=== PATIENT | female | born 1970 | race Caucasian/White ===

== ENCOUNTER → 2018-11-20 16:13 | Outpatient (CLI) | payer MEDICARE, SELFPAY | PROVIDERS: Visit Provider Obstetrics & Gynecology | DX: R00.2 Palpitations (principal) | CPT/HCPCS: 93005 ==

== ENCOUNTER → 2023-09-07 07:54 | Outpatient (CLI) | payer MEDICARE, SELFPAY ==
--- NOTE | 2023-09-07 08:01 | NM_ITS ---
APPROVED REPORT Exam: Nuclear Stress Test Indication: chest pain..soa..fatigue..high bp..high cholesterol..family hx Patient Location: Outpatient Stress Tech: Radha Leyva [place] Tech:Alvina Huertas, ARRT RT(R)(N) Ht: 5 ft 4 in Wt: 170 lbs Bra Size: 44dd HR: 74 bpm BP: 135/87 mmHg BSA: 1.83 m2 Rhythm: NSR TID: 1.27 BMI: 29.1 History: chest pain..soa..fatigue..high bp..high cholesterol..family hx Procedure: Patient exercised on Amarjit protocol 6 minutes and sec, resting heart rate 74 bpm, resting blood pressure 135/87 mmHg, with exercise maximum heart rate achived was 146 bpm which is 88 % of the maximum predicted heart rate and blood pressure was 185/99 mmHg. Test was stopped due to fatigue..soa. Patient denied any complaint of chest pain. Patient has Average exercise capacity, achieved 7 METs of workload on treadmill, the blood pressure response to exercise was Normal. Cardiac Stress and Resting SPECT Images: Cardiac Stress and Resting SPECT images were obtained using technetium 99m Myoview 32.3 mCi stress and 10.33 mCi at rest. Resting and stress imaging in supine and prone positions demonstrate no evidence of fixed or reversible perfusion defects. There is increased transient ischemic dilatation ratio (TID 1.27), suggestive of possible multivessel disease or balanced ischemia. Gated imaging demonstrates normal global and regional LV systolic function. LVEF is calculated at 70%. Conclusion: No evidence of fixed or reversible perfusion defects. There is increased transient ischemic dilatation ratio (TID 1.27), suggestive of possible multivessel disease or balanced ischemia. Gated imaging demonstrates normal global and regional LV systolic function. LVEF is calculated at 70%. Electronically signed by : Danielle Burger MD 09/14/2023 10:17:32
--- NOTE | 2023-09-07 08:30 | CA_ITS ---
APPROVED REPORT EXAM: Comprehensive 2D, Doppler, and color-flow Echocardiogram Insurance Salesman: Nani Nicholson RVT Ht: 5 ft 5 in Wt: 189lbs BSA: 1.93 BP: 132/84 mmHg Indications: ANGINA,HTN,FATIGUE,EDEMA,HLD 2D Dimensions LVOT 1.76 cm (M/F) 1.5-2.5 LA Volume 51.10 mL LA Volume Index 26.48 mL/m2 (M/F) 16-34 M-Mode Dimensions RVDd 2.29 cm (0.9-2.6) LA Diam 3.50 cm (1.9-4.0) LVDd 3.26 cm (3.5-5.7) Ao Diam 3.21 cm (2.0-3.7) LVDs 1.89 cm (3.5-5.7) IVSd 0.60 cm (0.6-1.1) PWd 0.60 cm (0.6-1.1) EF (Teich) 74.30% FS 42.00% EDV (Teich) 42.80 mL TAPSE 2.22 (<1.7) ESV (Teich) 11.00 mL LV Diastology E Decel Time 150.00 (160-240 msec) E/A Ratio 0.9 MED E' 11.00 (< 7 cm/sec) E'/MED E' Ratio 7.14 (>14) LAT E' 8.60 (<10 cm/sec) E/LAT E' Ratio 9.13 (>14) Aortic Valve LVOT Max 97.00 (70-110 cm/s) LVOT VTI 23.63 cm AoV Peak Jad. 98.00 (50-130 cm/s) AO Peak GR. 3.80 mmHg AO Mean GR. 1.90 (<5 mmHg) AO VTI 23.75 (18-25 cm) SADIQ (VTI) 2.42 (2.5-4.5 cm2) Mitral Valve MV E Max Jad. 79.00 (40-130 cm/s) MV A Velocity 90.00 (40-130 cm/s) E/A Ratio 0.87 MV Decel. Time 150.00 (160-240 ms) MV PHT 44.00 ms Pulmonary Valve PV Peak Velocity 69.00 (50-150 cm/s) Tricuspid Valve TR P. Velocity 253.00 cm/s RAP Estimate 10.00 mmHg RVSP 35.50 mmHg Left Ventricle The left ventricle is normal size. The left ventricular systolic function is normal. The left ventricular ejection fraction is within the normal range. There is proximal septal thickness noted. There is normal LV segmental wall motion. The left ventricular diastolic function is normal. LVEF is 60%. Right Ventricle The right ventricle is mildly dilated. The right ventricular systolic function is normal. Atria The left atrium size is normal. The right atrium size is normal. There is no Doppler evidence of interatrial shunt. Aortic Valve The aortic valve opens well. There is no aortic valvular stenosis. Trace aortic regurgitation. Mitral Valve The mitral valve is normal in structure. No evidence of mitral valve stenosis. Mild mitral regurgitation. Tricuspid Valve Tricuspid valve leaflets are thin and pliable. Trace tricuspid regurgitation. RVSP is 25-30 mmHg. Pulmonic Valve The pulmonary valve is normal in structure. Trace pulmonic regurgitation. Great Vessels The aortic root is normal in size. The ascending aorta is normal in size. IVC is normal in size and collapses >50% with inspiration. Pericardium There is no pericardial effusion. Other Information Study Quality: Fair Conclusion Normal left ventricular systolic function. Proximal septal thickness is noted, but without LVOT obstruction. Mild RV dilation. Mild MR. Electronically signed by : Danielle Burger MD 09/14/2023 10:14:23
--- NOTE | 2023-09-07 09:50 | CA_ITS ---
APPROVED REPORT Exam: Exercise Treadmill Technologist: Radha Smith, Ht: 5 ft 5 in Wt: 189 lbs BSA: 1.93 m2 HR: 67 bpm BP: 115/74 mmHg Rhythm: NSR Medical History Medications: Lisinopril,,,,, Levothyroxine,,,,, SpirOLACTONE,,,,, OxYCODONE,,,,, Tizanidine,,,,, TrULicity,,,,, Acarbose,,,,, Stress Test Details Test: Amarjit HR Resting HR: 74 bpm Max Heart Rate (APMHR): 165 bpm Max HR Achieved: 146 bpm Target HR (85% APMHR): 140 bpm % of APMHR: 88 Recovery HR: 72 bpm BP Resting BP: 135.0/87.0 mmHg Max BP: 185.0/99.0 mmHg Recovery BP: 139.0/87.0 mmHg BP response to stress: Normal blood pressure response to stress. ECG Resting ECG: NSR, cannot R/O old anterior [place] Stress ECG: < 0.[address] depression Arrhythmia: None Recovery ECG: Return to baseline within 3 minutes of recovery Recovery Arrhythmia: None Clinical Exercise duration: 06:00 min Highest Stage Achieved: II Exercise capacity: 7.0 METs Overall Exercise Capacity for Age: Average Stress ECG Conclusion The patient was able to exercise for total of 6 minutes, 0 seconds. She achieved a total of 7.0 METS. She has average exercise capacity compared to age and sex matched peers. She has normal HR and BP response to exercise. Max HR: 146 % of PM: 88% Max BP: 185/99 METs: 7.0 Test stopped due to: SOA Symptoms: No CP. Arrhythmias/Ectopy: None ST-T Changes: < 0.[address] depression Conclusion: Average exercise capacity. Normal GXT response to exercise. Myoview images reported separately. Test Summary REST . . . . . . . Sitting REST . . . . . . . Standing REST 03:28 0.0 0.0 74 . 135/ 87 . . Stage 1 01:00 10.0 1.7 94 . . . . Stage 1 02:00 10.0 1.7 110 . . . . Stage 1 03:00 10.0 1.7 116 . 164/ 88 . . Stage 2 01:00 12.0 2.5 129 . . . . Stage 2 . . . . . . . Myoview Injected Stage 2 02:00 12.0 2.5 138 . . . . Stage 2 03:00 12.0 2.5 146 . . . Stop exercise at 06:00 RECOVERY 01:00 0.0 0.0 111 . . . . RECOVERY 02:00 0.0 0.0 83 . 185/ 99 . . RECOVERY 03:00 0.0 0.0 73 . 185/ 99 . . RECOVERY 04:00 0.0 0.0 72 . 159/ 88 . . RECOVERY 05:00 0.0 0.0 75 . 139/ 87 . . RECOVERY 05:26 0.0 0.0 74 . 139/ 87 . . Electronically signed by : Danielle Burger MD 09/14/2023 10:16:15
== END ==
LOC: RAD 07:56
PROVIDERS: PCP Emergency Medicine; Visit Provider Nurse Practitioner Family
DX: E78.5 Hyperlipidemia, unspecified (principal); I10 Essential (primary) hypertension; I20.89 Other forms of angina pectoris; R06.00 Dyspnea, unspecified; R40.0 Somnolence
CPT/HCPCS: 78452; 93017; 93018; 93306; A9502

== ENCOUNTER 2023-10-19 07:34 | Day surgery (SDC) | payer MEDICARE, SELFPAY ==
[2023-10-19] VITALS (12 sets, daily range): BP systolic 87–143; BP diastolic 55–100; PULSE 63–88; RESP 16–20; O2SAT 94–98; BMI 32.1
--- NOTE | 2023-10-19 | IR_ITS ---
APPROVED REPORT Patient Location: Outpatient Disaster Director: SEAN Baez RT (R) PROCEDURES Left heart catheterization Left ventriculogram Selective coronary angiogram INDICATION High risk abnormal Myoview, Angina pectoris, Risk factors for coronary disease Informed consent was obtained prior to the procedure. COMPLICATIONS None Estimated Blood Loss: Less than 10 mls TECHNIQUE One percent lidocaine used to anesthetize the right anterior aspect of the wrist. The right radial artery was accessed via the Seldinger technique. A 6 Persian sheath was placed in the right radial artery. 2.5 mg of Verapamil, 800 mcg of nitroglycerin, 1mg Lidocaine and 5000 U Heparin were given through the arterial sheath. The papa catheter was also used to perform left heart catheterization, left ventriculogram and selective coronary angiogram. At the end of the procedure the sheath was removed good hemostasis was achieved using Traclet band, patient was transferred to the postop holding area in stable condition. ANGIOGRAPHIC RESULTS The left main artery Normal The left anterior descending artery Has proximal and mid vessel 10 to 20% stenoses The circumflex artery Dominant mild 10% luminal irregularities The right coronary artery Nondominant with mid vessel and distal 10 to 20% luminal irregularities The SANCHEZ ventriculogram reveals Hyperdynamic at 80% The left ventricular end-diastolic pressure Elevated at 20 mmHg IMPRESSION Mild diffuse nonflow limiting coronary artery disease as described above Hyperdynamic ventricle with elevated LVEDP PLAN 1. Rest of risk factor modification 2. Aggressive medical management Electronically signed by : Omari Miller MD 10/19/2023 10:22:20
[2023-10-19 08:38] LABS: Basophils # 0.1 K/mm3 (0-0.2); Basophils % 1.3 % (0.1-2.0); Eosinophils # 0.6 K/mm3 (0.0-0.4); Hematocrit 43.1 % (37.0-47.0); Hemoglobin 15.2 g/dL (12.2-16.2); Lymphocytes # 4.1 K/mm3 (0.7-4.5); Lymphocytes % 43.5 % (10-50); Mean Corpuscular HGB Conc 35.3 g/dL (31.8-35.4); Mean Corpuscular Hemoglobin 30.6 pg (27.0-31.2); Mean Corpuscular Volume 86.6 fl (81-99); Monocytes # 0.8 K/mm3 (0.1-1.0); Monocytes % 8.9 % (1.7-9.3); Neutrophils # 3.8 K/mm3 (1.8-7.8); Neutrophils % 40.3 % (37.0-80.0); Platelet Count 222 K/mm3 (142-424); Red Blood Count 4.97 M/mm3 (4.20-5.40); White Blood Count 9.3 K/mm3 (4.8-10.8)
[2023-10-19 09:02] LABS: Anion Gap 9.5 mEq/L (5-15); Blood Urea Nitrogen 13 mg/dl (7-17); Calcium 8.6 mg/dl (8.4-10.2); Carbon Dioxide 27 mmol/L (22.0-30.0); Chloride 102 mmol/L (98-107); Creatinine Clearance Estimated 125 mL/min (50-200); Estimated Glomerular Filt Rate 87 ml/min (>60); GFR (African American) 105 ML/MIN (>60); Glucose 189 mg/dl (74-100); Potassium 3.5 mmoL/L (3.5-5.1); Sodium 135 mmol/L (136-145)
[2023-10-19 09:23] LABS: HCG Qualitative, Serum Negative (Negative)
[2023-10-19] MEDS: diphenhydrAMINE 50MG/ML VIAL 50 MG IV (10:04)
[2023-10-19] MEDS: NITROGLYCERIN 800MCG/8ML SYR (CATH LAB) 800 MCG IA (10:04)
[2023-10-19] MEDS: HEPARIN 1,000 UNITS/500ML NS (CATH LAB) 3000 UNIT IV (10:05)
[2023-10-19] MEDS: LIDOCAINE 1% 10ML MDV 20 ML IJ (10:05)
[2023-10-19] MEDS: HEPARIN 1,000 UNITS/ML 10ML VIAL (CATH LAB) 10000 UNIT IV (10:05)
[2023-10-19] MEDS: 0.9 % SODIUM CHLORIDE 500 ML 25 ML IV (10:06)
[2023-10-19] MEDS: FENTANYL 100MCG/2ML VIAL 50 MCG IV (10:19)
[2023-10-19] MEDS: MIDAZOLAM HCL 1MG/1ML 5ML VIAL 1 MG IV (10:20)
[2023-10-19] MEDS: VERAPAMIL 2.5MG/ML 2ML VIAL 2.5 MG IV (10:46)
[2023-10-19] MEDS: IOPAMIDOL-370 (76%);100ML BOTTLE 50 ML IV (10:49)
== END 2023-10-19 13:20 | disposition home or self-care (01) ==
PROVIDERS: PCP Nurse Practitioner Family; Visit Provider Internal Medicine
DX: I25.118 Atherosclerotic heart disease of native coronary artery with other forms of angina pectoris (principal); R94.39 Abnormal result of other cardiovascular function study; Z79.899 Other long term (current) drug therapy; E11.9 Type 2 diabetes mellitus without complications; E78.5 Hyperlipidemia, unspecified; I10 Essential (primary) hypertension; R06.09 Other forms of dyspnea
CPT/HCPCS: 80048; 84703; 85025; 93458; 99152; C1725; C1769; J1644; Q9967

== ENCOUNTER 2023-11-07 18:21 | Outpatient (CLI) | payer MEDICARE, SELFPAY ==
[2023-11-07 19:29] LABS: Phencyclidine Screen,Urine Negative ng/ml (<25)
[2023-11-07 19:44] LABS: Barbiturates Screen,Urine Negative ng/ml (<200)
[2023-11-07 19:45] LABS: Benzodiazepines Screen,Urine Negative ng/ml (<200)
[2023-11-07 19:46] LABS: Cocaine Screen,Urine Negative ng/ml (<300)
[2023-11-07 19:47] LABS: Methadone Screen,Urine Negative ng/ml (<300)
[2023-11-07 19:51] LABS: Amphetamine/Metha Screen,Urine Negative ng/ml (<1000)
[2023-11-07 19:52] LABS: Cannabinoid Screen,Urine Negative ng/ml (<50)
[2023-11-07 19:56] LABS: Opiate Screen,Urine Negative ng/ml (<300)
== END 2023-11-07 23:59 ==
LOC: LAB.DROPOF 18:21
PROVIDERS: Visit Provider Family Medicine
DX: Z79.899 Other long term (current) drug therapy (principal)
CPT/HCPCS: 80307; 80365

== ENCOUNTER 2023-11-15 20:19 | Outpatient (CLI) | payer MEDICARE, SELFPAY ==
[2023-11-15 21:07] LABS: Amphetamine/Metha Screen,Urine Negative ng/ml (<1000); Benzodiazepines Screen,Urine Negative ng/ml (<200)
[2023-11-15 21:08] LABS: Barbiturates Screen,Urine Negative ng/ml (<200)
[2023-11-15 21:09] LABS: Cannabinoid Screen,Urine Negative ng/ml (<50); Cocaine Screen,Urine Negative ng/ml (<300)
[2023-11-15 21:10] LABS: Methadone Screen,Urine Negative ng/ml (<300); Opiate Screen,Urine Negative ng/ml (<300)
[2023-11-15 21:11] LABS: Phencyclidine Screen,Urine Negative ng/ml (<25)
[2023-11-20 10:32] LABS: Opiates Negative (Cutoff=100); Oxycodone (GC/MS) 896 ng/mL (Cutoff=100); Oxymorphone (GC/MS) 911 ng/mL (Cutoff=100)
== END 2023-11-15 23:59 ==
LOC: LAB.DROPOF 20:20
PROVIDERS: Visit Provider Family Medicine
DX: Z79.899 Other long term (current) drug therapy (principal)
CPT/HCPCS: 80307; 80361; 80365; G0480

== ENCOUNTER 2023-11-17 19:28 | Outpatient (CLI) | payer MEDICARE, SELFPAY | END 2023-11-17 23:59 | LOC: LAB.DROPOF 19:31 | PROVIDERS: PCP Nurse Practitioner; Visit Provider Nurse Practitioner | DX: B35.1 Tinea unguium (principal); M79.674 Pain in right toe(s) | CPT/HCPCS: 87102; 87206; 87220 ==

== ENCOUNTER 2023-11-22 13:15 | Outpatient (CLI) | payer MEDICARE, SELFPAY ==
--- NOTE | 2023-11-22 13:23 | XR_ITS ---
FINAL REPORT CLINICAL HISTORY: right shoulder pain/swelling. Hx of arthritis and rotator cuff tear. COMPARISON: None FINDINGS: RIGHT SHOULDER: Three views show no evidence of an acute, displaced fracture or dislocation of the visualized bony architecture. Mild degenerative joint disease is present in the glenohumeral and acromioclavicular joints. IMPRESSION: Degenerative changes. No acute bony abnormality. Reviewed, Interpreted and Dictated by Lisa Gann MD Transcribed by Eun Cabrales Authenticated and [facility]
== END 2023-11-22 23:59 ==
LOC: RAD 13:16
PROVIDERS: PCP Family Medicine; Visit Provider Orthopaedic Surgery
DX: M25.511 Pain in right shoulder (principal)
CPT/HCPCS: 73030

== ENCOUNTER 2024-01-11 18:22 | Outpatient (CLI) | payer MEDICARE, SELFPAY ==
[2024-01-11 19:04] LABS: Chloride 104 mmol/L (98-107); Potassium 4.1 mmoL/L (3.5-5.1); Sodium 137 mmol/L (136-145)
[2024-01-11 19:06] LABS: Blood Urea Nitrogen 12 mg/dl (7-17); Estimated Glomerular Filt Rate 104 ml/min (>60); GFR (African American) 126 ML/MIN (>60)
[2024-01-11 19:07] LABS: Alanine Aminotransferase 22 U/L (12-78); Albumin Level 3.9 g/dl (3.5-5.0); Albumin/Globulin Ratio 1.5 (1.1-1.8); Alkaline Phosphatase 83 U/L (38-126); Anion Gap 9.1 mEq/L (5-15); Aspartate Amino Transferase 26 U/L (14-36); Bilirubin,Direct 0.2 mg/dl (0.0-0.4); Bilirubin,Indirect 0.5 mg/dL (0.0-0.9); Bilirubin,Total 0.7 mg/dl (0.2-1.3); Bilirubin,Unconjugated 0.6 mg/dL (0.0-1.1); Calcium 8.9 mg/dl (8.4-10.2); Carbon Dioxide 28 mmol/L (22.0-30.0); Cholesterol 199 mg/dl (140-200); Globulin 2.6 g/dL (1.3-3.2); Glucose 124 mg/dl (74-100); HDL Cholesterol 31 mg/dl (40-60); Total Protein,Serum 6.5 g/dl (6.3-8.2); Triglycerides 283 mg/dl (30-150); VLDL Cholesterol 57 mg/dL (0-40)
[2024-01-11 19:11] LABS: Chol/HDL Ratio 6.4 (1-3.5)
[2024-01-11 19:31] LABS: Direct LDL Cholesterol 99.17 mg/dL (100-129)
[2024-01-11 19:38] LABS: Thyroid Stimulating Hormone < 0.02 uIU/mL (0.465-4.68)
[2024-01-11 20:08] LABS: Hemoglobin A1C 6.2 % (4.0-6.0)
== END 2024-01-11 23:59 ==
LOC: LAB.DROPOF 18:22
PROVIDERS: PCP Family Medicine; Visit Provider Family Medicine
DX: E78.5 Hyperlipidemia, unspecified (principal); E11.9 Type 2 diabetes mellitus without complications; E78.2 Mixed hyperlipidemia; C73 Malignant neoplasm of thyroid gland; Z79.899 Other long term (current) drug therapy
CPT/HCPCS: 80053; 80061; 80076; 83036; 84443

== ENCOUNTER 2024-03-26 10:48 | Outpatient (CLI) | payer MEDICARE, SELFPAY ==
[2024-04-02 16:12] LABS: Atopobium vaginae Low - 0 Score (.); BVAB2 Low - 0 Score (.); Candida albicans NAA Negative (Negative); Candida glabrata Negative (Negative); Chlamydia Trachomatis NAA Negative (Negative); HSV 1 NAA Negative (Negative); HSV 2 NAA Negative (Negative); Megasphaera 1 Low - 0 Score (.); Neisseria gonorrhoeae NAA Negative (Negative); Trich vag NAA Negative (Negative)
== END 2024-03-26 23:59 | disposition home or self-care (01) ==
LOC: LAB.DROPOF 03-27 10:48
PROVIDERS: PCP Urology; Visit Provider Urology
DX: N39.0 Urinary tract infection, site not specified; N39.46 Mixed incontinence; N89.8 Other specified noninflammatory disorders of vagina
CPT/HCPCS: 87491; 87529; 87563; 87591; 87661; 87798; 87801

== ENCOUNTER 2024-04-04 11:04 | Outpatient (CLI) | payer MEDICARE, SELFPAY ==
[2024-04-04 20:28] LABS: Thyroid Stimulating Hormone < 0.02 uIU/mL (0.465-4.68)
[2024-04-05 10:33] LABS: Triiodothryronine (T3) Uptake 37 % (23.5-40.5)
[2024-04-05 10:34] LABS: Free Thyroxine Index 4.9 ug/dL (5.93-13.13); T4 (Thyroxine) 13.2 ug/dl (5.53-11.0)
[2024-04-05 10:48] LABS: Thyroid Stimulating Hormone < 0.02 uIU/mL (0.465-4.68)
== END 2024-04-04 23:59 | disposition home or self-care (01) ==
LOC: LAB.DROPOF 04-05 11:05
PROVIDERS: Visit Provider Family Medicine
DX: E03.9 Hypothyroidism, unspecified (principal); R79.89 Other specified abnormal findings of blood chemistry
CPT/HCPCS: 84436; 84443; 84479

== ENCOUNTER 2024-04-10 07:49 | Outpatient (CLI) | payer MEDICARE, SELFPAY ==
--- NOTE | 2024-04-10 07:49 | CT_ITS ---
FINAL REPORT TECHNIQUE: Axial CT of the abdomen and pelvis, without and with IV contrast. Coronal and sagittal reconstructions were obtained and reviewed. This study was performed with techniques to keep radiation doses as low as reasonably achievable, (ALARA). Individualized dose reduction techniques using automated exposure control or adjustment of mA and/or kV according to the patient's size were employed. CLINICAL HISTORY: Abdominal pain COMPARISON: None FINDINGS: Abdomen: Liver has an unremarkable CT appearance. Status post cholecystectomy. The spleen, pancreas and adrenal glands are unremarkable. Precontrast imaging shows no renal stone disease. Postcontrast imaging of the kidneys shows minimal right renal scarring. There is a small right renal cyst. No bowel obstruction or fluid collection is seen. Pelvis: The appendix is normal. Pelvic bowel loops are unremarkable. Status post hysterectomy. No pelvic mass or free fluid identified. IMPRESSION: Unremarkable exam Reviewed, Interpreted and Dictated by Lisa Gann MD Transcribed by Aria Fernando Authenticated and [facility]
--- NOTE | 2024-04-10 08:12 | CT_ITS ---
FINAL REPORT TECHNIQUE: Axial images were obtained from the lung apex to the mid abdomen by computed tomography. Coronal reformatted images were obtained. This study was performed with techniques to keep radiation doses as low as reasonably achievable, (ALARA). Individualized dose reduction techniques using automated exposure control or adjustment of mA and/or kV according to the patient''s size were employed. CLINICAL HISTORY: Nodules/Chest pain COMPARISON: None FINDINGS: There is mild precarinal adenopathy measuring 18 x 13 mm. Heart size is normal. The ascending aorta is borderline enlarged with the aortic sinus measuring 40 mm and the mid ascending aorta measuring 36 mm. There is no pericardial or pleural effusion. There is a thin-walled cyst in the medial right lung apex measuring 16 mm. Mild scarring is noted at the lateral right lower lobe. The left lung is clear. There is a mass in the upper right breast measuring 31 x 21 mm with smoothly marginated calcified rim suggesting benign etiology. IMPRESSION: No suspicious pulmonary nodule. Nonspecific mild mediastinal adenopathy. Right breast mass. Correlate with prior breast imaging. Reviewed, Interpreted and Dictated by Lisa Gann MD Transcribed by Aria Fernando Authenticated and [facility]
--- NOTE | 2024-04-10 08:12 | XR_ITS ---
FINAL REPORT CLINICAL HISTORY: Abdominal pain COMPARISON: None FINDINGS: The visualized intestinal gas pattern appears unremarkable without evidence to suggest obstruction. No abnormal radiopacities are seen in the abdomen. Surgical change from prior cholecystectomy. IMPRESSION: No acute findings. Reviewed, Interpreted and Dictated by Lisa Gann MD Transcribed by Aria Fernando Authenticated and [facility]
[2024-04-10 08:53] LABS: Blood Urea Nitrogen 16 mg/dl (7-17); Estimated Glomerular Filt Rate 74 ml/min (>60); GFR (African American) 90 ML/MIN (>60)
== END 2024-04-10 23:59 | disposition home or self-care (01) ==
PROVIDERS: PCP Family Medicine; Visit Provider Urology
DX: N20.0 Calculus of kidney (principal); R91.8 Other nonspecific abnormal finding of lung field; N39.41 Urge incontinence
CPT/HCPCS: 36415; 71250; 74018; 74178; 82565; 84520; Q9967

== ENCOUNTER 2024-04-13 09:57 | Day surgery (SDC) | payer MEDICARE, SELFPAY ==
[2024-04-13 11:07] VITALS: BP 123/89; PULSE 83; RESP 18; TEMP 36.5; O2SAT 98; BMI 27.4
[2024-04-13 11:12] LABS: POC Glucose,Bedside 171 (70-110)
[2024-04-13] MEDS: LACTATED RINGERS 1000ML 1,000 ML 50 ML IV (13:41)
[2024-04-13] MEDS: LIDOCAINE 2% UROJET 10ML 10 ML (13:41)
--- NOTE | 2024-04-13 13:42 | P.PCN_ITS ---
[facility] Procedure Note Date: 04/13/24 Time: 13:42 Procedure Note:: Preop diagnosis: Bladder cancer history Postop diagnosis: No bladder cancer today Operative note: Patient was brought to the cystoscopy treatment room. She was prepped and draped in the standard fashion. She underwent catheterization for urine culture and sensitivity. Her postvoid residual is 1 ounce. Patient underwent flexible cystoscopy. Her urethra is normal. The ureteral orifices are normal bilaterally with clear reflux of urine. She has some pseudomembranous trigonitis. The patient's bladder is otherwise free of stone tumor hemorrhage or infection. She tolerated the procedure well.
[2024-04-13 13:45] VITALS: BP 129/79; PULSE 83; RESP 18; TEMP 36.7; O2SAT 98
[2024-04-13 14:05] VITALS: BP 129/79; PULSE 83; RESP 18; O2SAT 98
[2024-04-13 15:22] LABS: Microscopic,Cath URINE MICROSCOPIC (MICROSCOPIC)
[2024-04-13 15:32] LABS: Appearance,Urine/Cath CLEAR (Clear); Bilirubin,Cath Negative (Negative); Blood, Urine/Cath TRACE-I (Negative); Color,Urine/Cath YELLOW (Yellow); Glucose,Urine/Cath (UA) Negative (Negative); Ketones,Urine/Cath Negative (Negative); Leukocyte Esterase,Cath Negative (Negative); Nitrate,Cath Negative (Negative); PH,Urine/Cath 5.5 (5.0-8.5); Protein,Urine/Cath Negative (Negative); Specific Gravity, Urine/Cath >= 1.030 (1.005-1.030); Urobilinogen,Cath 0.2 EU/dl (0.2)
== END 2024-04-13 14:05 | disposition home or self-care (01) ==
PROVIDERS: PCP Family Medicine; Visit Provider Urology
PROC: 0TJB8ZZ Inspection of Bladder, Via Natural or Artificial Opening Endoscopic (ICD-10-PCS; CPT 52000; principal; 2024-04-13 12:15)
DX: N30.30 Trigonitis without hematuria (principal); Z85.51 Personal history of malignant neoplasm of bladder; E11.9 Type 2 diabetes mellitus without complications
CPT/HCPCS: 52000; 81001; 82962; J7120

== ENCOUNTER 2024-06-07 16:15 | Outpatient (CLI) | payer MEDICARE, SELFPAY ==
[2024-06-07 16:49] LABS: Basophils # 0.1 K/mm3 (0-0.2); Basophils % 1.2 % (0.1-2.0); Eosinophils # 0.7 K/mm3 (0.0-0.4); Eosinophils % 6.6 % (0.1-12.0); Hematocrit 44.7 % (37.0-47.0); Hemoglobin 14.7 g/dL (12.2-16.2); Lymphocytes # 3.2 K/mm3 (0.7-4.5); Lymphocytes % 32.1 % (10-50); Mean Corpuscular HGB Conc 32.9 g/dL (31.8-35.4); Mean Corpuscular Hemoglobin 30.7 pg (27.0-31.2); Mean Corpuscular Volume 93.4 fl (81-99); Mean Platelet Volume 7.8 fl (7.4-10.4); Monocytes # 0.7 K/mm3 (0.1-1.0); Monocytes % 7.3 % (1.7-9.3); Neutrophils # 5.2 K/mm3 (1.8-7.8); Neutrophils % 52.8 % (37.0-80.0); Platelet Count 292 K/mm3 (142-424); Red Blood Count 4.79 M/mm3 (4.20-5.40); White Blood Count 9.9 K/mm3 (4.8-10.8)
[2024-06-07 17:01] LABS: D-Dimer 0.31 ug/mL (0.0-0.5)
[2024-06-07 18:07] LABS: Alanine Aminotransferase 21 U/L (12-78); Albumin/Globulin Ratio 1.4 (1.1-1.8); Alkaline Phosphatase 84 U/L (38-126); Anion Gap 8.9 mEq/L (5-15); Aspartate Amino Transferase 24 U/L (14-36); Blood Urea Nitrogen 15 mg/dl (7-17); Calcium 9.4 mg/dl (8.4-10.2); Carbon Dioxide 29 mmol/L (22.0-30.0); Chloride 104 mmol/L (98-107); Estimated Glomerular Filt Rate 87 ml/min (>60); GFR (African American) 105 ML/MIN (>60); Globulin 2.9 g/dL (1.3-3.2); Glucose 103 mg/dl (74-100); Potassium 4.9 mmoL/L (3.5-5.1); Sodium 137 mmol/L (136-145); Total Protein,Serum 6.9 g/dl (6.3-8.2)
[2024-06-07 19:17] LABS: Amphetamine/Metha Screen,Urine Negative ng/ml (<1000); Barbiturates Screen,Urine Negative ng/ml (<200); Benzodiazepines Screen,Urine Negative ng/ml (<200); Cannabinoid Screen,Urine Negative ng/ml (<50); Cocaine Screen,Urine Negative ng/ml (<300); Methadone Screen,Urine Negative ng/ml (<300); Opiate Screen,Urine Negative ng/ml (<300); Phencyclidine Screen,Urine Negative ng/ml (<25)
[2024-06-12 16:14] LABS: Oxycodone Positive (.); Oxycodone Confirm 179 ng/mL (Cutoff=100); Oxymorphone Positive (.); Oxymorphone Confirm 897 ng/mL (Cutoff=100)
== END 2024-06-07 23:59 | disposition home or self-care (01) ==
LOC: LAB 16:16
PROVIDERS: PCP Family Medicine; Visit Provider Family Medicine
DX: M79.669 Pain in unspecified lower leg (principal); R53.83 Other fatigue; Z00.00 Encounter for general adult medical examination without abnormal findings; G89.29 Other chronic pain; M79.2 Neuralgia and neuritis, unspecified
CPT/HCPCS: 80053; 80307; 80365; 85025; 85378; G0480

== ENCOUNTER 2024-06-21 07:56 | Day surgery (SDC) | payer MEDICARE, SELFPAY ==
[2024-06-18 17:15] VITALS: BMI 32.4
[2024-06-21 08:22] VITALS: BP 126/77; PULSE 74; RESP 18; TEMP 36.4; O2SAT 97
[2024-06-21] MEDS: LACTATED RINGERS 1000ML 1,000 ML 25 ML IV (08:31)
[2024-06-21 08:37] LABS: POC Glucose,Bedside 133 (70-110)
--- NOTE | 2024-06-21 08:38 | EXP.ANES.CKL ---
[facility] Disclaimer: The information contained in this section may have been updated after the patient was seen, as this information can be updated by other users. Medical History Nasal vestibulitis Hyperthyroidism Internal nasal lesion Abnormal cardiovascular stress test Angina pectoris Diabetes mellitus HLD (hyperlipidemia) HTN (hypertension) Daytime somnolence Atypical angina Dyspnea Thyroid cancer Torn rotator cuff Cervical cancer Basal cell carcinoma Surgical History History of partial hysterectomy History of cholecystectomy History of thyroidectomy H/O: hysterectomy Family History Other Thyroid cancer Thyroid disorder Social History Smoking Status: Never smoker alcohol intake: current alcohol intake frequency: other substance use type: denies use current occupational status: unemployed and disabled Travel in the last 8 weeks: None [facility] Anesthesia Checklist Patient Identification Patient Identification: Arm Band, Family and Verbal (Name & ) Structural Data Admitted From: Home Planned Operative Procedure/s: EGD/Colonoscopy Consent for Planned Operative Procedure(s) Verified: Yes Verified Documents: Surgical Consent and History and Physical NPO Status Verified Time NPO: 20:00 Chart Verification Results Verified: CBC, BMP, ECG and Chest Xray Additional verifications Fingerstick Blood Glucose: 133 Patient : No Anesthesia Reactions: No Previous Colonoscopy: Yes Cardiovascular Assessment Heart Sounds: S1 & S2 Pulse Rhythm: Irregular Peripheral Edema: No Airway Assessment Mallampati Score:: Class II C-Spine Mobility Assessed: Yes (FROM demonstrated) TMJ Mobility Assessed: Yes Dentition: Good Dentition Neurological Assessment Level of Consciousness: Awake, Alert, Appropriate and Follows Commands Hx Seizures: No Numbness or tingling in extremities: No Anesthesia Plan Anesthesia Risk discussed: Yes Anesthesia Plan: Verified ASA Class: III Anesthesia Type: MAC
[2024-06-21 09:25] VITALS: O2SAT 96
--- NOTE | 2024-06-21 09:52 | HMH.SCOPE ---
Procedure: Date: 06/21/24 Patient Date of :: 1970 Procedure Performed:: EGD Indications:: Hx of Barretts Performing Provider:: Sophia Medrano MD Referring Provider:: Kimmie Medrano APRN Sedation:: Propofol Procedure:: The gastroscope was gently passed through the incisoral orifice into the oral cavity and under direct visualization the esophagus was intubated. The endoscope was passed down the esophagus, through the stomach, and into the duodenum. Color, texture, mucosa, and anatomy of the esophagus, stomach, and duodenum were carefully examined with the scope. Findings:: Oropharynx: normal Esophagus: normal, No evidence of barretts EG Junction: intact at 40 cm Cardia: normal Fundus: normal Body: normal Antrum: normal Duodenal bulb: normal Duodenum (second and third portion): normal Impression: Normal EGD, no evidence of barretts Recommendations:: F/U PRN Complications:: None Estimated blood obtained (mL): 0 Colonoscopy Component Colonoscopy Component Was a colonoscopy performed during today's procedure?: No
--- NOTE | 2024-06-21 09:54 | HMH.SCOPE ---
Procedure: Date: 06/21/24 Patient Date of :: 1970 Procedure Performed:: Colonoscopy & polypectomy Indications:: Personal history of polyps Performing Provider:: Sophia Medrano MD Referring Provider:: Kimmie Medrano APRN Sedation:: Propofol Procedure:: After placing the patient in the left lateral decubitus position, the colonoscopy was gently inserted into the rectum and under direct visualization advanced to the cecum which was identified by transillumination in the right lower quadrant, identification of the ileocecal valve, appendiceal orifice, and cecal strap. Color, texture, mucosa, and anatomy of the colon were carefully examined with the scope. Findings:: Anal canal: normal Rectum: normal Sigmoid colon: normal without polyps or inflammatory changes Descending colon: normal without polyps or inflammatory changes Splenic flexure: normal Transverse colon: normal, 0.5 cm polyp identified in proximal region, snared and removed. Hepatic flexure: normal Ascending colon: normal without polyps or inflammatory changes, moderate amount of retained stools Cecum: normal, visualiztion impaired due to retained stools Terminal ileum: not visualized Impression: Polyp of transverse colon-snared and removed Fair colon prep with moderate amount of residual stool seen, especially in right colon Specimens:: Polyp Recommendations:: Follow up examination in about THREE-FIVE years or so, sooner if clinically indicated in view of findings of polyps and fair prep. Complications:: None Estimated blood obtained (mL): 0 Colonoscopy Component Colonoscopy Component Was a colonoscopy performed during today's procedure?: Yes Recommended follow up colonoscopy of at least 10 years?: No If no, follow up colonoscopy recommended in ___ years?: 3-5 years Reason for not recommending >/= 10 yr follow-up interval?: Polyp and fair prep with residual stools
[2024-06-21 09:55] VITALS: BP 93/59; PULSE 88; RESP 16; TEMP 36.6; O2SAT 94
[2024-06-21 10:05] VITALS: BP 106/73; PULSE 81; RESP 16; O2SAT 97
[2024-06-21 10:15] VITALS: BP 122/76; PULSE 86; RESP 18; O2SAT 97
[2024-06-21 10:25] VITALS: BP 116/80; PULSE 80; RESP 16; O2SAT 97
== END 2024-06-21 10:39 | disposition home or self-care (01) ==
PROVIDERS: PCP Family Medicine; Visit Provider Internal Medicine Gastroenterology
PROC: 0DJ08ZZ Inspection of Upper Intestinal Tract, Via Natural or Artificial Opening Endoscopic (ICD-10-PCS; CPT 43235; principal; 2024-06-21 09:30)
DX: Z86.010 Personal history of colon polyps (principal); K21.9 Gastro-esophageal reflux disease without esophagitis; Z12.11 Encounter for screening for malignant neoplasm of colon; E11.9 Type 2 diabetes mellitus without complications; Z79.85 Long-term (current) use of injectable non-insulin antidiabetic drugs
CPT/HCPCS: 45385; 82962; 88305; J2704; J7120

== ENCOUNTER 2024-06-26 12:41 | Outpatient (CLI) | payer MEDICARE, SELFPAY ==
--- NOTE | 2024-06-26 12:50 | MR_ITS ---
FINAL REPORT CLINICAL HISTORY: loss of control of bladder, worsening pain in lower back FINDINGS: Multiplanar MR imaging of the lumbar spine was performed without and with contrast. On the sagittal T2-weighted images, disc degeneration is seen at multiple levels. The vertebral alignment is normal. There is no evidence of fracture. The conus is seen at approximately the L1 level and has an unremarkable appearance. L1-2: An annular bulge is present. Facet arthropathy and osteophytes are present. There is mild right neural foraminal narrowing. L2-3: An annular bulge and facet arthropathy are present. There is no significant canal stenosis or neural foraminal narrowing. L3-4: An annular bulge is present. Facet arthropathy and osteophytes are present. There is mild bilateral neural foraminal narrowing. L4-5: An annular disc bulge is present with mild bilateral neural foraminal narrowing. L5-S1: An annular bulge and facet arthropathy are present. There is a small right paracentral disc protrusion with mild bilateral neural foraminal narrowing. No abnormal contrast enhancement is identified. IMPRESSION: Multilevel mild degenerative disc disease and spondylosis with areas of neural foraminal narrowing as described. Small right paracentral disc protrusion at L5-S1. Reviewed, Interpreted and Dictated by Emile Ribera III, MD Transcribed by Anette Bernstein Authenticated and [facility]
[2024-06-26] MEDS: GADOTERIDOL INJ 10ML SYRINGE 16 ML IV (13:55)
[2024-06-26] MEDS: SODIUM CHLORIDE 0.9% 10ML SYR (RAD ONLY) 10 ML IV (13:55)
== END 2024-06-26 23:59 | disposition home or self-care (01) ==
LOC: RAD 12:42
PROVIDERS: PCP Family Medicine; Visit Provider Family Medicine
DX: R32 Unspecified urinary incontinence (principal)
CPT/HCPCS: 72158; A9576

== ENCOUNTER 2024-07-18 14:53 | Outpatient (CLI) | payer MEDICARE, SELFPAY ==
--- NOTE | 2024-07-18 14:53 | MR_ITS ---
FINAL REPORT CLINICAL HISTORY: unable to control urine stream, worsening pain FINDINGS: Multi planar MR imaging of the pelvis was obtained with and without contrast.. Marrow signal is normal. There is no adenopathy or soft tissue mass. Presacral region is unremarkable. The patient is status post hysterectomy. There is no evidence of abnormal contrast enhancement on the postcontrast images. IMPRESSION: No abnormality to account for patient's symptoms. Reviewed, Interpreted and Dictated by Lisa Gann MD Transcribed by Anette Bernstein Authenticated and [facility]
[2024-07-18 15:18] LABS: Blood Urea Nitrogen 13 mg/dl (7-17); Estimated Glomerular Filt Rate 87 ml/min (>60); GFR (African American) 105 ML/MIN (>60)
[2024-07-18] MEDS: SODIUM CHLORIDE 0.9% 10ML SYR (RAD ONLY) 10 ML IV (16:08)
[2024-07-18] MEDS: GADOTERIDOL INJ 20ML SYRINGE 16 ML IV (16:09)
== END 2024-07-18 23:59 | disposition home or self-care (01) ==
LOC: RAD 14:53
PROVIDERS: PCP Family Medicine; Visit Provider Family Medicine
DX: R32 Unspecified urinary incontinence (principal)
CPT/HCPCS: 36415; 72197; 82565; 84520; A9576

== ENCOUNTER 2024-09-21 08:54 | Outpatient (CLI) | payer MEDICARE, SELFPAY ==
--- NOTE | 2024-09-21 09:52 | ECG_ITS ---
APPROVED REPORT Exam: Resting ECG HR:76 bpm ECG Measurements Heart Rate 76 AXES WV 168 P 6 QRSd 75 QRS 70 QT 383 T 33 QTc 414 Conclusion SINUS RHYTHM LOW QRS VOLTAGE IN PRECORDIAL LEADS [QRS DEFLECTION < 1.0 mV IN CHEST LEADS] BORDERLINE ECG UNCONFIRMED REPORT Electronically signed by : Omkar Meadows MD 09/23/2024 11:18:53
[2024-09-21 09:57] VITALS: BMI 29.2
[2024-09-21 10:09] LABS: Chloride 108 mmol/L (98-107); Sodium 138 mmol/L (136-145)
[2024-09-21 10:11] LABS: Basophils # 0.1 K/mm3 (0-0.2); Basophils % 1.3 % (0.1-2.0); Eosinophils # 0.6 K/mm3 (0.0-0.4); Eosinophils % 6.5 % (0.1-12.0); Hematocrit 41.5 % (37.0-47.0); Hemoglobin 14.9 g/dL (12.2-16.2); Lymphocytes # 3.4 K/mm3 (0.7-4.5); Lymphocytes % 39.3 % (10-50); Mean Corpuscular HGB Conc 35.8 g/dL (31.8-35.4); Mean Corpuscular Hemoglobin 30.2 pg (27.0-31.2); Mean Corpuscular Volume 84.3 fl (81-99); Mean Platelet Volume 7.5 fl (7.4-10.4); Monocytes # 0.7 K/mm3 (0.1-1.0); Neutrophils # 3.9 K/mm3 (1.8-7.8); Platelet Count 239 K/mm3 (142-424); Red Blood Count 4.92 M/mm3 (4.20-5.40); Red Cell Distribution Width 13.3 % (11.5-17.5); White Blood Count 8.7 K/mm3 (4.8-10.8)
[2024-09-21 10:12] LABS: Blood Urea Nitrogen 13 mg/dl (7-17); Calcium 8.8 mg/dl (8.4-10.2); Carbon Dioxide 22 mmol/L (22.0-30.0); Creatinine Clearance Estimated 127 mL/min (50-200); Estimated Glomerular Filt Rate 103 ml/min (>60); GFR (African American) 125 ML/MIN (>60); Glucose 158 mg/dl (74-100)
== END 2024-09-21 23:59 | disposition home or self-care (01) ==
LOC: PREOP 08:55
PROVIDERS: Nurse Anesthetist, Certified Registered; PCP Family Medicine; Visit Provider Orthopaedic Surgery
DX: Z01.810 Encounter for preprocedural cardiovascular examination (principal); I10 Essential (primary) hypertension; R94.31 Abnormal electrocardiogram [ECG] [EKG]
CPT/HCPCS: 80048; 85025; 93005

== ENCOUNTER 2024-10-02 13:34 | Emergency (ER) | payer MEDICARE, SELFPAY ==
--- NOTE | 2024-10-02 13:45 | XR_ITS ---
FINAL REPORT CLINICAL HISTORY: Shortness of air, cough congestion FINDINGS: A single portable view of the chest was obtained. The heart size and pulmonary vascularity are within normal limits. The mediastinum is within normal limits. There are left lung opacities worrisome for pneumonia. The bony thorax is intact. IMPRESSION: Left lung opacities are worrisome for pneumonia. Reviewed, Interpreted and Dictated by Emile Ribera III, MD Transcribed by Liliane Samuels Authenticated and [facility]
--- NOTE | 2024-10-02 13:52 | ED_ITS ---
<Statement entered by Alisha Diaz DO - 10/02/24 15:30> I was consulted by the FARIBA, and we discussed the complexity of the problems being addressed. I approved the treatment and management plan for this patient's care in the emergency department, thus performing a substantive portion of the medical decision making. Alisha Diaz DO Discharge Plan Disposition Patient Disposition: Home, Self-Care Condition: Good Prescriptions Prescriptions: New amoxicillin-pot clavulanate 875-125 mg tablet 1 tab PO BID 5 Days Qty: 10 0RF azithromycin [Zithromax Z-Gavin] 250 mg tablet See Rx Instructions .ROUTE .COMPLEX Qty: 6 0RF Rx Instructions: For 500 mg dose pack: 500 mg day 1, take 250 mg once daily for 4 days No Action atorvastatin [Lipitor] 20 mg tablet 20 mg PO DAILY Qty: 90 1RF budesonide-formoterol [Symbicort] 160-4.5 mcg/actuation HFA aerosol inhaler 1 puff inhalation QID PRN (Reason: shortness of breath or wheezing) 90 Days Qty: 10.2 3RF Trulicity 3 mg/0.5 mL pen injector 3 mg SQ WEEKLY Qty: 2 2RF duloxetine [Cymbalta] 60 mg capsule,delayed release(DR/EC) 60 mg PO DAILY Qty: 90 0RF levothyroxine [Synthroid] 137 mcg tablet 137 mcg PO DAILY Qty: 90 1RF lisinopril 10 mg tablet 10 mg PO DAILY Qty: 90 1RF omeprazole 20 mg capsule,delayed release(DR/EC) 20 mg PO DAILY Qty: 90 1RF spironolactone 25 mg tablet 25 mg PO DAILY Qty: 90 1RF oxycodone-acetaminophen 10-325 mg tablet 1 tab PO TID Qty: 90 0RF fluticasone propionate [Flonase Allergy Relief] 50 mcg/actuation spray,suspension 2 spray intranasal DAILY 90 Days Qty: 16 2RF Rx Instructions: administer into each nostril tizanidine 4 mg tablet 4 mg PO HS Qty: 90 0RF aspirin 81 mg tablet,delayed release (DR/EC) See Rx Instructions .ROUTE .COMPLEX Qty: 90 1RF Dose Instruction: TAKE 1 TABLET BY MOUTH ONCE DAILY Rx Instructions: TAKE 1 TABLET BY MOUTH ONCE DAILY acarbose 100 mg Tablet 100 mg PO DAILY Referrals Follow up/Referrals: Gm,Janna, [facility] [Primary Care Provider] - See instructions Activity Restrictions/Add. Instructions Additional Instructions/Restrictions: Please return to the emergency department for any worsening signs or symptoms, please take antibiotics as prescribed, and [id number] cold and flu medication for symptomatic relief. Contact orthopedic surgeon regarding surgery tomorrow. Follow-up primary care provider. Clinical Impressions Clinical Impression: Pneumonia Instructions Patient Instructions: Pneumonia--Adult Print Language Print Language: Ivorian Discharge ED Provider: Alisha Diaz General Adult HPI <VINCENZO Vegas - Last Filed: 10/02/24 15:51> General Chief complaint: Upper Respiratory Infection Stated complaint: dry congestion body aches Time Seen by Provider: 10/02/24 13:47 Mode of Arrival: Ambulatory Source of Information: Patient Limitations: No Limitations History of Present Illness HPI narrative: 54-year-old female presents the emergency department with a 4-day history of subjective fever chills , dry cough congestion myalgias as well as generalized malaise. Patient has recent sick contact being exposed to COVID-19 by family member, states I would like to be tested for COVID , she denies any real chest pain or shortness of breath, only when she has coughing fits , she denies any real abdominal pain admits to nausea no vomiting no constipation, no urinary type symptomatology, admits to some diarrhea for the last week. 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 She is a non-smoker denies alcohol or drug use, initial triage vitals are notable for tachycardia otherwise unremarkable. Onset (ago): day(s) Related Data Home Medications ?Medication ?Instructions ?Recorded ?Confirmed acarbose 100 mg tablet 100 mg PO DAILY Diabetes 09/21/24 09/21/24 Previous Rx's ?Medication ?Instructions ?Recorded fluticasone propionate 50 2 spray intranasal DAILY 90 days 11/30/23 mcg/actuation nasal #16 grams spray,suspension (Flonase Allergy Relief) tizanidine 4 mg tablet 4 mg PO HS #90 tabs 01/11/24 aspirin 81 mg tablet,delayed See Rx Instructions .Route 05/11/24 release .COMPLEX #90 tabs atorvastatin 20 mg tablet (Lipitor) 20 mg PO DAILY #90 tabs 06/07/24 budesonide-formoterol HFA 160 1 puff inhalation QID PRN 06/07/24 mcg-4.5 mcg/actuation aerosol shortness of breath or wheezing 90 inhaler (Symbicort) days #10.2 grams dulaglutide 3 mg/0.5 mL 3 mg (0.5 mL) SQ WEEKLY #2 mL 06/07/24 subcutaneous pen injector (Trulicity) duloxetine 60 mg capsule,delayed 60 mg PO DAILY #90 caps 06/07/24 release (Cymbalta) levothyroxine 137 mcg tablet 137 mcg PO DAILY #90 tabs 06/07/24 (Synthroid) lisinopril 10 mg tablet 10 mg PO DAILY #90 tabs 06/07/24 omeprazole 20 mg capsule,delayed 20 mg PO DAILY #90 caps 06/07/24 release spironolactone 25 mg tablet 25 mg PO DAILY #90 tabs 06/07/24 oxycodone-acetaminophen 10 mg-325 1 tab PO TID #90 tabs 09/03/24 mg tablet amoxicillin 875 mg-potassium 1 tab PO BID 5 days #10 tabs 10/02/24 clavulanate 125 mg tablet azithromycin 250 mg tablet See Rx Instructions PO .COMPLEX #6 10/02/24 (Zithromax Z-Gavin) tabs Allergies Allergy/AdvReac Type Severity Reaction Status Date / Time terbutaline (From Brethine) Allergy Severe Anaphylaxis Verified 10/02/24 14:22 [facility] <VINCENZO Vegas - Last Filed: 10/02/24 15:51> [facility] Disclaimer: The information contained in this section may have been updated after the patient was seen, as this information can be updated by other users. Medical History (Updated 10/02/24 @ 15:48 by VINCENZO Vegas) History of histoplasmosis History of Mohs micrographic surgery for skin cancer Nasal vestibulitis Hyperthyroidism Internal nasal lesion Abnormal cardiovascular stress test Angina pectoris Diabetes mellitus HLD (hyperlipidemia) HTN (hypertension) Daytime somnolence Atypical angina Dyspnea Thyroid cancer Torn rotator cuff Cervical cancer Basal cell carcinoma Surgical History History of partial hysterectomy History of cholecystectomy History of thyroidectomy H/O: hysterectomy Family History Other Thyroid cancer Thyroid disorder Social History (Updated 09/21/24 @ 09:36 by Matt Luong, WILDER) Smoking Status: Never smoker alcohol intake: never substance use type: denies use current occupational status: retired and disabled Travel in the last 8 weeks: None Other Medical History Have you received the Pneumonia Vaccine: No <VINCENZO Vegas - Last Filed: 10/02/24 15:51> ROS Obtained: Yes All systems reviewed & no additional complaints except as documented Physical Exam <VINCENZO Vegas - Last Filed: 10/02/24 15:51> General General appearance: alert and in no apparent distress Head Head exam: atraumatic and normocephalic Eye Eye exam: Present PERRL and EOMI ENT ENT exam: Present mucous membranes moist Neck Neck exam: Present normal inspection Chest Chest inspection: Present normal inspection and symmetric chest wall rise Respiratory Respiratory exam: Present normal lung sounds bilaterally; Absent respiratory distress Cardiovascular Cardiovascular exam: Present regular rate and tachycardia Abdominal Exam Abdominal exam: Present soft; Absent tenderness, guarding, rebound or rigidity Extremities Exam Extremities exam: Present normal inspection Neurological Exam Neurological exam: Present alert and oriented X3 Psychiatric Psychiatric exam: Present normal affect Skin Skin exam: Present warm and dry Medical Decision Making <VINCENZO Vegas - Last Filed: 10/02/24 15:51> Medical Records Medical records reviewed: Yes I reviewed the patient's medical records. Screening: Per USPSTF and CDC recommendations, given the prevalence of disease in our region, it is our hospital?s policy to screen for HIV and viral Hepatitis for all patients aged 18 and over and those with ongoing risk factors. Jose F Inquiry Pt receiving controlled substance: No Jose F was queried for this patient: No Vital Signs: 10/02/24 14:10 Temperature 99.1 F Temperature Source Oral Pulse Rate [Left] 114 H Respiratory Rate 16 Blood Pressure [Right Arm] 138/93 H Blood Pressure Mean [Right Arm] 108 Blood Pressure Source [Right Arm] Automatic Cuff Blood Pressure Position [Right Arm] Sitting 02 Sat by Pulse Oximetry 98 Oxygen Delivery Method Room Air Lab Data Lab results reviewed: Yes I reviewed the patient's lab results. Lab Results 10/02/24 13:52: WBC 11.3 H, RBC 4.84, Hgb 14.5, Hct 41.0, MCV 84.9, MCH 30.0, MCHC 35.4, RDW 13.1, Plt Count 258, MPV 7.4, Neut % (Auto) 71.9, Lymph % (Auto) 18.3, [place] % (Auto) 8.1, Eos % (Auto) 0.8, Baso % (Auto) 0.9, Neut # (Auto) 8.1 H, Lymph # (Auto) 2.1, [place] # (Auto) 0.9, Eos # (Auto) 0.1, Baso # (Auto) 0.1, S odium 134 L, Potassium 4.1, Chloride 104, Carbon Dioxide 24, Anion Gap 10.1, BUN 7, Creatinine 0.70, Estimated GFR 87, Est GFR ( Amer) 105, Glucose 161 H, Calcium 9.0, Total Bilirubin 1.3, AST 29, ALT 23, Alkaline Phosphatase 97, Troponin I 0.01, NT-Pro-B Natriuret Pep 85.1, Total Protein 6.9, Albumin 4.1, Globulin 2.8, Albumin/Globulin Ratio 1.5, Lipase 107 10/02/24 14:14: SARS-CoV-2 (PCR) Not detected, Influenza A Untype (PCR) Not detected, Influenza Type B (PCR) Not detected 10/02/24 13:52 10/02/24 13:52 Orders (Tests/Meds): ORDERS Category Date Time Status XR chest portable Stat Exams 10/02/24 13:45 Taken Complete Blood Count Auto Diff Stat Lab 10/02/24 13:52 Completed Comprehensive Metabolic Panel Stat Lab 10/02/24 13:52 Completed HIV (1&2) Antibody Rapid Stat Lab 10/02/24 13:52 Received Hep C Ab with Reflex to RNA Stat Lab 10/02/24 13:52 Received Lipase Stat Lab 10/02/24 13:52 Completed NT Pro Brain Natriuretic Pep. Stat Lab 10/02/24 13:52 Completed Rapid PCR Covid and Flu A/B Stat Lab 10/02/24 14:14 Completed Troponin I Q3H Lab 10/02/24 17:00 Ordered Troponin I Q3H Lab 10/02/24 20:00 Ordered Troponin I Stat Lab 10/02/24 13:52 Completed Urinalysis and Microscopic Stat Lab 10/02/24 13:46 Ordered Medical Decision Narrative: D4-year-old female presents to the emergency department with cough congestion, general myalgias/malaise, for several days, differential diagnose include but not limited to, bronchitis, viral URI, COVID-19, pneumonia, cardiac arrhythmia, electrolyte disturbance, COPD exacerbation. I discussed patient case with attending physician Dr. Diaz Will obtain basic laboratory studies include troponin and proBNP, EKG chest x- ray and urine. CBC is notable for leukocytosis 11.3 I along with the attending physician reviewed the patient's EKG is noted for sinus tachycardia at 107 bpm ND interval within normal limits, QT interval within normal limits there is no STEMI. CMP unremarkable. Lipase and troponin within normal limits, proBNP within normal limits. COVID 19, influenza AMB are not detected I reviewed the patient's chest x-ray along with the attending physician, preliminary report shows left lobe opacities concerning for pneumonia/infection. Will prophylactically treat for this. I discussed the results with the patient at the bedside patient is ready be discharged home to self-care, she complains of a headache, will give 650 mg p.o. Tylenol for pain, patient would like to defer urinalysis at this time, she is not having urinary symptoms I think this is appropriate. Will prescribe Augmentin 875 mg p.o, azithromycin for double culture atypical pneumonia. Will follow with PCP as directed, patient tells me that she is slated to have orthopedic surgery tomorrow with Dr. Riley, she will contact the office to reschedule surgery due to ongoing pneumonia/illness. Patient voiced understand agreement current treatment plan/discharge plan strict ED return precaution given. <Alisha Diaz, DO - Last Filed: 10/02/24 14:16> Vital Signs: 10/02/24 14:10 Temperature 99.1 F Temperature Source Oral Pulse Rate [Left] 114 H Respiratory Rate 16 Blood Pressure [Right Arm] 138/93 H Blood Pressure Mean [Right Arm] 108 Blood Pressure Source [Right Arm] Automatic Cuff Blood Pressure Position [Right Arm] Sitting 02 Sat by Pulse Oximetry 98 Oxygen Delivery Method Room Air Lab Data Lab Results 10/02/24 13:52: WBC 11.3 H, RBC 4.84, Hgb 14.5, Hct 41.0, MCV 84.9, MCH 30.0, MCHC 35.4, RDW 13.1, Plt Count 258, MPV 7.4, Neut % (Auto) 71.9, Lymph % (Auto) 18.3, [place] % (Auto) 8.1, Eos % (Auto) 0.8, Baso % (Auto) 0.9, Neut # (Auto) 8.1 H, Lymph # (Auto) 2.1, [place] # (Auto) 0.9, Eos # (Auto) 0.1, Baso # (Auto) 0.1, S odium 134 L, Potassium 4.1, Chloride 104, Carbon Dioxide 24, Anion Gap 10.1, BUN 7, Creatinine 0.70, Estimated GFR 87, Est GFR ( Amer) 105, Glucose 161 H, Calcium 9.0, Total Bilirubin 1.3, AST 29, ALT 23, Alkaline Phosphatase 97, Troponin I 0.01, NT-Pro-B Natriuret Pep 85.1, Total Protein 6.9, Albumin 4.1, Globulin 2.8, Albumin/Globulin Ratio 1.5, Lipase 107 10/02/24 14:14: SARS-CoV-2 (PCR) Not detected, Influenza A Untype (PCR) Not detected, Influenza Type B (PCR) Not detected Orders (Tests/Meds): ORDERS Category Date Time Status XR chest portable Stat Exams 10/02/24 13:45 Taken Complete Blood Count Auto Diff Stat Lab 10/02/24 13:52 Completed Comprehensive Metabolic Panel Stat Lab 10/02/24 13:52 Completed HIV (1&2) Antibody Rapid Stat Lab 10/02/24 13:52 Received Hep C Ab with Reflex to RNA Stat Lab 10/02/24 13:52 Received Lipase Stat Lab 10/02/24 13:52 Completed NT Pro Brain Natriuretic Pep. Stat Lab 10/02/24 13:52 Completed Rapid PCR Covid and Flu A/B Stat Lab 10/02/24 14:14 Completed Troponin I Q3H Lab 10/02/24 17:00 Ordered Troponin I Q3H Lab 10/02/24 20:00 Ordered Troponin I Stat Lab 10/02/24 13:52 Completed Urinalysis and Microscopic Stat Lab 10/02/24 13:46 Ordered ECG Data Tracing #1: I reviewed this ECG and interpreted as documented below: Sinus tachycardia with a ventricular of [address] changes concerning for STEMI. Normal axis and intervals. ECG initial impression date: 10/02/24 ECG initial impression time: 13:56 Critical Care <VINCENZO Vegas - Last Filed: 10/02/24 15:51> Critical Care Time Critical Care Time: No
--- NOTE | 2024-10-02 13:54 | ECG_ITS ---
APPROVED REPORT Exam: Resting ECG HR:107 bpm ECG Measurements Heart Rate 107 AXES DC 144 P 5 QRSd 84 QRS 69 QT 334 T 27 QTc 396 Conclusion SINUS TACHYCARDIA LOW QRS VOLTAGE IN PRECORDIAL LEADS [QRS DEFLECTION < 1.0 mV IN CHEST LEADS] ABNORMAL RHYTHM ECG Electronically signed by : MARILEE KEMP, 10/02/2024 16:10:05
[2024-10-02 14:02] LABS: Basophils # 0.1 K/mm3 (0-0.2); Basophils % 0.9 % (0.1-2.0); Eosinophils # 0.1 K/mm3 (0.0-0.4); Eosinophils % 0.8 % (0.1-12.0); Hemoglobin 14.5 g/dL (12.2-16.2); Lymphocytes # 2.1 K/mm3 (0.7-4.5); Lymphocytes % 18.3 % (10-50); Mean Corpuscular HGB Conc 35.4 g/dL (31.8-35.4); Mean Corpuscular Volume 84.9 fl (81-99); Mean Platelet Volume 7.4 fl (7.4-10.4); Monocytes # 0.9 K/mm3 (0.1-1.0); Monocytes % 8.1 % (1.7-9.3); Neutrophils # 8.1 K/mm3 (1.8-7.8); Neutrophils % 71.9 % (37.0-80.0); Platelet Count 258 K/mm3 (142-424); Red Blood Count 4.84 M/mm3 (4.20-5.40); Red Cell Distribution Width 13.1 % (11.5-17.5); White Blood Count 11.3 K/mm3 (4.8-10.8)
[2024-10-02 14:10] VITALS: BP 138/93; PULSE 114; RESP 16; TEMP 37.3; O2SAT 98; BMI 29.2
[2024-10-02 14:15] LABS: Albumin Level 4.1 g/dl (3.5-5.0); Chloride 104 mmol/L (98-107); Sodium 134 mmol/L (136-145)
[2024-10-02 14:16] LABS: Potassium 4.1 mmoL/L (3.5-5.1)
[2024-10-02 14:18] LABS: Alanine Aminotransferase 23 U/L (12-78); Albumin/Globulin Ratio 1.5 (1.1-1.8); Alkaline Phosphatase 97 U/L (38-126); Anion Gap 10.1 mEq/L (5-15); Aspartate Amino Transferase 29 U/L (14-36); Bilirubin,Total 1.3 mg/dl (0.2-1.3); Blood Urea Nitrogen 7 mg/dl (7-17); Carbon Dioxide 24 mmol/L (22.0-30.0); Estimated Glomerular Filt Rate 87 ml/min (>60); GFR (African American) 105 ML/MIN (>60); Globulin 2.8 g/dL (1.3-3.2); Lipase 107 U/L (23-300); Total Protein,Serum 6.9 g/dl (6.3-8.2)
[2024-10-02 14:19] LABS: Glucose 161 mg/dl (74-100)
[2024-10-02 14:20] LABS: Coronavirus 19, PCR Not Detected (NotDetected); Influenza A, PCR Not Detected (NotDetected); Influenza B, PCR Not Detected (NotDetected)
[2024-10-02 14:29] LABS: NT Pro Brain Natriuretic Pep. 85.1 pg/mL (0-125)
[2024-10-02 14:31] LABS: Troponin I 0.01 ng/ml (0.00-0.034)
[2024-10-02] MEDS: ACETAMINOPHEN 325MG TAB 650 MG PO (15:46)
[2024-10-02 15:54] VITALS: BP 127/84; PULSE 89; RESP 16; TEMP 37.2; O2SAT 99
[2024-10-02 18:24] LABS: HIV (1&2) Antibody Rapid NONREACTIVE (NONREACTIVE)
[2024-10-03 11:14] LABS: HCV Ab Non Reactive (Non Reactive)
== END 2024-10-02 15:55 | disposition home or self-care (01) ==
PROVIDERS: Physician Assistant; Emergency Provider Emergency Medicine; PCP Family Medicine
DX: J18.9 Pneumonia, unspecified organism (principal); R50.9 Fever, unspecified; R05.8 Other specified cough; R09.81 Nasal congestion; M79.10 Myalgia, unspecified site; R53.81 Other malaise
CPT/HCPCS: 71045; 80053; 83690; 83880; 84484; 85025; 86803; 87389; 87636; 93005; 99284

== ENCOUNTER 2024-11-20 11:56 | Outpatient (CLI) | payer MEDICARE, SELFPAY ==
--- NOTE | 2024-11-20 12:01 | XR_ITS ---
FINAL REPORT TECHNIQUE: Chest PA & Lateral CLINICAL HISTORY: SOB COMPARISON: 10/02/2024 FINDINGS: 2 views of the chest were performed. The heart size is normal. The mediastinum is within normal limits. There is no acute cardiopulmonary process. There are no pleural effusions. There is no pneumothorax. The bony thorax appears intact. IMPRESSION: No acute cardiopulmonary process. Reviewed, Interpreted and Dictated by Adolfo Hill MD Transcribed by Aria Fernando Authenticated and [facility]
[2024-11-20 12:32] LABS: Basophils # 0.1 K/mm3 (0-0.2); Basophils % 1.5 % (0.1-2.0); Eosinophils # 0.6 K/mm3 (0.0-0.4); Eosinophils % 9.1 % (0.1-12.0); Hematocrit 41.4 % (37.0-47.0); Hemoglobin 14.4 g/dL (12.2-16.2); Lymphocytes # 2.5 K/mm3 (0.7-4.5); Lymphocytes % 36.8 % (10-50); Mean Corpuscular HGB Conc 34.8 g/dL (31.8-35.4); Mean Corpuscular Hemoglobin 29.6 pg (27.0-31.2); Mean Corpuscular Volume 85.2 fl (81-99); Mean Platelet Volume 9.3 fl (7.4-10.4); Monocytes # 0.9 K/mm3 (0.1-1.0); Monocytes % 12.8 % (1.7-9.3); Neutrophils # 2.7 K/mm3 (1.8-7.8); Neutrophils % 39.7 % (37.0-80.0); Platelet Count 262 K/mm3 (142-424); Red Blood Count 4.86 M/mm3 (4.20-5.40); White Blood Count 6.7 K/mm3 (4.8-10.8)
[2024-11-23 05:08] LABS: D001-IgE D pteronyssinus <0.10 kU/L (Class 0); D002-IgE D farinae <0.10 kU/L (Class 0); E001-IgE Cat Dander <0.10 kU/L (Class 0); E005-IgE Dog Dander <0.10 kU/L (Class 0); E072-IgE Mouse Urine <0.10 kU/L (Class 0); G002-IgE Bermuda Grass <0.10 kU/L (Class 0); G006-IgE Timothy Grass <0.10 kU/L (Class 0); I006-IgE Cockroach, German <0.10 kU/L (Class 0); Immunoglobulin E, Total 21 IU/mL (6-495); M001-IgE Penicillium chrysogen <0.10 kU/L (Class 0); M002-IgE Cladosporium herbarum <0.10 kU/L (Class 0); M003-IgE Aspergillus fumigatus <0.10 kU/L (Class 0); M006-IgE Alternaria alternata <0.10 kU/L (Class 0); T001-IgE Maple/Box Elder <0.10 kU/L (Class 0); T003-IgE Common Silver Birch <0.10 kU/L (Class 0); T006-IgE Cedar, Mountain <0.10 kU/L (Class 0); T007-IgE Oak, White <0.10 kU/L (Class 0); T008-IgE Elm, American <0.10 kU/L (Class 0); T010-IgE Walnut <0.10 kU/L (Class 0); T011-IgE Maple Leaf Sycamore <0.10 kU/L (Class 0); T014-IgE Cottonwood <0.10 kU/L (Class 0); T015-IgE Ash, White <0.10 kU/L (Class 0); T022-IgE Pecan, Hickory <0.10 kU/L (Class 0); T070-IgE White Mulberry <0.10 kU/L (Class 0); W001-IgE Ragweed, Short <0.10 kU/L (Class 0); W011-IgE Thistle, Russian <0.10 kU/L (Class 0); W014-IgE Pigweed, Common <0.10 kU/L (Class 0); W018-IgE Sheep Sorrel <0.10 kU/L (Class 0)
== END 2024-11-20 23:59 | disposition home or self-care (01) ==
LOC: LAB 11:58
PROVIDERS: PCP Family Medicine; Visit Provider Internal Medicine Pulmonary Disease
DX: R06.02 Shortness of breath (principal); J45.909 Unspecified asthma, uncomplicated
CPT/HCPCS: 36415; 71046; 82785; 85025; 86003

== ENCOUNTER 2024-12-05 15:16 | Outpatient (CLI) | payer MEDICARE, SELFPAY ==
[2024-12-05 19:32] LABS: Microalbumin/Creatinine Ratio 7.6
[2024-12-05 19:33] LABS: Creatinine,Urine Random 93 mg/dL (Not Estab.)
[2024-12-05 19:42] LABS: Hemoglobin A1C 5.9 % (4.0-6.0)
[2024-12-05 20:03] LABS: Alanine Aminotransferase 22 U/L (12-78); Albumin Level 4.1 g/dl (3.5-5.0); Albumin/Globulin Ratio 1.9 (1.1-1.8); Alkaline Phosphatase 80 U/L (38-126); Anion Gap 16.2 mEq/L (5-15); Aspartate Amino Transferase 24 U/L (14-36); Bilirubin,Total 0.9 mg/dl (0.2-1.3); Blood Urea Nitrogen 14 mg/dl (7-17); Carbon Dioxide 25 mmol/L (22.0-30.0); Chloride 101 mmol/L (98-107); Estimated Glomerular Filt Rate 87 ml/min (>60); GFR (African American) 105 ML/MIN (>60); Globulin 2.2 g/dL (1.3-3.2); Glucose 103 mg/dl (74-100); Potassium 4.2 mmoL/L (3.5-5.1); Sodium 138 mmol/L (136-145); Total Protein,Serum 6.3 g/dl (6.3-8.2)
[2024-12-05 20:10] LABS: Triiodothryronine (T3) Uptake 36 % (23.5-40.5)
[2024-12-05 20:15] LABS: Free Thyroxine Index 4.5 ug/dL (5.93-13.13); T4 (Thyroxine) 12.4 ug/dl (5.53-11.0)
[2024-12-05 20:29] LABS: Thyroid Stimulating Hormone < 0.02 uIU/mL (0.465-4.68)
[2024-12-07 09:09] LABS: Thyroid Peroxidase Antibodies 10 IU/mL (0-34)
== END 2024-12-05 23:59 | disposition home or self-care (01) ==
LOC: LAB.DROPOF 12-06 12:24
PROVIDERS: PCP Family Medicine; Visit Provider Family Medicine
DX: E07.9 Disorder of thyroid, unspecified (principal); E11.9 Type 2 diabetes mellitus without complications; Z79.84 Long term (current) use of oral hypoglycemic drugs
CPT/HCPCS: 80053; 82043; 82570; 83036; 84436; 84443; 84479; 86376

== ENCOUNTER 2025-01-06 22:16 | Emergency (ER) | payer MEDICARE, SELFPAY ==
[2025-01-06 22:21] VITALS: BP 150/103; PULSE 91; RESP 18; TEMP 37; O2SAT 98
--- NOTE | 2025-01-06 23:08 | ED_ITS ---
Discharge Plan Disposition Patient Disposition: Home, Self-Care Prescriptions Prescriptions: New sulfamethoxazole-trimethoprim 800-160 mg tablet 1 tab PO BID 3 Days Qty: 6 0RF methocarbamol 500 mg tablet 1,000 mg PO Q6H PRN (Reason: pain) Qty: 30 0RF lidocaine 5 % adhesive patch,medicated 1 patch topical DAILY PRN (Reason: pain) Qty: 30 0RF Rx Instructions: leave on most painful area for up to 12 hrs No Action atorvastatin [Lipitor] 20 mg tablet 20 mg PO DAILY Qty: 90 1RF levothyroxine [Synthroid] 137 mcg tablet 137 mcg PO DAILY Qty: 90 1RF spironolactone 25 mg tablet 25 mg PO DAILY Qty: 90 1RF oxycodone-acetaminophen 10-325 mg tablet 1 tab PO TID Qty: 90 0RF acarbose 100 mg tablet 100 mg PO DAILY Qty: 90 1RF clobetasol 0.05 % cream topical budesonide-formoterol [Symbicort] 160-4.5 mcg/actuation HFA aerosol inhaler 1 puff inhalation QID PRN (Reason: shortness of breath or wheezing) 90 Days Qty: 10.2 3RF fluticasone propionate [Flonase Allergy Relief] 50 mcg/actuation spray,suspension 2 spray intranasal DAILY 90 Days Qty: 16 2RF Rx Instructions: administer into each nostril albuterol sulfate 90 mcg/actuation HFA aerosol inhaler 2 inh inhalation Q6H PRN (Reason: shortness of breath or wheezing) 90 Days Qty: 8.5 2RF tizanidine 4 mg tablet 4 mg PO HS Qty: 90 0RF duloxetine 60 mg capsule,delayed release(DR/EC) See Rx Instructions .ROUTE .COMPLEX Qty: 90 1RF Dose Instruction: TAKE 1 CAPSULE BY MOUTH ONCE DAILY Rx Instructions: TAKE 1 CAPSULE BY MOUTH ONCE DAILY lisinopril 10 mg tablet See Rx Instructions .ROUTE .COMPLEX Qty: 90 0RF Dose Instruction: TAKE 1 TABLET BY MOUTH ONCE DAILY Rx Instructions: TAKE 1 TABLET BY MOUTH ONCE DAILY Trulicity 3 mg/0.5 mL pen injector See Rx Instructions .ROUTE .COMPLEX Qty: 2 2RF Dose Instruction: INJECT THE CONTENTS OF 1 PEN (3 MG / 0.5 ML) SUBCUTANEOUSLY ONCE A WEEK Rx Instructions: INJECT THE CONTENTS OF 1 PEN (3 MG / 0.5 ML) SUBCUTANEOUSLY ONCE A WEEK Referrals Follow up/Referrals: Janna Worrell APRN [Primary Care Provider] - See instructions Activity Restrictions/Add. Instructions Additional Instructions/Restrictions: Please continue taking Bactrim, I sent a prescription to your pharmacy. I also sent Robaxin and lidocaine patches. Please use that in conjunction with Tylenol and ibuprofen. Please follow with your PCP for further assessment. Clinical Impressions Clinical Impression: Acute flank pain, UTI (urinary tract infection) Instructions Patient Instructions: DI for Acute Abdominal Pain Print Language Print Language: Scottish Discharge ED Provider: Awais Redding General Adult HPI General Chief complaint: Abdominal Pain Stated complaint: Right Flank Pain,feels tired Time Seen by Provider: 01/06/25 23:00 Mode of Arrival: Ambulatory Source of Information: Patient Description of Symptoms (Recalled from ER Triage Doc. by RN): Pt presents for evaluation right flank/RUQ abd pain x 1week. Pt states pain comes and goes. Pt states she does have nausea. Pt states she has been feeling intermittently confused the last 2 days. Pt states she accidently put her glasses in the microwave earlier. Pt states she had left over bactrim and started taking it incase she had an infection. Pt states she took a Percocet 10mg at 6pm. History of Present Illness HPI narrative: 54-year-old female with history of thyroid cancer, skin cancer, woman cancer presents for right flank pain. Is been going on for a week, comes and goes, worse with movement. Associated with nausea. Denies any urinary symptoms. Denies any fever chills. Pain is worse with deep inspiration. She has been taking her home Percocet without significant improvement in pain. Related Data Home Medications ?Medication ?Instructions ?Recorded ?Confirmed clobetasol 0.05 % topical cream topical 11/20/24 12/05/24 Previous Rx's ?Medication ?Instructions ?Recorded tizanidine 4 mg tablet 4 mg PO HS #90 tabs 01/11/24 atorvastatin 20 mg tablet (Lipitor) 20 mg PO DAILY #90 tabs 06/07/24 levothyroxine 137 mcg tablet 137 mcg PO DAILY #90 tabs 06/07/24 (Synthroid) spironolactone 25 mg tablet 25 mg PO DAILY #90 tabs 06/07/24 duloxetine 60 mg capsule,delayed See Rx Instructions .Route 10/08/24 release .COMPLEX #90 caps albuterol sulfate 90 mcg/actuation 2 inh inhalation Q6H PRN shortness 11/20/24 aerosol inhaler of breath or wheezing 90 days #8.5 grams budesonide-formoterol HFA 160 1 puff inhalation QID PRN 11/20/24 mcg-4.5 mcg/actuation aerosol shortness of breath or wheezing 90 inhaler (Symbicort) days #10.2 grams fluticasone propionate 50 2 spray intranasal DAILY 90 days 11/20/24 mcg/actuation nasal #16 grams spray,suspension (Flonase Allergy Relief) acarbose 100 mg tablet 100 mg PO DAILY Diabetes #90 tabs 12/05/24 oxycodone-acetaminophen 10 mg-325 1 tab PO TID #90 tabs 12/05/24 mg tablet lisinopril 10 mg tablet See Rx Instructions .Route 12/26/24 .COMPLEX #90 tabs dulaglutide 3 mg/0.5 mL See Rx Instructions .Route 01/03/25 subcutaneous pen injector .COMPLEX #2 mL (Trulicity) lidocaine 5 % topical patch 1 patch topical DAILY PRN pain #30 01/07/25 ea methocarbamol 500 mg tablet 1,000 mg (2 x 500 mg) PO Q6H PRN 01/07/25 pain #30 tabs sulfamethoxazole 800 1 tab PO BID 3 days #6 tabs 01/07/25 mg-trimethoprim 160 mg tablet Allergies Allergy/AdvReac Type Severity Reaction Status Date / Time terbutaline (From [place]) Allergy Severe Anaphylaxis Verified 12/05/24 14:49 [facility] Disclaimer: The information contained in this section may have been updated after the patient was seen, as this information can be updated by other users. Medical History (Updated 01/07/25 @ 01:09 by Awais Redding MD) Recurrent UTI Pinworms Contact dermatitis Poison tamara dermatitis History of histoplasmosis History of Mohs micrographic surgery for skin cancer Nasal vestibulitis Hyperthyroidism Internal nasal lesion Abnormal cardiovascular stress test Angina pectoris Diabetes mellitus HLD (hyperlipidemia) HTN (hypertension) Daytime somnolence Atypical angina Dyspnea Thyroid cancer Torn rotator cuff Cervical cancer Basal cell carcinoma Surgical History History of partial hysterectomy History of cholecystectomy History of thyroidectomy H/O: hysterectomy Family History Other Thyroid cancer Thyroid disorder Social History Smoking Status: Unknown if ever smoked alcohol intake: never substance use type: denies use current occupational status: retired and disabled Travel in the last 8 weeks: None Other Medical History Have you received the Pneumonia Vaccine: No ROS Obtained: Yes All systems reviewed & no additional complaints except as documented Physical Exam General General appearance: alert and in no apparent distress Head Head exam: atraumatic and normocephalic Eye Eye exam: Present normal appearance, PERRL and EOMI ENT ENT exam: Present normal oropharynx and normal external ear exam Neck Neck exam: Present normal inspection and full ROM Chest Chest inspection: Present normal inspection and symmetric chest wall rise; Absent tenderness Respiratory Respiratory exam: Present normal lung sounds bilaterally; Absent respiratory distress Cardiovascular Cardiovascular exam: Present regular rate and normal rhythm Abdominal Exam Abdominal exam: Present soft; Absent distention, tenderness or guarding Extremities Exam Extremities exam: Present normal inspection; Absent edema or joint swelling Back Exam Back exam: Present normal inspection, tenderness and CVA tenderness (R) (Significant tenderness palpation of the right flank) Neurological Exam Neurological exam: Present alert and oriented X3; Absent motor sensory deficit Psychiatric Psychiatric exam: Present normal affect and normal mood Skin Skin exam: Present warm, dry and normal color Lymphatic Lymphatic Findings: no adenopathy Medical Decision Making Medical Records Medical records reviewed: Yes I reviewed the patient's medical records. Screening: Per USPSTF and CDC recommendations, given the prevalence of disease in our region, it is our hospital?s policy to screen for HIV and viral Hepatitis for all patients aged 18 and over and those with ongoing risk factors. Jose F Inquiry Pt receiving controlled substance: No Jose F was queried for this patient: No Vital Signs: 01/06/25 22:21 01/07/25 01:17 Temperature 98.6 F 98.0 F Temperature Source Temporal Artery Scan Oral Pulse Rate 68 Pulse Rate [Right] 91 H Respiratory Rate 18 16 Blood Pressure 136/70 Blood Pressure [Right Arm] 150/103 H Blood Pressure Mean [Right Arm] 118 Blood Pressure Source Automatic Cuff Blood Pressure Source [Right Arm] Automatic Cuff Blood Pressure Position Sitting Blood Pressure Position [Right Arm] Sitting 02 Sat by Pulse Oximetry 98 Oxygen Delivery Method Room Air Room Air Lab Data Lab results reviewed: Yes I reviewed the patient's lab results. Lab Results 01/06/25 22:58: WBC 10.3, RBC 5.07, Hgb 15.0, Hct 42.6, MCV 84.0, MCH 29.6, MCHC 35.2, RDW 12.0, Plt Count 281, MPV 9.7, Neut % (Auto) 42.5, Lymph % (Auto) 39.0, [place] % (Auto) 10.7 H, Eos % (Auto) 6.1, Baso % (Auto) 1.3, Neut # (Auto) 4.4, Lymph # (Auto) 4.0, [place] # (Auto) 1.1 H, Eos # (Auto) 0.6 H, Baso # (Auto) 0.1, PT 10.9, INR 0.97, Sodium 137, Potassium 4.0, Chloride 103, Carbon Dioxide 28, Anion Gap 10.0, BUN 14, Creatinine 0.70, Estimated Creat Clear 112, Estimated GFR 87, Est GFR ( Amer) 105, Glucose 128 H, Calcium 9.3, Total Bilirubin 0.8, AST 30, ALT 22, Alkaline Phosphatase 91, Total Protein 7.7, Albumin 4.9, Globulin 2.8, Albumin/Globulin Ratio 1.8, Urine Color Yellow, Urine Appearance Clear, Urine pH 5.5, Ur Specific [place] 1.020, Urine Protein Negative, Urine Glucose (UA) Negative, Urine Ketones Negative, Urine Blood Negative, Urine Nitrate Negative, Urine Bilirubin Negative, Urine Urobilinogen 0.2, Ur Leukocyte Esterase 3+ A, Urine RBC None, Urine WBC 5-10, Ur Squamous Epith Cells 3-5, Urine Bacteria 1+ 01/06/25 22:58 01/06/25 22:58 Orders (Tests/Meds): ED MEDICATIONS Discontinued Medications Generic Name Dose Route Start Last Admin Trade Name Christopherq PRN Reason Stop Dose Admin Acetaminophen 1,000 mg 01/06/25 23:20 01/06/25 23:34 Acetaminophen 500mg Tab PO 01/06/25 23:21 1,000 mg ONCE ONE Administration Iopamidol 75 ml 01/07/25 00:04 01/07/25 00:07 Iopamidol-370 (76%);100ml Bottle IV 01/07/25 00:05 75 ml ONCE ONE Administration Ketorolac Tromethamine 30 mg 01/06/25 23:20 01/06/25 23:34 Ketorolac 30mg/Ml Vial IV 01/06/25 23:21 30 mg ONCE ONE Administration Morphine Sulfate 4 mg 01/06/25 23:20 01/06/25 23:35 Morphine 4mg/Ml Syringe IV 01/06/25 23:21 4 mg ONCE ONE Administration Ondansetron HCl 4 mg 01/06/25 23:20 01/06/25 23:34 Ondansetron 4mg/2ml Vial IV 01/06/25 23:21 4 mg ONCE ONE Administration Sodium Chloride 50 ml 01/07/25 00:04 01/07/25 00:07 0.9 % Sodium Chloride 50 Ml Vial IV 01/07/25 00:05 50 ml ONCE ONE Administration Sodium Chloride 10 ml 01/07/25 00:04 01/07/25 00:07 Sodium Chloride 0.9% 10ml Syr (Rad Only) IV 01/07/25 00:05 10 ml ONCE ONE Administration ORDERS Category Date Time Status CT abdomen pelvis w con Stat Cat Scan 01/06/25 23:[address] angio chest PE protocol Stat Cat Scan 01/06/25 23:21 Completed CBC w/Auto Diff [Complete Blood Count Auto Diff] Stat Lab 01/06/25 22:58 Completed CMP [Comprehensive Metabolic Panel] Stat Lab 01/06/25 22:58 Completed INR [Prothrombin Time INR] Stat Lab 01/06/25 22:58 Completed UA [Urinalysis and Microscopic] Stat Lab 01/06/25 22:58 Completed Urine Culture Stat Micro 01/06/25 22:58 Received Medical Decision Narrative: 54-year-old female with extensive past medical history including hypertension hyperlipidemia diabetes multiple types of cancer presents for right flank pain on and off for the last week, significantly worse today, worse with movement and breathing. History was obtained via interactive discussion with patient. On arrival, patient is [afebrile, hemodynamically stable, satting appropriately, alert, oriented x4, GCS 15], moving all extremities spontaneously. Full physical exam performed and significant for right flank tenderness Differential includes but is not limited to kidney stone, PE pyelonephritis, musculoskeletal pain, Patient was given Zofran morphine Toradol Tylenol for symptomatic management and correction of underlying abnormalities. Workup initiated including CBC CMP INR UA CT abdomen and pelvis with IV contrast CT angio PE. On re-evaluation, patient reports some symptomatic improvement Laboratory workup independently interpreted by me and significant for no significant leukocytosis, urine with 5-10 WBCs and 1+ bacteria which could represent UTI. No significant electrolyte derangement or renal dysfunction. Imaging independently interpreted by me and significant for no evidence of acute PE, does show scarring consistent with previous CT. CT abdomen pelvis shows no evidence of kidney stone or other pathology in the area of the patient's pain.. See radiology read for full review of final results. The underlying etiology of patient's pain remains unclear. Her pain is not characteristic with pyelo-, nor is her urinalysis or CT. On further discussion, she reports it is somewhat spasmy, sharp, shooting. Could be related to disc herniation/musculoskeletal pain. She was discharged with lidocaine patch and muscle relaxers as well as Bactrim for coverage of UTI. Procedures Risk/Benefits of Procedure(s) Were Explained: Yes Critical Care Critical Care Time Critical Care Time: No
--- NOTE | 2025-01-06 23:15 | CT_ITS ---
PROCEDURE INFORMATION: Exam: CT Abdomen And Pelvis With Contrast Exam date and time: 01/07/2025 12:02 AM Age: 54 years old Clinical indication: Abdominal pain; Flank; Right; Additional info: Right flank pain TECHNIQUE: Imaging protocol: Computed tomography of the abdomen and pelvis with contrast. 3D rendering (Not supervised by radiologist): MIP and/or 3D reconstructed images were created by the technologist. Radiation optimization: All CT scans at this facility use at least one of these dose optimization techniques: automated exposure control; mA and/or kV adjustment per patient size (includes targeted exams where dose is matched to clinical indication); or iterative reconstruction. Contrast material: ISOVUE; Contrast volume: 75 ml; Contrast route: IV; COMPARISON: CT ABDOMEN PELVIS WO/W CON 04/10/2024 9:04 AM FINDINGS: Liver: Mild fatty liver infiltration. No mass. Gallbladder and biliary ducts: Surgically gallbladder. Pancreas: Normal. No ductal dilation. Spleen: Normal. No splenomegaly. Adrenal glands: Normal. No mass. Kidneys and ureters: No nephroureterolithiasis or ureter identified. Stomach and bowel: Unremarkable. No obstruction. No mucosal thickening. Appendix: No evidence of appendicitis. Intraperitoneal space: Unremarkable. No free air. No significant fluid collection. Vasculature: Unremarkable. No abdominal aortic aneurysm. Lymph nodes: Unremarkable. No enlarged lymph nodes. Urinary bladder: Unremarkable as visualized. Reproductive: Unremarkable as visualized. Bones/joints: Unremarkable. No acute fracture. Soft tissues: Unremarkable. IMPRESSION: 1. No acute findings identified. 2. Mild fatty liver infiltration
--- NOTE | 2025-01-06 23:21 | CT_ITS ---
PROCEDURE INFORMATION: Exam: CTA Chest With Contrast Exam date and time: 01/07/2025 12:02 AM Age: 54 years old Clinical indication: Chest wall pain; Additional info: Right flank/chest pain TECHNIQUE: Imaging protocol: Computed tomographic angiography of the chest with contrast. Exam focused on the arteries. 3D rendering (Not supervised by radiologist): MIP and/or 3D reconstructed images were created by the technologist. Radiation optimization: All CT scans at this facility use at least one of these dose optimization techniques: automated exposure control; mA and/or kV adjustment per patient size (includes targeted exams where dose is matched to clinical indication); or iterative reconstruction. Contrast material: ISOVUE; Contrast volume: 75 ml; Contrast route: INTRAVENOUS (IV); COMPARISON: CT CHEST WO CON 04/10/2024 9:02 AM FINDINGS: Pulmonary arteries: Normal. No pulmonary emboli. Aorta: Unremarkable. No aortic aneurysm. No aortic dissection. Lungs: Unremarkable. No consolidation. No masses. Pleural spaces: Unremarkable. No pneumothorax. No pleural effusion. Heart: Unremarkable. No cardiomegaly. No pericardial effusion. Lymph nodes: Unremarkable. No enlarged lymph nodes. Bones/joints: Unremarkable. No acute fracture. Soft tissues: Incidental chronic, partially calcified rounded focus right breast. IMPRESSION: No central or segmental pulmonary arterial aneurysm identified.
[2025-01-06 23:26] LABS: Microscopic, Urine URINE MICROSCOPIC (MICROSCOPIC)
[2025-01-06 23:27] LABS: Basophils # 0.1 K/mm3 (0-0.2); Basophils % 1.3 % (0.1-2.0); Eosinophils # 0.6 K/mm3 (0.0-0.4); Eosinophils % 6.1 % (0.1-12.0); Hematocrit 42.6 % (37.0-47.0); Mean Corpuscular HGB Conc 35.2 g/dL (31.8-35.4); Mean Corpuscular Hemoglobin 29.6 pg (27.0-31.2); Mean Platelet Volume 9.7 fl (7.4-10.4); Monocytes # 1.1 K/mm3 (0.1-1.0); Monocytes % 10.7 % (1.7-9.3); Neutrophils # 4.4 K/mm3 (1.8-7.8); Neutrophils % 42.5 % (37.0-80.0); Platelet Count 281 K/mm3 (142-424); Red Blood Count 5.07 M/mm3 (4.20-5.40); White Blood Count 10.3 K/mm3 (4.8-10.8)
[2025-01-06 23:30] LABS: Appearance,Urine Clear (Clear); Bilirubin,Urine Negative (Negative); Blood, Urine Negative (Negative); Color,Urine Yellow (Yellow); Glucose,Urine (UA) Negative (Negative); Ketones,Urine Negative (Negative); Leukocyte Esterase,Urine 3+ (Negative); Nitrate,Urine Negative (Negative); PH,Urine 5.5 (5.0-8.5); Protein,Urine Negative (Negative); Urobilinogen,Urine 0.2 EU/dl (0.2)
[2025-01-06 23:32] LABS: Bacteria,Urine 1+ /lpf
[2025-01-06 23:34] LABS: INR 0.97 (0.9-1.1); Prothrombin Time 10.9 seconds (10.1-12.5)
[2025-01-06] MEDS: ONDANSETRON 4MG/2ML VIAL 4 MG IV (23:34)
[2025-01-06] MEDS: KETOROLAC 30MG/ML VIAL 30 MG IV (23:34)
[2025-01-06] MEDS: ACETAMINOPHEN 500MG TAB 1000 MG PO (23:34)
[2025-01-06] MEDS: MORPHINE 4MG/ML SYRINGE 4 MG IV (23:35)
[2025-01-06 23:36] LABS: Chloride 103 mmol/L (98-107)
[2025-01-06 23:37] LABS: Albumin Level 4.9 g/dl (3.5-5.0); Sodium 137 mmol/L (136-145)
[2025-01-06 23:39] LABS: Blood Urea Nitrogen 14 mg/dl (7-17); Creatinine Clearance Estimated 112 mL/min (50-200); Estimated Glomerular Filt Rate 87 ml/min (>60); GFR (African American) 105 ML/MIN (>60)
[2025-01-06 23:40] LABS: Alanine Aminotransferase 22 U/L (12-78); Albumin/Globulin Ratio 1.8 (1.1-1.8); Alkaline Phosphatase 91 U/L (38-126); Aspartate Amino Transferase 30 U/L (14-36); Bilirubin,Total 0.8 mg/dl (0.2-1.3); Calcium 9.3 mg/dl (8.4-10.2); Carbon Dioxide 28 mmol/L (22.0-30.0); Globulin 2.8 g/dL (1.3-3.2); Glucose 128 mg/dl (74-100); Total Protein,Serum 7.7 g/dl (6.3-8.2)
[2025-01-07] MEDS: IOPAMIDOL-370 (76%);100ML BOTTLE 75 ML IV (00:07)
[2025-01-07] MEDS: SODIUM CHLORIDE 0.9% 10ML SYR (RAD ONLY) 10 ML IV (00:07)
[2025-01-07] MEDS: 0.9 % SODIUM CHLORIDE 50 ML VIAL IV (00:07)
[2025-01-07 01:17] VITALS: BP 136/70; PULSE 68; RESP 16; TEMP 36.7; O2SAT 99
== END 2025-01-07 01:21 | disposition home or self-care (01) ==
PROVIDERS: Emergency Provider Emergency Medicine; PCP Family Medicine
DX: R10.9 Unspecified abdominal pain (principal); N39.0 Urinary tract infection, site not specified
CPT/HCPCS: 71275; 74177; 80053; 81001; 85025; 85610; 87086; 96374; 96375; 99285; J1885; J2270; J2405; Q9967

== ENCOUNTER 2025-01-23 12:57 | Outpatient (CLI) | payer MEDICARE, SELFPAY ==
--- NOTE | 2025-01-23 13:22 | ECG_ITS ---
APPROVED REPORT Exam: Resting ECG HR:88 bpm ECG Measurements Heart Rate 88 AXES TX 161 P 8 QRSd 74 QRS 46 QT 368 T 53 QTc 413 Conclusion SINUS RHYTHM LOW QRS VOLTAGE IN PRECORDIAL LEADS Old anterior changes BORDERLINE ECG UNCONFIRMED REPORT Electronically signed by : Omkar Meadows MD 01/24/2025 09:09:20
== END 2025-01-23 23:59 | disposition home or self-care (01) ==
LOC: PREOP 12:58
PROVIDERS: PCP Family Medicine; Visit Provider Orthopaedic Surgery
DX: Z01.810 Encounter for preprocedural cardiovascular examination (principal); R94.31 Abnormal electrocardiogram [ECG] [EKG]
CPT/HCPCS: 93005

== ENCOUNTER 2025-02-04 06:05 | Day surgery (SDC) | payer MEDICARE, SELFPAY ==
--- NOTE | 2025-01-24 11:37 | PC.NURSE ---
Reviewed case w/ R. BE Maya. Determined cardiac clearance necessary. Appointment scheduled for 01/31 @2:45. Patient notified and verbalized understanding. Office notified of POC.
[2025-02-04] VITALS (11 sets, daily range): BP systolic 130–147; BP diastolic 76–93; PULSE 75–87; RESP 16–18; TEMP 36.2–43; O2SAT 90–98
[2025-02-04] MEDS: LACTATED RINGERS 1000ML 1,000 ML 100 ML IV (06:39)
[2025-02-04 06:47] LABS: POC Glucose,Bedside 145 (70-110)
--- NOTE | 2025-02-04 07:07 | EXP.ANES.CKL ---
[facility] Disclaimer: The information contained in this section may have been updated after the patient was seen, as this information can be updated by other users. Medical History CAD in [place] artery Mitral regurgitation Pre-op exam Right ventricular dilation History of Garcia's esophagus Recurrent UTI Pinworms Contact dermatitis Poison tamara dermatitis History of histoplasmosis History of Mohs micrographic surgery for skin cancer Nasal vestibulitis Hyperthyroidism Internal nasal lesion Abnormal cardiovascular stress test Angina pectoris Diabetes mellitus HLD (hyperlipidemia) HTN (hypertension) Daytime somnolence Atypical angina Dyspnea Thyroid cancer Torn rotator cuff Cervical cancer Basal cell carcinoma Surgical History History of tonsillectomy Hx of pneumonectomy partial r side History of partial hysterectomy History of cholecystectomy History of thyroidectomy H/O: hysterectomy Family History Other Family history of COPD (chronic obstructive pulmonary disease) Family history of disease Family history of heart disease Thyroid cancer Thyroid disorder Social History (Updated 02/04/25 @ 06:27 by Darya Peterson RN) Smoking Status: Never smoker alcohol intake: never substance use type: denies use current occupational status: retired Travel in the last 8 weeks: Inside the [place] Have you lived/traveled outside [place] in past 30 days?: No Contact w/someone who lives/traveled outside US past 30 days?: No Exposure to someone with infectious disease in past 14 days?: No Do you have a fever (greater than 100.4 F or 38 C)?: No Have you tested positive for COVID-19: No Exposed to someone with COVID-19 in past 14 days?: No Do you have a sore throat?: No Do you have a cough?: No Do you have any weakness?: No Are you experiencing any nausea/vomitting?: No Do you have any diarrhea?: No Are you experiencing any unusual bleeding?: No Do you have any muscle aches/pain?: No Do you have any abdominal pain?: No Are you experiencing loss of taste or smell?: No [facility] Anesthesia Checklist Patient Identification Patient Identification: Arm Band and Family Structural Data Admitted From: Home Planned Operative Procedure/s: Left supalavicular lipoma Consent for Planned Operative Procedure(s) Verified: Yes Verified Documents: Surgical Consent and History and Physical NPO Status Verified Time NPO: 00:00 Additional verifications Patient : No Anesthesia Reactions: No Hx Blood Transfusions: No Blood Transfusion Reaction: No Cephalosporin Allergy: No Previous Colonoscopy: No Airway Assessment Mallampati Score:: Class III C-Spine Mobility Assessed: Yes TMJ Mobility Assessed: Yes Neurological Assessment Level of Consciousness: Awake, Alert, Appropriate and Follows Commands Hx Seizures: No Numbness or tingling in extremities: No Anesthesia Plan Anesthesia Risk discussed: Yes ASA Class: III Anesthesia Type: MAC (SP Thyroidectomy. NIDDM. Hx Cancer. )
[2025-02-04] MEDS: CEFAZOLIN SODIUM 2 GM in 0.9 % SODIUM CHLORIDE 100 ML IV (07:50)
[2025-02-04] MEDS: EPINEPHrine 1MG/ML 30ML VIAL 30 MG (08:15)
[2025-02-04] MEDS: RINGERS SOLUTION,LACTATED 6,000 ML 200 ML IR (08:20)
[2025-02-04] MEDS: RINGERS SOLUTION,LACTATED 3,000 ML 200 ML IR (08:45)
--- NOTE | 2025-02-04 09:05 | P.OP_ITS ---
Date of procedure: 02/04/25 Pre-op Diagnosis:: Right shoulder SLAP tear Post-op Diagnosis:: Same Procedure performed:: Right shoulder arthroscopy with superior labrum anterior to posterior repair Surgeon:: Parish Riley DO Service Porter(s):: Ji DEY PROGRAMMING COORDINATOR:: Alejo Maya Anesthesia: GETA and regional Estimated blood loss (mL): 0 Operative findings:: See dictation Operative note:: Patient identified preoperatively. Right shoulder marked with the SMI initials. Underwent a block with anesthesia and taken the operating room placed upon operating bed. General anesthesia administered and airway secured. Patient placed in the lateral position with the bony prominences well-padded beanbag and axillary roll. Right upper extremity and shoulder were then prepped and draped normal sterile fashion. Once prepped and draped final operative timeout performed to identify the proper patient procedure and extremity. Everyone involved in the case agreed. There is no counter indication beginning. Did receive preoperative antibiotics. Marking pen was used to chucho the bony landmarks of the shoulder and standard portal sites. Skin knife was used to incise posterior viewing portal bluntly trocar was placed into the glenohumeral joint and exchanged with a camera. I swept directly anteriorly above the subscapularis tendon where the anterior working portal was made and switched with a purple cannula. Attention was then brought to the intra-articular aspect of the shoulder. There is tearing of the superior labrum at the attachment of the biceps anchor. There is fraying of the anterior labral tissue. The direct anterior labrum was intact. Superior anterior had some fraying tissue which was debrided with a sucker shaver. Probe was then placed into the shoulder and the biceps anchor was unstable from the glenoid rim. Attention was then brought to repair of the SLAP lesion. Lasso suture passer was then placed through the labral tissue and push lock anch or placed anterior to the biceps tendon. Attention was then brought posteriorly this procedure was repeated with the lasso and push lock anchor to secure the biceps anchor both anterior and posterior. The intra-articular aspect of the biceps tendon was intact. Subscapularis intact. Thickened inferior glenohumeral ligament. Intra-articular aspect of the rotator cuff intact. Humeral cartilage intact. No evidence of Bankart lesion. No Hill-Sachs lesion. Camera is removed the joint was drained skin closed with nylon stitch sterile dressing placed patient placed in a sling and pillow and taken recovery in stable condition Condition: stable Disposition: PACU Complications:: None apparent
--- NOTE | 2025-02-04 09:08 | P.PNANES_ITS ---
[facility] Anesthesia Record Part I Anesthesia Record I Intake, IV Amount: 700 Hydration: Adequate Estimated blood loss (mL): 5 Urine output (mL): 0 Blood Products used (#): none Blood Pressure: 147/88 SaO2: 90 Pulse Rate: 79 Airway Patency: Patent Respiratory Rate: 16 Temperature: 98.2 F Patient is:: Drowsy and Stable Stable to PACU at:: 09:00
[2025-02-04] MEDS: SODIUM CHLORIDE 0.9% 25ML BAG 25 ML IV ×2 (09:15→09:30)
[2025-02-04] MEDS: PROMETHAZINE HCL 25MG/ML 1ML VIAL 6.25 MG IV ×2 (09:25→09:33)
--- NOTE | 2025-02-04 14:42 | P.PNANES_ITS ---
[facility] Anesthesia Record Part II Anesthesia Record Part II Discharge Time: 09:30 Destination: Surgical Day Care (OP Surgery) PACU nurse assessment reviewed?: Yes Patient Condition:: Good Anesthesia Complications:: None Swallowing reflex intact?: Yes Airway Patency: Patent Cyanosis?: No Blood Pressure: 131/80 SaO2: 95 Respiratory Rate: 16 Pulse Rate: 75 Temperature: 98.2 F Mental Status: Alert & Oriented Pain level:: 0 Nausea and/or vomitting:: Nauseated Intake, IV Amount: 0 Hydration: Adequate
== END 2025-02-04 10:29 | disposition home or self-care (01) ==
PROVIDERS: PCP Family Medicine; Visit Provider Orthopaedic Surgery
PROC: (CPT 29805; principal; 2025-02-04 07:30)
DX: S43.431A Superior glenoid labrum lesion of right shoulder, initial encounter (principal); M25.511 Pain in right shoulder; E11.9 Type 2 diabetes mellitus without complications
CPT/HCPCS: 29807; 82962; 96374; C1713; J0171; J0666; J0690; J1100; J2250; J2405; J2550; J3010; J7120

== ENCOUNTER 2025-03-13 09:47 | Outpatient (CLI) | payer MEDICARE, SELFPAY ==
--- NOTE | 2025-03-13 09:49 | CA_ITS ---
APPROVED REPORT EXAM: Comprehensive 2D, Doppler, and color-flow Echocardiogram Customer Field Representative: Magdalene Perez CRT Ht: 5 ft 4 in Wt: 189lbs BSA: 1.91 BP: 128/88 mmHg Indications: Shortness of Breath, Diabetes, CAD, Hyperlipidemia, Hypertension/HDD ROTATOR CUFF SURGERY 02/04/25 2D Dimensions LA Volume 35.40 mL LA Volume Index 18.53 mL/m2 (M/F) 16-34 M-Mode Dimensions RVDd 2.94 cm (0.9-2.6) LA Diam 3.61 cm (1.9-4.0) LVDd 3.47 cm (3.5-5.7) LVDs 1.83 cm (3.5-5.7) IVSd 1.90 cm (0.6-1.1) PWd 1.00 cm (0.6-1.1) EF (Teich) 79.70% FS 47.30% EDV (Teich) 49.80 mL TAPSE 1.49 (<1.7) ESV (Teich) 10.10 mL LV Diastology E Decel Time 157 (160-240 msec) E/A Ratio 0.8 MED A' 10.50 cm/s LAT A' 13.70 cm/s Aortic Valve AI PHT 482.00 ms AO Peak GR. 6.60 mmHg Mitral Valve MV E Max Jad. 66.0 (40-130 cm/s) MV A Velocity 86.0 (40-130 cm/s) E/A Ratio 0.76 MV PHT 46.0 ms Pulmonary Valve PV Peak Velocity 124.0 (50-150 cm/s) Tricuspid Valve TR P. Velocity 151.00 cm/s RAP Estimate 10.00 mmHg RVSP 19.20 mmHg Left Ventricle The left ventricle is normal size. The left ventricular systolic function is normal. The left ventricular ejection fraction is within the normal range. Proximal septal thickening is present. There is normal LV segmental wall motion. Transmitral Doppler flow pattern suggests impaired LV relaxation. LVEF is 55%. Right Ventricle The right ventricle is normal size. The right ventricular systolic function is normal. Atria The left atrium size is normal. The right atrium size is normal. There is no Doppler evidence of interatrial shunt. Aortic Valve The aortic valve opens well. Mild aortic regurgitation. There is no aortic valvular stenosis. Mitral Valve The mitral valve is normal in structure. No evidence of mitral valve stenosis. Mild mitral regurgitation. Tricuspid Valve Tricuspid valve is grossly normal in structure and function. Trace tricuspid regurgitation. There is insufficient TR jet to estimate RVSP. Pulmonic Valve The pulmonary valve is normal in structure. Trace pulmonic regurgitation. Great Vessels The aortic root is normal in size. IVC is normal in size and collapses >50% with inspiration. Pericardium There is no pericardial effusion. Other Information Study Quality: Fair Conclusion Normal biventricular systolic function. Mild AI, mild MR. Electronically signed by : Danielle Burger MD 03/21/2025 00:23:07
== END 2025-03-13 23:59 | disposition home or self-care (01) ==
LOC: RT 09:47
PROVIDERS: PCP Family Medicine; Visit Provider Nurse Practitioner Family
DX: I08.0 Rheumatic disorders of both mitral and aortic valves (principal); I25.10 Atherosclerotic heart disease of native coronary artery without angina pectoris; E11.9 Type 2 diabetes mellitus without complications; E78.5 Hyperlipidemia, unspecified; I11.9 Hypertensive heart disease without heart failure
CPT/HCPCS: 93306

== ENCOUNTER 2025-03-22 14:00 | Outpatient (RCR) | payer MEDICARE, SELFPAY ==
--- NOTE | 2025-03-04 14:56 | HMH.OTOPEV ---
OT Inpatient Evaluation Rehab OT Outpatient Eval Start: 03/04/25 11:37 Freq: Status: Active Protocol: Document 03/04/25 13:47 [facility] (Rec: 03/04/25 14:52 RMARSHALL [id number]) E-signed By Veronica Koo, OT Outpatient Therapy Subjective History Subjective History Pt is a 54 year old female who reports to therapy for initial evaluation to right shoulder. Pt is s/p SLAP repair on 02/04/25. Pt demonstrates with significant decrease in AROM and strength at right shoulder. Pt is right hand dominant. Pt does verbalize she has not been wearing her sling. Therapist re-educated patient on the importance of wearing her sling until her surgeon releases her from it due to precautions and healing. Pt verbalized understanding and reports she will begin wearing it again. Pt has a follow up with surgeon at the end of this month. Pt will continue to be seen twice a week in order to address all right shoulder deficits. Short term goals: 1. Pt will increase R shoulder flexion to 120 degrees in order to complete daily overhead tasks independently ~50% of the time . 2. Pt will increase R shoulder abduction to 120 degrees to complete upper body dressing independently ~50% of the time. 3. Pt will increase R shoulder ER/IR to 50 degrees ( ER) and 45 degrees (IR) in order to complete lower body dressing (putting on and taking off belt) independently ~50% of the time. 4. Pt will increase strength to 3+/5 throughout R shoulder in order to complete heavier household tasks (laundry, mopping, vacuuming) independently ~50% of the time . 5. Pt will verbalize decreased pain levels at worst in R shoulder to a 5/10 in order to complete daily ADLs independently ~50% of the time . 6. Pt will demonstrate improved endurance by completing R shoulder exercises for ~20 minutes prior to rest break in order to increase his tolerance for daily work activities. 7. Pt will demonstrate independence with HEP of AAROM exercises to increase overall functional use of R shoulder in daily activities ~75% of the time. long-term goals: 1. Pt will increase R shoulder flexion to 135 degrees in order to complete daily overhead tasks independently ~75% of the time . 2. Pt will increase R shoulder abduction to 130 degrees to complete upper body dressing independently ~75% of the time. 3. Pt will increase R shoulder ER/IR to 60 degrees ( ER) and 60 degrees (IR)in order to complete lower body dressing (putting on and taking off belt) independently ~75% of the time. 4. Pt will increase strength to 4-/5 throughout R shoulder in order to complete heavier household tasks (laundry, mopping, vacuuming) independently ~75% of the time . 5. Pt will verbalize decreased pain levels at worst in R shoulder to a 3/10 in order to complete daily ADLs independently ~75% of the time . 6. Pt will demonstrate improved endurance by completing R shoulder exercises for ~30 minutes prior to rest break in order to increase his tolerance for daily work activities. 7. Pt will demonstrate independence with HEP of Rotator cuff strengthening exercises to increase overall functional use of R shoulder for daily activities ~90% of the time. New diagnosis of cancer in past 12 No months? Chief Complaint Pain,Stiff,Weakness Symptom Type Ache,Throb,Sharp,Dull Symptoms Relieved By Rest/Positioning,Prescription Meds Symptoms Aggravated By Physical Activity,Lifting Prior Functional Limitations None Current Functional Limitations Reaching,Lifting,Housework, Dressing,Driving,Sleeping, Recreation Activity Symptom Description Constant but Variable Level of pain today (0-10) 2 Pain scale - at its best (0-10) 2 Pain scale - at its worst (0-10) 8 Shoulder/Elbow Eval Shoulder Objective Measurements Shoulder ROM Right Shoulder Abduction Active Range of 110 Motion (degrees) Shoulder Flexion Active Range of Motion 104 (degrees) Query Text: Shoulder External Rotation Active Range 30 of Motion (degrees) Shoulder Internal Rotation Active Range 20 of Motion (degrees) Shoulder MMT Shoulder Abduction Strength Grade 3 Fair Shoulder Flexion Strength Grade 3 Fair Shoulder External Rotation Strength 3 Fair Grade Shoulder Internal Rotation Strength 3 Fair Grade Shoulder Strength Patient Testing Sitting Position Elbow Objective Measurements QuickDASH Activities Please rate your ability to do the following activities in the last week by selecting the number below the appropriate response. 1. Open a tight or new jar. Unable 2. Do heavy nursing executive (e.g., wash Unable carmona, floors). 3. Carry a shopping bag or briefcase. Moderate difficulty 4. Wash your back. Severe difficulty 5. Use a knife to cut food. Mild difficulty 6. Recreational activities in which you Unable take some force or impact through your arm, shoulder, or hand (e.g., golf, hammering, tennis, etc.). 7. During the past week, to what extent Quite a bit has your arm, shoulder or hand problem interfered with your normal social activities with family, friends, neighbors or groups? 8. During the past week, were you Moderately limited limited in your work or other regular daily activites as a result of your arm, shoulder or hand problem? 9. Arm, shoulder or hand pain. Moderate 10. Tingling (pins and needles) in your Moderate arm, shoulder or hand. 11. During the past week, how much Severe difficulty difficulty have you had sleeping because of the pain in your arm, shoulder or hand? Quick DASH 41 OT Outpatient Assessment Impairments Problems/Impairments Palpation Tenderness,Impaired Range of Motion,Impaired Strength,Impaired Endurance, Impaired Lifting,Impaired Household Care,Impaired Recreational Activities, Impaired Work Activities, Subjective C/O Pain Prognosis Rehab Potential Good Clinical Impression Consistent with Diagnosis Yes Outpatient Therapy Plan of Care Treatment Plan May Include Therapeutic Exercise Including Home Yes Exercise Program Manual Therapy Techniques Yes Neuromuscular Re-education Yes Therapeutic Activities to Return to Yes Previous Functional/Work Level ADL/Self Care Education Yes Thermal Modalities Yes Electrical Stimulation Yes Ultrasound/Phonophoresis Yes Iontophoresis Yes Parrafin Yes Orthotics/Bracing/Splinting Yes Massage Yes Eval/Re-Eval Yes Frequency Times per week 2 Duration Number of Weeks 6 Addendums This patient is a candidate for social No or vocational rehab? Patient/Guardian verbally acknowledges Yes understanding of treatment program and consents to further treatment? Patient/Guardian verbally acknowledges Yes understanding of diagnosis, prognosis and goals for treatment? Eval Complexity OT Charge 38398 - Moderate Complexity PHYSICIAN CERTIFICATION: I certify the specified therapy services for Mireya Bosch are required, authorized, and reviewed every 30 days.
== END 2025-03-22 23:59 | disposition home or self-care (01) ==
LOC: OT 14:00
PROVIDERS: PCP Family Medicine; Visit Provider Orthopaedic Surgery
DX: S43.431D Superior glenoid labrum lesion of right shoulder, subsequent encounter (principal)
CPT/HCPCS: 97014; 97110; 97140; 97166; G0283

== ENCOUNTER 2025-04-18 14:00 | Outpatient (RCR) | payer MEDICARE, SELFPAY | END 2025-04-18 23:59 | disposition home or self-care (01) | LOC: OT 14:00 | PROVIDERS: Visit Provider Orthopaedic Surgery | DX: S43.431A Superior glenoid labrum lesion of right shoulder, initial encounter (principal) | CPT/HCPCS: 97014; 97110; 97140; G0283 ==

== ENCOUNTER 2025-04-30 14:00 | Outpatient (CLI) | payer MEDICARE, SELFPAY ==
--- OUTSIDE RECORDS SUMMARY | 2025-04-30 14:04 | XMS_ITS | Encounter Summary ---
Author Organization Healthcare Address [address] [place] [address] Care Team Providers Care Laundry Tech Name Role Phone Buster Falcon MD Primary Care Provider + [phone] Encounter Details Date Type Department Care Team ([facility] st Contact Info) Description 04/19/2023 Orders Only External Location [address] [place] [address] Provider, External Social History Tobacco Use Types Packs/Day Years Used Date Smoking Tobacco: Never Assessed Comments Unknown Sex and Gender Information Value Date Recorded Sex Assigned at Not on file Legal Sex Female 7:36 PM EDT Gender Identity Not on file Sexual Orientation Not on file documented as of this encounter Plan of Treatment Not on file documented as of this encounter Procedures Procedure Name Priority Date/Time Associated Diagnosis Comments MR THORACIC OUTSIDE IMAGES 04/19/2023 4:19 PM EDT documented in this encounter Results * MR THORACIC OUTSIDE IMAGES (04/19/2023 4:19 PM EDT) Anatomical Region Laterality Modality Magnetic Resonan ce 04/19/2023 4:19 PM EDT us External Provider IMG MRI PROCEDURES Final Resul t documented in this encounter Visit Diagnoses Not on filedocumented in this encounter Care Teams Laundry Tech Relationship Specialty Start Date End Date Buster Falcon MD [address] [place] [address] PCP - General 08/22/23 documented as of this encounter
--- OUTSIDE RECORDS SUMMARY | 2025-04-30 14:04 | XMS_ITS | Encounter Summary ---
Author Organization Healthcare Address [address] [place] [address] Care Team Providers Care Mix Maker Name Role Phone Buster Falcon MD Primary Care Provider + [phone] Encounter Details Date Type Department Care Team ([facility] st Contact Info) Description 06/08/2021 Orders Only External Location [address] [place] [address] Provider, External Social History Tobacco Use Types [...] Name Priority Date/Time Associated Diagnosis Comments MR OUTSIDE IMAGES 06/08/2021 12:09 PM EDT documented in this encounter Results * MR transfer of outside films (06/08/2021 12:09 PM EDT) Anatomical Region Laterality Modality Magnetic Resonan ce 06/08/2021 12:0 9 PM EDT us External Provider IMG MRI PROCEDURES Final Resul t documented in this encounter Visit Diagnoses Not on filedocumented in this encounter Care Teams Mix Maker Relationship Specialty Start Date End Date Buster Falcon MD [address] [place] [address] PCP - General 08/22/23 documented as of this encounter
--- OUTSIDE RECORDS SUMMARY | 2025-04-30 14:04 | XMS_ITS | Encounter Summary ---
Author Organization Healthcare Address [address] [place] [address] Care Team Providers Care Narcotics And Vice Detective Name Role Phone Buster Falcon MD Primary Care Provider + [phone] Encounter Details Date Type Department Care Team ([facility] Contact Info) Description 05/15/2021 Orders Only External Location [address] [place] [address] Provider, External Social History Tobacco Use Types [...] Procedure Name Priority Date/Time Associated Diagnosis Comments FL OUTSIDE IMAGES 05/15/2021 9:46 AM EDT documented in this encounter Results * FL OUTSIDE IMAGES (05/15/2021 9:46 AM EDT) Anatomical Region Laterality Modality Radiographic Hannah ging 05/15/2021 9:46 AM EDT us External Provider IMG FLUOROSCOPY PROCEDURES Fin al Result documented in this encounter Visit Diagnoses Not on filedocumented in this encounter Care Teams Narcotics And Vice Detective Relationship Specialty Start Date End Date Buster Falcon MD [address] [place] [address] PCP - General 08/22/23 documented as of this encounter
--- OUTSIDE RECORDS SUMMARY | 2025-04-30 14:04 | XMS_ITS | Encounter Summary ---
Author Organization Healthcare Address [address] [place] [address] Care Team Providers Care Manager Mall Name Role Phone Buster Falcon MD Primary Care Provider [phone] Encounter Details Date Type Department Care Team ([facility] st Contact Info) Description 02/02/2016 Orders Only External Location [address] [place] [address] Provider, External Social History Tobacco Use Types [...] Name Priority Date/Time Associated Diagnosis Comments MR MSK OUTSIDE IMAGES 02/02/2016 5:09 PM EDT documented in this encounter Results * MR MSK OUTSIDE IMAGES (02/02/2016 5:09 PM EDT) Anatomical Region Laterality Modality Magnetic Resonan ce 02/02/2016 5:09 PM EDT us External Provider IMG MRI PROCEDURES Final Resul t documented in this encounter Visit Diagnoses Not on filedocumented in this encounter Care Teams Manager Mall Relationship Specialty Start Date End Date Buster Falcon MD [address] [place] [address] PCP - General 08/22/23 documented as of this encounter
--- OUTSIDE RECORDS SUMMARY | 2025-04-30 14:04 | XMS_ITS | Encounter Summary ---
Author Organization [facility] Address [address] [place] [address] Care Team Providers Care Lens Matcher Name Role Phone Pcp, No Primary Care Provider [phone] System, Provider Not In Primary Care Provider Un available Pcp, No Primary Care Provider [phone] Matt Glover MD Unavailable Source Comments This information has been disclosed to you from confidential records protectfrom disclosure by state law. You shall make no further disclosure of thisinformation without the specific, written, and informed release of theindividual to whom it pertains, or as otherwise permitted by law. A generalauthorization for the release of medical or other information is not sufficientfor the purposes of the release of HIV test results or diagnoses. [id number] Encounter Details Date Type Department Care Team (Late st Contact Info) Description 10/27/2016 Chart Note [facility] HEALTH INFORMATION MANAGEMENT [address] [place] [address] Margarita Huntley MD Social History Tobacco Use Types Packs/Day Years Used Date Smoking Tobacco: Never Smokeless Tobacco: Never Alcohol Use Standard Drinks/Week Comments Yes 0 (1 standard drink = 0.6 oz pur e alcohol) Rarely Comments Unknown Sex and Gender Information Value Date Recorded Sex Assigned at Not on file Legal Sex Female 4:34 PM EDT Gender Identity Not on file Sexual Orientation Not on file documented as of this encounter Plan of Treatment Not on file documented as of this encounter Procedures Procedure Name Priority Date/Time Associated Diagnosis Comments COLONOSCOPY REPORT - SCAN Routine 10/04/2016 11:15 AM EST documented in this encounter Results * Colonoscopy Report - scan (10/04/2016 11:15 AM EST) us Margarita Huntley MD SCAN DOCS - NO RESULTS Final Result documented in this encounter Visit Diagnoses Not on filedocumented in this encounter Care Teams Lens Matcher Relationship Specialty Start Date End Date Pcp, No No Address PCP - General Pediatrics 08/17/16 04/23/21 System, Provider Not In PCP - General 04/24/21 05/18/21 Pcp, No No Address PCP - General 05/19/21 Matt Glover MD [address] [place] [address] 08/17/16 documented as of this encounter
--- OUTSIDE RECORDS SUMMARY | 2025-04-30 14:04 | XMS_ITS | Encounter Summary ---
Author Organization Healthcare Address [address] [place] [address] Care Team Providers Care Logistics Lead Name Role Phone Buster Falcon MD Primary Care Provider + [phone] Encounter Details Date Type Department Care Team ([facility] st Contact Info) Description 05/15/2021 Orders Only External Location [address] [place] [address] Provider, External Social History Tobacco Use Types [...] Date/Time Associated Diagnosis Comments MR OUTSIDE IMAGES 05/15/2021 11:12 AM EDT documented in this encounter Results * MR transfer of outside films (05/15/2021 11:12 AM EDT) Anatomical Region Laterality Modality Magnetic Resonan ce 05/15/2021 11:1 2 AM EDT us External Provider IMG MRI PROCEDURES Final Resul t documented in this encounter Visit Diagnoses Not on filedocumented in this encounter Care Teams Logistics Lead Relationship Specialty Start Date End Date Buster Falcon MD [address] [place] [address] PCP - General 08/22/23 documented as of this encounter
--- OUTSIDE RECORDS SUMMARY | 2025-04-30 14:04 | XMS_ITS | Encounter Summary ---
Author Organization Healthcare Address [address] [place] [address] Care Team Providers Care Crib Tender Name Role Phone Buster Falcon MD Primary Care Provider [phone] Encounter Details Date Type Department Care Team ([facility] st Contact Info) Description 08/05/2016 Orders Only External Location [address] [place] [address] Provider, External Social History Tobacco Use Types [...] Name Priority Date/Time Associated Diagnosis Comments MR NEURO OUTSIDE IMAGES 08/05/2016 1:59 PM EDT documented in this encounter Results * MR NEURO OUTSIDE IMAGES (08/05/2016 1:59 PM EDT) Anatomical Region Laterality Modality Magnetic Resonan ce 08/05/2016 1:59 PM EDT us External Provider IMG MRI PROCEDURES Final Resul t documented in this encounter Visit Diagnoses Not on filedocumented in this encounter Care Teams Crib Tender Relationship Specialty Start Date End Date Buster Falcon MD [address] [place] [address] PCP - General 08/22/23 documented as of this encounter
--- OUTSIDE RECORDS SUMMARY | 2025-04-30 14:04 | XMS_ITS | Encounter Summary ---
Author Organization [facility] Address [address] [place] [address] Care Team Providers Care Home Demonstrator Name Role Phone Pcp, No Primary Care [...] release of HIV test results or diagnoses. [id number] Health Encounter Details Date Type Department Care Team (Late st Contact Info) Description 07/18/2018 Orders Only [facility] Dermatology at [address] [place] [address] Mary Arellano CNP Social History Tobacco Use Types Packs/Day Years [...] on file documented as of this encounter Progress Notes * Mary Arellano CNP - 07/18/2018 11:59 PM EDT Reviewed results of recent biopsy located on the R chest with patient over the phone Final pathology result: Accession Number: [id number] Biopsy Site: Rt chest Biopsy Date: 07/18/2018 Impression: R/O ISK vs pigmented BCC Gross Description: A specimen of skin was received measurinx3x0.5mm; 8x8x0.5mm MICRO EXAM: There is hyperkeratosis, acanthosis, dyskeratotic cells, basal vacuolization, cytoid bodies and a dense lymphocytic infiltrate in the papillary dermis. DIAGNOSIS: Lichenoid keratosis, and adjacent solar lentigo. Plan: Due to the benign nature of the lesion, no further treatment is necessary. Patient educated and reassured. All questions answered and patient verbalized understanding of plan of care documented in this encounter Plan of Treatment Not on file documented as of this encounter Procedures Procedure Name Priority Date/Time Associated Diagnosis Comments SKIN / NAIL BIOPSY 07/18/2018 12 :15 PM EDT documented in this encounter Results * Skin / nail biopsy (07/18/2018 12:15 PM EDT) 07/18/2018 12:1 5 PM EDT 07/18/2018 12:15 PM EDT Narrative [facility] - 07/20/2018 12:52 PM EDT Accession Number: [id number] Biopsy Site: Rt chest Biopsy Date: 07/18/2018 Impression: R/O ISK vs pigmented BCC Gross Description: A specimen of skin was received measurinx3x0.5mm; 8x8x0.5mm MICRO EXAM: There is hyperkeratosis, acanthosis, dyskeratotic cells, basal vacuolization, cytoid bodies and a dense lymphocytic infiltrate in the papillary dermis. DIAGNOSIS: Lichenoid keratosis, and adjacent solar lentigo. ICD-10: L57.0 PATHOLOGIST: Electronically signed by: Zully Kothari MD Procedure Note Unknown, Attending Provider - 07/20/2018 Accession Number: [id number] Biopsy Site: Rt chest Biopsy Date: 07/18/2018 Impression: R/O ISK vs pigmented BCC Gross Description: A specimen of skin was received measurinx3x0.5mm; 8x8x0.5mm MICRO EXAM: There is hyperkeratosis, acanthosis, dyskeratotic cells, basalvacuolization, cytoid bodies and a dense lymphocytic infiltrate in the papillarydermis. DIAGNOSIS: Lichenoid keratosis, and adjacent solar lentigo. ICD-10: L57.0 PATHOLOGIST: Electronically signed by: Zully Kothari MD Mary Arellano CONTRACT ADMIN DERM PROCEDURE ORDERABLES F inal Result [facility] PATH [facility] documented in this encounter Visit Diagnoses Not on filedocumented in this encounter Care Teams Home Demonstrator Relationship Specialty Start Date End Date Pcp, No No Address PCP - General Pediatrics 08/17/16 04/23/21 System, Provider Not In PCP - General 04/24/21 05/18/21 Pcp, No No Address PCP - General 05/19/21 Matt Glover MD [address] [place] [address] 08/17/16 documented as of this encounter
--- OUTSIDE RECORDS SUMMARY | 2025-04-30 14:04 | XMS_ITS | Encounter Summary ---
Author Organization [facility] Address [address] [place] [address] Care Team Providers Care Director Business Development Name Role Phone Pcp, No Primary Care [...] release of HIV test results or diagnoses. [id number] Encounter Details Date Type Department Care Team (Late st Contact Info) Description 12/05/2016 Chart Note [facility] HEALTH INFORMATION MANAGEMENT [address] [place] [address] Margarita Huntley MD Social History Tobacco Use [...] Comments COLONOSCOPY REPORT - SCAN Routine 10/04/2016 3:40 PM EST documented in this encounter Results * Colonoscopy Report - scan (10/04/2016 3:40 PM EST) us Margarita Huntley MD SCAN DOCS - NO RESULTS Final Result documented in this encounter Visit Diagnoses Not on filedocumented in this encounter Care Teams Director Business Development Relationship Specialty Start Date End Date Pcp, No No Address PCP - General Pediatrics 08/17/16 04/23/21 System, Provider Not In PCP - General 04/24/21 05/18/21 Pcp, No No Address PCP - General 05/19/21 Matt Glover MD [address] [place] [address] 08/17/16 documented as of this encounter
--- OUTSIDE RECORDS SUMMARY | 2025-04-30 14:04 | XMS_ITS | Clinical Summary ---
Author Organization [facility] Address [address] [place] [id number] Care Team Providers Care Brilliandeer Looper Name Role Phone Pcp, No Primary Care Provider [phone] Matt Glover MD Unavailable Source Comments This information has been disclosed to you from confidential records protectedfrom disclosure by state law. You shall make no further disclosure of thisinformation without the specific, written, and informed release of theindividual to whom it pertains, or as otherwise permitted by law. A generalauthorization for the release of medical or other information is not sufficientfor the purposes of therelease of HIV test results or diagnoses. [id number] Allergies Active Allergy Reactions Criticality Noted Date Comments Iodine Rash High 01/27/2018 Rash with IV DYE. Rash with IV DYE. Soap Rash Low 05/30/2017 Jergens, Tide Detergent. Jergen's Terbutaline Shortness Of Breath,Swelling High 05/30/2017 In legs Terbutaline Sulfate Other (See Comments),Rash,Shortne ss Of Breath,Swelling High 05/07/2012 Medications fluticasone (FLONASE) 50 mcg/actuation nasal spray Use into each nostril. Active oxyCODONE-aceta minophen (PERCOCET) 10-325 mg per tablet TAKE 1 TABLET BY MOUTH 4 TIMES A DAY 0 6 Active spironolactone (ALDACTONE) 25 MG tablet TAKE 1 TABLET EVERY DAY 3 6 Active loratadine (CLARITIN) 10 mg tablet Take by mouth. Activ e dapagliflozin 5 mg Tab Take 1 tablet (5 mg total) by mouth daily. Active fluocinonide (LIDEX) 0.05 % creamIndication s:Chronic dermatitis of feet Apply topically to affected areas on feet twice a day for no longer than two weeks at a time. 30 g 3 9 Active acarbose (PRECOSE) 50 MG tablet Take 1 tablet (50 mg total) by mouth daily. Active albuterol (ACCUNEB) 1.25 mg/3 mL nebulizer solution Inhale 3 mLs (1.25 mg total) by nebulization every 6 hours as needed for Wheezing. Active diclofenac (VOLTAREN) 75 MG EC tablet Take 1 tablet (75 mg total) by mouth 2 times a day. 60 tablet 1 1 Active ketoconazole (NIZORAL) 2 % shampooIndicati ons:Seborrheic dermatitis Wash hair with shampoo three times a week for 1 month then once a week thereafter. Lather and leave on for 5-10 minutes before rinsing. 120 mL 5 2 Active clobetasoL (TEMOVATE) 0.05 % cream Apply once daily to affected area for up to a month at a time 45 g 3 4 Active Active Problems No known active problems Family History Medical History Relation Comments Stomach Cancer Mother Melanoma Other 1 Melanoma Other 2 Relation Status Comments Mother Other 1 Alive Other 2 Alive Social History Tobacco Use Types Packs/Day Years Used Date Smoking Tobacco: Never Smokeless Tobacco: Never Tobacco Cessation:Counseling Given: Not Answered Alcohol Use Standard Drinks/Week Comments Yes 1 (1 standard drink = 0.6 oz pur e alcohol) Rarely PHQ-2 Answer Date Recorded PHQ-2 Total Score 0 10/22/2022 Yearly Questionnaire Answer Date Record ed Do you need any assistance w ith obtaining housing, meals, medication, transportation or medical equipment? No 10/22 Assistance needed for: Not on file 2 Yearly Questionnaire Answer Date Record ed Do you need any assistance w ith obtaining housing, meals, medication, transportation or medical equipment? No 10/22 Assistance needed for: Not on file 2 Yearly Questionnaire Answer Date Record ed Do you need any assistance w ith obtaining housing, meals, medication, transportation or medical equipment? No 10/22 Assistance needed for: Not on file 2 Comments No Sex and Gender Information Value Date Recorded Sex Assigned at Not on file Legal Sex Female 4:34 PM EDT Gender Identity Not on file Sexual Orientation Not on file Last Filed Vital Signs Vital Sign Reading Time Taken Comments Blood Pressure 150/95 12/14/2022 4:47 PM EST Pulse 71 12/14/2022 4:47 PM EST Temperature - - Respiratory Rate 15 03/13/2021 2:40 PM EDT Oxygen Saturation 96% 10/22/2022 1:43 PM EST Inhaled Oxygen Concentration 96% 10/22/2022 1 :43 PM EST Weight 72.6 kg (160 lb) 07/08/2021 2:59 PM EDT Height 162.6 cm (5' 4 ) 12/14/2022 4:47 PM EST Body Mass Index 27.46 07/08/2021 2:59 PM EDT Plan of Treatment Health Maintenance Due Date Last Done Comments Hepatitis C Screening (MyChart) 1968 Alcohol Misuse Screening 1986 HIV Screening 1986 Immunization: DTaP/Tdap/Td (1 - Tdap) 1987 Immunization: Hepatitis B (1 of 3 - 19+ 3-dose series) 1987 Mammogram (MyChart) 2008 Cologuard (FIT-DNA) 2013 Stool Testing (gFOBT) 2013 Immunization: Pneumococcal ( 2 of 2 - PCV) 2018 03/20/2014 Immunization: Zoster (1 of 2) 2018 EGD/Upper Endoscopy (MyChart) 10/04/2019 10/04/2016, 10/04/2016 Abnormal Colonoscopy Follow Up 10/04/2021 1 12/05/2015, 10/04/2016, 10/04/2016 Colorectal Cancer Screening (MyChart) 10/04/2021 Depression Screening 10/22/2023 10/22/2022, 07/08/2021, 07/30/2019 Immunization: COVID-19 ( season) 2024 04/07/2021, 03/17/2021 Immunization: Influenza (MyC peraza) (#1) 2025 07/31/2010 Colonoscopy 10/04/2026 10/04/2016, 09/23, 10/04/2016 Procedures Procedure Name Priority Date/Time Associated Diagnosis Comments EGD REPORT - SCAN Routine 10/04/2016 4:2 5 PM EST HM COLONOSCOPY Routine 10/04/2016 from Last 3 Months or Most Recently Relevant to Health Maintenance Results * EGD Report - scan (10/04/2016 4:25 PM EST) Margarita Huntley MD SCAN DOCS - NO RESULTS Final Result * HM COLONOSCOPY (10/04/2016) HM Colonoscopy Colonoscopy follow-up in 5 years; 2020 Historical Provider HEALTH MAINTENANCE Final Result from Last 3 Months or Most Recently Relevant to Health Maintenance Insurance [employer] Care Teams Brilliandeer Looper Relationship Specialty Start Date End Date Pcp, No No Address PCP - General 05/19/21 Matt Glover MD [address] [place] [address] 08/17/16
--- OUTSIDE RECORDS SUMMARY | 2025-04-30 14:04 | XMS_ITS | Encounter Summary ---
Author Organization [facility] Address [address] [place] [address] Care Team Providers Care Welcome Hostess Name Role Phone Buster Falcon MD Primary Care Provider + [phone] Encounter Details Date Type Department Care Team ([facility] st Contact Info) Description 03/10/2023 Orders Only External Location [address] [place] [address] Provider, External Social History Tobacco Use Types [...] Date/Time Associated Diagnosis Comments MR OUTSIDE IMAGES 03/10/2023 5:57 PM EDT documented in this encounter Results * MR transfer of outside films (03/10/2023 5:57 PM EDT) Anatomical Region Laterality Modality Magnetic Resonan ce 03/10/2023 5:57 PM EDT us External Provider IMG MRI PROCEDURES Final Resul t documented in this encounter Visit Diagnoses Not on filedocumented in this encounter Care Teams Welcome Hostess Relationship Specialty Start Date End Date Buster Falcon MD [address] [place] [address] PCP - General 08/22/23 documented as of this encounter
--- OUTSIDE RECORDS SUMMARY | 2025-04-30 14:04 | XMS_ITS | Clinical Summary ---
Author Organization [facility] Address [address] [place] [address] Care Team Providers Care Independent Insurance Adjuster Name Role Phone Buster Falcon MD Primary Care Provider + [phone] Allergies Active Allergy Reactions Criticality Noted Date Comments Brompheniramine Dizziness,Headache,R unny nose,Wheezing High 06/19/2024 Iodine Rash High 01/27/2018 Rash with IV DYE. Rash with IV DYE. Rash with IV DYE. Soap Itching,Rash,Swelling High 03/14/2014 Jergens, Tide Detergent. Jergen's Jergens Jergen's Terbutaline Anaphylaxis,Rash,Shonda rtne ss of breath,Swelling High 03/12/2010 In legs Medications acarbose (Precose) 100 MG tablet 1 tablet (100 mg). 3 Active albuterol 108 (90 Base) MCG/ACT inhaler Inhale 2 puffs. Acti ve Trulicity 3 MG/0.5ML inj. pen inject 1 pen subcutaneously ONCE WEEKLY 4 Active atorvastatin (Lipitor) 20 MG tablet 4 Active budesonide-for moterol (Symbicort) 160-4.5 MCG/ACT inhaler 4 Active carvedilol (Coreg) 6.25 MG tablet Take 1 tablet (6.25 mg) by mouth. Active cetirizine (ZyrTEC) 10 MG tablet Take 1 tablet (10 mg) by mouth Daily. Active DULoxetine (Cymbalta) [address] capsule 4 Active levothyroxine (Synthroid, Levoxyl) 137 MCG tablet 1 (one) time each day. 3 Active lisinopril 10 MG tablet 1 tablet (10 mg). 3 Active mupirocin (Bactroban) 2 % ointment 4 Active oxybutynin XL (Ditropan-XL) 10 MG 24 hr tablet 4 Active oxyCODONE-acet aminophen (Percocet) 10-325 MG tablet 1 tablet. 3 Active spironolactone (Aldactone) 25 MG tablet Take 1 tablet (25 mg) by mouth twice a day. 3 Active tiZANidine (Zanaflex) 4 MG tablet 1 tablet (4 mg). 3 Active Social History Tobacco Use Types Packs/Day Years Used Date Smoking Tobacco: Never Smokeless Tobacco: Never Tobacco Cessation:Counseling Given: Not Answered Alcohol Use Standard Drinks/Week Comments Yes 0 (1 standard drink = 0.6 oz pur e alcohol) Comments Unknown Sex and Gender Information Value Date Recorded Sex Assigned at Not on file Legal Sex Female 7:36 PM EDT Gender Identity Not on file Sexual Orientation Not on file Last Filed Vital Signs Vital Sign Reading Time Taken Comments Blood Pressure 122/83 08/08/2024 1:11 PM EDT Pulse 79 08/08/2024 1:11 PM EDT Temperature 36.4 C (97.5 F) 06/19/2024 11:36 AM EDT Respiratory Rate 18 06/19/2024 11:36 AM EDT Oxygen Saturation 97% 08/08/2024 1:11 PM EDT Inhaled Oxygen Concentration - - Weight 84 kg (185 lb 3 oz) 08/08/2024 1:11 PM ED T Height 162.6 cm (5' 4 ) 08/08/2024 1:11 PM EDT Body Mass Index 31.79 08/08/2024 1:11 PM EDT Plan of Treatment Health Maintenance Due Date Last Done Comments [facility]-Depression Screening 1968 [facility]-HIV Screening 1968 [facility]-Hepatitis C Screening 1968 [facility]-Medicare Annual Wellness (AWV) 1968 [facility]-/Child/Adol SDOH Screenings 1968 [facility]- SDOH Screenings 1986 [facility]-Adult SDOH Screenings 1986 [facility]-DTaP,Tdap,and Td Vaccines (1 - Tdap) 1987 [facility]-Hepatitis B Vaccines (1 of 3 - 19+ 3-dose series) 1987 [facility]-Pap Smear 1989 [facility]-Cervical Cancer Screening 1998 [facility]-HPV/Cotest 1998 CT Colonography 2013 Colonoscopy 2013 FIT-DNA 2013 FIT 2013 FOBT 2013 Sigmoidoscopy 2013 [facility]-Colorectal Cancer Screening 2013 [facility]-Pneumococcal Vaccine: 50+ Years (2 of 2 - PCV) 2018 03/20/2014 [facility]-Zoster Vaccines (1 of 2) 2018 [facility]-[id number] Vaccine (3 - Pfizer risk series) 05/05/2021 04/07/2021, 03/17/2021 [facility]-Breast Cancer Screening 01/17/202512/23, 01/17/2023, 04/06/2021, Additional history exists [facility]-Influenza Vaccine (#1) 2025 07/31/2010 [facility]-Obesity Intervention Completed 08/08/2024, 05/25 HPV Vaccines Aged Out No longer eligi ble based on patient's age to complete this topic [facility]-HIB Vaccines Aged Out No longer e ligible based on patient's age to complete this topic [facility]-Hepatitis A Vaccines Aged Out No longer eligible based on patient's age to complete this topic [facility]-IPV Vaccines Aged Out No longer e ligible based on patient's age to complete this topic [facility]-Rotavirus Vaccines Aged Out No lo nger eligible based on patient's age to complete this topic Insurance [employer] Care Teams Independent Insurance Adjuster Relationship Specialty Start Date End Date Buster Falcon MD [address] [place], [place] [id number] PCP - General 08/22/23
--- OUTSIDE RECORDS SUMMARY | 2025-04-30 14:04 | XMS_ITS | Encounter Summary ---
Author Organization [facility] Address [address] [place] [address] Care Team Providers Care Humanities Professor Name Role Phone Pcp, No Primary Care [...] release of HIV test results or diagnoses. [id number] Encounter Details Date Type Department Care Team (Late st Contact Info) Description 10/31/2016 Chart Note [facility] HE[facility] INFORMATION MANAGEMENT [address] [place] [address] Margarita Huntley MD Social History Tobacco Use [...] Comments EGD REPORT - SCAN Routine 10/04/2016 4:25 PM EST documented in this encounter Results * EGD Report - scan (10/04/2016 4:25 PM EST) us Margarita Huntley MD SCAN DOCS - NO RESULTS Final Result documented in this encounter Visit Diagnoses Not on filedocumented in this encounter Care Teams Humanities Professor Relationship Specialty Start Date End Date Pcp, No No Address PCP - General Pediatrics 08/17/16 04/23/21 System, Provider Not In PCP - General 04/24/21 05/18/21 Pcp, No No Address PCP - General 05/19/21 Matt Glover MD [address] [place] [address] 08/17/16 documented as of this encounter
--- OUTSIDE RECORDS SUMMARY | 2025-04-30 14:04 | XMS_ITS | Continuity of Care Document ---
Author Organization [facility] Address [address] [place] [address] Phone Care Team Providers Care Carry Out Clerk And Shelf Stocker Name Role Phone Unavailable Primary Care Provider Unavailabl e Encounters Date Type Department Care Team Description 4 Telephone [place] [phone] Darya Tate DO Other [address] [phone] Madhu Wilkinson MD 4 4:25 PM EDT - 4 11:59 PM EDT Hospital Encounter [facility] [address] [place] [address] Jillian Lock PA-C Cervical radiculopathy Discharge Disposition: Home or Self Care 4 Refill [facility] [address] [place] [address] Madhu Wilkinson MD Medication Refill [address] [phone] Madhu Wilkinson MD Other 4 Telephone [facility] Mauricio [address] [place] [address] Abimbola Gonzalez MD Paperwork/forms 3 Refill [facility] [address] [address] Madhu Wilkinson MD Medication Refill 3 Refill [facility] [address] [address] Madhu Wilkinson MD Medication Refill 3 Refill [facility] [address] [address] Madhu Wilkinson MD Medication Refill 3 Refill [facility] [address] [place], [place] [address]HE[address] [address] [address] Madhu Wilkinson MD Medication Refill 3 Travel 3 3:53 PM EDT - 3 11:59 PM EDT Hospital Encounter [facility] [address] [place] [address] Julio César Erazo MD Mid back pain Discharge Disposition: Home or Self Care 3 Refill [facility] [address] [address] Madhu Wilkinson MD Medication Refill 3 2:00 PM EDT [facility] 262Grey GORDON [address] [address] Madhu Wilkinson MD Low back pain, unspecified back pain laterality, unspecified chronicity, unspecified whether sciatica present (Primary Dx); Protrusion of cervical intervertebral disc 3 6:00 PM EDT [facility] [address] [place] [address] Madhu Wilkinson MD Thoracic spine pain; Sprain of ligaments of cervical spine, initial encounter; DDD (degenerative disc disease), cervical 3 2:20 PM EDT Ancillary Procedure [facility] [address] [address] Madhu Wilkinson MD Thoracic spine pain 3 2:45 PM EDT Office Visit [facility] [address] [place] [address] Madhu Wilkinson MD Thoracic spine pain (Primary Dx); Sprain of ligaments of cervical spine, initial encounter; DDD (degenerative disc disease), cervical 3 Travel 3 9:57 AM EDT - 3 11:59 PM EDT Hospital Encounter [facility] [address] Julio César Erazo MD Mastodynia Discharge Disposition: Home or Self Care 3 9:19 AM EDT - 3 9:56 AM EDT Hospital Encounter [facility] [address] Julio César Erazo MD Mastodynia Discharge Disposition: Home or Self Care 2 9:00 AM EDT Office Visit [facility] [address] [place] [address] Jadiel Amaya, CELESTE Neoplasm of uncertain behavior of skin of foot (Primary Dx); Onychomycosis; Onychodystrophy; Toe pain, right; History of basal cell carcinoma 2 Travel 2 12:00 PM EDT - 2 11:59 [place] [address] Julio César Erzao MD Persistent nodularity of breast; Breast pain Discharge Disposition: Home or Self Care 2 Travel 2 7:23 PM EDT - 2 7:48 PM EDT Emergency [facility] [address] [place] [address] Buster Maciel MD Contact dermatitis due to plant (Primary Dx) Discharge Disposition: Home or Self Care 2 2:15 PM EDT Office Visit [facility] [address] [place] [phone] Abimbola Gonzalez MD Mediastinal adenopathy (Primary Dx); Histoplasmosis; Lung nodule 2 Travel 2 6:15 PM EST - 2 9:40 PM EST Emergency [facility] [address] [facility] [address] Stephanie Schultz MD Near syncope (Primary Dx) Discharge Disposition: Home or Self Care 2 Travel 2 10:40 AM EST [facility] [address] [place] [address] Angelica Palacios MD Vulval lesion (Primary Dx); Hx of cervical cancer; Sebaceous cyst of labia 1 12:00 PM EDT [facility] [address] [place] [address] Cervical pain 1 3:00 PM EDT Ancillary Procedure [facility]U [address] [place] [address] Madhu Wilkinson MD Cervical pain 1 2:45 PM EDT Office Visit [facility]U [address] [place] [address] Madhu Wilkinson MD Cervical pain (Primary Dx) 1 2:45 PM EDT Office Visit [address] [address] Castro Olmos DO Superior glenoid labrum lesion of right shoulder, subsequent encounter (Primary Dx); Arthritis of right acromioclavicular joint 1 11:00 AM EDT Ancillary Procedure [facility] MRI [address] [place] [address] 1 10:30 AM EDT Office Visit [address] [address] Omari Kent MD Acute pain of right shoulder (Primary Dx) 1 11:00 AM EDT Office Visit [facility] [address] [place] [address] Darya Tate DO Nontraumatic incomplete tear of right rotator cuff (Primary Dx); Glenoid labrum tear, right, subsequent encounter; Shoulder weakness 1 1:58 PM EDT - 1 11:59 PM EDT Hospital Encounter [facility] Mammography [address] [place] [id number] Julio César Erazo MD Encounter for screening mammogram for malignant neoplasm of breast Discharge Disposition: Home or Self Care 1 Travel 1 Travel 1 3:54 PM EDT - 1 6:27 PM EDT Emergency [facility] [address] [place] [address] Jorge Rose MD Atypical chest pain (Primary Dx) Discharge Disposition: Home or Self Care 1 Travel 1 2:15 PM EST Office Visit [facility] [address] [address] Abimbola Gonzalez MD Mediastinal adenopathy (Primary Dx); Histoplasmosis; Lung nodule 1 Travel 0 3:20 PM EST Ancillary Procedure [facility] [address] [address] Maxine Sequeira MD Cough Discharge Disposition: Home or Self Care 0 2:45 PM EST Office Visit [facility] [address] [address] Maxine Sequeira MD Cough (Primary Dx); Viral upper respiratory tract infection 0 Travel 0 Travel 0 Travel 0 Travel 0 2:00 PM EDT - 0 11:59 PM EDT Hospital Encounter [facility] [address] [place] [address] Discharge Disposition: Home or Self Care 0 Travel 0 Travel 0 2:49 PM EDT - 0 11:59 PM EDT Hospital Encounter [facility] [address] [place] [address] Abimbola Gonzalez MD Mediastinal adenopathy; Histoplasmosis; Lung nodule Discharge Disposition: Home or Self Care 0 Travel 0 12:30 PM EDT Office Visit [facility] [address] [address] Abimbola Gonzalez MD Mediastinal adenopathy (Primary Dx); Histoplasmosis; Lung nodule 0 Telephone [facility] [address] [address] Abimbola Gonzalez MD Other 0 Travel 0 3:30 PM EST - 0 11:59 PM EST Hospital Encounter [facility] [facility] [address] [place] [address] Julio César Erazo MD Osteoporosis, unspecified osteoporosis type, unspecified pathological fracture presence Discharge Disposition: Home or Self Care 0 4:00 PM EST - 0 11:59 PM EST Hospital Encounter [facility] [place] [address] [place] [address] Julio César Erazo MD Myalgia; Stress fracture of left tibia, sequela Discharge Disposition: Home or Self Care 0 Travel 9 3:57 PM EDT - 9 11:59 PM EDT Hospital Encounter [facility] [address] [place] [address] Knee pain, unspecified chronicity, unspecified laterality Discharge Disposition: Home or Self Care 9 Telephone [facility] 651 [facility] [address] [place] [phone] Abimbola Gonzalez MD Other 8 2:35 PM EDT - 8 11:59 PM EDT Hospital Encounter [facility] [address] [place] [phone] Mediastinal adenopathy; Histoplasmosis; Lung nodule Discharge Disposition: Home or Self Care 8 1:30 PM EDT Office Visit [facility] [address] [place] [address] Abimbola Gonzalez MD Mediastinal adenopathy (Primary Dx); Histoplasmosis; Lung nodule 8 2:56 PM EDT - 8 11:59 PM EDT Hospital Encounter [facility] [address] [place] [address] Julio César Erazo MD Pretibial myxedema (Primary Dx); Essential hypertension, malignant; Chronic lymphocytic thyroiditis; Lipoatrophic diabetes (HCC) Discharge Disposition: Home or Self Care 8 2:54 PM EDT - 8 2:55 PM EDT Hospital Encounter [facility] [address] [place] [address] Julio César Erazo MD Localized enlarged lymph nodes; Histoplasmosis Discharge Disposition: Home or Self Care 8 Telephone [facility] [address] [place] [address] Abimbola Gonzalez MD Other 8 Telephone [facility] [place] [address] Jennifer Emmanuel RN Other 8 Telephone [facility] [address] [place] [phone] Katja Georges MA Other 8 Telephone [facility] [place] [address] Salma Hsu REGIS Other 8 1:30 PM EST - 8 11:59 PM EST Hospital Encounter [facility] [place] [address] Julio César Erazo MD Breast lump; Breast pain; History of cancer Discharge Disposition: Home or Self Care 8 1:00 PM EST - 8 1:29 PM EST Hospital Encounter [facility] [place] [address] Julio César Erazo MD Breast lump; Breast pain; History of cancer Discharge Disposition: Home or Self Care 7 9:50 AM EDT - 7 11:59 PM EDT Hospital Encounter [facility] [address] [place] [address] Overactive thyroid gland (Primary Dx); Macrocytic anemia; Anemia, Hays's; Overproduction of ACTH; Essential hypertension, benign; Disease of pancreas; Familial lipodystrophic diabetes (HCC) Discharge Disposition: Home or Self Care 7 9:15 AM EDT Office Visit [facility] [address] [place] [address] Abimbola Gonzalez MD Hoarseness (Primary Dx); Mediastinal adenopathy; Lung nodule 7 Telephone [facility] Mauricio [address] [place] [address] Abimbola Gonzalez MD Other 7 2:00 PM EDT - 7 11:59 PM EDT Hospital En[facility] [address] [place] [address] Abimbola Gonzalez MD Mediastinal adenopathy; Histoplasmosis Discharge Disposition: Home or Self Care 7 Telephone [facility] [address] [place] [phone] Abimbola Gonzalez MD No Show ( ct chest on 02/16) 6 10:42 AM EST - 6 11:59 PM EST Hospital Encounter [facility] [address] [place] [address] Margarita Huntley MD Abdominal pain, unspecified location Discharge Disposition: Home or Self Care 6 4:55 PM EDT - 6 11:59 PM EDT Hospital Encounter [facility] [address] [place] [address] Stomach ache (Primary Dx); Pretibial myxedema; Malignant neoplasm of thyroid gland (HCC); Vitamin D deficiency Discharge Disposition: Home or Self Care 6 1:43 PM EDT - 6 11:59 PM EDT Hospital Encounter [facility] MRI [address] [place] [address] Rod Stahl Jr., MD Cervical radiculopathy Discharge Disposition: Home or Self Care 6 2:00 PM EDT Office Visit [facility] Mauricio [address] [place] [phone] Abimbola Gonzalez MD Mediastinal adenopathy (Primary Dx); Histoplasmosis 6 6:00 PM EDT - 6 11:59 PM EDT Hospital En[facility] [address] [place] [address] Abimbola Gonzalez MD Hoarseness; Mediastinal adenopathy; Histoplasmosis; Lung nodule Discharge Disposition: Home or Self Care 6 4:51 PM EDT - 6 11:59 PM EDT Hospital Encounter [facility] [address] [place], [place] [address] Julio César Erazo MD Subacromial bursitis, right Discharge Disposition: Home or Self Care 6 Telephone [facility] [address] [address] Abimbola Gonzalez MD Other 6 Telephone [facility] [address] [place] [address] Abimbola Gonzalez MD Other (schedule january) 5 4:21 PM EST - 5 11:59 PM EST Hospital Encounter [facility] [place] [facility] [address] [place] [address] Julio César Erazo MD Encounter for screening mammogram for malignant neoplasm of breast Discharge Disposition: Home or Self Care 5 2:30 PM EDT Office Visit [facility] [address] [address] Abimbola Gonzalez MD Mediastinal adenopathy (Primary Dx); Hoarseness; Histoplasmosis; Lung nodule 5 Telephone [facility] [address] [place] [address] Abimbola Gonzalez MD Other 5 12:00 PM EDT - 5 11:59 PM EDT Hospital En[facility] [address] [place] [address] Abimbola Gonzalez MD Hoarseness; Mediastinal adenopathy; Histoplasmosis Discharge Disposition: Home or Self Care 5 Telephone [facility] [address] [place] [address] Abimbola Gonzalez MD Other (schedule april) 5 Refill [facility] [address] [place] [phone] Darya Conner MD Medication Refill 5 Telephone [facility] [address] [place] [address] Alisha Waggoner Naresh, RMA Other 5 7:18 PM EST - 5 9:08 PM EST Emergency [facility] [address] [place] [address] Esteban Sanchez MD Spasm eyelid (Primary Dx); Muscle spasm; Elevated blood pressure Discharge Disposition: Home or Self Care 5 Telephone [facility] Mauricio [address] [place] [address] Abimbola Gonzalez MD Visit Follow Up 5 10:30 AM EST Office Visit [facility] [address] [place] [address] Abimbola Gonzalez MD Hoarseness (Primary Dx); Mediastinal adenopathy; Histoplasmosis 4 1:40 PM EST - 4 11:59 PM EST Hospital Encounter [facility] [address] [place], [place] [id number] Abimbola Gonzalez MD Mediastinal adenopathy; Lung nodule; Histoplasmosis Discharge Disposition: Home or Self Care 4 1:30 PM EST - 4 1:45 PM EST Surgery [facility]COPY [address] [place] [address] Germain Santa MD ESOPHAGOGASTRODUODENOSCOPY 4 11:58 AM EST - 4 4:30 PM EST Hospital Encounter [facility] [address] [place] [address] Lena Fish MD RUQ pain (Primary Dx); Chronic diarrhea; Breast nodule; DM (diabetes mellitus) (HCC); Histoplasmosis; Hypothyroid; Barretts esophagus Discharge Disposition: Left Against Medical Advice 4 Patient Outreach [facility] [address] [place] [address] Nani Sims, gravel inspector 4 12:15 PM EDT Office Visit [facility] [address] [place] [address] Abimbola Gonzalez MD Mediastinal adenopathy (Primary Dx); Lung nodule; Histoplasmosis 4 Telephone [facility] [place] [facility] [address] [place] [phone] Buster Talbot MD Results 4 9:11 AM EDT - 4 11:59 PM EDT Hospital Encounter [facility] XRAY [address] [place] [address] Darya Conner MD Abdominal pain Discharge Disposition: Home or Self Care 4 9:03 AM EDT - 4 9:10 AM EDT Hospital Encounter [facility] [place] [facility] [address] [place] [address] Darya Conner MD Abdominal pain Discharge Disposition: Home or Self Care 4 4:07 PM EDT - 4 11:59 PM EDT Hospital Encounter [facility] LAB ZARI PROCESSING [facility] [place] [address] Abdominal pain Discharge Disposition: Home or Self Care 4 10:15 AM EDT Office Visit [facility] [address] [place] [phone] Darya Conner MD Abdominal pain (Primary Dx); Histoplasmosis; Garcia's esophagus; Vertebral artery disease; DM (diabetes mellitus) (HCC) 4 Patient Outreach [facility] [address] [place] [address] Nani Sims, gravel inspector 4 11:30 AM EDT Office Visit [facility] Cardiac Surgeons [address] [place] [address] Cory Moran MD Lung nodule, solitary (Primary Dx); Mediastinal adenopathy 4 Telephone [facility] [address] [place] [address] Nani Sims RN Care Transition 4 Telephone [facility] [address] [place] [address] Nani Sims RN Care Transition 4 3:03 PM EDT - 4 4:15 PM EDT Emergency [place] [address] [place] [place] [address] Ernesto Davis MD History of chest tube placement (Primary Dx) Discharge Disposition: Home or Self Care 4 Telephone [facility] [address] [place] [address] Nani Sims RN Care Transition 4 5:56 AM EDT - 4 1:49 PM EDT Hospital Encounter [facility] PACU OVERNIGHT [facility] [place] [address] Cory Moran MD Discharge Disposition: Home or Self Care 4 8:00 AM EDT - 4 11:45 AM EDT Surgery [facility] PERIOP [facility] [place] [address] Cory Moran MD THORACOSCOPY POSSIBLE THORACOTOMY (VATS- VIDEO-ASSISTED THORACOSCOPIC SURGERY) (INCLUDES FLEXIBLE BRONCHOSCOPY) (REGULAR OR ROOM) 4 2:59 PM EDT - 4 11:59 PM EDT Hospital Encounter ED[facility] D-WING XRAY [facility] [place] [address] Shantal Ames APRN Discharge Disposition: Home or Self Care 4 1:30 PM EDT - 4 2:58 PM EDT Hospital Encounter [facility] PRE-ADMIT TESTING [facility] [place] [address] Preop examination (Primary Dx); Hoarseness; Mediastinal adenopathy; Lung nodule Discharge Disposition: Home or Self Care 4 2:30 PM EDT Office Visit [facility] Cardiac Surgeons [address] [place] [phone] Cory Moran MD Mediastinal adenopathy (Primary Dx); Lung nodule 4 Telephone [facility] [address] [place] [address] Abimbola Gonzalez MD Visit Follow Up 4 11:15 AM EDT Office Visit [facility] [address] [place] [address] Abimbola Gonzalez MD Mediastinal adenopathy (Primary Dx); Lung nodule 4 Orders Only [facility] [place] [address] [address] [place] [phone] Buster Talbot MD Hyperlipidemia (Primary Dx) 4 6:35 PM EDT - 4 11:59 PM EDT Hospital Encounter [facility] LAB ZARI PROCESSING [facility] [place] [address] DM (diabetes mellitus) (HCC) Discharge Disposition: Home or Self Care 4 1:40 PM EDT Clinical Support [facility] [address] [place] [phone] Mireya George Type II or unspecified type diabetes mellitus without mention of complication, not stated as uncontrolled (HCC) (Primary Dx) 4 4:30 PM EDT - 4 11:59 PM EDT Hospital Encounter EDG D-WING XRAY [facility] [place] [address] Chest pain; Cough Discharge Disposition: Home or Self Care 4 Orders Only [facility] [place] [address] [place] [address] Abimbola Gonzalez MD Chest pain (Primary Dx); Cough 4 7:14 PM EDT - 4 11:59 PM EDT Hospital Encounter [facility] LAB ZARI PROCESSING [facility] [place] [address] DM (diabetes mellitus) (HCC) Discharge Disposition: Home or Self Care 4 1:00 PM EDT Office Visit [facility] [place] [address] [place] [phone] Buster Talbot MD Well adult exam (Primary Dx); Lung nodule; Mediastinal adenopathy; Pneumothorax; Garcia esophagus; Osteoarthritis; DM (diabetes mellitus) (HCC) 4 9:00 AM EDT - 4 11:00 AM EDT Surgery EDG ENDOSCOPY [facility] [place] [address] Abimbola Gonzalez MD ENDOSCOPIC BRONCHIAL ULTRASOUND-EBUS (ANESTHESIA) 4 7:04 AM EDT - 4 4:27 PM EDT Hospital Encounter EDG ENDOSCOPY [facility] [place] [address] Abimbola Gonzalez MD Lung nodule (Primary Dx); Mediastinal adenopathy Discharge Disposition: Home or Self Care 4 2:20 PM EDT - 4 11:59 PM EDT Hospital Encounter Srinivas EKG [facility] [place] [address] Abimbola Gonzalez MD Pre-op testing Discharge Disposition: Home or Self Care 4 12:45 PM EDT - 4 11:59 PM EDT Hospital Encounter EDG PRE-ADMIT TESTING [facility] [place] [address] Discharge Disposition: Home or Self Care 4 Telephone [facility] Pul[facility] [address] [place] [address] Abimbola Gonzalez MD Visit Follow Up 4 1:26 PM EDT - 4 11:59 PM EDT Hospital Encounter EDG PET CT [facility] [place] [address] Abimbola Gonzalez MD Mediastinal adenopathy; Lung nodule; Cough Discharge Disposition: Home or Self Care 4 2:15 PM EDT - 4 11:59 PM EDT Hospital Encounter [facility] [address] [place] [phone] Mediastinal adenopathy (Primary Dx); Lung nodule; Cough Discharge Disposition: Home or Self Care 4 12:45 PM EDT Office Visit [facility] [address] [place] [address] Abimbola Gonzalez MD Mediastinal adenopathy (Primary Dx); Lung nodule; Cough 4 8:00 PM EDT - 4 11:59 PM EDT Hospital [place] [address] [place] [address] Abimbola Gonzalez MD Hoarseness; Mediastinal adenopathy; Lung nodule Discharge Disposition: Home or Self Care 4 5:40 PM EDT Office Visit [facility] [address] [place] [phone] Alvina Lopes APRN Acute sinusitis (Primary Dx) 3 6:06 PM EST - 3 8:21 PM EST Emergency [facility] [address] [place] [address] Andrea Rcihards MD Contusion of right wrist (Primary Dx); Contusion of right forearm Discharge Disposition: Home or Self Care 3 Telephone [facility] Maur[address] [place] [phone] Abimbola Gonzalez MD Visit Follow Up 3 3:45 PM EST Office Visit [facility] Maur[address] [place] [address] Abimbola Gonzalez MD Hoarseness (Primary Dx); Mediastinal adenopathy; Lung nodule 3 8:00 PM EDT - 3 11:59 PM EDT Hospital [place] [address] [place] [address] Abimbola Gonzalez MD Hoarseness; Chest pain; Mediastinal adenopathy Discharge Disposition: Home or Self Care 3 Telephone [facility] [address] [place] [address] Abimbola Gonzalez MD Other (schedule may) 3 9:46 PM EDT - 3 7:05 PM EDT Hospital Encounter [facility] [address] [address] [place] [address] Ernesto Davis MD Wong, Chris, MD Chest pain (Primary Dx); Peripheral edema; EKG abnormalities; Lethargy; Environmental allergies; Hypothyroid Discharge Disposition: Home or Self Care 3 Telephone [facility] [address] [address] Abimbola Gonzalez MD Visit Follow Up 3 9:45 AM EDT Office Visit [facility] [address] [place] [address] Abimbola Gonzalez MD Hoarseness (Primary Dx); Chest pain; Mediastinal adenopathy 3 2:23 PM EDT - 3 11:59 PM EDT Hospital Encounter [facility] [address] [facility] [place] [address] Abimbola Gonzalez MD Pleuritic chest pain (Primary Dx) Discharge Disposition: Home or Self Care 3 2:00 PM EDT Office Visit [facility] [address] [address] Abimbola Gonzalez MD Pleuritic chest pain (Primary Dx); Hoarseness; Mold exposure 3 11:00 AM EDT - 3 11:59 PM EDT Hospital Encounter [facility] [address] [place] [address] SOB (shortness of breath) Discharge Disposition: Home or Self Care 3 Orders Only [facility] [address] [address] Abimbola Gonzalez MD SOB (shortness of breath) (Primary Dx) 2 12:41 PM EST - 2 11:59 PM EST Hospital Encounter [facility] [address] [place] [address] Other screening mammogram Discharge Disposition: Home or Self Care 2 7:25 PM EDT - 2 11:59 PM EDT Hospital Encounter [facility] [address] [place] [phone] Unspecified hypothyroidism; Unspecified deficiency anemia; Unspecified essential hypertension; Laboratory examination, unspecified Discharge Disposition: Home or Self Care 2 4:18 AM EDT - 2 11:59 PM EDT Hospital Encounter [facility] LAB [place]AR[place] [facility] [address] Screening for malignant neoplasm of the cervix Discharge Disposition: Home or Self Care 2 3:00 PM EDT Office Visit [facility] [address] [place] [phone] Jadiel Abernathy MD History of cervical cancer; Urinary incontinence 2 2:24 PM EDT - 2 11:59 PM EDT Hospital Encounter [facility] [address] [facility] [place] [address] Julio César Erazo MD Breast cyst Discharge Disposition: Home or Self Care 1 10:28 AM EDT - 1 11:59 PM EDT Hospital Encounter [facility] [address] [address] Kam Escalera MD Breast pain Discharge Disposition: Home or Self Care 1 2:47 PM EST - 1 3:36 PM EST Emergency [facility] [place] [address] Felipe Larsen MD Cough; Chest wall pain Discharge Disposition: Home or Self Care 0 9:42 AM EDT - 0 11:59 PM EDT Hospital Encounter [facility] NUC MED [address] [place] [address] Rafiq White F Discharge Disposition: Home or Self Care 0 9:30 AM EDT - 0 9:41 AM EDT Hospital Encounter [facility] [address] [place] [address] Rafiq White F Back pain; Rib pain Discharge Disposition: Home or Self Care 0 3:45 PM EDT - 0 11:59 PM EDT Hospital Encounter [facility] XRAY [address] [place] [address] Chest pain Discharge Disposition: Home or Self Care 0 3:24 PM EDT - 0 11:59 PM EDT Hospital Encounter [facility] SLED EDG Dee Glover MD 0 Hospital Encounter [facility] MEDICINE [facility]TT 0 12:01 AM EST - 0 11:59 PM EST Hospital Encounter [facility] EPIC CON UNK EDG Kam Escalera MD 9 2:27 PM EDT - 9 11:59 PM EDT Hospital Encounter H[facility] LAB EDG NildajosyjamesJosh 9 Hospital Encounter [facility] MEDICINE FTT Generic, Historical Provider 9 Hospital Encounter [facility] GYNECOLOGY FTT Generic, Historical Provider 9 9:25 PM EDT - 9 11:59 PM EDT Hospital Encounter [facility] LAB EDG JeannetteJosh 8 6:30 AM EDT - 8 8:54 AM EDT Emergency [facility] EMERGENCY FTT Generic, Historical Provider 8 7:31 PM EDT - 8 11:16 PM EDT Emergency [facility] EMERGENCY FTT Generic, Historical Provider 8 4:48 PM EDT - 8 7:14 PM EDT Emergency [facility] EMERGENCY FTT Generic, Historical Provider 8 5:37 PM EST - 8 7:55 PM EST Emergency [facility] EMERGENCY [facility]TT Generic, Historical Provider 7 Hospital Encounter [facility] UROLOGY [facility]TT Generic, Historical Provider 7 Hospital Encounter [facility] MEDICINE FTT Generic, Historical Provider 7 5:02 PM EDT - 7 9:16 PM EDT Emergency [facility] EMERGENCY FTT Generic, Historical Provider 7 6:06 PM EDT - 7 7:51 PM EDT Emergency [facility] EPIC CON UNK Jairo Urrutia MD 7 9:03 PM EDT - 7 11:14 PM EDT Emergency [facility] EMERGENCY FTT Generic, Historical Provider 7 5:09 PM EST - 7 7:32 PM EST Emergency [facility] EMERGENCY [facility]TT Generic, Historical Provider 7 9:22 AM EST - 7 11:26 AM EST Emergency [facility] EMERGENCY FTT Generic, Historical Provider 6 3:02 PM EST - 6 11:59 PM EST Hospital Encounter [facility] LAB EDG Saul Pastor MD 6 3:38 AM EST - 6 5:45 AM EST Emergency [facility] EMERGENCY FTT Generic, Historical Provider 6 5:40 PM EDT - 6 7:33 PM EDT Emergency HST ER MAURICIO Generic, Historical Provider 4 7:10 PM EST - 4 9:36 PM EST Emergency [facility] EMERGENCY FTT Generic, Historical Provider 3 Hospital Encounter [facility] MEDICINE FTT Generic, Historical Provider 3 4:15 PM EST - 3 8:40 PM EST Emergency [facility] EMERGENCY FTT Generic, Historical Provider 2 Hospital Encounter HST UNKNFTT Generic, Historical Provider 2 2:21 PM EDT - 2 3:30 PM EDT Emergency [facility] EPIC CON UNK COV Norman Floyd DO 2 6:50 PM EDT - 08/30/200 2 9:06 PM EDT Emergency [facility] UNKNFTT Generic, Historical Provider 2 Hospital Encounter [facility]ST UNKNFTT Generic, Historical Provider 2 2:44 PM EST - 2 4:15 PM EST Emergency [facility]ST UNKNFTT Generic, Historical Provider 1 2:20 AM EDT - 1 3:40 AM EDT Emergency [facility] UNKNFTT Generic,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 comparison: Compared with 04/06/21, 12/30/17 and dating backto October 19, 2012. No significant interval change in either breast. The BB marking the patient's palpable area of concern in the 11:00 to 12:00 right breast corresponds to the stable large 3.4 cm calcified oil cyst. ~ IMPRESSION: Incomplete-need additional imaging evaluation (KPF-Rbtlkzma-0) ~ RECOMMENDATION: Ultrasound of both breasts. Bilateral ultrasound was performed following the diagnostic mammogramand will be reported separately. . ~ DISCLAIMER * Any patient with a palpable abnormality, unexplained by breast imaging, should be managed on clinical basis by the attending physician. * Breast imaging has a false negative rate of 15%. * The patient was notified by mail of the results of this examination. *The patient's information was entered into a reminder system with atarget due date for the next mammogram, in accordance with the [employer] and the Society of Breast Imaging recommendations. us Julio César Erazo MD IMG MAMMOGRAPHY ORDERABLES Final Result * SCANNED LABS (08/04/2022 2:40 AM EDT) Only the most recent of6 resultswithin the time period is included. 08/04/2022 2:40 AM EDT us Unknown Provider HEMATOLOGY ORDERABLES Final Res ult * MRI BREAST BILATERAL W WO CONTRAST W CAD (07/16/2022 1:08 PM EDT) Anatomical Region Laterality Modality Breast Bilateral Magnetic Resonan ce 07/16/2022 4:15 PM EDT Impressions 07/16/2022 4:15 PM EDT Negative (XZA-Knrhkgxz-4) There is no MRI evidence of malignancy in either breast. ~ RECOMMENDATION: Routine screening mammogram of both breasts in 3 months. The patient is due now for annual screening mammography. Breast MRI does not replace mammography as a screening tool in the detection of breast cancer. If the patient has a new or enlarging palpable lump in either breast, a diagnostic mammogram and ultrasound are recommended. Narrative 07/16/2022 4:15 PM EDT Procedure:MRI BREAST BILATERAL W WO CONTRAST W CAD ~ The patient is a 51-year-old female with nodular breast disease and breast pain. ~ MRI BREAST BILATERAL W WO CONTRAST W CAD Technologist: RT Josep ~ Prior study comparison: Compared with prior studies the most recent being screening mammogram dated 04/06/2021 and 12/30/2017. ~ TECHNICAL FACTORS: Routine imaging was done with a dedicated breast coil and a 1.5T magnet system. Imaging was done prior to and following 17 mL of Dotarem IV. A CAD work station was also used to aid in interpretation. There is no suspicious lymphadenopathy in either axilla or within the internal mammary chains. There is a known benign rim-calcified oil cyst in the right breast at 12:00. There are minimal scattered foci of parenchymal background enhancement in both breasts. ~ Right Breast: ~ There are no suspicious enhancing masses or areas of nonmass enhancement in the right breast. ~ Left Breast: ~ There are no suspicious enhancing masses or areas of nonmass enhancement in the left breast. ~ Procedure Note Dahiana Flores MD - 07/16/2022 Procedure:MRI BREAST BILATERAL W WO CONTRAST W CAD ~ The patient is a 51-year-old female with nodular breast disease andbreast pain. ~ MRI BREAST BILATERAL W WO CONTRAST W CAD Technologist: RT Josep ~ Prior study comparison: Compared with prior studies the most recentbeing screening mammogram dated 04/06/2021 and 12/30/2017. ~ TECHNICAL FACTORS: Routine imaging was done with a dedicated breast coil and a 1.5T magnet system. Imaging was done prior to and following 17mL of Dotarem IV. A CAD work station was also used to aid ininterpretation. There is no suspicious lymphadenopathy in either axilla or within the internal mammary chains. There is a known benign rim-calcified oil cystin the right breast at 12:00. There are minimal scattered foci ofparenchymal background enhancement in both breasts. ~ Right Breast: ~ There are no suspicious enhancing masses or areas of nonmass enhancementin the right breast. ~ Left Breast: ~ There are no suspicious enhancing masses or areas of nonmass enhancementin the left breast. ~ IMPRESSION: Negative (TUO-Pawxxucm-7) There is no MRI evidence of malignancy in either breast. ~ RECOMMENDATION: Routine screening mammogram of both breasts in 3 months. The patient is due now for annual screening mammography. Breast MRI does not replace mammography as a screening tool in the detection of breast cancer. If the patient has a new or enlarging palpable lump in either breast, a diagnostic mammogram and ultrasound are recommended. us Julio César Erazo MD IMG MRI BREAST ORDERABLES Final Result * SCANNED EKG (11/30/2021 11:17 AM EST) Only the most recent of2 resultswithin the time period is included. Anatomical Region Laterality Modality Other 11/30/2021 11:1 7 AM EST us Unknown Provider IMG ECG ORDERABLES Final Result * TROPONIN-T HIGH SENSITIVITY 2HR (11/29/2021 8:19 PM EST) Only the most recent of2 resultswithin the time period is included. dx-aCykzuuwg-K 2HR <6 <14 ng/L 11/29/2021 8:41 PM EST [facility] Comment:See the website stephan Snoox for rule out [place] care pathway, conditions other than AMI that can cause elevated hs cTnT, and comparison of values from the 4th and 5th generation Refug[employer] tests. https://[email or web address].org/topic/clinical-answers/gnt-34742234/cpm-203 75252 hs-cTnT 2Hr Delta from Baseline 11/29/2021 8:41 PM EST [facility] Comment:Unable to calculate, result is outside instrument's measuring range. Blood VENOUS BLOOD / Unknown Venipuncture / Unknown 11/29/2021 8:19 PM EST 11/29/2021 8:22 PM EST Narrative [facility] - 11/29/2021 8:41 PM EST Ingestion of shane doses of biotin (>5 mg/day) taken within 8 hours of drawing blood sample can interfere with this immunoassay test. us Stephanie Schultz MD CHEMISTRY ORDERABLES Final Result [facility] [address] [facility] [place] [address] * CT ANGIOGRAM PULMONARY W CONTRAST (11/29/2021 7:36 PM EST) Anatomical Region Laterality Modality Chest Computed Tomogra phy 11/29/2021 7:36 PM EST Impressions 11/29/2021 7:50 PM EST No pulmonary embolus or other definite acute finding. - Note: Radiology results need to be interpreted within a comprehensive clinical context. If you have questions about the radiology report, please contact the office of the ordering clinician. Narrative 11/29/2021 7:[address] PULMONARY ANGIOGRAM, 11/29/2021 7:36 PM CLINICAL HISTORY: -pos ddimer. COMPARISON: 2019 TECHNIQUE: PE protocol CT angiogram of the chest using Isovue 370 IV contrast as recorded in EPIC. 2-D multiplanar reconstructions and 3-D MIP reconstructions reviewed. Dose 1 : CT DLP Total : 708.49 mGycm DLP Spiral Max : 700.28 mGycm Maximum CTDI Vol : 22.05 mGy SSDE : 15.876 mGy SSDE Diameter : 44.5 cm SSDE Source : Lat FINDINGS: Mildly limited by motion and imaging during expiration. Central airways are patent. Patchy irregular groundglass with mosaic pattern most suggestive of atelectasis/air trapping. No definite acute airspace disease or effusion. No definite pulmonary embolus. No suspicious mediastinal or hilar lymphadenopathy. No acute findings in limited imaging of the upper abdomen. No suspicious osseous lesion. Procedure Note Edu Tobar MD - 11/29/2021 CT PULMONARY ANGIOGRAM, 11/29/2021 7:36 PM CLINICAL HISTORY: -pos ddimer. COMPARISON: 2019 TECHNIQUE: PE protocol CT angiogram of the chest using Isovue 370 IVcontrast as recorded in EPIC. 2-D multiplanar reconstructions and 3-D MIP reconstructions reviewed. Dose 1 : CT DLP Total : 708.49 mGycm DLP Spiral Max : 700.28 mGycm Maximum CTDI Vol : 22.05 mGy SSDE : 15.876 mGy SSDE Diameter : 44.5 cm SSDE Source : Lat FINDINGS: Mildly limited by motion and imaging during expiration. Central airwaysare patent. Patchy irregular groundglass with mosaic pattern most suggestive of atelectasis/air trapping. No definite acute airspace disease oreffusion. No definite pulmonary embolus. No suspicious mediastinal or hilar lymphadenopathy. No acute findings in limited imaging of the upper abdomen. No suspicious osseous lesion. IMPRESSION: No pulmonary embolus or other definite acute finding. - Note: Radiology results need to be interpreted within a comprehensiveclinical context. If you have questions about the radiology report, please contactthe office of the ordering clinician. Stephanie Schultz MD IM CT ORDERABLES Final Res ult * CORONAVIRUS 2019 POCT (11/29/2021 6:28 PM EST) [facility] Signature COV19 RNA POCT Negative Negative 11/29/2021 6:52 PM EST [facility] Swab NASAL / Unknown 11/29/2021 6 :28 PM EST 11/29/2021 6:34 PM EST Narrative [facility] - 11/29/2021 6:52 PM EST The ID NOW is an isothermal nucleic acid amplification assay used to detect nucleic acid from SARS-CoV-2 viral RNA and is intended for use under FDA Emergency Use Authorization only. Negative results do not preclude SARS-CoV-2 infection and should not be used as the sole basis for patient management decisions. Negative results must be combined with clinical observations, patient history, and epidemiological information. Recommend confirmation using alternate method if a negative result is inconsistent with clinical signs and symptoms or if necessary for patient management. Prakash ID NOW Provider Fact Sheet: https://www.fda.gov/media/589811/download Prakash ID NOW Patient Fact Sheet: https://www.fda.gov/media/566180/download us Stephanie Schultz MD MICROBIOLOGY - [facility] Final Result Performing Organization Address [facility]/ZIP Co de Phone Number [facility] [address] [place] [address] * TROPONIN-T HIGH SENSITIVITY BASELINE W/ REFLEX (11/29/2021 6:25 PM EST) Only the most recent of2 resultswithin the time period is included. ri-iOtizrzof-K <6 <14 ng/L 11/29/2021 6:48 PM EST [facility] Comment:See the website [facility] for rule out [place] care pathway, conditions other than AMI that can cause elevated hs cTnT, and comparison of values from the 4th and 5th generation [employer]ugio tests. https://[email or web address].org/topic/clinical-answers/gnt-95144824/cpm-203 60868 Blood VENOUS BLOOD / Unknown Venipuncture / Unknown 11/29/2021 6:25 PM EST 11/29/2021 6:27 PM EST Narrative [facility] - 11/29/2021 6:48 PM EST Ingestion of shane doses of biotin (>5 mg/day) taken within 8 hours of drawing blood sample can interfere with this immunoassay test. Stephanie Schultz MD CHEMISTRY ORDERABLES Final Result Performing Organization Address [facility]/ZIP Co de Phone Number [facility] [address] [place] [address] * (ABNORMAL) CBC (11/29/2021 6:25 PM EST) Only the most recent of4 resultswithin the time period is included. WBC 8.5 3.7 - 10.3 x10(3)/mcL 11/29/2021 6:30 PM EST [facility] RBC 5.02 3.90 - 5.20 x10(6)/mcL 11/29/2021 6:30 PM EST [facility] Hgb 15.3 11.2 - 15.7 g/dL 11/29/2021 6:30 PM EST [facility] Hct 42.7 34.0 - 45.0 % 11/29/2021 6:30 PM EST [facility] MCV 85.1 80.0 - 100.0 fL 11/29/2021 6:30 PM EST [facility] MCH 30.5 26.0 - 34.0 pg 11/29/2021 6:30 PM EST [facility] MCHC 35.8(H) 30.7 - 35.5 g/dL 11/29/2021 6:30 PM EST [facility] RDW 12.0 <=14.9 % 11/29/2021 6:30 PM EST [facility] Platelet 223 155 - 369 x10(3)/mcL 11/29/2021 6:30 PM EST [facility] MPV 9.4 8.8 - 12.5 fL 11/29/2021 6:30 PM EST [facility] Blood VENOUS BLOOD / Unknown Venipuncture / Unknown 11/29/2021 6:25 PM EST 11/29/2021 6:27 PM EST us Stephanie Schultz MD HEMATOLOGY ORDERABLES Final Result [facility] [address] [place] [address] * (ABNORMAL) D-DIMER (11/29/2021 6:25 PM EST) Only the most recent of3 resultswithin the time period is included. D-Dimer 502(H) <=500 ng/mL FEU 11/29/2021 6:49 PM EST [facility] Comment:This is an automated latex enhanced immunoassay for the quantitative determination of D-Dimer that may be used, in conjunction with a clinical pretest probability assessment, to exclude venous thromboembolism in patients suspected of deep venous thrombosis (DVT) and pulmonary embolism (PE). The cutoff for exclusion of DVT and PE is 500 ng/mL Fibrinogen Equivalent Units (FEU). Elevated D-Dimer levels may be associated with PE, DVT, disseminated intravascular coagulation, recent surgery, recent bleeding, , malignancy, and inflammation. Blood VENOUS BLOOD / Unknown Venipuncture / Unknown 11/29/2021 6:25 PM EST 11/29/2021 6:27 PM EST Narrative [facility] - 11/29/2021 6:49 PM EST For patients between the ages of 50 - 75, an age-adjusted D-Dimer cut-off in combination with non-high clinical probability may be considered for the exclusion of venous thromboembolism (calculation = age x 10). SHANNEN Hayes, et al. [employer] Docket Clerk Med. 2017;166(5):361-363 KHUSHI Chacon, et al. [employer] Docket Clerk Med. 2015;(163):701-711. Feroz Gupta, et al. [place]. 2014;(11):7433-2635. us Stephanie Schultz MD HEMATOLOGY ORDERABLES Final Result [facility] [address] [place] [address] * (ABNORMAL) COMPREHENSIVE METABOLIC PANEL (11/29/2021 6:25 PM EST) Only the most recent of3 resultswithin the time period is included. Sodium 142 136 - 145 mmol/L 11/29/2021 6:48 PM EST [facility] Potassium 3.8 3.5 - 5.0 mmol/L 11/29/2021 6:48 PM [facility] Chloride 103 98 - 107 mmol/L 11/29/2021 6:48 PM [facility] Total CO2 27 22 - 29 mmol/L 11/29/2021 6:48 PM [facility] Anion Gap 12 7 - 16 mmol/L 11/29/2021 6:48 PM [facility] Calcium 9.4 8.6 - 10.4 mg/dL 11/29/2021 6:48 PM [facility] Glucose Lvl 155(H) 74 - 100 mg/dL 11/29/2021 6:48 PM EST [facility] BUN 12 6 - 20 mg/dL 11/29/2021 6:48 PM EST [facility] Creatinine 0.79 0.51 - 1.30 mg/dL 11/29/2021 6:48 PM EST [facility] Albumin 4.2 3.5 - 5.2 gm/dL 11/29/2021 6:48 PM EST [facility] Total Protein 7.2 6.4 - 8.3 gm/dL 11/29/2021 6:48 PM [facility] Bili Total 0.4 0.1 - 1.3 mg/dL 11/29/2021 6:48 PM EST [facility] ALT 17 <=41 U/L 11/29/2021 6:48 PM EST [facility] AST 18 <=40 U/L 11/29/2021 6:48 PM [facility] Alk Phos 73 36 - 123 U/L 11/29/2021 6:48 PM [facility] eGFR (CKD-EPIcr 2020) 89 >=60 mL/min/1.7 3 m2 11/29/2021 6:48 PM EST [facility] Comment:Estimated GFR was ca lculated using the CKD-EPIcr (2020) equation refit without race. The equation is recommended by the [employer] - [place] [employer] Task Force. Blood VENOUS BLOOD / Unknown Venipuncture / Unknown 11/29/2021 6:25 PM EST 11/29/2021 6:27 PM EST Stephanie Schultz MD CHEMISTRY ORDERABLES Final Result [facility] [address] [place] [address] * EK EKG 12 LEAD (11/29/2021 6:19 PM EST) Only the most recent of6 resultswithin the time period is included. Anatomical Region Laterality Modality Electrocardiogra phy 11/29/2021 6:20 PM EST Impressions 11/30/2021 8:04 AM EST [place] [facility] Test Date: 2021-11-29 Pat Name: MIREYA OVALLES Department: DEPID Room: OTFPOOL Gender: Female Program Clinician: [facility] : 1970 Requested By: STEPHANIE Sethi Order Number: [id number] Reading MD: Josse Maurice MD Measurements Intervals [place] Rate: 99 P: 46 NE: 160 QRS: 52 QRSD: 94 T: 26 QT: 354 QTc: 455 Interpretive Statements SINUS RHYTHM Electronically Signed On 11-30-2021 8:04:55 EST by Josse Maurice MD Narrative Procedure Note Josse Maurice MD - 11/30/2021 IMPRESSION [place] [facility] Test Date: 2021-11-29 Pat Name: MIREYA DAVIDSONY Department: DEPID [facility]: [facility] Gender: Female Program Clinician: [facility] : 1970 Requested By: STEPHANIE Sethi Order Number: [id number] Reading MD: Josse Maurice MD Measurements Intervals [place] Rate: 99 P: 46 NE: 160 QRS: 52 QRSD: 94 T: 26 QT: 354 QTc: 455 Interpretive Statements SINUS RHYTHM Electronically Signed On 11-30-2021 8:04:55 EST by Josse Maurice MD us Stephanie Schultz MD IMG ECG ORDERABLES Final Re sult * XR CERVICAL SPINE AP AND LATERAL (06/02/2021 2:54 PM EDT) Narrative Amy Mckinney - 06/02/2021 2:54 PM EDT Please see physician's note from office encounter for x-ray imaging result us Madhu Wilkinson MD IMG DIAGNOSTIC IMAGING OR DERABLES Final Result * MRI SHOULDER RIGHT ARTHROGRAM W CONTRAST (05/15/2021 11:59 AM EDT) Narrative [facility] - 05/15/2021 11:59 AM EDT Please see the scanned MRI report associated with this order on the Imaging tab of the patient's chart. Procedure Note Nuha Waters, Clerical Staff - 05/15/2021 Please see the scanned MRI report associated with this order on theImaging tab of the patient's chart. us Darya Tate DO IMG MRI ORDERABLES Final Resul t [facility] * MM MAMMO DIGITAL LEXII SCREEN BILAT (04/06/2021 2:33 PM EDT) Anatomical Region Laterality Modality Breast Bilateral Mammography 04/06/2021 4:10 PM EDT Impressions 04/06/2021 4:10 PM EDT Benign finding (OVS-Rzyidzwq-4) ~ RECOMMENDATION: Routine screening mammogram in 1 year. ~ DISCLAIMER * Any patient with a palpable abnormality, unexplained by breast imaging, should be managed on clinical basis by the attending physician. * Breast imaging has a false negative rate of 15%. * The patient was notified by mail of the results of this examination. *The patient's information was entered into a reminder system with a target due date for the next mammogram, in accordance with the [employer] and the Society of Breast Imaging recommendations. Narrative 04/06/2021 4:10 PM EDT Procedure:MM MAMMO DIGITAL LEXII SCREEN BILAT ~ Reason for exam: screening, asymptomatic. Z12.31-Encounter for screening mammogram for malignant neoplasm of owwrlu-XLL-04-CM ~ MM MAMMO DIGITAL LEXII SCREEN BILAT Bilateral CC and MLO view(s) were taken. Technologist: Maria Guadalupe Stafford RT There are scattered fibroglandular densities. Prior study comparison: Compared with prior studies the most recent being 12/30/17, 10/22/15 No mammographic evidence of malignancy. Large benign calcification again noted in the right breast. ~ Procedure Note Maricruz Natarajan MD - 04/06/2021 Procedure:MM MAMMO DIGITAL LEXII SCREEN BILAT ~ Reason for exam: screening, asymptomatic. Z12.31-Encounter for screening mammogram for malignant neoplasm of uhsxes-MBB-47-CM ~ MM MAMMO DIGITAL LEXII SCREEN BILAT Bilateral CC and MLO view(s) were taken. Technologist: Maria Guadalupe Stafford RT There are scattered fibroglandular densities. Prior study comparison: Compared with prior studies the most recentbeing 12/30/17, 10/22/15 No mammographic evidence of malignancy. Large benign calcification again noted in the right breast. ~ IMPRESSION: Benign finding (DKY-Hcsyeeny-5) ~ RECOMMENDATION: Routine screening mammogram in 1 year. ~ DISCLAIMER * Any patient with a palpable abnormality, unexplained by breast imaging, should be managed on clinical basis by the attending physician. * Breast imaging has a false negative rate of 15%. * The patient was notified by mail of the results of this examination. *The patient's information was entered into a reminder system with atarget due date for the next mammogram, in accordance with the [employer] and the Society of Breast Imaging recommendations. Julio César Erazo MD IMG MAMMOGRAPHY ORDERABLES Final Result * EXTRA CORNEJO URINE CX (01/26/2021 5:48 PM EDT) Urine URINE SPECIMEN COLLECTION, CLEAN CATCH / Unknown 01/26/2021 5:48 PM EDT 01/26/2021 5:52 PM EDT Jorge Rose MD MICROBIOLOGY - GENERAL ORDERAB LES Final Result Performing Organization Address City/State/[facility] Co de Phone Number [address] [address] * (ABNORMAL) URINALYSIS (01/26/2021 5:48 PM EDT) Only the most recent of3 resultswithin the time period is included. UA Color Yellow 01/26/2021 6:08 PM EDT [facility] UA Appear Slightly Hazy(A) Clear 01/26/2021 6:[address] [facility] UA Glucose Negative Negative mg/dL 01/26/2021 6:08 PM EDT [facility] UA Ketones Negative Negative mg/dL 01/26/2021 6:[address] [facility] UA Blood Negative Negative 01/26/2021 6:[address] [facility] UA pH 6.0 5.0 - 8.0 pH 01/26/2021 6:[address] [facility] UA Protein Negative Negative mg/dL 01/26/2021 6:[address] [facility] UA Urobilinogen 0.2 <=1 mg/dL 6:[address] [facility] UA Bili Negative Negative 01/26/2021 6:[address] [facility] UA Nitrite Negative Negative 01/26/2021 6:[address] [facility] UA Leuk Est Trace(A) Negative 01/26/2021 6:[address] [facility] UA Spec Grav 1.010 1.001 - 1.035 no units 01/26/2021 6:[address] [facility] Comment:Reference range laverne d for random specimens only. UA WBC 3 0 - 4 /HPF 01/26/2021 6:[address] [facility] UA Squam Epi 3+ /LPF 01/26/2021 6:[address] [facility] UA Mucus 1+ /LPF 01/26/2021 6:[address] [facility] UA Amorph Trace /LPF 01/26/2021 6:[address] [facility] UA Trans Epi 2(H) <=0 /HPF 01/26/2021 6:[address] [facility] UA Renal Epi 2(H) 0 - 1 /HPF 01/26/2021 6:[address] [facility] Urine URINE SPECIMEN COLLECTION, CLEAN CATCH / Unknown 01/26/2021 5:48 PM EDT 01/26/2021 5:52 PM EDT Jorge Rose MD URINE ORDERABLES Final Result [address] [address] * XR CHEST AP PORTABLE (01/26/2021 4:19 PM EDT) Only the most recent of6 resultswithin the time period is included. Anatomical Region Laterality Modality Chest Radiographic Hannah ging 01/26/2021 4:19 PM EDT Impressions 01/26/2021 4:22 PM EDT No acute finding. - Narrative 01/26/2021 4:22 PM EDT XR CHEST AP PORTABLE, 01/26/2021 4:19 PM CLINICAL HISTORY: -Chest Pain COMPARISON: 09/17/2020 PROCEDURE COMMENTS: AP portable technique. FINDINGS: Cardiovascular structures within normal limits. No pneumonia or effusion. No pneumothorax. Procedure Note Jameel Hilton MD - 01/26/2021 XR CHEST AP PORTABLE, 01/26/2021 4:19 PM CLINICAL HISTORY: -Chest Pain COMPARISON: 09/17/2020 PROCEDURE COMMENTS: AP portable technique. FINDINGS: Cardiovascular structures within normal limits. No pneumoniaor effusion. No pneumothorax. IMPRESSION: No acute finding. - Jorge Rose MD [facility] DIAGNOSTIC IMAGING ORDERAB LES Final Result * (ABNORMAL) BASIC METABOLIC PANEL (01/26/2021 3:59 PM EDT) Only the most recent of7 resultswithin the time period is included. Sodium 138 136 - 145 mmol/L 01/26/2021 4:21 PM EDT [facility] Potassium 4.1 3.5 - 5.0 mmol/L 01/26/2021 4:21 PM EDT [facility] Chloride 103 98 - 107 mmol/L 01/26/2021 4:21 PM EDT [facility] Total CO2 25 22 - 29 mmol/L 01/26/2021 4:21 PM EDT [facility] Anion Gap 10 7 - 16 mmol/L 01/26/2021 4:21 PM EDT [facility] Calcium 8.8 8.6 - 10.4 mg/dL 01/26/2021 4:21 PM EDT [facility] Glucose Lvl 217(H) 74 - 100 mg/dL 01/26/2021 4:21 PM EDT [facility] BUN 11 6 - 20 mg/dL 01/26/2021 4:21 PM EDT [facility] Creatinine 0.61 0.51 - 1.30 mg/dL 01/26/2021 4:21 PM EDT [facility] GFR Afr Am 121 >=60 mL/min/1.7 3 m2 01/26/2021 4:21 PM EDT [facility] GFR Non Afr Am 105 >=60 mL/min/1.7 3 m2 01/26/2021 4:21 PM EDT [facility] Comment: This estimated GFR was calculated using CKD-EPI equation which is modified based on ethnicity for Non Americans and Americans. Both results are reported since it is not always possible to determine the patient's ethnicity. This equation should only be used for individuals 18 and older. It has not been validated for use with the elderly (>70 years), women, or in some racial or ethnic subgroups, such as Hispanics. The equation will be less accurate in people with differences in nutritional status or muscle mass. Blood VENOUS BLOOD / Unknown Venipuncture / Unknown 01/26/2021 3:59 PM EDT 01/26/2021 4:02 PM EDT us Jorge Rose MD CHEMISTRY ORDERABLES Final Res ult [facility] [address] [place] [address] * XR CHEST PA AND LATERAL (09/17/2020 3:28 PM EST) Only the most recent of6 resultswithin the time period is included. Anatomical Region Laterality Modality Chest Computed Radiogr aphy 09/17/2020 3:28 PM EST Impressions 09/17/2020 3:33 PM EST No acute finding. - Narrative 09/17/2020 3:33 PM EST PA AND LATERAL CHEST X-RAY, 09/17/2020 3:28 PM CLINICAL HISTORY: [id number] COMPARISON: None. PROCEDURE COMMENTS: Frontal and lateral views of the chest. FINDINGS: Cardiovascular structures within normal limits. No pneumonia or effusion. No pneumothorax. Procedure Note Dhaval Tobar MD - 09/17/2020 PA AND LATERAL CHEST X-RAY, 09/17/2020 3:28 PM CLINICAL HISTORY: [id number] COMPARISON: None. PROCEDURE COMMENTS: Frontal and lateral views of the chest. FINDINGS: Cardiovascular structures within normal limits. No pneumoniaor effusion. No pneumothorax. IMPRESSION: No acute finding. - Maxine Sequeira MD IMG DIAGNOSTIC IMAGIN G ORDERABLES Final Result * PULMONARY FUNCTION TEST (04/15/2020 1:42 AM EDT) 04/15/2020 1:42 AM EDT Impressions [facility] - 04/15/2020 1:42 AM EDT Good patient effort and understanding. Acceptable results and reproducibility. SpHb=15.4 g/dL. NORMAL SPIROMETRY. DIFFUSING CAPACITY IS NORMAL, corrected for hemoglobin. Clinical Correlation is Required. This data was interpreted based upon the 2005 ATS/ERS Task Force Position Statement: Interpretative Strategies for Lung Function Tests. Faisal Post MD [facility] This section is an excerpt of the full report. Abimbola Gonzalez MD PFT ORDERABLES Final Result [facility] [address] [id number] * CT CHEST WO CONTRAST (03/31/2020 3:15 PM EDT) Only the most recent of6 resultswithin the time period is included. Anatomical Region Laterality Modality Chest Computed Tomogra phy 03/31/2020 3:15 PM EDT Impressions 03/31/2020 4:05 PM EDT No acute finding in the chest. 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 No contrast given. Automated exposure control for dose reduction was used. CTDIvol: 9.1 mGy. DLP: 311 mGy-cm. FINDINGS: Unchanged precarinal adenopathy 13 x 18 mm. This is been stable since multiple prior exams. Mild pericardial thickening unchanged. Tracheobronchial tree is patent. Some minimal right paramediastinal linear scarring from prior surgery. Some reticular linear scarring in the right lower lobe just above the diaphragm unchanged. 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 No contrast given. Automated exposurecontrol for dose reduction was used. CTDIvol: 9.1 mGy. DLP: 311 mGy-cm. FINDINGS: Unchanged precarinal adenopathy 13 x 18 mm. This is been stablesince multiple prior exams. Mild pericardial thickening unchanged. Tracheobronchial tree is patent. Some minimal right paramediastinallinear scarring from prior surgery. Some reticular linear scarring in the rightlower lobe just above the diaphragm unchanged. - IMPRESSION: No acute finding in the chest. - Abimbola Gonzalez MD [facility] CT ORDERABLES Final Result * DX BONE DENSITY AXIAL SKELETON (12/18/2019 4:00 PM EST) Anatomical Region Laterality Modality Dexa Scan 12/18/2019 Narrative 12/19/2019 10:20 AM EST Indication: The patient is a post-menopausal female under age 65 with clinical risk factors for an osteoporotic fracture that requires a bone density assessment. Study was performed on [place] 5. Bone Density: Region BMD T-score Z-score AP Spine (L1-L4) 1.136 0.8 1.6 Femoral Neck (Left) 0.881 0.3 1.1 Total Hip (Left) 1.113 1.4 1.9 Femoral Neck (Right) 0.951 0.9 1.7 Total Hip (Right) 1.113 1.4 1.9 1/3 Radius (Left) 0.724 0.5 1.3 World Health Organization criteria for BMD interpretation classify patients as: Normal (T-score at or above -1.0), Low Bone Density (T-score between -1.0 and -2.5), or Osteoporotic (T-score at or below -2.5). T Scores are reported in Postmenopausal women and in men age 50 and older. Z-scores are reported in females prior to menopause and in males younger than age 50. 10-year Fracture Risk: FRAX not reported because: All T-scores for Spine Total, Hip Total, Femoral Neck at or above -1.0 Clinical Information Provided by Patient: Has had a low trauma fracture. Has used or is currently using the following medications: Calcium, Vitamin D, Diuretic, Depo-medrixyprogesterone, Thyroid medication, Mcmillin Has had or currently has the following medical conditions: Anorexia or Bulimia, Diabetes Mellitus, Back pain, Hip pain, Depression Patient maximum height was 64 Menopause Age: 36 Patient is postmenopausal Interpretation: Bone mineral density is in the normal range. A minimum of two years may be required between bone density studies due to inherent testing precision limitations. Intervals between BMD testing should be determined according to each patient's clinical status. Reported by: Aminta Flaherty PA-C, CCD on 12/19/2019 10:01:00 AM. us Julio César Eraoz MD IMG DEXA ORDERABLES Final Result * MRI TIBIA FIBULA LEFT W WO CONTRAST (12/11/2019 5:20 PM EST) Anatomical Region Laterality Modality Knee, Leg, Ankle, Ankle Joint Ma gnetic Resonance 12/11/2019 5:20 PM EST Impressions 12/11/2019 6:10 PM EST 1. Stress reaction versus small longitudinal stress fracture of the anterior cortex of the left tibia, with epicenter 10 cm above the tibial plafond, associated with subcutaneous edema of the pretibial soft tissues and mild postcontrast enhancement in this area. - . Narrative 12/11/2019 6:10 PM EST MRI TIBIA FIBULA LEFT W WO CONTRAST, 12/11/2019 5:20 PM CLINICAL HISTORY: M79.10-Myalgia, unspecified xlpy-OVM-66-CM M84.362S-Stress fracture, left tibia, htupufa-ODN-51-CM COMPARISON: None. PROCEDURE COMMENTS: Multiplanar multiecho MR imaging of the region of interest. Images were obtained before and after 14 cc MultiHance contrast material. FINDINGS: There is edema of the pretibial soft tissues in the distal third of the tibial shaft. Soft tissues enhance on postcontrast imaging. There is endosteal edema 10 cm above the tibial plafond consistent with stress reaction or early stress fracture. A visible cortical interruption of the anterior cortex is not identified, but subtle longitudinal stress fractures tend to have this appearance. There is enhancement of the endosteum on postcontrast imaging, also consistent with stress reaction versus small longitudinal stress fracture. The right tibia and fibula are included on the larger bvzua-gd-rdol images and are unremarkable. The left muscular compartments are intact. The left fibula is intact. Procedure Note Stephanie Cavanaugh MD - 12/11/2019 MRI TIBIA FIBULA LEFT W WO CONTRAST, 12/11/2019 5:20 PM CLINICAL HISTORY: M79.10-Myalgia, unspecified mzrc-GXB-42-CM M84.362S-Stress fracture, left tibia, rvlnaih-QTX-84-CM COMPARISON: None. PROCEDURE COMMENTS: Multiplanar multiecho MR imaging of the region ofinterest. Images were obtained before and after 14 cc MultiHance contrastmaterial. FINDINGS: There is edema of the pretibial soft tissues in the distal third of thetibial shaft. Soft tissues enhance on postcontrast imaging. There is endosteal edema 10 cm above the tibial plafond consistent withstress reaction or early stress fracture. A visible cortical interruption ofthe anterior cortex is not identified, but subtle longitudinal stressfractures tend to have this appearance. There is enhancement of the endosteum on postcontrast imaging, alsoconsistent with stress reaction versus small longitudinal stress fracture. The right tibia and fibula are included on the larger ycklt-gg-acsw imagesand are unremarkable. The left muscular compartments are intact. The left fibula is intact. IMPRESSION: 1. Stress reaction versus small longitudinal stress fracture of theanterior cortex of the left tibia, with epicenter 10 cm above the tibial plafond, associated with subcutaneous edema of the pretibial soft tissues andmild postcontrast enhancement in this area. - . Julio César Erazo MD [facility] MRI ORDERABLES Final R esult * XR KNEE LEFT AP LATERAL AND SUNRISE STANDING (04/05/2019 4:13 PM EDT) Anatomical Region Laterality Modality Knee Radiographic Hannah ging 04/05/2019 4:13 PM EDT Impressions 04/05/2019 4:19 PM EDT No significant osseous or joint space abnormality. - - Narrative 04/05/2019 4:19 PM EDT XR KNEE LEFT AP LATERAL AND SUNRISE STANDING, 04/05/2019 4:13 PM CLINICAL HISTORY: M25.569-Pain in unspecified dbuq-CLO-46-CM COMPARISON: None. PROCEDURE COMMENTS: Routine views. FINDINGS: No fracture or traumatic malalignment. No effusion. Joint spaces are maintained. Procedure Note Jose J Griffin MD - 04/05/2019 XR KNEE LEFT AP LATERAL AND SUNRISE STANDING, 04/05/2019 4:13 PM CLINICAL HISTORY: M25.569-Pain in unspecified kusj-VNB-90-CM COMPARISON: None. PROCEDURE COMMENTS: Routine views. FINDINGS: No fracture or traumatic malalignment. No effusion. Joint spaces are maintained. IMPRESSION: No significant osseous or joint space abnormality. - - Result [facility] Julio César Erazo MD [facility] DIAGNOSTIC IMAGING ORD ERABLES Final Result * FUNGAL ANTIBODIES BY ID - REF LAB (07/12/2018 2:59 PM EDT) Histop Ab by ID None Detected None Detected 07/17/2018 1:58 AM EDT [facility] Comment: INTERPRETIVE INFORMATION: Histoplasma spp. Antibodies by Immunodiffusion The immunodiffusion test can detect precipitins to specific Histoplasma protein antigens (M and H). The M band often appears first and may occur without the H band. M precipitin is found in about 70 percent of both acute and chronic histoplasmosis cases. Both M and H occur together in only about 10 percent of patients. Blastomyces Antibodies by ID None Detected None Detected 07/17/2018 1:58 AM EDT [facility] Comment: INTERPRETIVE INFORMATION: Blastomyces dermatitidis Antibodies by Immunodiffusion A positive result may suggest active or recent infection. The test is positive in about 80 percent of cases. Cross reactions occur, especially with histoplasmosis. A negative test (none detected) does not exclude blastomycosis. Aspergillus Antibodies by ID None Detected None Detected 07/17/2018 1:58 AM EDT [facility] Comment: INTERPRETIVE INFORMATION: Aspergillus spp. Antibodies by Immunodiffusion In general, immunodiffusion measures IgG and a positive result may suggest past infection. The test is positive in about 90 percent of sera from patients with aspergilloma and 50-70 percent of patients with allergic bronchopulmonary aspergillosis. A negative test (none detected) does not exclude aspergillosis. Coccidioides Abs, ID None Detected None Detected 07/17/2018 1:58 AM EDT [facility] Comment: INTERPRETIVE INFORMATION: Coccidioides immitis Antibodies by Immunodiffusion Coccidioides infection is demonstrated by the detection of IgM antibody to the Immunodiffusion Tube Precipitin (IDTP) antigen. IgM antibody may be detected 1 to 3 weeks after the onset of primary infection and may suggest active or recent infection. IgM antibody is rarely detected 6 months after infection but may reappear with relapse and may persist in disseminated cases. IgG antibody may also be demonstrated in response to the Immunodiffusion Complement Fixation (IDCF) antigen and may represent active or past infection. Negative fungal serology does not rule out current infection. Performed by [facility], [address] [place], [place] [id number] [email or web address], Augie Rebollar MD, Lab. Director Blood Venipuncture / Unknown 07/12/2018 2:59 PM EDT 07/12/2018 3:10 PM EDT us Abimbola Gonzalez MD IMMUNOLOGY ORDERABLES Final Res ult [facility] [address] [place] [address] * HISTOPLASMA GALACT AG, URINE - REF LAB (07/12/2018 2:47 PM EDT) U Histoplasma Ag EIA Not Detected ng/mL 07/15/2018 1:54 PM EDT [facility] U Histoplasma Antigen Detectio Not Detected Not Detected 07/15/2018 1:54 PM EDT [facility] Comment: INTERPRETIVE DATA: Histoplasma Galactomannan Antigen Quantitative by EIA, Urine Less than 0.4 ng/ml = Not Detected 0.4-3.1 ng/mL = Detected (below the limit of quantification) 3.2-20.0 ng/mL = Detected Greater than 20.0 ng/mL = Detected (above the limit of quantification) The quantitative range of this assay is 3.2-20.0 ng/mL. Antigen concentrations between 0.4-3.1 or >20.0 ng/mL fall outside the linear range of the assay and cannot be accurately quantified. This EIA test should be used in conjunction with other diagnostic procedures, including microbiological culture, histological examination of biopsy samples, and/or radiographic evidence, to aid in the diagnosis of histoplasmosis. Test developed and characteristics determined by [facility]. See Compliance Statement B: [employer] Performed by [facility], [address] [place] [address] [email or web address], Augie Rebollar MD, Lab. Director Urine 07/12/2018 2:47 PM EDT 07/12/2018 3:01 PM EDT Abimbola Gonzalez MD URINE ORDERABLES Final Result [facility] [address] [place] [address] * CT CHEST W CONTRAST (05/18/2018 3:28 PM EDT) Only the most recent of3 resultswithin the time period is included. Anatomical Region Laterality Modality Chest Computed Tomogra phy 05/18/2018 3:28 PM EDT Impressions 05/19/2018 7:[address] chest. Enlarged node unchanged from February 2014 and benign. Evidence of prior surgery. Narrative 05/19/2018 7:[address] CHEST WITH CONTRAST, 05/18/2018 3:28 PM CLINICAL HISTORY: R59.0-Localized enlarged lymph wwwvd-GRI-62-CM B39.9-Histoplasmosis, xwnivwvqlct-YPC-20-CM PROCEDURE COMMENTS: Multi detector volumetric CT scanning of the chest. Multiplanar reconstructions per protocol. 75 mL Isovue 370 given. Automated exposure control for dose reduction was used. CTDIvol: 14.5 mGy. DLP: 534 mGy-cm. COMPARISON: 03/10/2017, 03/05/2014. There are postsurgical changes in the medial aspect of the right upper lobe unchanged. Additional focal scar is seen in the anterior lateral aspect of the right lower lobe abutting the pleural surface. The lungs are otherwise clear. No evidence of an endobronchial lesion. Enlarged pretracheal retrocaval node at the level the rudy 20 x 14 mm. At Oil cyst right breast, unchanged. Heart size is normal No pericardial or pleural fluid. Procedure Note Lena Young MD - 05/19/2018 CT CHEST WITH CONTRAST, 05/18/2018 3:28 PM CLINICAL HISTORY: R59.0-Localized enlarged lymph conqh-RNA-30-CM B39.9-Histoplasmosis, bwkehrllykw-DMB-63-CM PROCEDURE COMMENTS: Multi detector volumetric CT scanning of the chest. Multiplanar reconstructions per protocol. 75 mL Isovue 370 given.Automated exposure control for dose reduction was used. CTDIvol: 14.5 mGy. DLP:534 mGy-cm. COMPARISON: 03/10/2017, 03/05/2014. There are postsurgical changes in the medial aspect of the right upperlobe unchanged. Additional focal scar is seen in the anterior lateral aspect ofthe right lower lobe abutting the pleural surface. The lungs are otherwiseclear. No evidence of an endobronchial lesion. Enlarged pretracheal retrocaval node at the level the rudy 20 x 14 mm.At Oil cyst right breast, unchanged. Heart size is normal No pericardial or pleural fluid. IMPRESSION: Stable CT chest. Enlarged node unchanged from February 2014 and benign. Evidence of prior surgery. us Julio César Erazo MD IMG CT ORDERABLES Final Re sult * CREATININE ISTAT (05/18/2018 3:21 PM EDT) Only the most recent of2 resultswithin the time period is included. Pathologist [facility] Creatinine-iST AT 0.7 0.6 - 1.3 mg/dL 05/18/2018 3:24 PM EDT [facility] Blood BLOOD SPECIMEN / Unknown 05/18/2018 3:21 PM EDT 05/18/2018 3:24 PM EDT us Julio César Erazo MD POINT OF CARE TEST ORDERAB LES Final Result Performing Organization Address [facility] [place] [address] * SEDIMENTATION RATE AUTOMATED (05/18/2018 2:58 PM EDT) Only the most recent of2 resultswithin the time period is included. [facility] Sed Rate 3 0 - 20 mm/hr 05/18/2018 9:22 PM EDT [facility] Blood VENOUS BLOOD / Unknown Venipuncture / Unknown 05/18/2018 2:58 PM EDT 05/18/2018 2:58 PM EDT us Julio César Erazo MD HEMATOLOGY ORDERABLES Tiffany l Result Performing Organization Address [facility] [place] [address] * THYROID STIMULATING HORMONE (05/18/2018 2:58 PM EDT) Only the most recent of4 resultswithin the time period is included. Pathologist [facility] TSH 0.278 0.270 - 4.200 mcIU/mL 05/18/2018 8:45 PM EDT [email or web address] [employer] Blood VENOUS BLOOD / Unknown Venipuncture / Unknown 05/18/2018 2:58 PM EDT 05/18/2018 2:58 PM EDT Narrative [facility] - 05/18/2018 8:45 PM EDT Please fax results to [phone] Please fax results to [phone] Please fax results to [phone] Ingestion of shane doses of biotin (>5 mg/day) taken within 8 hours of drawing blood sample can interfere with this immunoassay test. Julio César Erazo MD CHEMISTRY ORDERABLES Final Result Performing Organization Address [facility] Co de Phone Number [facility] [address] [facility] , [place] [address] * T4, FREE (THYROXINE) (05/18/2018 2:58 PM EDT) Only the most recent of4 resultswithin the time period is included. Free T4 1.58 0.80 - 2.00 ng/dL 05/18/2018 8:45 PM EDT [facility] Blood VENOUS BLOOD / Unknown Venipuncture / Unknown 05/18/2018 2:58 PM EDT 05/18/2018 2:58 PM EDT Narrative [facility] - 05/18/2018 8:45 PM EDT Please fax results to [phone] Please fax results to [phone] Please fax results to [phone] Ingestion of shane doses of biotin (>5 mg/day) taken within 8 hours of drawing blood sample can interfere with this immunoassay test. Julio César Erazo MD CHEMISTRY ORDERABLES Final Result Performing Organization Address [facility] Co de Phone Number [facility] [address] [facility] , [place] [address] * (ABNORMAL) HEMOGLOBIN A1C (05/18/2018 2:58 PM EDT) Only the most recent of3 resultswithin the time period is included. Hgb A1C 6.2(H) 4.2 - 5.6 % 05/18/2018 10:19 PM EDT [facility] Est. Avg Glucose 131 mg/dL 05/18/2018 10:19 PM EDT [facility] Blood VENOUS BLOOD / Unknown Venipuncture / Unknown 05/18/2018 2:58 PM EDT 05/18/2018 2:58 PM EDT Narrative [facility] - 05/18/2018 10:19 PM EDT REFERENCE RANGE: Normal: 4.0-5.6% Pre-diabetes: 5.7-6.4% Provisional diagnosis of diabetes: >6.4% Hgb F>10% and anything which shortens red cell survival, such as hemolytic anemia, or unstable hemoglobin variants such as HbSS, HbSC, or HbCC, will lower the HbA1c value associated with a given level of glycemic control. Please fax results to [phone] us Julio César Erazo MD CHEMISTRY ORDERABLES Final Result [facility] [address] [facility] , [address] [place] [id number] * (ABNORMAL) RENAL FUNCTION PANEL (05/18/2018 2:58 PM EDT) Only the most recent of4 resultswithin the time period is included. Sodium 142 136 - 145 mmol/L 05/18/2018 8:45 PM EDT [facility] Potassium 4.1 3.5 - 5.0 mmol/L 05/18/2018 8:45 PM EDT [facility] Chloride 102 98 - 107 mmol/L 05/18/2018 8:45 PM EDT [facility] Total CO2 25 22 - 29 mmol/L 05/18/2018 8:45 PM EDT [facility] Anion Gap 15 7 - 16 mmol/L 05/18/2018 8:45 PM EDT [facility] Calcium 9.2 8.6 - 10.2 mg/dL 05/18/2018 8:45 PM EDT [facility] [facility] Glucose Lvl 127(H) 74 - 100 mg/dL 05/18/2018 8:45 PM EDT [facility] BUN 15 6 - 20 mg/dL 05/18/2018 8:45 PM EDT [facility] Creatinine 0.76 0.51 - 1.30 mg/dL 05/18/2018 8:45 PM EDT [facility] Albumin 4.2 3.5 - 5.2 gm/dL 05/18/2018 8:45 PM EDT [facility] Phosphorus 3.7 2.5 - 4.5 mg/dL 05/18/2018 8:45 PM EDT [facility] GFR Afr Am 107 mL/min/1.7 3 m2 05/18/2018 8:45 PM EDT [facility] GFR Non Afr Am 92 mL/min/1.7 3 m2 05/18/2018 8:45 PM EDT [facility] Comment: GFR Afr Am and GFR Non Afr Am calculated using CKD-EPI equation. GFR Category GFR(mL/min/1.73 m ) Kidney Function G1 >=90 Normal or high G2 60-89 Mildly decreased G3a 45-59 Mildly to moderately decreased G3b 30-44 Moderately to severely decreased G4 15-29 Severely decreased G5 <15 Kidney Failure Blood VENOUS BLOOD / Unknown Venipuncture / Unknown 05/18/2018 2:58 PM EDT 05/18/2018 2:58 PM EDT Narrative [facility] - 05/18/2018 8:45 PM EDT Please fax results to [phone] Please fax results to [phone] Please fax results to [phone] Julio César Erazo MD CHEMISTRY ORDERABLES Final Result [facility] [address] [facility] [address] [place] [id number] [facility] [address] [place] [id number] * MM MAMMO DIGITAL DIAGNOSTIC W CAD BILAT (12/30/2017 1:53 PM EST) Only the most recent of2 resultswithin the time period is included. Anatomical Region Laterality Modality Breast Bilateral Mammography 01/02/2018 7:01 AM EDT Impressions 01/03/2018 9:50 AM EDT : Incomplete-need additional imaging evaluation ([id number]) No mammographic evidence of malignancy. ~ The sites of patient-reported swelling and pain in the axillae bilaterally, greater on the left and extending into the left axillary tail, will be further evaluated with ultrasound. ~ RECOMMENDATION: Ultrasound of both breasts. This ultrasound examination was performed on 12-30-17 and reported separately. ~ DISCLAIMER * Any patient with a palpable abnormality, unexplained by breast imaging, should be managed on clinical basis by the attending physician. * Breast imaging has a false negative rate of 15%. * The patient was notified by mail of the results of this examination. *The patient's information was entered into a reminder system with a target due date for the next mammogram. The mammogram was reviewed by a Radiologist and CAD. Narrative 01/03/2018 9:50 AM EDT Procedure:MM MAMMO DIGITAL DIAGNOSTIC W CAD BILAT ~ Reason for exam: clinical finding. Indicated problem(s): bilateral lump or thickening Bilateral pain (local). Bilateral axillary swelling/pain past few weeks. Hx of Thyroid CA, Cervical CA, Basal cell ~ MM MAMMO DIGITAL DIAG CAD BILAT Bilateral CC and MLO view(s) were taken. Prior study comparison: October 22, 2015, bilateral MM MAMMO DIG SCREEN CAD BILAT, performed at [facility]. DIAGNOSTIC BILATERAL MAMMOGRAPHY WITH CAD ANALYSIS 12-30-17: ~ COMPARISON: Multiple prior mammograms, most recent of which is from 10-22-15. ~ HISTORY: A 47-year-old female who presents with history of swelling, pain, warmth, and itchiness in the axilla bilaterally, left greater than right. She reports that swelling and pain extend into the region of the left axillary tail. ~ FINDINGS: There are scattered fibroglandular densities. At the 11 o'clock position of the right breast, there is an oval 3.2 x 2.4 cm benign-appearing mass which contains coarse and rim calcifications. This is compatible with an oil cyst. It is not significantly changed in size compared to 2015, although the benign calcifications associated with it are increased. No new dominant mass, architectural distortion, or suspicious microcalcifications identified in the breasts bilaterally. ~ us Julio César Erazo MD IMG MAMMOGRAPHY ORDERABLES Final Result * TRIIODOTHYRONINE, REVERSE BY TMS-REF LAB (04/11/2017 10:06 AM EDT) Only the most recent of2 resultswithin the time period is included. [facility] Triiodothyronine, Reverse - LC-MS/MS 23.6 9.0 - 27.0 ng/dL [employer] Comment: INTERPRETIVE INFORMATION: Triiodothyronine, Reverse - LC-MS/MS Test developed and characteristics determined by [facility]. See Compliance Statement B: [employer] Performed by [facility], [address] [place] [address] www.[email or web address], Augie Rebollar MD - Lab. Director Blood specimen (specimen) 04/11/2017 10:06 AM EDT 04/11/2017 2:08 PM EDT Narrative [employer] - 04/13/2017 7:23 AM EDT Fax results to [phone] Julio César Erazo MD CHEMISTRY ORDERABLES Final Result [facility] [address] [place], [place] [id number] * DIFFERENTIAL (04/11/2017 10:06 AM EDT) Only the most recent of8 resultswithin the time period is included. [facility] Neut Percent 53.1 % [facility] Lymph Percent 32.4 % [facility] [place] Percent 11.3 % [facility] Eos Percent 2.4 % [facility] Baso Percent 0.8 % [facility] Neut# 4.2 1.8 - 7.7 x10(3)/mcL [facility] Lymph# 2.6 0.6 - 4.8 x10(3)/mcL [facility] [place]# 0.9 0.0 - 1.3 x10(3)/mcL [facility] Eos# 0.2 0.0 - 0.5 x10(3)/mcL [facility] Baso# 0.1 0.0 - 0.2 x10(3)/mcL [facility] Blood specimen (specimen) 04/11/2017 10:06 AM EDT 04/11/2017 10:19 AM EDT Julio César Erazo MD HEMATOLOGY ORDERABLES Tiffany l Result Performing Organization Address [facility]/ZIP Co de Phone Number [facility] [address] [facility] [place] [address] * (ABNORMAL) CBC WITH AUTO DIFF (04/11/2017 10:06 AM EDT) Only the most recent of8 resultswithin the time period is included. WBC 7.9 4.0 - 11.0 x10(3)/mcL [facility] RBC 5.26(H) 3.80 - 5.10 x10(6)/mcL [facility] Hgb 15.7(H) 12.0 - 15.6 gm/dL [facility] Hct 45.2 35.7 - 45.9 % [facility] MCV 85.9 82.5 - 99.[address] [facility] MCH 29.8 27.0 - 34.[address] [facility] MCHC 34.7 32.1 - 35.3 gm/dL [facility] RDW 13.5 11.5 - 15.0 % [facility] Platelet 207 144 - 423 x10(3)/mcL [facility] MPV 8.8 6.8 - 10.[address] [facility] Blood specimen (specimen) UPPER LIMB STRUCTURE / Unknown 04/11/2017 10:06 AM EDT 04/11/2017 10:[address] [facility] - 04/11/2017 10:26 AM EDT Fax results to [phone] Julio César Erazo MD HEMATOLOGY ORDERABLES Tiffany l Result Performing Organization Address [facility]/ZIP Co de Phone Number [facility] [place] [id number] * TRIIODOTHYRONINE (04/11/2017 10:06 AM EDT) Only the most recent of3 resultswithin the time period is included. Total T3 0.98 0.80 - 2.00 ng/mL [facility] Blood specimen (specimen) UPPER LIMB STRUCTURE / Unknown 04/11/2017 10:06 AM EDT 04/11/2017 2:36 PM EDT Narrative [facility] - 04/11/2017 3:54 PM EDT Fax results to [phone] Julio César Erazo MD CHEMISTRY ORDERABLES Final Result Performing Organization Address City/[facility] [place] [address] * LIPASE LEVEL (04/11/2017 10:06 AM EDT) Only the most recent of2 resultswithin the time period is included. Pathologist [facility] Lipase Lvl 54 13 - 60 IU/L [facility] Blood specimen (specimen) UPPER LIMB STRUCTURE / Unknown 04/11/2017 10:06 AM EDT 04/11/2017 2:36 PM EDT Narrative [facility] - 04/11/2017 3:54 PM EDT Fax results to [phone] Julio César Erazo MD CHEMISTRY ORDERABLES Final Result Performing Organization Address City/[facility]/ZIP Co de Phone Number [facility] [address] [place] [address] * VITAMIN B12 LEVEL (04/11/2017 10:06 AM EDT) Vitamin B12 337 211 - 946 pg/mL [facility] Blood specimen (specimen) UPPER LIMB STRUCTURE / Unknown 04/11/2017 10:06 AM EDT 04/11/2017 2:40 PM EDT Narrative [facility] - 04/11/2017 3:52 PM EDT Fax results to [phone] Julio César Erazo MD CHEMISTRY ORDERABLES Final Result Performing Organization Address [facility] [place] [address] * CORTISOL (04/11/2017 10:06 AM EDT) Cortisol 14.55 mcg/dL [facility] Comment: Normals: Mornin.2 - 19.4 mcg/dL Evenin.3 - 11.9 mcg/dL Blood specimen (specimen) UPPER LIMB STRUCTURE / Unknown 04/11/2017 10:06 AM EDT 04/11/2017 2:40 PM EDT Narrative [facility] - 04/11/2017 3:42 PM EDT Fax results to [phone] us Julio César Erazo MD CHEMISTRY ORDERABLES Final Result Performing Organization Address [facility] [place] [address] * AMYLASE LEVEL (04/11/2017 10:06 AM EDT) Amylase Lvl 41 28 - 100 IU/L [facility] Blood specimen (specimen) UPPER LIMB STRUCTURE / Unknown 04/11/2017 10:06 AM EDT 04/11/2017 2:36 PM EDT Narrative [facility] - 04/11/2017 3:54 PM EDT Fax results to [phone] us Julio César Erazo MD CHEMISTRY ORDERABLES Final Result Performing Organization Address [facility] de Phone Number [facility] [address] [place] [address] * CT ABDOMEN PELVIS WO CONTRAST (09/02/2016 11:40 AM EST) Anatomical Region Laterality Modality Abdomen, Chest, Pelvis, Hip Comp uted Tomography 09/02/2016 11:4 0 AM EST Impressions 09/02/2016 12:55 PM EST No acute findings on this noncontrast CT abdomen and pelvis including reformats. Narrative 09/02/2016 12:55 PM EST Procedure: CT abdomen and pelvis without contrast including reformats, 09/02/2016. INDICATION: Abdominal pain. Possible mass mid abdomen. FINDINGS: CT abdomen and pelvis is performed without intravenous contrast per physician's orders. Oral contrast was administered. 2-D sagittal and coronal reformats are obtained and reviewed. Comparison 08/29/2014. ABDOMEN: There is some scarring in the visualized lung bases. Within the limitations of noncontrast study, the liver, spleen, pancreas, kidneys, adrenals, bowel and skeleton are negative for acute findings. Prior cholecystectomy. No lymphadenopathy. No focal masses or fluid collections. Pelvis: Normal appendix. There are no distal ureteral stones or obstruction. No evidence of diverticulitis or other acute inflammatory process. Pelvic phleboliths. Prior hysterectomy. Procedure Note Ishmael Glaser MD - 09/02/2016 Procedure: CT abdomen and pelvis without contrast including reformats, 09/02/2016. INDICATION: Abdominal pain. Possible mass mid abdomen. FINDINGS: CT abdomen and pelvis is performed without intravenous contrastper physician's orders. Oral contrast was administered. 2-D sagittal andcoronal reformats are obtained and reviewed. Comparison 08/29/2014. ABDOMEN: There is some scarring in the visualized lung bases. Within the limitations of noncontrast study, the liver, spleen, pancreas, kidneys, adrenals, bowel and skeleton are negative for acute findings. Prior cholecystectomy. No lymphadenopathy. No focal masses or fluidcollections. Pelvis: Normal appendix. There are no distal ureteral stones orobstruction. No evidence of diverticulitis or other acute inflammatory process. Pelvic phleboliths. Prior hysterectomy. IMPRESSION: No acute findings on this noncontrast CT abdomen and pelvis including reformats. us Margarita Huntley MD IMG CT ORDERABLES Final Resu lt * (ABNORMAL) VITAMIN D 25 HYDROXY (08/27/2016 5:19 PM EDT) VIT D 25 OH 14.4(L) 30.0 - 120.0 ng/mL [facility] Comment: INTERPRETIVE INFORMATION: Vitamin D, 25-Hydroxy <20 ng/mL Deficiency 20 - 29 ng/mL Insufficiency 30 - 80 ng/mL Optimum Level >120 ng/mL Possible Toxicity NOTE: For infants and children up to 17 years of age, the optimum level is >=20 ng/mL. This assay accurately quantifies the sum of vitamin D3, 25-Hydroxy and vitamin D2, 25-Hydroxy. Blood specimen (specimen) 08/27/2016 5:19 PM EDT 08/27/2016 7:29 PM EDT Narrative [facility] - 08/27/2016 9:52 PM EDT Fax results to [phone] us Julio César Erazo MD CHEMISTRY ORDERABLES Final Result Performing Organization Address [facility] [place] [address] * THYROGLOBULIN ANTIBODY -REF LAB (08/27/2016 5:19 PM EDT) Pathologist [facility] Thyroglob Ab <0.9 0.0 - 4.0 IU/mL [facility] Comment: INTERPRETIVE INFORMATION: Thyroglobulin Antibody A value of 4.0 IU/mL or less indicates a negative result for thyroglobulin antibodies. The Thyroglobulin Antibody assay is being performed using the [employer] method. Performed by [facility], [address] [place] [id number] [email or web address], Kade Quintanilla MD - Lab. Director Blood specimen (specimen) UPPER LIMB STRUCTURE / Unknown 08/27/2016 5:19 PM EDT 08/28/2016 1:03 PM EDT Narrative [employer] - 08/29/2016 12:08 PM EST Fax results to [phone] us Julio César Erazo MD IMMUNOLOGY ORDERABLES Tiffany l Result Performing Organization Address [facility]/ZIP Co de Phone Number [facility] [address] [place] [address] * HEPATIC FUNCTION PANEL (08/27/2016 5:19 PM EDT) Only the most recent of2 resultswithin the time period is included. Pathologist [facility] Total Protein 7.1 6.4 - 8.3 gm/dL [facility] Albumin 4.0 3.5 - 5.2 gm/dL [facility] Bili Direct <0.2 0.0 - 0.3 mg/dL [facility] Bili Total 0.6 0.1 - 1.3 mg/dL [facility] AST 14 <=40 IU/L [facility] ALT 12 <=41 IU/L [facility] Alk Phos 81 35 - 104 IU/L [facility] Blood specimen (specimen) UPPER LIMB STRUCTURE / Unknown 08/27/2016 5:19 PM EDT 08/27/2016 7:29 PM EDT Narrative [facility] - 08/27/2016 7:57 PM EDT Fax results to [phone] us Margarita uHntley MD CHEMISTRY [place]AB[place] [address] * MRI SHOULDER RIGHT WO CONTRAST (02/02/2016 5:30 PM EDT) Anatomical Region Laterality Modality Shoulder Magnetic Resonan ce 02/02/2016 5:30 PM EDT Impressions 02/03/2016 5:05 AM EDT IMPRESSION: 1. High-grade partial-thickness articular surface tear of the subscapularis tendon with associated medial subluxation of the proximal extra articular long head biceps tendon. 2. SLAP tear superior glenoid labrum with extension of tear into the long head biceps tendon. Superimposed extra-articular biceps tenosynovitis. 3. Minor partial thickness bursal surface tearing/fraying of the supraspinatus tendon without full-thickness or high-grade component. Superimposed supraspinatus tendinosis. 4. Mild acromioclavicular osteoarthritis. Narrative 02/03/2016 5:05 AM EDT MRI SHOULDER RIGHT WO CONTRAST 02/02/2016 5:30 PM HISTORY: Pain M75.51-Bursitis of right [id number] TECHNIQUE: Routine MRI right shoulder without contrast. COMPARISON: Radiographs June 26, 2007 FINDINGS: There is mild bursal surface tearing involving the far ventral supraspinatous tendon measuring less than 25% tendon thickness. There is superimposed moderate supraspinous tendinosis. The teres minor and infraspinatus are intact. There is subscapularis tendinosis with partial-thickness articular surface tearing, high-grade measuring at least 75% tendon thickness. There is tearing of the superior glenoid labrum from the 10:00 to 2:00 positions. There is superimposed tearing of the intra-articular long head biceps tendon. Extra-articular course is mildly subluxed medially due to the adjacent subscapularis tear. There is associated biceps tenosynovitis. No glenohumeral joint effusion. No discrete chondral loss. Subacromial subdeltoid bursa is normal. There is mild acromioclavicular osteoarthritis. There is no fracture. There is no marrow replacing process. Procedure Note Jose J Griffin MD - 02/03/2016 MRI SHOULDER RIGHT WO CONTRAST 02/02/2016 5:30 PM HISTORY: Pain M75.51-Bursitis of right [id number] TECHNIQUE: Routine MRI right shoulder without contrast. COMPARISON: Radiographs June 26, 2007 FINDINGS: There is mild bursal surface tearing involving the far ventralsupraspinatous tendon measuring less than 25% tendon thickness. There is superimposedmoderate supraspinous tendinosis. The teres minor and infraspinatus are intact.There is subscapularis tendinosis with partial-thickness articular surfacetearing, high-grade measuring at least 75% tendon thickness. There is tearing of the superior glenoid labrum from the 10:00 to 2:00 positions. There is superimposed tearing of the intra-articular long headbiceps tendon. Extra-articular course is mildly subluxed medially due to theadjacent subscapularis tear. There is associated biceps tenosynovitis. No glenohumeral joint effusion. No discrete chondral loss. Subacromial subdeltoid bursa is normal. There is mild acromioclavicular osteoarthritis. There is no fracture. There is no marrow replacingprocess. IMPRESSION: 1. High-grade partial-thickness articular surface tear of thesubscapularis tendon with associated medial subluxation of the proximal extra articularlong head biceps tendon. 2. SLAP tear superior glenoid labrum with extension of tear into the longhead biceps tendon. Superimposed extra-articular biceps tenosynovitis. 3. Minor partial thickness bursal surface tearing/fraying of thesupraspinatus tendon without full-thickness or high-grade component. Superimposed supraspinatus tendinosis. 4. Mild acromioclavicular osteoarthritis. Julio César Erazo MD [facility] MRI ORDERABLES Final R esult * MM MAMMO DIGITAL SCREENING W CAD BILAT (10/22/2015 4:53 PM EST) Only the most recent of2 resultswithin the time period is included. Anatomical Region Laterality Modality Breast Bilateral Mammography 10/23/2015 10:4 3 AM EST Impressions 10/23/2015 3:22 PM EST : Benign finding ([id number]) ~ RECOMMENDATION: Routine screening mammogram in 1 year. ~ * The patient with a palpable abnormality, unexplained by breast imaging, should be managed on clinical basis by the attending physician. * Breast imaging has a false negative rate of 15%. * The patient was notified by mail of the results of this examination. *The patient's information was entered into a reminder system with a target due date for the next mammogram. The mammogram was reviewed by a Radiologist and CAD. Narrative 10/23/2015 3:22 PM EST Procedure:MM MAMMO DIGITAL SCREENING W CAD BILAT ~ Reason for exam: screening (asymptomatic). ~ MM MAMMO DIG SCREEN CAD BILAT Bilateral CC and MLO view(s) were taken. There are scattered fibroglandular densities. Stable post traumatic changes right breast with oil cyst 11 o'clock. Mammogram of the contralateral breast reveals no evidence of malignancy. No suspicious calcifications. Compared to prior studies the most recent being 10-19-12. ~ Julio César Erazo MD [facility] MAMMOGRAPHY ORDERABLES Final Result * CT HEAD WO CONTRAST (11/22/2014 8:25 PM EST) Anatomical Region Laterality Modality Head Computed Tomogra phy 11/22/2014 7:44 PM EST Impressions 11/22/2014 8:27 PM EST IMPRESSION: Normal exam of the brain. Partial opacification right mastoid air cells. Narrative 11/22/2014 8:[address] HEAD WO CONTRAST, Nov 22, 2014 08:25:38 PM CLINICAL: -OTHER FINDINGS: No evidence of hemorrhage, mass, infarct, or skull fracture. Visualized portions of the paranasal sinuses are clear. Partial opacification posterior inferior right mastoid air cells new from prior study of October 2006. Procedure Note Yue Oconnell MD - 11/22/2014 CT HEAD WO CONTRAST, Nov 22, 2014 08:25:38 PM CLINICAL: -OTHER FINDINGS: No evidence of hemorrhage, mass, infarct, or skull fracture.Visualized portions of the paranasal sinuses are clear. Partial opacification posterior inferior right mastoid air cells new fromprior study of October 2006. IMPRESSION: Normal exam of the brain. Partial opacification right mastoidair cells. Esteban Sanchez MD IM CT ORDERABLES Fi nal Result * PATHOLOGY TISSUE REPORT (08/30/2014 2:51 PM EST) Only the most recent of3 resultswithin the time period is included. Surgical Pathology Report PATIENT NAME:MIREYA OVALLES Surgical Pathology Report Accession Number Collected Date/Time Received Date/Time [id number] 08/30/14 14:51 EST 09/02/14 06:54 EST Diagnosis 1) Duodenal Biopsy: - Intact Duodenal Mucosa with Retained Villiform Surface. - Negative for Changes of Celiac Disease, No Pathologic Diagnosis. 2) Gastric Biopsy: - Gastric mucosa with normal architecture, no pathologic changes. - Negative for Helicobacter pylori. Lalo Hernández (Electronically signed by) Verified: 09/02/2014 [facility] Clinical Information Right upper quadrant pain, normal upper scope. Gross Description Part 1) Received in formalin labeled with the patient s name and duodenum are approximately six fragments of carlos tissue ranging from 0.2 to 0.3 cm in greatest dimension. Entirely submitted in one cassette. Part 2) Received in formalin labeled with the patient s name and gastric biopsy are six fragments of carlos tissue ranging from 0.2 to 0.5 cm in greatest dimension. Entirely submitted in one cassette. /BC KM /RB Microscopic Description Microscopic examination is performed and the findings corroborate the diagnosis. _ [facility] 08/30/2014 2:51 PM EST Germain Santa MD PATHOLOGY ORDERABLES Final Result Performing Organization Address [facility] de Phone Number [facility] [address] [place] [address] * GMED EGD (08/30/2014 1:30 PM EST) 08/30/2014 1:30 PM EST Impressions [facility] - 08/30/2014 3:20 PM EST Normal esophagus. Normal mucosa in the whole stomach. (Biopsy). Normal mucosa in the whole examined duodenum. (Biopsy). Plan: Await pathology results Continue current medication for acid suppression/ dose 30 minutes before a meal This section is an excerpt of the full report. Germain Santa MD GI PROCEDURE ORDERABLES Fin al Result Performing Organization Address [facility] de Phone Number [facility] [address] [place] [address] * GLUCOSE METER POC (08/30/2014 12:43 PM EST) Only the most recent of6 resultswithin the time period is included. Glucose Meter POC 92 70 - 100 mg/dL [facility] Blood specimen (specimen) 08/30/2014 12:43 PM EST 08/30/2014 12:43 PM EST Lena Fish MD POINT OF CARE TEST ORDERABLES Fi nal Result Performing Organization Address [facility] de Phone Number [facility] [address] [place] [address] * STOOL CULTURE (08/29/2014 7:35 PM EST) Only the most recent of2 resultswithin the time period is included. Final Shiga toxin result: Negative Shiga toxins (produced by E. coli) not detected. [facility] Stool specimen (specimen) 08/29/2014 7:35 PM EST 08/30/2014 8:07 AM EST Irina Rivas SUPERVISOR [facility] MICROBIOLOGY - GENERAL ORDERA BLES Final Result Performing Organization Address [facility] de Phone Number [facility] [address] [place] [address] * .C DIFF TOXIN DNA RESULTS (08/29/2014 7:35 PM EST) Pathologist [facility] c difficile specimen Stool [facility] Comment: TEST INFORMATION: This assay qualitatively detects a fragment of the Clostridium difficile Toxin A gene in liquid or soft stool in patients suspected of having Clostridium difficile-associated disease (CDAD). This assay is an amplified DNA test by [employer] and its performance has been verified by the [facility]. A negative result does not rule out the presence of the Clostridium difficile Toxin A gene fragment in concentrations below the limit of detection for the assay. c DIFFICILE TOXIN DNA Negative [facility] Stool specimen (specimen) 08/29/2014 7:35 PM EST 08/29/2014 10:36 PM EST Irina Rivas SWATHI MICROBIOLOGY - GENERAL ORDERA BLES Final Result Performing Organization Address [facility] de Phone Number [facility] [address] [place] [address] * FECAL WHITE BLOOD CELLS (08/29/2014 7:35 PM EST) Pathologist [facility] Final Negative Internal QC ok [facility] Stool specimen (specimen) 08/29/2014 7:35 PM EST 08/30/2014 10:07 AM EST Irina Dorseylinus ECHEVARRIA MICROBIOLOGY - GENERAL ORDERA BLES Final Result Performing Organization Address [facility] Co de Phone Number [facility] [address] [place] [address] * OVA AND PARASITE BASIC (08/29/2014 7:35 PM EST) Final Negative: Giardia lamblia antigen not detected. Negative: Cryptosporidi um antigen not detected. Internal QC ok The O and P vial will be saved for 1 week. If extended O and P is desired, please call Micro at . [facility] Stool specimen (specimen) 08/29/2014 7:35 PM EST 08/30/2014 8:07 AM EST us Irina Mary Rivas [employer] [facility] MICROBIOLOGY - GENERAL ORDERA BLES Final Result [facility] [address] [place] [address] * CT ABDOMEN PELVIS W CONTRAST (08/29/2014 7:30 PM EST) Anatomical Region Laterality Modality Abdomen, Chest, Pelvis, Hip Comp uted Tomography 08/29/2014 4:54 PM EST Impressions 08/29/2014 7:46 PM EST IMPRESSION: Constipation. An otherwise unremarkable CT abdomen and pelvis. Narrative 08/29/2014 7:[address] ABDOMEN PELVIS W CONTRAST Aug 29, 2014 07:42:47 PM HISTORY: -RUQ pain with symptomatic bulge. 75 mL of Isovue-370 administered. Oral contrast was given.. The liver and spleen are normal. Prior cholecystectomy. Pancreas and kidneys show no abnormality. Opacified bowel loops are normal. Moderate fecal material is seen throughout the colon. There is distention of the rectosigmoid with fecal material suggestive of constipation. There has been a hysterectomy. No abnormal retroperitoneal mass or adenopathy is present. Mild degenerative changes of the lumbar spine are noted. Procedure Note Lena Young MD - 08/29/2014 CT ABDOMEN PELVIS W CONTRAST Aug 29, 2014 07:42:47 PM HISTORY: -RUQ pain with symptomatic bulge. 75 mL of Isovue-370 administered. Oral contrast was given.. The liver and spleen are normal. Prior cholecystectomy. Pancreas andkidneys show no abnormality. Opacified bowel loops are normal. Moderate fecal material isseen throughout the colon. There is distention of the rectosigmoid with fecal materialsuggestive of constipation. There has been a hysterectomy. No abnormal retroperitoneal mass oradenopathy is present. Mild degenerative changes of the lumbar spine are noted. IMPRESSION: Constipation. An otherwise unremarkable CT abdomen andpelvis. us Germain Santa MD IMG CT ORDERABLES Final Res ult * PT / INR (08/29/2014 2:08 PM EST) Only the most recent of2 resultswithin the time period is included. PT 10.7 9.8 - 12.2 second(s) [facility] INR 0.97 0.89 - 1.11 [facility] Comment: Level of Therapy Indications Target INR Range Standard Dose Treatment and prophylaxis of venous 2.0 - 3.0 thrombosis, pulmonary embolism High Dose High risk patients with mechanical 2.5 - 3.5 heart valves Blood specimen (specimen) 08/29/2014 2:08 PM EST 08/29/2014 3:43 PM EST us Irina Rivas [employer] [facility] [employer] HEMATOLOGY ORDERABLES Final R esult [facility] [address] [place] [address] * US RIGHT UPPER QUADRANT (06/12/2014 9:58 AM EDT) Anatomical Region Laterality Modality Abdomen Ultrasound 06/12/2014 9:03 AM EDT Impressions 06/12/2014 10:16 AM EDT IMPRESSION: Unremarkable examination, S/P cholecystectomy. Narrative 06/12/2014 10:16 AM EDT RIGHT UPPER QUADRANT ULTRASOUND, 06/12/2014 HISTORY: Right upper quadrant pain. FINDINGS: The gallbladder is surgically absent. The liver is normal in size and echotexture. No masses or ductal dilatation. Common duct normal in caliber at 3 mm. The visualized portions of the right kidney and pancreas are normal. Procedure Note Jameel Hilton MD - 06/12/2014 RIGHT UPPER QUADRANT ULTRASOUND, 06/12/2014 HISTORY: Right upper quadrant pain. FINDINGS: The gallbladder is surgically absent. The liver is normal in size and echotexture. No masses or ductaldilatation. Common duct normal in caliber at 3 mm. The visualized portions of the right kidney and pancreas are normal. IMPRESSION: Unremarkable examination, S/P cholecystectomy. us Darya Saenz MD IMG US ORDERABLES F inal Result * XR ABDOMEN SUPINE AND ERECT (06/12/2014 9:32 AM EDT) Anatomical Region Laterality Modality Abdomen Radiographic Hannah ging 06/12/2014 9:11 AM EDT Impressions 06/12/2014 10:10 AM EDT IMPRESSION: Unremarkable abdominal series. Narrative 06/12/2014 10:10 AM EDT THREE-VIEW ABDOMINAL SERIES, 06/12/2014 HISTORY: Upper quadrant pain. FINDINGS: Bowel gas pattern unremarkable. Gas and stool in the colon. No small bowel distention. No free air. No organomegaly or mass. Pelvic calcifications are consistent with phleboliths. Surgical clips seen in right quadrant from prior cholecystectomy. Procedure Note Jameel Hilton MD - 06/12/2014 THREE-VIEW ABDOMINAL SERIES, 06/12/2014 HISTORY: Upper quadrant pain. FINDINGS: Bowel gas pattern unremarkable. Gas and stool in the colon. No small boweldistention. No free air. No organomegaly or mass. Pelvic calcifications are consistent withphleboliths. Surgical clips seen in right quadrant from prior cholecystectomy. IMPRESSION: Unremarkable abdominal series. us Darya Saenz MD IMG DIAGNOSTIC IMAG ING ORDERABLES Final Result * SCANNED PRE/POST PROCEDURES (05/07/2014 8:25 PM EDT) Narrative Procedure Note Unknown, Unknown - 05/07/2014 8:25 PM EDT us Unknown Unknown PROCEDURE/MINOR SURGICAL ORDERAB LES Final Result * SCANNED ANESTHESIA FORMS (05/07/2014 8:25 PM EDT) Narrative Procedure Note Unknown, Unknown - 05/07/2014 8:25 PM EDT us Unknown Unknown PROCEDURE/MINOR SURGICAL ORDERAB LES Final Result * SCANNED RHYTHM STRIPS (05/07/2014 8:25 PM EDT) Only the most recent of3 resultswithin the time period is included. Anatomical Region Laterality Modality Other us Unknown Unknown IMG ECG ORDERABLES Final Result * (ABNORMAL) SMEAR REVIEW (05/04/2014 4:58 AM EDT) Bands 12(H) 0 - 10 % [facility] Aniso Slight [facility] Polychrom Slight [facility] Blood specimen (specimen) 05/04/2014 4:58 AM EDT 05/04/2014 5:02 AM EDT Cory Moran MD HEMATOLOGY ORDERABLES Final Result Performing Organization Address City/[facility] Co de Phone Number [facility] [address] [place] [address] * FUNGUS CULTURE-OTHER (05/03/2014 10:00 AM EDT) Only the most recent of3 resultswithin the time period is included. Final No growth of fungus at 4 weeks [facility] Tissue specimen (specimen) LUNG STRUCTURE / Unknown 05/03/2014 10:00 AM EDT 05/03/2014 11:10 AM EDT Comment:RIGHT UPPER LOBE MAS S Cory Moran MD MICROBIOLOGY - GENERAL ORDERABLES Final Result Performing Organization Address [facility] Co de Phone Number [facility] [address] [place] [address] * WOUND CULTURE (05/03/2014 10:00 AM EDT) GS Few WBC's No organisms seen [facility] Final No growth at 4 days. [facility] Tissue specimen (specimen) LUNG STRUCTURE / Unknown 05/03/2014 10:00 AM EDT 05/03/2014 11:10 AM EDT Comment:RIGHT UPPER LOBE MAS S Cory Moran MD MICROBIOLOGY - GENERAL ORDERABLES Final Result Performing Organization Address [facility] Co de Phone Number [facility] [address] [place] [address] * ANAEROBIC CULTURE (05/03/2014 10:00 AM EDT) Final No anaerobic growth at 5 days [facility] Tissue specimen (specimen) LUNG STRUCTURE / Unknown 05/03/2014 10:00 AM EDT 05/03/2014 11:10 AM EDT Comment:RIGHT UPPER LOBE MAS S Cory Moran MD MICROBIOLOGY - GENERAL ORDERABLES Final Result Performing Organization Address [facility] Co de Phone Number [facility] [address] [place] [address] * ABORH (04/30/2014 3:50 PM EDT) Pathologist [facility] ABORh Int A NEG [facility] Blood specimen (specimen) 04/30/2014 3:50 PM EDT 04/30/2014 3:56 PM EDT us Griselda Galvin APRN BLOOD BANK ORDERABLES Final Result Performing Organization Address [facility] de Phone Number [facility] [address] [place] [address] * PARTIAL THROMBOPLASTIN TIME (04/30/2014 3:50 PM EDT) [facility] PTT 28.8 24.4 - 35.0 second(s) [facility] Comment: Therapeutic range for direct thrombin inhibitors: Argatroban is 1.5 to 3 times the aPTT baseline. Lepirudin is 1.5 to 2 times the aPTT baseline. The aPTT should not exceed 100 seconds. The dosage of Argatroban should be decreased in patients with hepatic impairment. The dosage of Lepirudin should be decreased in renal insufficiency. The aPTT is no longer the appropriate test to monitor unfractionated heparin anticoagulation. Blood specimen (specimen) 04/30/2014 3:50 PM EDT 04/30/2014 3:56 PM EDT us Shantal Ames [employer]PER[employer] [facility] [employer] HEMATOLOGY ORDERABL ES Final Result Performing Organization Address [facility] Co de Phone Number [facility] [address] [place] [address] * ANTIBODY SCREEN IGG (04/30/2014 3:50 PM EDT) [facility] ABSC IgG Int Negative [facility] Blood specimen (specimen) 04/30/2014 3:50 PM EDT 04/30/2014 3:56 PM EDT us Griselda Galvin [employer]PER[employer] [facility] [employer] BLOOD BANK ORDERABLES Final Result Performing Organization Address City/[facility]/ZIP Co de Phone Number [facility] [address] [place] [address] * (ABNORMAL) BLOOD GAS ARTERIAL (04/30/2014 3:45 PM EDT) pH 7.440 7.370 - 7.440 [facility] pCO2 37 32 - 45 mmHg [facility] pO2 102(H) 80 - 95 mmHg [facility] HCO3 25 20 - 29 mmol/L [facility] TCO2 26 21 - 30 mmol/L [facility] Base Excess 1.1 -2.8 - 2.3 mEq/L [facility] O2 Sat 99(H) 95 - 97 % [facility] Inspired O2 RA [facility] Specimen Type Arterial [facility] Blood specimen (specimen) UPPER LIMB STRUCTURE / Unknown 04/30/2014 3:45 PM EDT 04/30/2014 3:50 PM EDT Narrative [facility] - 04/30/2014 3:58 PM EDT Pre-op ABG on ROOM AIR us Shantal Ames [employer]PER[employer] [facility] CHEMISTRY ORDERABLE S Final Result Performing Organization Address [facility] Co de Phone Number [facility] [address] [place] [address] * (ABNORMAL) LDL, CALCULATED (03/25/2014 1:26 PM EDT) Pathologist [facility] LDL Calculated 162(H) <=100 mg/dL [facility] Comment: < 100 Optimal 100 - 129 Near or above optimal 130 - 159 Borderline High 160 - 189 High >= 190 Very High Blood specimen (specimen) 03/25/2014 1:26 PM EDT 03/25/2014 6:56 PM EDT us Buster Talbot MD CHEMISTRY ORDERABLES Final Result Performing Organization Address City/[facility]/ZIP Co de Phone Number [facility] [address] [place] [address] * (ABNORMAL) LIPID PANEL REFLEX (03/25/2014 1:26 PM EDT) Cholesterol 257(H) <=200 mg/dL [facility] Comment: < 200 Desirable 200 - 239 Borderline High >= 240 High Triglyceride 301(H) <=150 mg/dL [facility] Comment: < 150 Normal 150 - 199 Borderline High 200 - 499 High >= 500 Very High HDL 35(L) >=40 mg/dL [facility] Comment: > 60 Optimal 40 - 60 Acceptable < 40 Low Blood specimen (specimen) UPPER LIMB STRUCTURE / Unknown 03/25/2014 1:26 PM EDT 03/25/2014 6:56 PM EDT us Buster Talbot MD CHEMISTRY ORDERABLES Edited Result - Final Performing Organization Address [facility]/ZIP Co de Phone Number [facility] [address] [place] [address] * SCANNED PRE/POST PROCEDURES (03/22/2014 1:24 PM EDT) Narrative Procedure Note Unknown, Unknown - 03/22/2014 1:24 PM EDT us Unknown Unknown PROCEDURE/MINOR SURGICAL ORDERAB LES Final Result * SCANNED ANESTHESIA FORMS (03/22/2014 1:24 PM EDT) Narrative Procedure Note Unknown, Unknown - 03/22/2014 1:24 PM EDT us Unknown Unknown PROCEDURE/MINOR SURGICAL ORDERAB LES Final Result * MICROALBUMIN/CREATININE RATIO URINE (03/20/2014 4:03 PM EDT) Urine Microalb 21.1 mg/L [facility] Urine Creatinine 302.0 mg/dL [facility] Ur Microalb/Creat 7 0 - 20 mg/gm [facility] Urine specimen (specimen) 03/20/2014 4:03 PM EDT 03/20/2014 7:30 PM EDT us Buster Talbot MD URINE ORDERABLES Final Resu lt Performing Organization Address City/[facility]/ZIP Co de Phone Number [facility] [address] [place] [address] * MISCELLANEOUS LAB (03/19/2014 1:25 PM EDT) Only the most recent of2 resultswithin the time period is included. Bronchoalveolar lavage fluid specimen (specimen) 03/19/2014 1:25 PM EDT 03/19/2014 3:39 PM EDT Narrative [facility] - 03/19/2014 3:53 PM EDT afb culture Abimbola Gonzalez MD HEMATOLOGY ORDERABLES Final Res ult Performing Organization Address [facility] Co de Phone Number [facility] [address] [place] [address] * T-CELL LYMPHOCYTE SUBSETS-BAL (03/19/2014 1:11 PM EDT) T-Cell Subsets BAL Source BAL [facility] % CD3 - BAL 79 % [facility] Comment: Please interpret the results of the Lymphocyte Subsets Panel 4 - T-Cell Subsets Percents and Ratio, Bronchoalveolar Lavage with caution. The specimen is contaminated with peripheral blood. Peripheral blood lymphocytes and BAL lymphocytes cannot be for analysis. These results include both peripheral blood lymphocytes and BAL lymphocytes. % CD4 - BAL 38 % [facility] % CD8 - BAL 36 % [facility] CD4:CD8 RATIO - BAL 1.06 ratio [facility] Comment: INTERPRETIVE INFORMATION: Lymphocyte Subset 4, Pct. and Ratio, BAL A CD4/CD8 ratio greater than 3.5 is suggestive of sarcoidosis. If the CD4/CD8 ratio is greater than 5.0 and clinical and radiographic findings are compatible with sarcoidosis, some institutions accept a diagnosis of sarcoidosis even with a negative biopsy. In extrinsic allergic alveolitis (EAA), the CD4/CD8 ratio is decreased due to a relative increase in the CD8 positive T-cells. Test developed and characteristics determined by [facility]. See Compliance Statement B: [email or web address] Performed at: [address] [id number] Bronchoalveolar lavage fluid specimen (specimen) 03/19/2014 1:11 PM EDT 03/19/2014 5:55 PM EDT Abimbola Gonzalez MD IMMUNOLOGY ORDERABLES Final Res ult Performing Organization Address City/[facility]/ZIP Co de Phone Number [facility] [address] [place] [address] * LOWER RESPIRATORY CULTURE (03/19/2014 1:11 PM EDT) Only the most recent of2 resultswithin the time period is included. Pathologist [facility] GS Rare WBC's No organisms seen [facility] Final Very sparse growth of normal oral nadia [facility] Bronchoalveolar lavage fluid specimen (specimen) 03/19/2014 1:11 PM EDT 03/19/2014 2:08 PM EDT Narrative [facility] - 03/21/2014 7:32 AM EDT Includes a Gram Stain. Abimbola Gonzalez MD MICROBIOLOGY - GENERAL ORDERABL ES Final Result Performing Organization Address [facility] de Phone Number [facility] [address] [place] [address] * ACID FAST BACILLI CULTURE AND SMEAR (03/19/2014 1:11 PM EDT) Only the most recent of2 resultswithin the time period is included. [facility] Acid Fast Bacilli Stain No Acid Fast Bacillus seen with fluorescent stain Test performed by reference lab, see separate report [facility] Final No growth of AFB after 8 weeks. Test performed by reference lab, see separate report [facility] Bronchoalveolar lavage fluid specimen (specimen) 03/19/2014 1:11 PM EDT 03/19/2014 2:08 PM EDT Abimbola Gonzalez MD MICROBIOLOGY - GENERAL ORDERABL ES Final Result Performing Organization Address [facility] de Phone Number [facility] [address] [place] [address] * NON-MOTOR VEHICLE FIELD REPRESENTATIVE CYTOLOGY REPORT (03/19/2014 11:48 AM EDT) Pathologist [facility] Non-Delivery Truck Driver Heavy Cytology Report PATIENT NAME:MIREYA OVALLES Non-Delivery Truck Driver Heavy Cytology Report Accession Number Collected Date/Time Received Date/Time [id number] 03/19/14 11:48 EDT 03/19/14 12:16 EDT Specimen Source 1) EBUS - TBNA, LN 4R 2) Bronchial Washing, Super D 3) Bronchoalveolar Lavage, RUL Super D 4) Bronchial Brushing, RUL Super Diagnosis Negative for Malignancy. Comment 1) EBUS-TBNA(4R): Rare lymphocytes present. No malignant cells identified. 2,3) Bronchial Washing Super D and Bronchoalveolar Lavage, RUL Super D: Scant cellularity. GMS stain negative for fungi and Pneumocystis. No malignant cells identified. 4) Bronchial Brushing, RUL Super D: No malignant cells identified. [employer] Lead: DEXTER MCCRAY 03/20/2014 Completed by: Lena Cotto (Electronically signed by) 03/20/2014 [facility] [employer] [facility] Laboratory Gross Description 1. 10 direct smears and conventional cell block made. 2. 1 ThinPrep Slide and 1 slide made for GMS stain. 3. 1 ThinPrep Slide and 1 slide made for GMS stain. 4. 16 direct smears and 1 ThinPrep Slide made. Evaluation Episode #1: Fifi/DEXTER [facility] 03/19/2014 11:4 8 AM EDT Abimbola Gonzalez MD CYTOLOGY ORDERABLES Final Resul t Performing Organization Address City/State/[facility] Co de Phone Number [facility] [address] [place] [address] * FL < 1 HOUR (03/19/2014 11:18 AM EDT) Narrative PACS - 03/19/2014 11:18 AM EDT Fluoroscopy was performed. The radiologist was not in attendance. No permanent images were obtained. This dictation is being made for record keeping purposes. Procedure Note Jillian Fierro, RT - 03/19/2014 Fluoroscopy was performed. The radiologist was not in attendance. Nopermanent images were obtained. This dictation is being made for recordkeeping purposes. Abimbola Gonzalez MD IMG FLUOROSCOPY ORDERABLES Tiffany l Result Performing Organization Address City/[facility]/ZIP Co de Phone Number PACS * PET CT SKULL BASE TO MID THIGH (03/13/2014 3:54 PM EDT) Anatomical Region Laterality Modality Positron Emissio n Tomography (PET) 03/13/2014 1:26 PM EDT Impressions 03/13/2014 4:13 PM EDT IMPRESSION: Hypermetabolic activity in the medial right upper lobe lung mass suspicious for malignancy. Hypermetabolic activity in the enlarged right paratracheal lymph node. Narrative 03/13/2014 4:13 PM EDT Nuclear medicine whole-body PET scan with PET/CT fusion 03/13/2014 Compare: Chest CT March 05, 2014 CLINICAL HISTORY: right upper lobe mass and right paratracheal adenopathy. Evaluate. History of thyroid and cervical carcinoma FINDINGS: 14 mCi F-18 FDG administered and whole-body images obtained. Blood glucose 105 mg/dL. There is hypermetabolic activity corresponding to the 12 mm mass in the medial right upper lobe that abuts medial pleural surface also is abnormal activity in the mildly enlarged right paratracheal lymph node measuring 1.5 cm in size with SUV value of 3.9 There are no additional areas of abnormal activity in the thorax. The abdomen and pelvis are unremarkable with physiologic activity in the urinary tracts and bowel. Separate dedicated imaging of the head and neck did not provide any additional new foci of activity Procedure Note Carolynn Lazo MD - 03/13/2014 Nuclear medicine whole-body PET scan with PET/CT fusion 03/13/2014 Compare: Chest CT March 05, 2014 CLINICAL HISTORY: right upper lobe mass and right paratracheal adenopathy.Evaluate. History of thyroid and cervical carcinoma FINDINGS: 14 mCi F-18 FDG administered and whole-body images obtained. Blood [id number] mg/dL. There is hypermetabolic activity corresponding to the 12 mm mass in themedial right upper lobe that abuts medial pleural surface also is abnormal activity in the mildlyenlarged right paratracheal lymph node measuring 1.5 cm in size with SUV value of 3.9 There are no additional areas of abnormal activity in the thorax. Theabdomen and pelvis are unremarkable with physiologic activity in the urinary tracts and bowel. Separate dedicated imaging of the head and neck did not provide anyadditional new foci of activity IMPRESSION: Hypermetabolic activity in the medial right upper lobe lung masssuspicious for malignancy. Hypermetabolic activity in the enlarged right paratracheal lymph node. Abimbola Gonzalez MD IMG PET ORDERABLES Final Result * ANGIOTENSIN CONVERTING ENZYME (03/11/2014 2:27 PM EDT) JANE 25 8 - 52 [facility] Comment: Performed at: [employer] [address], [address] [place] [address] Blood specimen (specimen) UPPER LIMB STRUCTURE / Unknown 03/11/2014 2:27 PM EDT 03/11/2014 3:57 PM EDT us Abimbola Gonzalez MD CHEMISTRY ORDERABLES Final Resu lt [facility] [address] [place] [address] * XR WRIST RIGHT PA LATERAL AND OBLIQUE (10/22/2013 7:33 PM EST) Anatomical Region Laterality Modality Wrist Radiographic Hannah ging 10/22/2013 7:05 PM EST Impressions 10/22/2013 7:51 PM EST IMPRESSION: No acute bony abnormality identified. Narrative 10/22/2013 7:51 PM EST XR WRIST RIGHT PA LATERAL AND OBLIQUE Oct 22, 2013 07:33:47 PM HISTORY: -ARM INJURY. Compare: no priors. Smoothly margined ossicle separate from the tip of the ulnar styloid process may represent an accessory ossicle or remote avulsion fracture. No acute-appearing fracture or dislocation identified. Procedure Note Carolynn Oconnell MD - 10/22/2013 XR WRIST RIGHT PA LATERAL AND OBLIQUE Oct 22, 2013 07:33:47 PM HISTORY: -ARM INJURY. Compare: no priors. Smoothly margined ossicle separate from the tip of the ulnar styloidprocess may represent an accessory ossicle or remote avulsion fracture. No acute-appearing fractureor dislocation identified. IMPRESSION: No acute bony abnormality identified. us Andrea Richards MD IMG DIAGNOSTIC IMAGING ORDERA BLES Final Result * XR RADIUS ULNA RIGHT AP AND LATERAL (10/22/2013 7:33 PM EST) Anatomical Region Laterality Modality Forearm Radiographic Hannah ging 10/22/2013 7:05 PM EST Impressions 10/22/2013 7:52 PM EST IMPRESSION: Negative exam. Narrative 10/22/2013 7:52 PM EST XR RADIUS ULNA RIGHT AP AND LATERAL Oct 22, 2013 07:33:47 PM HISTORY: -ARM INJURY. Compare: no priors. No fracture or significant bony abnormality is identified. Procedure Note Carolynn Oconnell MD - 10/22/2013 XR RADIUS ULNA RIGHT AP AND LATERAL Oct 22, 2013 07:33:47 PM HISTORY: -ARM INJURY. Compare: no priors. No fracture or significant bony abnormality is identified. IMPRESSION: Negative exam. us Andrea Richards MD IMG DIAGNOSTIC IMAGING ORDERA BLES Final Result * SCANNED RADIOLOGY REPORT (05/28/2013 1:30 PM EDT) Anatomical Region Laterality Modality Other 05/28/2013 1:30 PM EDT us Unknown Unknown IMG DIAGNOSTIC IMAGING ORDERABLE S Final Result * TROPONIN-I (05/28/2013 12:35 PM EDT) Only the most recent of3 resultswithin the time period is included. Troponin-I <0.01 <=0.06 ng/mL [facility] Blood specimen (specimen) UPPER LIMB STRUCTURE / Unknown 05/28/2013 12:35 PM EDT 05/28/2013 12:57 PM EDT Trae Rojas MD CHEMISTRY ORDERABLES Final Resul t [facility] [address] [place] [address] * ID US LOWER EXTREMITY VENOUS LEFT (05/28/2013 11:00 AM EDT) Anatomical Region Laterality Modality Vascular, Thigh, Leg Vascular Im aging 05/28/2013 9:21 AM EDT Impressions 05/28/2013 4:04 PM EDT FINDINGS: The deep veins of the left lower extremity are patent and compressible. Normal Doppler characteristics of spontaneous, phasic flow and augmentation to distal compression are demonstrated throughout the deep venous system of the left lower extremity. The calf veins were not well visualized in all segments. No reflux is noted. The greater saphenous vein is patent and compressible. The contralateral right common femoral vein is patent with augmentation noted. CONCLUSIONS No evidence of deep or superficial vein thrombosis left lower extremity. No evidence of deep vein thrombosis right common femoral vein. Narrative Procedure Note Lena Young MD - 05/28/2013 IMPRESSION FINDINGS: The deep veins of the left lower extremity are patentand compressible. Normal Doppler characteristics of spontaneous, phasic flow and augmentation to distalcompression are demonstrated throughout the deep venous system of the left lower extremity. The calfveins were not well visualized in all segments. No reflux is noted. The greater saphenous vein is patent and compressible. The contralateral right common femoral vein is patentwith augmentation noted. CONCLUSIONS No evidence of deep or superficial vein thrombosis left lower extremity. No evidence of deep vein thrombosis right common femoral vein. us Ernesto Davis MD IMG VASCULAR ORDERABLES Final Re sult * NM MYOCARDIAL PERFUSION SPECT STRESS AND REST (05/28/2013 10:33 AM EDT) [facility] Ejection Fraction 94 % PYRAMIS Anatomical Region Laterality Modality Nuclear Medicine 05/28/2013 8:32 AM EDT Impressions 05/28/2013 5:12 PM EDT SPECT RESULTS Technical Quality: Technically adequate study Raw Data Analysis: No clinically relevant artifact Perfusion: Homogeneous uptake of isotope throughout the left ventricle on both stress and rest images. No evidence of myocardial ischemia or prior myocardial infarction. FUNCTION (calculated via Gated SPECT) Post Stress LV EF:94 % TID: 1.24 EDV: 64 ml (70-100 ml) ESV: 4 ml (30-50 ml) EDVI: 32 ml/m? (30-50 ml/m?) ESVI: 2 ml/m? (15-30 ml/m?) Technical Quality: Gated SPECT appears to be visually accurate LV Size & Function: Small left ventricular cavity size. Normal left ventricular systolic function. LV Regional Function: Hyperdynamic function. No regional wall motion or thickening abnormalities. EF 94%. Right Ventricle: The right ventricle was not well visualized. IMPRESSIONS Normal left ventricular perfusion study. There is no exercise induced ischemia despite the borderline abnormal ECG response. Preserved left ventricular systolic function. Narrative Procedure Note Ryan Andujar MD - 05/28/2013 IMPRESSION SPECT RESULTS Technical Quality: Technically adequate study Raw Data Analysis: No clinically relevant artifact Perfusion: Homogeneous uptake of isotope throughout the leftventricle on both stress and rest images. No evidence of myocardial ischemia or priormyocardial infarction. FUNCTION (calculated via Gated SPECT) Post Stress LV EF:94 %TID: 1.24 EDV: 64 ml (70-100 ml) ESV: 4 ml(30-50 ml) EDVI: 32 ml/m? (30-50 ml/m?) ESVI: 2ml/m? (15-30 ml/m?) Technical Quality: Gated SPECT appears to be visually accurate LV Size & Function: Small left ventricular cavity size. Normal left ventricular systolic function. LV Regional Function: Hyperdynamic function. No regional wall motion or thickeningabnormalities. EF 94%. Right Ventricle: The right ventricle was not well visualized. IMPRESSIONS Normal left ventricular perfusion study. There is no exercise inducedischemia despite the borderline abnormal ECG response. Preserved left ventricular systolic function. us Ernesto NICHOLSON NM CARDIAC ORDERABLES Final Result * ST STRESS TEST EXERCISE (05/28/2013 9:52 AM EDT) Anatomical Region Laterality Modality Cardiac Stress T esting 05/28/2013 9:34 AM EDT Ernesto BARTON STRESS ORDERABLES Final Resu lt * (ABNORMAL) LIPID SCREEN (05/28/2013 6:00 AM EDT) Cholesterol 182 <=200 mg/dL [facility] Comment: < 200 Desirable 200 - 239 Borderline High >= 240 High Triglyceride 385(H) <=150 mg/dL [facility] Comment: < 150 Normal 150 - 199 Borderline High 200 - 499 High >= 500 Very High HDL 33(L) >=40 mg/dL [facility] Comment: > 60 Optimal 40 - 60 Acceptable < 40 Low LDL Calculated 72 <=100 mg/dL [facility] Comment: < 100 Optimal 100 - 129 Near or above optimal 130 - 159 Borderline High 160 - 189 High >= 190 Very High Blood specimen (specimen) UPPER LIMB STRUCTURE / Unknown 05/28/2013 6:00 AM EDT 05/28/2013 8:44 AM EDT Trae Rojas MD CHEMISTRY ORDERABLES Edited Resu lt - Final Performing Organization Address [facility] Co de Phone Number [facility] [address] [place] [address] * NT PROBNP (05/27/2013 10:20 PM EDT) NT Pro-BNP 39 <=450 pg/mL Comment: An NT pro-BNP level less than 300 pg/mL in any patient, regardless of age, Effectively rules out acute CHF with a 99% negative predictive value. Blood specimen (specimen) UPPER LIMB STRUCTURE / Unknown 05/27/2013 10:20 PM EDT 05/27/2013 10:24 PM EDT Ernesto Davis MD CHEMISTRY ORDERABLES Final Resul t * POCT CREATININE (02/12/2013 2:52 PM EDT) Creatinine 0.7 0.5 - 1.1 mg/dL [facility] i-Stat ID# [id number] [facility] Blood specimen (specimen) 02/12/2013 2:52 PM EDT Abilio Fischer MD POINT OF CARE TEST ORDERABLES Final Result Performing Organization Address [facility] Co de Phone Number [facility] * MOTOR VEHICLE FIELD REPRESENTATIVE CYTOLOGY REPORT (04/05/2012 5:19 AM EDT) Delivery Truck Driver Heavy Cytology Report PATIENT NAME:MIREYA OVALLES Delivery Truck Driver Heavy Cytology Report Accession Number Collected Date/Time Received Date/Time [id number] 04/05/12 05:19 EDT 04/06/12 05:19 EDT GY Specimen Source Specimen Vag/Cerv/Endocx?: [id number] Statement of Adequacy Satisfactory for Evaluation. Transformation Zone Absent. This is not unusual for a post-hysterectomy woman. Diagnosis NEGATIVE FOR INTRAEPITHELIAL LESION OR MALIGNANCY. Comment The Pap Smear is a screening test that aids in the detection of cervical cancer and cancer precursors. Both false positive and false negative results can occur. The test should be used at regular intervals, and positive results should be confirmed before definitive therapy. Processed using the ThinPrep Metal Drilling Machine Operator automated cytology screening device (Ritani). Marketing Analytics Lead: JANINA 04/10/2012 Completed by: BRITTANY Dominique (Electronically signed by) 04/10/2012 [facility] 04/05/2012 5:19 AM EDT Jadiel Abernathy MD PATHOLOGY ORDERABLES Final Res ult Performing Organization Address [facility] Co de Phone Number [facility] [address] [place] [address] * HPV RESULTS (04/05/2012 5:17 AM EDT) HPV Specimen Thin Prep [facility] Comment: TEST INFORMATION: HPV DNA Probe, High Risk, Thin Prep Specimen. The High-risk HPV test detects HPV genotypes 16,18,31,33,39,45,51,52,58,59, and 68, which are associated with cervical cancer and its precursor lesions. However, cross-reactions with other genotypes may occur. Results should be correlated with cytologic and histologic findings. This test is an amplfied DNA signal assay by [employer], validated by [facility] in conjunction with Ritani. HPV dsDNA, Qualitative Negative [facility] Liquid based cytologic material (specimen) 04/05/2012 5:17 AM EDT 04/06/2012 5:16 AM EDT Jadiel Abernathy MD MICROBIOLOGY - GENERAL ORDERAB LES Final Result Performing Organization Address [facility] Co de Phone Number [facility] [address] [place] [address] * MM MAMMO DIGITAL DIAGNOSTIC RIGHT (02/29/2012 2:58 PM EDT) Anatomical Region Laterality Modality Breast Right Mammography 03/01/2012 12:2 9 PM EDT Impressions 03/01/2012 1:40 PM EDT : Benign finding ([id number]) ~ RECOMMENDATION: Routine screening mammogram in 6 months. Return to routine follow up. ~ * The patient with a palpable abnormality, unexplained by breast imaging, should be managed on clinical basis by the attending physician. * Breast imaging has a false negative rate of 15%. * The patient was notified by mail of the results of this examination. *The patient's information was entered into a reminder system with a target due date for the next mammogram. Narrative 03/01/2012 1:40 PM EDT Procedure:MM MAMMO DIGITAL DIAGNOSTIC RIGHT ~ Reason for exam: clinical finding. Indicated problem(s): other indicated problem in the right breast. Oil cyst and calcifications. ~ MM MAMMO DIGITAL DIAGNOSTIC RIGHT CC and MLO view(s) were taken of the right breast. Prior study comparison: July 20, 2011, bilateral MM MAMMO DIGITAL DIAG CAD BILAT. January 17, 2009, mammogram. There are scattered fibroglandular densities. There is a stable benign-appearing 4.0 radiolucent oval density with circumscribed margins in the right breast upper outer quadrant consistent with an oil cyst. There are greater than 10 grouped coarse calcifications in the right upper outer quadrant adjacent to the oil cyst again noted, and in fact, some calcifications are becoming coarser. ~ Procedure Note Amber Quevedo MD - 03/01/2012 Procedure:MM MAMMO DIGITAL DIAGNOSTIC RIGHT ~ Reason for exam: clinical finding. Indicated problem(s): other indicated problem in the right breast. Oil cyst and calcifications. ~ MM MAMMO DIGITAL DIAGNOSTIC RIGHT CC and MLO view(s) were taken of the right breast. Prior study comparison: July 20, 2011, bilateral MM MAMMO DIGITALDIAG CAD BILAT. January 17, 2009, mammogram. There are scattered fibroglandular densities. There is a stable benign-appearing 4.0 radiolucent oval density with circumscribed marginsin the right breast upper outer quadrant consistent with an oil cyst.There are greater than 10 grouped coarse calcifications in the right upperouter quadrant adjacent to the oil cyst again noted, and in fact, some calcifications are becoming coarser. ~ IMPRESSION: Benign finding ([id number]) ~ RECOMMENDATION: Routine screening mammogram in 6 months. Return to routine follow up. ~ * The patient with a palpable abnormality, unexplained by breast imaging, should be managed on clinical basis by the attending physician. * Breast imaging has a false negative rate of 15%. * The patient was notified by mail of the results of this examination. *The patient's information was entered into a reminder system with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 cholecystectomy. No focal abnormality in unopacified liver/spleen. The adrenals and pancreas are unremarkable. No obstructive bowel gas pattern. The kidneys are symmetric in size without evidence of obstructive uropathy. A non obstructive 3mm calculus is noted within the lower pole collecting system, left kidney. Pelvis: Normal appendix. Prior hysterectomy. Multiple scattered pelvic phleboliths. No focal pelvic inflammatory process. Early degenerative change involves the pubic symphysis. IMPRESSION: NO CT EVIDENCE OF OBSTRUCTIVE UROPATHY OR INFLAMMATORY PROCESS. NON OBSTRUCTIVE CALCULUS, LOWER POLE COLLECTING SYSTEM LEFT KIDNEY. SHAQ/paulino end of result Procedure Note Unknown, U - 02/05/[address] [facility] Reason: FLANK PAIN Dict.Staff: TOBY NEW Verified By: TOBY NEW Keysha: 10/05/06 11:30 am Exams: CT-ABDOMEN W/O CONT CT-PELVIS W/O CONT CT ABDOMEN AND PELVIS WITHOUT CONTRAST HISTORY: ACUTE FLANK PAIN. RULE OUT OBSTRUCTIVE UROPATHY NO COMPARISON STUDIES A preliminary report was provided by [facility] on the morning of 10-05-06. Visualized lung bases are clear. Prior cholecystectomy. No focal abnormality in unopacified liver/spleen. The adrenals and pancreas are unremarkable. No obstructive bowel gas pattern. The kidneys are symmetric in size without evidence of obstructive uropathy. A non obstructive 3mm calculus is noted within the lower pole collecting system, left kidney. Pelvis: Normal appendix. Prior hysterectomy. Multiple scattered pelvic phleboliths. No focal pelvic inflammatory process. Early degenerative change involves the pubic symphysis. IMPRESSION: NO CT EVIDENCE OF OBSTRUCTIVE UROPATHY OR INFLAMMATORY PROCESS. NON OBSTRUCTIVE CALCULUS, LOWER POLE COLLECTING SYSTEM LEFT KIDNEY. SHAQ/pp end of result us U Unknown [facility] RAD HISTORICAL Final Result * CT ABDOMEN W/O CONTRAST (10/05/2006 12:00 AM EST) Anatomical Region Laterality Modality Other 10/05/2006 10/05/2006 Narrative 10/05/2006 12:[address] [facility] Reason: FLANK PAIN Dict.Staff: TOBY NEW Verified By: TOBY NEW Keysha: 10/05/06 11:30 am Exams: CT-ABDOMEN W/O CONT CT-PELVIS W/O CONT CT ABDOMEN AND PELVIS WITHOUT CONTRAST HISTORY: ACUTE FLANK PAIN. RULE OUT OBSTRUCTIVE UROPATHY NO COMPARISON STUDIES A preliminary report was provided by [facility] on the morning of 10-05-06. Visualized lung bases are clear. Prior cholecystectomy. No focal abnormality in unopacified liver/spleen. The adrenals and pancreas are unremarkable. No obstructive bowel gas pattern. The kidneys are symmetric in size without evidence of obstructive uropathy. A non obstructive 3mm calculus is noted within the lower pole collecting system, left kidney. Pelvis: Normal appendix. Prior hysterectomy. Multiple scattered pelvic phleboliths. No focal pelvic inflammatory process. Early degenerative change involves the pubic symphysis. IMPRESSION: NO CT EVIDENCE OF OBSTRUCTIVE UROPATHY OR INFLAMMATORY PROCESS. NON OBSTRUCTIVE CALCULUS, LOWER POLE COLLECTING SYSTEM LEFT KIDNEY. SHAQ/pp end of result Procedure Note Unknown, U - 02/05/[address] [facility] Reason: FLANK PAIN Dict.Staff: TOBY NEW Verified By: TOBY NEW Keysha: 10/05/06 11:30 am Exams: CT-ABDOMEN W/O CONT CT-PELVIS W/O CONT CT ABDOMEN AND PELVIS WITHOUT CONTRAST HISTORY: ACUTE FLANK PAIN. RULE OUT OBSTRUCTIVE UROPATHY NO COMPARISON STUDIES A [facility] on the morning of 10-05-06. Visualized lung bases are clear. Prior cholecystectomy. No focal abnormality in unopacified liver/spleen. The adrenals and pancreas are unremarkable. No obstructive bowel gas pattern. The kidneys are symmetric in size without evidence of obstructive uropathy. A non obstructive 3mm calculus is noted within the lower pole collecting system, left kidney. Pelvis: Normal appendix. Prior hysterectomy. Multiple scattered pelvic phleboliths. No focal pelvic inflammatory process. Early degenerative change involves the pubic symphysis. IMPRESSION: NO CT EVIDENCE OF OBSTRUCTIVE UROPATHY OR INFLAMMATORY PROCESS. NON OBSTRUCTIVE CALCULUS, LOWER POLE COLLECTING SYSTEM LEFT KIDNEY. SHAQ/pp end of result us U Unknown IMG [facility] RAD HISTORICAL Final Result Visit Diagnoses Diagnosis Start Date Chest pain Chest pain, unspecified 03/05/2010 Back pain Backache, unspecified 03/12/2010 Rib pain Chest pain, unspecified 03/12/2010 Cough 11/10/2010 Chest wall pain Painful respiration 11/10/2010 Breast pain Mastodynia 07/20/2011 Breast cyst Solitary cyst of breast 02/29/2012 Screening for malignant neoplasm of the cervix 04/05/2012 History of cervical cancer Personal history of malignant neoplasm of cervix uteri 04/05/2012 Urinary incontinence Unspecified urinary incontinence 04/05/2012 Unspecified hypothyroidism 08/09/2012 Unspecified deficiency anemia 08/09/2012 Unspecified essential hypertension 08/09/2012 Laboratory examination, unspecified 08/09/2012 Other screening mammogram 10/19/2012 SOB (shortness of breath) Shortness of breath 01/23/2013 SOB (shortness of breath) Shortness of breath 02/05/2013 Pleuritic chest pain Painful respiration 02/07/2013 Hoarseness Dysphonia 02/07/2013 Mold exposure Contact with and (suspected) exposure to mold 02/07/2013 Pleuritic chest pain Painful respiration 02/12/2013 Hoarseness Dysphonia 02/27/2013 Chest pain Chest pain, unspecified 02/27/2013 Mediastinal adenopathy Enlargement of lymph nodes 02/27/2013 Chest pain Chest pain, unspecified 05/27/2013 Peripheral edema Edema 05/27/2013 EKG abnormalities Nonspecific abnormal electrocardiogram (ECG) (EKG) 05/27/2013 Lethargy Other malaise and fatigue 05/27/2013 Environmental allergies Other allergy, other than to medicinal agents 05/27/2013 Hypothyroid Unspecified hypothyroidism 05/27/2013 Hoarseness Dysphonia 08/20/2013 Chest pain Chest pain, unspecified 08/20/2013 Mediastinal adenopathy Enlargement of lymph nodes 08/20/2013 Hoarseness Dysphonia 08/29/2013 Mediastinal adenopathy Enlargement of lymph nodes 08/29/2013 Lung nodule Solitary pulmonary nodule 08/29/2013 Contusion of right wrist Contusion of wrist 10/22/2013 Contusion of right forearm Contusion of forearm 10/22/2013 Acute sinusitis Acute sinusitis, unspecified 02/21/2014 Hoarseness Dysphonia 03/05/2014 Mediastinal adenopathy Enlargement of lymph nodes 03/05/2014 Lung nodule Solitary pulmonary nodule 03/05/2014 Mediastinal adenopathy Enlargement of lymph nodes 03/11/2014 Lung nodule Solitary pulmonary nodule 03/11/2014 Cough 03/11/2014 Mediastinal adenopathy Enlargement of lymph nodes 03/11/2014 Lung nodule Solitary pulmonary nodule 03/11/2014 Cough 03/11/2014 Mediastinal adenopathy Enlargement of lymph nodes 03/13/2014 Lung nodule Solitary pulmonary nodule 03/13/2014 Cough 03/13/2014 Pre-op testing Preoperative examination, unspecified 03/16/2014 Mediastinal adenopathy Enlargement of lymph nodes 03/19/2014 Lung nodule Solitary pulmonary nodule 03/19/2014 Mediastinal adenopathy Enlargement of lymph nodes 03/19/2014 DM (diabetes mellitus) (HCC) Type II or unspecified type diabetes mellitus without mention of complication, not stated as uncontrolled 03/20/2014 Well adult exam Routine general medical examination at a health care facility 03/20/2014 Lung nodule Solitary pulmonary nodule 03/20/2014 Mediastinal adenopathy Enlargement of lymph nodes 03/20/2014 Pneumothorax Other pneumothorax 03/20/2014 Agrcia esophagus Garcia's esophagus 03/20/2014 Osteoarthritis Osteoarthrosis, unspecified whether generalized or localized, unspecified site 03/20/2014 DM (diabetes mellitus) (HCC) Type II or unspecified type diabetes mellitus without mention of complication, not stated as uncontrolled 03/20/2014 Chest pain Chest pain, unspecified 03/21/2014 Cough 03/21/2014 Chest pain Chest pain, unspecified 03/21/2014 Cough 03/21/2014 DM (diabetes mellitus) (HCC) Type II or unspecified type diabetes mellitus without mention of complication, not stated as uncontrolled 03/25/2014 Type II or unspecified type diabetes mellitus without mention of complication, not stated as uncontrolled 03/25/2014 Hyperlipidemia Other and unspecified hyperlipidemia 03/27/2014 Mediastinal adenopathy Enlargement of lymph nodes 04/08/2014 Lung nodule Solitary pulmonary nodule 04/08/2014 Mediastinal adenopathy Enlargement of lymph nodes 04/18/2014 Lung nodule Solitary pulmonary nodule 04/18/2014 Preop examination Preoperative examination, unspecified 04/30/2014 Hoarseness Dysphonia 04/30/2014 Mediastinal adenopathy Enlargement of lymph nodes 04/30/2014 Lung nodule Solitary pulmonary nodule 04/30/2014 Solitary pulmonary nodule 05/03/2014 Enlargement of lymph nodes 05/03/2014 History of chest tube placement Personal history of surgery to other organs 05/06/2014 Lung nodule, solitary 05/30/2014 Mediastinal adenopathy Enlargement of lymph nodes 05/30/2014 Abdominal pain Abdominal pain, unspecified site 06/10/2014 Abdominal pain Abdominal pain, unspecified site 06/10/2014 Histoplasmosis Histoplasmosis, 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 06/10/2014 Garcia's esophagus 06/10/2014 Vertebral artery disease 06/10/2014 DM (diabetes mellitus) (HCC) Type II or unspecified type diabetes mellitus without mention of complication, not stated as uncontrolled 06/10/2014 Abdominal pain Abdominal pain, unspecified site 06/12/2014 Abdominal pain Abdominal pain, unspecified site 06/12/2014 Mediastinal adenopathy Enlargement of lymph nodes 07/01/2014 Lung nodule Solitary pulmonary nodule 07/01/2014 Histoplasmosis Histoplasmosis, 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 07/01/2014 RUQ pain Abdominal pain, right upper quadrant 08/29/2014 Chronic diarrhea Diarrhea 08/29/2014 Breast nodule Other (abnormal) findings on radiological examination of breast 08/29/2014 DM (diabetes mellitus) (HCC) Type II or unspecified type diabetes mellitus without mention of complication, not stated as uncontrolled 08/29/2014 Histoplasmosis Histoplasmosis, 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 08/29/2014 Hypothyroid Unspecified hypothyroidism 08/29/2014 Barretts esophagus Garcia's esophagus 08/29/2014 Mediastinal adenopathy Enlargement of lymph nodes 10/14/2014 Lung nodule Solitary pulmonary nodule 10/14/2014 Histoplasmosis Histoplasmosis, 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 10/14/2014 Hoarseness Dysphonia 10/28/2014 Mediastinal adenopathy Enlargement of lymph nodes 10/28/2014 Histoplasmosis Histoplasmosis, 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 10/28/2014 Spasm eyelid Blepharospasm 11/22/2014 Muscle spasm Spasm of muscle 11/22/2014 Elevated blood pressure Elevated blood pressure reading without diagnosis of hypertension 11/22/2014 Hoarseness Dysphonia 05/16/2015 Mediastinal adenopathy Enlargement of lymph nodes 05/16/2015 Histoplasmosis Histoplasmosis, 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 05/16/2015 Hoarseness Dysphonia 05/21/2015 Mediastinal adenopathy Enlargement of lymph nodes 05/21/2015 Histoplasmosis Histoplasmosis, 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 05/21/2015 Lung nodule Solitary pulmonary nodule 05/21/2015 Encounter for screening mammogram for malignant neoplasm of breast Other screening mammogram 10/22/2015 Subacromial bursitis, right 02/02/2016 Hoarseness Dysphonia 02/16/2016 Mediastinal adenopathy Enlargement of lymph nodes 02/16/2016 Histoplasmosis Histoplasmosis, 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 02/16/2016 Lung nodule Solitary pulmonary nodule 02/16/2016 Mediastinal adenopathy Enlargement of lymph nodes 03/17/2016 Histoplasmosis Histoplasmosis, 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 03/17/2016 Cervical radiculopathy Brachial neuritis or radiculitis nos 08/05/2016 Stomach ache Dyspepsia and other specified disorders of function of stomach 08/27/2016 Pretibial myxedema Thyrotoxicosis without mention of goiter or other cause, without mention of thyrotoxic crisis or storm 08/27/2016 Malignant neoplasm of thyroid gland (HCC) Malignant neoplasm of thyroid gland 08/27/2016 Vitamin D deficiency Unspecified vitamin D deficiency 08/27/2016 Abdominal pain, unspecified location 09/02/2016 Mediastinal adenopathy Enlargement of lymph nodes 03/10/2017 Histoplasmosis Histoplasmosis, 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 03/10/2017 Overactive thyroid gland Thyrotoxicosis without mention of goiter or other cause, without mention of thyrotoxic crisis or storm 04/11/2017 Macrocytic anemia Unspecified deficiency anemia 04/11/2017 Anemia, Hays's Pernicious anemia 04/11/2017 Overproduction of ACTH Other corticoadrenal overactivity 04/11/2017 Essential hypertension, benign 04/11/2017 Disease of pancreas Unspecified disease of pancreas 04/11/2017 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, not stated as uncontrolled 04/11/2017 Hoarseness Dysphonia 04/11/2017 Mediastinal adenopathy Enlargement of lymph nodes 04/11/2017 Lung nodule Solitary pulmonary nodule 04/11/2017 Breast lump Lump or mass in breast 12/30/2017 Breast pain Mastodynia 12/30/2017 History of cancer Personal history of unspecified malignant neoplasm 12/30/2017 Breast lump Lump or mass in breast 12/30/2017 Breast pain Mastodynia 12/30/2017 History of cancer Personal history of unspecified malignant neoplasm 12/30/2017 Pretibial myxedema Thyrotoxicosis without mention of goiter or other cause, without mention of thyrotoxic crisis or storm 05/18/2018 Essential hypertension, malignant 05/18/2018 Chronic lymphocytic thyroiditis 05/18/2018 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 with other specified manifestations, not stated as uncontrolled 05/18/2018 Localized enlarged lymph nodes Enlargement of lymph nodes 05/18/2018 Histoplasmosis Histoplasmosis, 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 05/18/2018 Mediastinal adenopathy Enlargement of lymph nodes 07/12/2018 Histoplasmosis Histoplasmosis, 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 07/12/2018 Lung nodule Solitary pulmonary nodule 07/12/2018 Mediastinal adenopathy Enlargement of lymph nodes 07/12/2018 Histoplasmosis Histoplasmosis, 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 07/12/2018 Lung nodule Solitary pulmonary nodule 07/12/2018 Knee pain, unspecified chronicity, unspecified laterality 04/05/2019 Myalgia Mylagia and myositis, unspecified 12/11/2019 Stress fracture of left tibia, sequela 12/11/2019 Osteoporosis, unspecified osteoporosis type, unspecified pathological fracture presence 12/18/2019 Mediastinal adenopathy Enlargement of lymph nodes 03/27/2020 Histoplasmosis Histoplasmosis, 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 03/27/2020 Lung nodule Solitary pulmonary nodule 03/27/2020 Mediastinal adenopathy Enlargement of lymph nodes 03/31/2020 Histoplasmosis Histoplasmosis, 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 03/31/2020 Lung nodule Solitary pulmonary nodule 03/31/2020 Cough 09/17/2020 Cough 09/17/2020 Viral upper respiratory tract infection Acute upper respiratory infections of unspecified site 09/17/2020 Mediastinal adenopathy Enlargement of lymph nodes 12/25/2020 Histoplasmosis Histoplasmosis, 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 12/25/2020 Lung nodule Solitary pulmonary nodule 12/25/2020 Atypical chest pain Other chest pain 01/26/2021 Encounter for screening mammogram for malignant neoplasm of breast Other screening mammogram 04/06/2021 Nontraumatic incomplete tear of right rotator cuff 04/28/2021 Glenoid labrum tear, right, subsequent encounter 04/28/2021 Shoulder weakness Other joint derangement, not elsewhere classified, shoulder region 04/28/2021 Acute pain of right shoulder 05/15/2021 Superior glenoid labrum lesion of right shoulder, subsequent encounter 05/21/2021 Arthritis of right acromioclavicular joint Unspecified arthropathy, shoulder region 05/21/2021 Cervical pain Cervicalgia 06/02/2021 Cervical pain Cervicalgia 06/02/2021 Cervical pain Cervicalgia 06/08/2021 Hx of cervical cancer Personal history of malignant neoplasm of cervix uteri 11/05/2021 Vulval lesion Other specified noninflammatory disorder of vulva and perineum 11/05/2021 Sebaceous cyst of labia 11/05/2021 Near syncope Syncope and collapse 11/29/2021 Mediastinal adenopathy Enlargement of lymph nodes 01/27/2022 Histoplasmosis Histoplasmosis, 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 01/27/2022 Lung nodule Solitary pulmonary nodule 01/27/2022 Contact dermatitis due to plant Contact dermatitis and other eczema due to plants (except food) 04/13/2022 Persistent nodularity of breast 07/16/2022 Breast pain Mastodynia 07/16/2022 Neoplasm of uncertain behavior of skin of foot 07/22/2022 Onychomycosis Dermatophytosis of nail 07/22/2022 Onychodystrophy Other specified disease of nail 07/22/2022 Toe pain, right Pain in limb 07/22/2022 History of basal cell carcinoma Personal history of other malignant neoplasm of skin 07/22/2022 Mastodynia 01/17/2023 Mastodynia 01/17/2023 Thoracic spine pain Pain in thoracic spine 03/03/2023 Thoracic spine pain Pain in thoracic spine 03/03/2023 Sprain of ligaments of cervical spine, initial encounter 03/03/2023 DDD (degenerative disc disease), cervical Degeneration of cervical intervertebral disc 03/03/2023 Thoracic spine pain Pain in thoracic spine 03/10/2023 Sprain of ligaments of cervical spine, initial encounter 03/10/2023 DDD (degenerative disc disease), cervical Degeneration of cervical intervertebral disc 03/10/2023 Low back pain, unspecified back pain laterality, unspecified chronicity, unspecified whether sciatica present 03/18/2023 Protrusion of cervical intervertebral disc 03/18/2023 Mid back pain Backache, unspecified 04/19/2023 Cervical radiculopathy Brachial neuritis or radiculitis nos 07/26/2024 Peripheral edema Edema 05/27/2013 Chest pain Chest pain, unspecified 05/27/2013 Mediastinal adenopathy Enlargement of lymph nodes 05/27/2013 Hypothyroid Unspecified hypothyroidism 05/27/2013 Environmental allergies Other allergy, other than to medicinal agents 05/27/2013 Mediastinal adenopathy Enlargement of lymph nodes 03/19/2014 Lung nodule Solitary pulmonary nodule 03/19/2014 RUQ pain Abdominal pain, right upper quadrant 08/29/2014 Chronic diarrhea Diarrhea 08/29/2014 Lung nodule Solitary pulmonary nodule 08/29/2014 Hypothyroid Unspecified hypothyroidism 08/29/2014 DM (diabetes mellitus) (HCC) Type II or unspecified type diabetes mellitus without mention of complication, not stated as uncontrolled 08/29/2014 Histoplasmosis Histoplasmosis, 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 08/29/2014 Breast nodule Other (abnormal) findings on radiological examination of breast 08/29/2014 Barretts esophagus Garcia's esophagus 08/29/2014
--- OUTSIDE RECORDS SUMMARY | 2025-04-30 14:04 | XMS_ITS | Encounter Summary ---
Author Organization [facility] Address [address] [place] [address] Care Team Providers Care Cost Clerk Name Role Phone Pcp, No Primary Care [...] release of HIV test results or diagnoses. [id number] Encounter Details Date Type Department Care Team (Late st Contact Info) Description 10/07/[address] [facility] HEALTH INFORMATION MANAGEMENT [address] [place] [address] Margarita Huntley MD Social History Tobacco Use [...] Procedure Name Priority Date/Time Associated Diagnosis Comments PATHOLOGY REPORT - SCAN Routine 10/04/2016 6:08 PM EST documented in this encounter Results * Pathology Report - scan (10/04/2016 6:08 PM EST) us Margarita Huntley MD SCAN DOCS - NO RESULTS Final Result documented in this encounter Visit Diagnoses Not on filedocumented in this encounter Care Teams Cost Clerk Relationship Specialty Start Date End Date Pcp, No No Address PCP - General Pediatrics 08/17/16 04/23/21 System, Provider Not In PCP - General 04/24/21 05/18/21 Pcp, No No Address PCP - General 05/19/21 Matt Glover MD [address] [place] [address] 08/17/16 documented as of this encounter
--- OUTSIDE RECORDS SUMMARY | 2025-04-30 14:04 | XMS_ITS | Encounter Summary ---
Author Organization [facility] Address [address] [place] [address] Care Team Providers Care Shade Cutter Name Role Phone Pcp, No Primary Care [...] release of HIV test results or diagnoses. [id number] Health Encounter Details Date Type Department Care Team (Late st Contact Info) Description 05/30/2017 Orders Only [facility] Dermatology at [address] [place] [address] Mary Arellano CNP Social History Tobacco Use [...] Progress Notes * Mary Arellano CNP - 06/02/2017 1:00 PM EDTQuick Note: Reviewed results of recent biopsy located on the left nasal tip with patient over the phone Final pathology result: Accession Number: [id number] Biopsy Site: Left nasal tip Biopsy Date: 05/30/2017 Impression: R/O BCC Gross Description: A specimen of skin was received [id number] MICRO EXAM: There are multiple islands of atypical basaloid cells with peripheral palisading and focal central necrosis. There is solar elastosis, proliferation of fibroblasts and a lymphocytic infiltrate in the adjacent stroma. DIAGNOSIS: Nodular basal cell carcinoma. Plan: Due to malignant nature and location will refer to Dr. Dsouza for evaluation for Moh's surgery. All questions answered and patient verbalized understanding of plan of care documented in this encounter Plan of Treatment Not on file documented as of this encounter Procedures Procedure Name Priority Date/Time Associated Diagnosis Comments SKIN / NAIL BIOPSY 05/30/2017 1: 17 PM EDT documented in this encounter Results * Skin / nail biopsy (05/30/2017 1:17 PM EDT) 05/30/2017 1:17 PM EDT 05/30/2017 1:17 PM EDT Narrative DERM PATH LAB - 06/01/2017 12:35 PM EDT Accession Number: [id number] Biopsy Site: Left nasal tip Biopsy Date: 05/30/2017 Impression: R/O BCC Gross Description: A specimen of skin was received [id number] MICRO EXAM: There are multiple islands of atypical basaloid cells with peripheral palisading and focal central necrosis. There is solar elastosis, proliferation of fibroblasts and a lymphocytic infiltrate in the adjacent stroma. DIAGNOSIS: Nodular basal cell carcinoma. ICD-10: C44.91 PATHOLOGIST: Electronically signed by: Zully Kothari MD Procedure Note Unknown, Attending Provider - 06/01/2017 Accession Number: [id number] Biopsy Site: Left nasal tip Biopsy Date: 05/30/2017 Impression: R/O BCC Gross Description: A specimen of skin was received [id number] MICRO EXAM: There are multiple islands of atypical basaloid cells with peripheral palisading and focal central necrosis. There is solar elastosis, proliferation of fibroblasts and a lymphocytic infiltrate in theadjacent stroma. DIAGNOSIS: Nodular basal cell carcinoma. ICD-10: C44.91 PATHOLOGIST: Electronically signed by: Zully Kothari MD Mary Jb Arellano QUICK SKETCH ARTIST DERM PROCEDURE ORDERABLES F inal Result DERM PATH LAB documented in this encounter Visit Diagnoses Not on filedocumented in this encounter Care Teams Shade Cutter Relationship Specialty Start Date End Date Pcp, No No Address PCP - General Pediatrics 08/17/16 04/23/21 System, Provider Not In PCP - General 04/24/21 05/18/21 Pcp, No No Address PCP - General 05/19/21 Matt Glover MD [address] [place] [address] 08/17/16 documented as of this encounter
--- OUTSIDE RECORDS SUMMARY | 2025-04-30 14:04 | XMS_ITS | Encounter Summary ---
Author Organization [facility] Address [address] [place] [address] Care Team Providers Care Gettering Operator Name Role Phone Pcp, No Primary Care [...] release of HIV test results or diagnoses. [id number] Encounter Details Date Type Department Care Team (Late st Contact Info) Description 11/30/2016 Chart Note [facility] HEALTH INFORMATION MANAGEMENT [address] [place] [address] Margarita Huntley MD Social History Tobacco Use [...] Comments EGD REPORT - SCAN Routine 10/04/2016 11:50 AM EST documented in this encounter Results * EGD Report - scan (10/04/2016 11:50 AM EST) us Margarita Huntley MD SCAN DOCS - NO RESULTS Final Result documented in this encounter Visit Diagnoses Not on filedocumented in this encounter Care Teams Gettering Operator Relationship Specialty Start Date End Date Pcp, No No Address PCP - General Pediatrics 08/17/16 04/23/21 System, Provider Not In PCP - General 04/24/21 05/18/21 Pcp, No No Address PCP - General 05/19/21 Matt Glover MD [address] [place] [address] 08/17/16 documented as of this encounter
[2025-04-30 15:00] VITALS: PULSE 80; PULSE 85
[2025-04-30] MEDS: ALBUTEROL 0.083% 2.5 MG/3 ML NEB IH (15:00)
== END 2025-04-30 23:59 | disposition home or self-care (01) ==
LOC: RT 14:01
PROVIDERS: PCP Family Medicine; Visit Provider Internal Medicine Pulmonary Disease
DX: J44.9 Chronic obstructive pulmonary disease, unspecified (principal)
CPT/HCPCS: 94060; 94618; 94640; 94726; 94729

== ENCOUNTER 2025-05-07 16:57 | Outpatient (RCR) | payer MEDICARE, SELFPAY | END 2025-05-07 23:59 | disposition home or self-care (01) | LOC: OT 16:57 | PROVIDERS: Visit Provider Orthopaedic Surgery | DX: S43.431D Superior glenoid labrum lesion of right shoulder, subsequent encounter (principal) | CPT/HCPCS: 97014; 97110; 97140; G0283 ==

== ENCOUNTER 2025-05-22 13:11 | Outpatient (CLI) | payer MEDICARE, SELFPAY ==
--- NOTE | 2025-05-22 13:14 | XR_ITS ---
FINAL REPORT CLINICAL HISTORY: right shoulder pain, HX OF ROTATOR CUFF REPAIR IN JANUARY 2025 COMPARISON: 11/22/2023 FINDINGS: 2 views of the right shoulder were obtained. There is no fracture or dislocation. There is stable AC joint degenerative disease. Soft tissues are unremarkable. IMPRESSION: Stable degenerative changes without acute osseous abnormality of the right shoulder. Reviewed, Interpreted and Dictated by Ena Matthews MD Transcribed by Aria Fernando Authenticated and [facility]
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
--- OUTSIDE RECORDS SUMMARY | 2025-05-22 13:16 | XMS_ITS | Encounter Summary ---
Author Organization Healthcare Address [address] [place] [address] Care Team Providers Care Vending Service Technician Name Role Phone Buster Falcon MD Primary Care Provider + [phone] Encounter Details Date Type Department Care Team ([facility] Contact Info) Description 05/15/2021 Orders Only External Location [address] [place] [address] Provider, External Social History Tobacco Use Types [...] on filedocumented in this encounter Care Teams Vending Service Technician Relationship Specialty Start Date End Date Buster Falcon MD [address] [place] [address] PCP - General 08/22/23 documented as of this encounter
--- OUTSIDE RECORDS SUMMARY | 2025-05-22 13:16 | XMS_ITS | Encounter Summary ---
Author Organization [facility] Address [address] [place] [address] Care Team Providers Care Antiquer Name Role Phone Buster Falcon MD Primary Care Provider + [phone] Encounter Details Date Type Department Care Team ([facility] st Contact Info) Description 06/08/2021 Orders Only External Location [address] [place] [address] Provider, External Social History Tobacco Use Types [...] on filedocumented in this encounter Care Teams Antiquer Relationship Specialty Start Date End Date Buster Falcon MD [address] [place] [address] PCP - General 08/22/23 documented as of this encounter
--- OUTSIDE RECORDS SUMMARY | 2025-05-22 13:16 | XMS_ITS | Encounter Summary ---
Author Organization [facility] Address [address] [place] [address] Care Team Providers Care Board Turner Name Role Phone Buster Falcon MD Primary Care Provider + [phone] Encounter Details Date Type Department Care Team ([facility] st Contact Info) Description 04/19/2023 Orders Only External Location [address] [place] [address] Provider, External Social History Tobacco Use Types [...] on filedocumented in this encounter Care Teams Board Turner Relationship Specialty Start Date End Date Buster Falcon MD [address] [place] [address] PCP - General 08/22/23 documented as of this encounter
--- OUTSIDE RECORDS SUMMARY | 2025-05-22 13:16 | XMS_ITS | Encounter Summary ---
Author Organization [facility] Address [address] [place] [address] Care Team Providers Care Virtual Recruiter Name Role Phone Buster Falcon MD Primary Care Provider + [phone] Encounter Details Date Type Department Care Team ([facility] st Contact Info) Description 05/15/2021 Orders Only External Location [address] [place] [address] Provider, External Social History Tobacco Use Types [...] on filedocumented in this encounter Care Teams Virtual Recruiter Relationship Specialty Start Date End Date Buster Falcon MD [address] [place] [address] PCP - General 08/22/23 documented as of this encounter
--- OUTSIDE RECORDS SUMMARY | 2025-05-22 13:16 | XMS_ITS | Encounter Summary ---
Author Organization Healthcare Address [address] [place] [address] Care Team Providers Care Annealing Operator Name Role Phone Buster Falcon MD Primary Care Provider + [phone] Encounter Details Date Type Department Care Team ([facility] st Contact Info) Description 03/10/2023 Orders Only External Location [address] [place] [address] Provider, External Social History Tobacco Use Types [...] on filedocumented in this encounter Care Teams Annealing Operator Relationship Specialty Start Date End Date Buster Falcon MD [address] [place] [address] PCP - General 08/22/23 documented as of this encounter
--- OUTSIDE RECORDS SUMMARY | 2025-05-22 13:16 | XMS_ITS | Encounter Summary ---
Author Organization Healthcare Address [address] [place] [address] Care Team Providers Care Bogger Operator Name Role Phone Buster Falcon MD Primary Care Provider [phone] Encounter Details Date Type Department Care Team ([facility] st Contact Info) Description 08/05/2016 Orders Only External Location [address] [place] [address] Provider, External Social History Tobacco Use Types [...] on filedocumented in this encounter Care Teams Bogger Operator Relationship Specialty Start Date End Date Buster Falcon MD [address] [place] [address] PCP - General 08/22/23 documented as of this encounter
--- OUTSIDE RECORDS SUMMARY | 2025-05-22 13:16 | XMS_ITS | Encounter Summary ---
Author Organization Healthcare Address [address] [place] [address] Care Team Providers Care Computer Systems Technician Name Role Phone Buster Falcon MD Primary Care Provider + [phone] Encounter Details Date Type Department Care Team ([facility] st Contact Info) Description 02/02/2016 Orders Only External Location [address] [place] [address] Provider, External Social History Tobacco Use Types [...] Region Laterality Modality Magnetic Resonan ce 02/02/2016 5:0 9 PM EDT us External Provider IMG MRI PROCEDURES Final Resul t documented in this encounter Visit Diagnoses Not on filedocumented in this encounter Care Teams Computer Systems Technician Relationship Specialty Start Date End Date Buster Falcon MD [address] [place] [address] PCP - General 08/22/23 documented as of this encounter
--- OUTSIDE RECORDS SUMMARY | 2025-05-22 13:16 | XMS_ITS | Continuity of Care Document ---
Author Organization [facility] Address [address] [place] [address] Phone Care Team Providers Care Surveyor Oil Well Directional Name Role Phone Unavailable Primary Care Provider Unavailabl e Encounters Date Type Department Care Team Description 4 Telephone [place] [id number] Darya Tate DO Other [address] [phone] Madhu Wilkinson MD 4 4:25 PM EDT - 4 11:59 PM EDT Hospital Encounter [facility] [address] [place] [address] Jillian Lock PA-C Cervical radiculopathy Discharge Disposition: Home or Self Care 4 Refill [facility] [address] [place] [address] Madhu Wilkinson MD Medication Refill [address] [phone] Madhu Wilkinson MD Other 4 Telephone [facility] Mauricio [address] [place] [address] Abimbola Gonzalez MD Paperwork/forms 3 Refill [facility] [address] [address] Madhu Wilkinson MD Medication Refill 3 Refill [facility] [address] [address] Madhu Wilkinson MD Medication Refill 3 Refill [facility] [address] [address] Madhu Wilkinson MD Medication Refill 3 Refill [facility] [address] [place], [place] [address]HE[address] [address] Madhu Wilkinson MD Medication Refill 3 Travel 3 3:53 PM EDT - 3 11:59 PM EDT Hospital Encounter [facility] [address] [place] [place] [address] Julio César Erazo MD Mid back pain Discharge Disposition: Home or Self Care 3 Refill [facility] [address] [address] Madhu Wilkinson MD Medication Refill 3 2:00 PM EDT [facility] 262Grey GORDON [address] [address] Madhu Wilkinson MD Low back pain, unspecified back pain laterality, unspecified chronicity, unspecified whether sciatica present (Primary Dx); Protrusion of cervical intervertebral disc 3 6:00 PM EDT [facility] [address] [place] [address] Madhu Wilkinson MD Thoracic spine pain; Sprain of ligaments of cervical spine, initial encounter; DDD (degenerative disc disease), cervical 3 2:20 PM EDT Ancillary [facility] [address] [address] Madhu Wilkinson MD Thoracic spine pain 3 2:45 PM EDT Office Visit [facility] [address] [place] [address] Madhu Wilkinson MD Thoracic spine pain (Primary Dx); Sprain of ligaments of cervical spine, initial encounter; DDD (degenerative disc disease), cervical 3 Travel 3 9:57 AM EDT - 3 11:59 PM EDT Hospital Encounter [facility] [place] [address] Julio César Erazo MD Mastodynia Discharge Disposition: Home or Self Care 3 9:19 AM EDT - 3 9:56 AM EDT Hospital Encounter [facility] [place] [address] Julio César Erazo MD Mastodynia Discharge Disposition: Home or Self Care 2 9:00 AM EDT Office Visit [facility] [address] [place] [address] Jadiel Amaya, CELESTE Neoplasm of uncertain behavior of skin of foot (Primary Dx); Onychomycosis; Onychodystrophy; Toe pain, right; History of basal cell carcinoma 2 Travel 2 12:00 PM EDT - 2 11:59 PM [place] [address] Julio César Erazo MD Persistent nodularity of breast; Breast pain Discharge Disposition: Home or Self Care 2 Travel 2 7:23 PM EDT - 2 7:48 PM EDT Emergency [facility] [address] [place] [address] Buster Maciel MD Contact dermatitis due to plant (Primary Dx) Discharge Disposition: Home or Self Care 2 2:15 PM EDT Office Visit [facility] [address] [place] [phone] Abimbola Gonzalez MD Mediastinal adenopathy (Primary Dx); Histoplasmosis; Lung nodule 2 Travel 2 6:15 PM EST - 2 9:40 PM EST Emergency [facility] [address] [facility] [address] Stephanie Schultz MD Near syncope (Primary Dx) Discharge Disposition: Home or Self Care 2 Travel 2 10:40 AM EST [facility] [address] [place] [address] Angelica Palacios MD Vulval lesion (Primary Dx); Hx of cervical cancer; Sebaceous cyst of labia 1 12:00 PM EDT [facility] [address] [place] [address] Cervical pain 1 3:00 PM EDT Ancillary Procedure [facility] [address] [place] [address] Madhu Wilkinson MD Cervical pain 1 2:45 PM EDT Office Visit [facility]U [address] [place] [address] Madhu Wilkinson MD Cervical pain (Primary Dx) 1 2:45 PM EDT Office Visit [address] [address] Castro Olmos DO Superior glenoid labrum lesion of right shoulder, subsequent encounter (Primary Dx); Arthritis of right acromioclavicular joint 1 11:00 AM EDT Ancillary Procedure [facility] MRI [address] [place] [address] 1 10:30 AM EDT Office Visit [address] [address] Omari Kent MD Acute pain of right shoulder (Primary Dx) 1 11:00 AM EDT Office Visit [facility] [address] [place] [address] Darya Tate DO Nontraumatic incomplete tear of right rotator cuff (Primary Dx); Glenoid labrum tear, right, subsequent encounter; Shoulder weakness 1 1:58 PM EDT - 1 11:59 PM EDT Hospital Encounter [facility] Mammography [address] [phone] Julio César Erazo MD Encounter for screening mammogram for malignant neoplasm of breast Discharge Disposition: Home or Self Care 1 Travel 1 Travel 1 3:54 PM EDT - 1 6:27 PM EDT Emergency [facility] [address] [facility] [place] [address] Jorge Rose MD Atypical chest pain (Primary Dx) Discharge Disposition: Home or Self Care 1 Travel 1 2:15 PM EST Office Visit [facility] [address] [address] Abimbola Gonzalez MD Mediastinal adenopathy (Primary Dx); Histoplasmosis; Lung nodule 1 Travel 0 3:20 PM EST Ancillary Procedure [facility] [address] [address] Maxine Sequeira MD Cough Discharge Disposition: Home or Self Care 0 2:45 PM EST Office Visit [facility] [address] [address] Maxine Sequeira MD Cough (Primary Dx); Viral upper respiratory tract infection 0 Travel 0 Travel 0 Travel 0 Travel 0 2:00 PM EDT - 0 11:59 PM EDT Hospital Encounter [facility] [address] [place] [address] Discharge Disposition: Home or Self Care 0 Travel 0 Travel 0 2:49 PM EDT - 0 11:59 PM EDT Hospital Encounter [facility] [address] [place] [address] Abimbola Gonzalez MD Mediastinal adenopathy; Histoplasmosis; Lung nodule Discharge Disposition: Home or Self Care 0 Travel 0 12:30 PM EDT Office Visit [facility] [address] [address] Abimbola Gonzalez MD Mediastinal adenopathy (Primary Dx); Histoplasmosis; Lung nodule 0 Telephone [facility] [address] [address] Abimbola Gonzalez MD Other 0 Travel 0 [...] I [facility] XRAY [address] [place] [address] Knee pain, unspecified chronicity, unspecified laterality Discharge Disposition: Home or Self Care 9 Telephone [facility] [address] [facility] [address] [place] [phone] Abimbola Gonzalez MD Other 8 2:35 PM EDT - 8 11:59 PM EDT Hospital Encounter [facility] [address] [place] [phone] Mediastinal adenopathy; Histoplasmosis; Lung nodule Discharge Disposition: Home or Self Care 8 1:30 PM EDT Office Visit [facility] [address] [place] [address] Abimbola Gonzalez MD Mediastinal adenopathy (Primary Dx); Histoplasmosis; Lung nodule 8 2:56 PM EDT - 8 11:59 PM EDT Hospital Encounter [facility] [address] [place] [address] Julio César Erazo MD Pretibial myxedema (Primary Dx); Essential hypertension, malignant; Chronic lymphocytic thyroiditis; Lipoatrophic diabetes (HCC) Discharge Disposition: Home or Self Care 8 2:54 PM EDT - 8 2:55 PM EDT Hospital Encounter [facility] [address] [place] [address] Julio César Erazo MD Localized enlarged lymph nodes; Histoplasmosis Discharge Disposition: Home or Self Care 8 Telephone [facility] [address] [place] [address] Abimbola Gonzalez MD Other 8 Telephone [facility] [place] [address] Jennifer Emmanuel RN Other 8 Telephone [facility] [address] [place] [phone] Katja Georges MA Other 8 Telephone [facility] [place] [address] Salma Hsu REGIS Other 8 1:30 PM EST - 8 11:59 PM EST Hospital Encounter [facility] [place] [address] Julio César Erazo MD Breast lump; Breast pain; History of cancer Discharge Disposition: Home or Self Care 8 1:00 PM EST - 8 1:29 PM EST Hospital Encounter [facility] [place] [address] Julio César Erazo MD Breast lump; Breast pain; History of cancer Discharge Disposition: Home or Self Care 7 9:50 AM EDT - 7 11:59 PM EDT Hospital Encounter [facility] [address] [place] [address] Overactive thyroid gland (Primary Dx); Macrocytic anemia; Anemia, Kingsley's; Overproduction of ACTH; Essential hypertension, benign; Disease of pancreas; Familial lipodystrophic diabetes (HCC) Discharge Disposition: Home or Self Care 7 9:15 AM EDT Office Visit [facility] [address] [place] [address] Abimbola Gonzalez MD Hoarseness (Primary Dx); Mediastinal adenopathy; Lung nodule 7 Telephone [facility] Mauricio [address] [place] [address] Abimbola Gonzalez MD Other 7 2:00 PM EDT - 7 11:59 PM EDT Hospital Encounter [facility] [address] [place] [address] Abimbola Gonzalez MD Mediastinal adenopathy; Histoplasmosis Discharge Disposition: Home or Self Care 7 Telephone [facility] [address] [place] [phone] Abimbola Gonzalez MD No Show ( ct chest on 02/16) 6 10:42 AM EST - 6 11:59 PM EST Hospital Encounter [facility] [address] [place] [address] Margarita Huntley MD Abdominal pain, unspecified location Discharge Disposition: Home or Self Care 6 4:55 PM EDT - 6 11:59 PM EDT Hospital En[facility] [address] [place] [address] Stomach ache (Primary Dx); Pretibial myxedema; Malignant neoplasm of thyroid gland (HCC); Vitamin D deficiency Discharge Disposition: Home or Self Care 6 1:43 PM EDT - 6 11:59 PM EDT Hospital Encounter [facility] MRI [address] [place] [address] Rod Stahl Jr., MD Cervical radiculopathy Discharge Disposition: Home or Self Care 6 2:00 PM EDT Office Visit [facility] Maur[place] [address] [place] [address] Abimbola Gonzalez MD Mediastinal adenopathy (Primary Dx); Histoplasmosis 6 6:00 PM EDT - 6 11:59 PM EDT Hospital En[facility] [address] [place] [address] Abimbola Gonzalez MD Hoarseness; Mediastinal adenopathy; Histoplasmosis; Lung nodule Discharge Disposition: Home or Self Care 6 4:51 PM EDT - 6 11:59 PM EDT Hospital Encounter [facility] [address] [place], [place] [phone] Julio César Erazo MD Subacromial bursitis, right Discharge Disposition: Home or Self Care 6 Telephone [facility] [address] [address] Abimbola Gonzalez MD Other 6 Telephone [facility] [address] [place] [address] Abimbola Gonzalez MD Other (schedule january) 5 4:21 PM EST - 5 11:59 PM EST Hospital Encounter [facility] [place] [facility] [address] [place] [address] Julio César Erazo MD Encounter for screening mammogram for malignant neoplasm of breast Discharge Disposition: Home or Self Care 5 2:30 PM EDT Office Visit [facility] [address] [address] Abimbola Gonzalez MD Mediastinal adenopathy (Primary Dx); Hoarseness; Histoplasmosis; Lung nodule 5 Telephone [facility] [address] [place] [address] Abimbola Gonzalez MD Other 5 12:00 PM EDT - 5 11:59 PM EDT Hospital En[facility] [address] [place] [address] Abimbola Gonzalez MD Hoarseness; Mediastinal adenopathy; Histoplasmosis Discharge Disposition: Home or Self Care 5 Telephone [facility] [address] [place] [address] Abimbola Gonzalez MD Other (schedule april) 5 Refill [facility] [address] [place] [phone] Darya Conner MD Medication Refill 5 Telephone [facility] [address] [place] [address] Alisha Waggoner Naresh, RMA Other 5 7:18 PM EST - 5 9:08 PM EST Emergency [facility] [address] [place] [address] Esteban Sanchez MD Spasm eyelid (Primary Dx); Muscle spasm; Elevated blood pressure Discharge Disposition: Home or Self Care 5 Telephone [facility] Maur[facility] [address] [place] [address] Abimbola Gonzalez MD Visit Follow Up 5 10:30 AM EST Office Visit [facility] [address] [place] [address] Abimbola Gonzalez MD Hoarseness (Primary Dx); Mediastinal adenopathy; Histoplasmosis 4 1:40 PM EST - 4 11:59 PM EST Hospital Encounter [facility] [address] [place], [place] [id number] Abimbola Gonzalez MD Mediastinal adenopathy; Lung nodule; Histoplasmosis Discharge Disposition: Home or Self Care 4 1:30 PM EST - 4 1:45 PM EST Surgery [facility] [address] [place] [address] Germain Santa MD ESOPHAGOGASTRODUODENOSCOPY 4 11:58 AM EST - 4 4:30 PM EST Hospital Encounter [facility] [address] [place] [address] Lena Fish MD RUQ pain (Primary Dx); Chronic diarrhea; Breast nodule; DM (diabetes mellitus) (HCC); Histoplasmosis; Hypothyroid; Barretts esophagus Discharge Disposition: Left Against Medical Advice 4 Patient Outreach [facility] [address] [place] [address] Nani Sims, parole supervisor 4 12:15 PM EDT Office Visit [facility] [address] [place] [address] Abimbola Gonzalez MD Mediastinal adenopathy (Primary Dx); Lung nodule; Histoplasmosis 4 Telephone [facility] [place] [facility] [address] [place] [address] Buster Talbot MD Results 4 9:11 AM EDT - 4 11:59 PM EDT Hospital Encounter [facility] [address] [place] [address] Darya Conner MD Abdominal pain Discharge Disposition: Home or Self Care 4 9:03 AM EDT - 4 9:10 AM EDT Hospital Encounter [facility] [place] [facility] [address] [place] [address] Darya Conner MD Abdominal pain Discharge Disposition: Home or Self Care 4 4:07 PM EDT - 4 11:59 PM EDT Hospital Encounter [facility] ZARI PROCESSING [facility] [place] [address] Abdominal pain Discharge Disposition: Home or Self Care 4 10:15 AM EDT Office Visit [facility] [address] [place] [phone] Darya Conner MD Abdominal pain (Primary Dx); Histoplasmosis; Garcia's esophagus; Vertebral artery disease; DM (diabetes mellitus) (HCC) 4 Patient Outreach [facility] [address] [place] [address] Nani Sims, parole supervisor 4 11:30 AM EDT Office Visit [facility] Cardiac Surgeons [address] [place] [address] Cory Moran MD Lung nodule, solitary (Primary Dx); Mediastinal adenopathy 4 Telephone [facility] [address] [place] [address] Nani Sims RN Care Transition 4 Telephone [facility] [address] [place] [address] Nani Sims RN Care Transition 4 3:03 PM EDT - 4 4:15 PM EDT Emergency [place] [address] [place] [address] Ernesto [place] MD History of chest tube placement (Primary Dx) Discharge Disposition: Home or Self Care 4 Telephone [facility] [address] [place] [address] Nani Sims RN Care Transition 4 5:56 AM EDT - 4 1:49 PM EDT Hospital Encounter [facility] PACU OVERNIGHT [facility] [place] [address] Cory Moran MD Discharge Disposition: Home or Self Care 4 8:00 AM EDT - 4 11:45 AM EDT Surgery [facility] PERIOP [facility] [place] [address] Cory Moran MD THORACOSCOPY POSSIBLE THORACOTOMY (VATS- VIDEO-ASSISTED THORACOSCOPIC SURGERY) (INCLUDES FLEXIBLE BRONCHOSCOPY) (REGULAR OR ROOM) 4 2:59 PM EDT - 4 11:59 PM EDT Hospital Encounter [facility] D-WING XRAY [facility] [place] [address] Shantal Ames APRN Discharge Disposition: Home or Self Care 4 1:30 PM EDT - 4 2:58 PM EDT Hospital Encounter [facility] PRE-ADMIT TESTING [facility] [place] [address] Preop examination (Primary Dx); Hoarseness; Mediastinal adenopathy; Lung nodule Discharge Disposition: Home or Self Care 4 2:30 PM EDT Office Visit [facility] Cardiac Surgeons [address] [place] [phone] Cory Moran MD Mediastinal adenopathy (Primary Dx); Lung nodule 4 Telephone [facility] [address] [place] [address] Abimbola Gonzalez MD Visit Follow Up 4 11:15 AM EDT Office Visit [facility] [address] [place] [address] Abimbola Gonzalez MD Mediastinal adenopathy (Primary Dx); Lung nodule 4 Orders Only [place] [address] [place] [address] Buster Talbot MD Hyperlipidemia (Primary Dx) 4 6:35 PM EDT - 4 11:59 PM EDT Hospital Encounter [facility] ZARI PROCESSING [facility] [place] [address] DM (diabetes mellitus) (HCC) Discharge Disposition: Home or Self Care 4 1:40 PM EDT Clinical Support [facility] [address] [place] [phone] Mireya George Type II or unspecified type diabetes mellitus without mention of complication, not stated as uncontrolled (HCC) (Primary Dx) 4 4:30 PM EDT - 4 11:59 PM EDT Hospital Encounter [facility] D-WING XRAY [facility] [place] [address] Chest pain; Cough Discharge Disposition: Home or Self Care 4 Orders Only [facility] [place] [address] [place] [address] Abimbola Gonzalez MD Chest pain (Primary Dx); Cough 4 7:14 PM EDT - 4 11:59 PM EDT Hospital Encounter [facility] LAB ZARI PROCESSING [facility] [place] [address] DM (diabetes mellitus) (HCC) Discharge Disposition: Home or Self Care 4 1:00 PM EDT Office Visit [facility] [place] [address] [place] [phone] Buster Talbot MD Well adult exam (Primary Dx); Lung nodule; Mediastinal adenopathy; Pneumothorax; Garcia esophagus; Osteoarthritis; DM (diabetes mellitus) (HCC) 4 9:00 AM EDT - 4 11:00 AM EDT Surgery [facility] ENDOSCOPY [facility] [place] [address] Abimbola Gonzalez MD ENDOSCOPIC BRONCHIAL ULTRASOUND-EBUS (ANESTHESIA) 4 7:04 AM EDT - 4 4:27 PM EDT Hospital Encounter [facility] ENDOSCOPY [facility] [place] [address] Abimbola Gonzalez MD Lung nodule (Primary Dx); Mediastinal adenopathy Discharge Disposition: Home or Self Care 4 2:20 PM EDT - 4 11:59 PM EDT Hospital Encounter Srinivas EKG [facility] [place] [address] Abimbola Gonzalez MD Pre-op testing Discharge Disposition: Home or Self Care 4 12:45 PM EDT - 4 11:59 PM EDT Hospital Encounter EDG PRE-ADMIT TESTING [facility] [place] [address] Discharge Disposition: Home or Self Care 4 Telephone [facility] [address] [place] [address] Abimbola Gonzalez MD Visit Follow Up 4 1:26 PM EDT - 4 11:59 PM EDT Hospital Encounter EDG PET CT [facility] [place] [address] Abimbola Gonzalez MD Mediastinal adenopathy; Lung nodule; Cough Discharge Disposition: Home or Self Care 4 2:15 PM EDT - 4 11:59 PM EDT Hospital Encounter [facility] [address] [place] [phone] Mediastinal adenopathy (Primary Dx); Lung nodule; Cough Discharge Disposition: Home or Self Care 4 12:45 PM EDT Office Visit [facility] [address] [place] [address] Abimbola Gonzalez MD Mediastinal adenopathy (Primary Dx); Lung nodule; Cough 4 8:00 PM EDT - 4 11:59 PM EDT Hospital En[facility] [place] [facility] [address] [place] [address] Abimbola Gonzalez MD Hoarseness; Mediastinal adenopathy; Lung nodule Discharge Disposition: Home or Self Care 4 5:40 PM EDT Office Visit [facility] [address] [place] [phone] Alvina Lopes APRN Acute sinusitis (Primary Dx) 3 6:06 PM EST - 3 8:21 PM EST Emergency [facility] [address] [place] [address] Andrea Richards MD Contusion of right wrist (Primary Dx); Contusion of right forearm Discharge Disposition: Home or Self Care 3 Telephone [facility] [place] [address] [place] [phone] Abimbola Gonzalez MD Visit Follow Up 3 3:45 PM EST Office Visit [facility] [place] [address] [place] [address] Abimbola Gonzalez MD Hoarseness (Primary Dx); Mediastinal adenopathy; Lung nodule 3 8:00 PM EDT - 3 11:59 PM EDT Hospital En[facility] [place] [facility] [address] [place] [address] Abimbola Gonzalez MD Hoarseness; Chest pain; Mediastinal adenopathy Discharge Disposition: Home or Self Care 3 Telephone [facility] [address] [place] [address] Abimbola Gonzalez MD Other (schedule may) 3 9:46 PM EDT - 3 7:05 PM EDT Hospital Encounter [facility] [address] [address] [place] [address] Ernesto Davis MD Wong, Chris, MD Chest pain (Primary Dx); Peripheral edema; EKG abnormalities; Lethargy; Environmental allergies; Hypothyroid Discharge Disposition: Home or Self Care 3 Telephone [facility] [address] [address] Abimbola Gonzalez MD Visit Follow Up 3 9:45 AM EDT Office Visit [facility] [address] [place] [address] Abimbola Gonzalez MD Hoarseness (Primary Dx); Chest pain; Mediastinal adenopathy 3 2:23 PM EDT - 3 11:59 PM EDT Hospital Encounter [facility] [address] [facility] [place] [address] Abimbola Gonzalez MD Pleuritic chest pain (Primary Dx) Discharge Disposition: Home or Self Care 3 2:00 PM EDT Office Visit [facility] [address] [address] Abimbola Gonzalez MD Pleuritic chest pain (Primary Dx); Hoarseness; Mold exposure 3 11:00 AM EDT - 3 11:59 PM EDT Hospital Encounter [facility] [address] [place] [address] SOB (shortness of breath) Discharge Disposition: Home or Self Care 3 Orders Only [facility] [address] [address] Abimbola Gonzalez MD SOB (shortness of breath) (Primary Dx) 2 12:41 PM EST - 2 11:59 PM EST Hospital Encounter [facility] [address] [place] [address] Other screening mammogram Discharge Disposition: Home or Self Care 2 7:25 PM EDT - 2 11:59 PM EDT Hospital Encounter [facility] [address] [facility] [place] [phone] Unspecified hypothyroidism; Unspecified deficiency anemia; Unspecified essential hypertension; Laboratory examination, unspecified Discharge Disposition: Home or Self Care 2 4:18 AM EDT - 2 11:59 PM EDT Hospital Encounter EDG LAB ZARI [facility] [place] [address] Screening for malignant neoplasm of the cervix Discharge Disposition: Home or Self Care 2 3:00 PM EDT Office Visit [facility] [address] [place] [phone] Jadiel Abernathy MD History of cervical cancer; Urinary incontinence 2 2:24 PM EDT - 2 11:59 PM EDT Hospital Encounter [facility] [address] [facility] [place] [address] Julio César Erazo MD Breast cyst Discharge Disposition: Home or Self Care 1 10:28 AM EDT - 1 11:59 PM EDT Hospital Encounter [facility] [address] [place] [address] Kam Escalera MD Breast pain Discharge Disposition: Home or Self Care 1 2:47 PM EST - 1 3:36 PM EST Emergency [facility] [place] [address] Felipe Larsen MD Cough; Chest wall pain Discharge Disposition: Home or Self Care 0 9:42 AM EDT - 0 11:59 PM EDT Hospital Encounter [facility] N[facility] MED [address] [place] [address] Rafiq White F Discharge Disposition: Home or Self Care 0 9:30 AM EDT - 0 9:41 AM EDT Hospital Encounter FTT NUC MED [address] [place] [address] Rafiq White F Back pain; Rib pain Discharge Disposition: Home or Self Care 0 3:45 PM EDT - 0 11:59 PM EDT Hospital Encounter FTT XRAY [address] [place] [address] Chest pain Discharge Disposition: Home or Self [...] 0 11:59 PM EDT Hospital Encounter [facility] Dee Casey MD Allergies [...] Pain. Active fluticasone (FLONASE) 50 mcg/actuation Nasl [place], SuspensionIndica tions:Hoarseness ,Mediastinal adenopathy,Histo plasmosis,Lung nodule 1 [place] by Nasal route daily. 1 Bottle 11 [...] Grandmother Social History Smoking Status as of 05/22/2025 Tobacco Use Types Packs/Day Years Used Date [...] EDT Overactive thyroid gland Macrocytic anemia Anemia, [place]'s Overproduction of ACTH Essential hypertension, benign Disease of pancreas Familial lipodystrophic diabetes (HCC) LIPASE LEVEL Callback 04/11/2017 10:06 AM EDT Overactive thyroid gland Macrocytic anemia Anemia, [place]'s Overproduction of ACTH Essential hypertension, benign Disease of pancreas Familial lipodystrophic diabetes (HCC) AMYLASE LEVEL Callback 04/11/2017 10:06 AM EDT Overactive thyroid gland Macrocytic anemia Anemia, [place]'s Overproduction of ACTH Essential hypertension, benign Disease of pancreas Familial lipodystrophic diabetes (HCC) RENAL FUNCTION PANEL Callback 04/11/2017 10:06 AM EDT Overactive thyroid gland Macrocytic anemia Anemia, [place]'s Overproduction of ACTH Essential hypertension, benign Disease of pancreas Familial lipodystrophic diabetes (HCC) CORTISOL Callback 04/11/2017 10:06 AM EDT Overactive thyroid gland Macrocytic anemia Anemia, [place]'s Overproduction of ACTH Essential hypertension, benign Disease of pancreas Familial lipodystrophic diabetes (HCC) VITAMIN B12 LEVEL Callback 04/11/2017 10:06 AM EDT Overactive thyroid gland Macrocytic anemia Anemia, [place]'s Overproduction of ACTH Essential hypertension, benign Disease of pancreas Familial lipodystrophic diabetes (HCC) CBC WITH DIFF Callback 04/11/2017 10:06 AM EDT Overactive thyroid gland Macrocytic anemia Anemia, [place]'s Overproduction of ACTH Essential hypertension, benign Disease of pancreas Familial lipodystrophic diabetes (HCC) TRIIODOTHYRONINE, REVERSE BY TMS-REF LAB Callback 04/11/2017 10:06 AM EDT Overactive thyroid gland Macrocytic anemia Anemia, [place]'s Overproduction of ACTH Essential hypertension, benign Disease of pancreas Familial lipodystrophic diabetes (HCC) TRIIODOTHYRONINE Callback 04/11/2017 10:06 AM EDT Overactive thyroid gland Macrocytic anemia Anemia, [place]'s Overproduction of ACTH Essential hypertension, benign Disease [...] DM, lung nodules s/p rightupper lobe wedge ajodrylfa-hi-gyxpmxletdnpxa, uterine and cervical cancer,GERD on nexium directly [...] last night. Reports followswith Dr. Val[facility]uela at [facility] in [place] for GI, but he would notsee the [...] fluticasone (FLONASE) 50 mcg/actuation nasal spray 1 [place] by Nasalroute daily. 1 Bottle 2 estradiol [...] WEDGE RESECTION ; Surgeon: Cory Moran MD;Location: [facility]; Service: Open Heart Lung surgery [...] EGD/colonoscopy with biopsy reports fromDr. [facility] at [facility]. -- EGD tomorrow, if prelim investigation are [...] of lymph nodes Special Needs [facility]CHELL CPT; 61312/30826/74027 DR JOHNSTON 0800 STARTDOES NOT NEED EARLY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 Organization Address [facility] Co de Phone Number [facility] [address] , [place] [address] * (ABNORMAL) HEMOGLOBIN A1C (05/18/2018 2:58 PM EDT) Only the most recent of3 resultswithin the time period is included. Hgb A1C 6.2(H) 4.2 - 5.6 % 05/18/2018 10:19 PM EDT [facility] Est. Avg Glucose 131 mg/dL 05/18/2018 10:19 PM EDT [facility] Blood VENOUS BLOOD / Unknown Venipuncture / [...] of glycemic control. Please fax results to [phone] us Julio César Earzo MD CHEMISTRY ORDERABLES Final Result [facility] [address] , [address] [place] [id number] * (ABNORMAL) RENAL FUNCTION PANEL (05/18/2018 2:58 [...] - 4.5 mg/dL 05/18/2018 8:45 PM EDT [facility] GFR Afr Am 107 mL/min/1.7 3 m2 05/18/2018 8:45 PM EDT [facility] GFR Non Afr Am 92 mL/min/1.7 3 m2 05/18/2018 8:45 PM EDT [facility] Comment: GFR Afr Am and GFR Non [...] PM EDT 05/18/2018 2:58 PM EDT Narrative [facility] - 05/18/2018 8:45 PM EDT Please fax results to [phone] Please fax results to [phone] Please fax results to [phone] Julio César Erazo MD CHEMISTRY ORDERABLES Final Result [facility] [address] , [address] [place] [id number] [facility] [address] [place] [id number] * MM MAMMO DIGITAL DIAGNOSTIC W CAD BILAT (12/30/2017 1:53 PM EST) Only the most recent of2 resultswithin the time period is included. Anatomical Region Laterality Modality Breast Bilateral Mammography 01/02/2018 7:01 AM EDT Impressions 01/03/2018 9:50 AM EDT : Incomplete-need additional imaging evaluation ([id number]-1) No mammographic evidence of malignancy. ~ The [...] MAMMO DIG SCREEN CAD BILAT, performed at [facility]. DIAGNOSTIC BILATERAL MAMMOGRAPHY WITH CAD ANALYSIS [...] of2 resultswithin the time period is included. [facility] Triiodothyronine, Reverse - LC-MS/MS 23.6 9.0 - 27.0 ng/dL [employer] Comment: INTERPRETIVE INFORMATION: Triiodothyronine, Reverse - LC-MS/MS Test developed and characteristics determined by [facility]. See Compliance Statement B: [facility]/CS Performed by [facility], [address] [place] [address] [email or web address], Augie Rebollar MD - Lab. Director Blood specimen (specimen) 04/11/2017 10:06 AM EDT 04/11/2017 2:08 PM EDT Narrative [employer] - 04/13/2017 7:23 AM EDT Fax results to [phone] Julio César Erazo MD CHEMISTRY ORDERABLES Final Result [facility] [address] [place], [place] [id number] * DIFFERENTIAL (04/11/2017 10:06 AM EDT) Only the most recent of8 resultswithin the time period is included. [facility] Neut Percent 53.1 % [facility] Lymph Percent 32.4 % [facility] [place] Percent 11.3 % [facility] Eos Percent 2.4 % [facility] Baso Percent 0.8 % [facility] Neut# 4.2 1.8 - 7.7 x10(3)/mcL [facility] Lymph# 2.6 0.6 - 4.8 x10(3)/mcL [facility] [place]# 0.9 0.0 - 1.3 x10(3)/mcL [facility] Eos# 0.2 0.0 - 0.5 x10(3)/mcL [facility] Baso# 0.1 0.0 - 0.2 x10(3)/mcL [facility] Blood specimen (specimen) 04/11/2017 10:06 AM EDT 04/11/2017 10:19 AM EDT Julio César Erazo MD HEMATOLOGY ORDERABLES Tiffany l Result Performing Organization Address [facility]/ZIP Co de Phone Number [facility] [address] [place] [address] * (ABNORMAL) CBC WITH AUTO DIFF (04/11/2017 10:06 AM EDT) Only the most recent of8 resultswithin the time period is included. WBC 7.9 4.0 - 11.0 x10(3)/mcL [facility] RBC 5.26(H) 3.80 - 5.10 x10(6)/mcL [facility] Hgb 15.7(H) 12.0 - 15.6 gm/dL [facility] Hct 45.2 35.7 - 45.9 % [facility] MCV 85.9 82.5 - 99.8 fL [facility] MCH 29.8 27.0 - 34.3 pg [facility] MCHC 34.7 32.1 - 35.3 gm/dL [facility] RDW 13.5 11.5 - 15.0 % [facility] Platelet 207 144 - 423 x10(3)/mcL [facility] MPV 8.8 6.8 - 10.8 fL [facility] Blood specimen (specimen) UPPER LIMB STRUCTURE / Unknown 04/11/2017 10:06 AM EDT 04/11/2017 10:19 AM EDT Narrative [facility] - 04/11/2017 10:26 AM EDT Fax results to [phone] Julio César Erazo MD HEMATOLOGY ORDERABLES Tiffany l Result Performing Organization Address [facility]/ZIP Co de Phone Number [facility] [place] [id number] * TRIIODOTHYRONINE (04/11/2017 10:06 AM EDT) Only the most recent of3 resultswithin the time period is included. Total T3 0.98 0.80 - 2.00 ng/mL [facility] Blood specimen (specimen) UPPER LIMB STRUCTURE / Unknown 04/11/2017 10:06 AM EDT 04/11/2017 2:36 PM EDT Narrative [facility] - 04/11/2017 3:54 PM EDT Fax results to [phone] Julio César Erazo MD CHEMISTRY ORDERABLES Final Result Performing Organization Address City/[facility] [place] [address] * LIPASE LEVEL (04/11/2017 10:06 AM EDT) Only the most recent of2 resultswithin the time period is included. Pathologist [facility] Lipase Lvl 54 13 - 60 IU/L [facility] Blood specimen (specimen) UPPER LIMB STRUCTURE / Unknown 04/11/2017 10:06 AM EDT 04/11/2017 2:36 PM EDT Narrative [facility] - 04/11/2017 3:54 PM EDT Fax results to [phone] Julio César Erazo MD CHEMISTRY ORDERABLES Final Result Performing Organization Address City/[facility]/ZIP Co de Phone Number [facility] [address] [place] [address] * VITAMIN B12 LEVEL (04/11/2017 10:06 AM EDT) Vitamin B12 337 211 - 946 pg/mL [facility] Blood specimen (specimen) UPPER LIMB STRUCTURE / Unknown 04/11/2017 10:06 AM EDT 04/11/2017 2:40 PM EDT Narrative [facility] - 04/11/2017 3:52 PM EDT Fax results to [phone] Julio César Erazo MD CHEMISTRY ORDERABLES Final Result Performing Organization Address [facility] [place] [address] * CORTISOL (04/11/2017 10:06 AM EDT) Cortisol 14.55 mcg/dL [facility] Comment: Normals: Mornin.2 - 19.4 mcg/dL Evenin.3 - 11.9 mcg/dL Blood specimen (specimen) UPPER LIMB STRUCTURE / Unknown 04/11/2017 10:06 AM EDT 04/11/2017 2:40 PM EDT Narrative [facility] - 04/11/2017 3:42 PM EDT Fax results to [phone] us Julio César Erazo MD CHEMISTRY ORDERABLES Final Result Performing Organization Address [facility] [place] [address] * AMYLASE LEVEL (04/11/2017 10:06 AM EDT) Amylase Lvl 41 28 - 100 IU/L [facility] Blood specimen (specimen) UPPER LIMB STRUCTURE / Unknown 04/11/2017 10:06 AM EDT 04/11/2017 2:36 PM EDT Narrative [facility] - 04/11/2017 3:54 PM EDT Fax results to [phone] us Julio César Erazo MD CHEMISTRY ORDERABLES Final Result Performing Organization Address [facility] de Phone Number [facility] [address] [place] [address] * CT ABDOMEN PELVIS WO CONTRAST (09/02/2016 [...] 25 OH 14.4(L) 30.0 - 120.0 ng/mL [facility] Comment: INTERPRETIVE INFORMATION: Vitamin D, 25-Hydroxy [...] PM EDT 08/27/2016 7:29 PM EDT Narrative [facility] - 08/27/2016 9:52 PM EDT Fax results to [phone] us Julio César Erazo MD CHEMISTRY ORDERABLES Final Result Performing Organization Address [facility] [place] [address] * THYROGLOBULIN ANTIBODY -REF LAB (08/27/2016 5:19 PM EDT) Pathologist [facility] Thyroglob Ab <0.9 0.0 - 4.0 IU/mL [facility] Comment: INTERPRETIVE INFORMATION: Thyroglobulin Antibody A value of 4.0 IU/mL or less indicates a negative result for thyroglobulin antibodies. The Thyroglobulin Antibody assay is being performed using the [employer] Access DxI method. Performed by [facility], [address] [place] [id number] [email or web address], Kade Quintanilla MD - Lab. Director Blood specimen (specimen) UPPER LIMB STRUCTURE / Unknown 08/27/2016 5:19 PM EDT 08/28/2016 1:03 PM EDT Narrative [facility] - 08/29/2016 12:08 PM EST Fax results to [phone] us Julio César Erazo MD IMMUNOLOGY ORDERABLES Tiffany l Result Performing Organization Address [facility]/ZIP Co de Phone Number [facility] [address] [place] [address] * HEPATIC FUNCTION PANEL (08/27/2016 5:19 PM EDT) Only the most recent of2 resultswithin the time period is included. Pathologist [facility] Total Protein 7.1 6.4 - 8.3 gm/dL [facility] Albumin 4.0 3.5 - 5.2 gm/dL [facility] Bili Direct <0.2 0.0 - 0.3 mg/dL [facility] Bili Total 0.6 0.1 - 1.3 mg/dL [facility] AST 14 <=40 IU/L [facility] ALT 12 <=41 IU/L [facility] Alk Phos 81 35 - 104 IU/L [facility] Blood specimen (specimen) UPPER LIMB STRUCTURE / Unknown 08/27/2016 5:19 PM EDT 08/27/2016 7:29 PM EDT Narrative [facility] - 08/27/2016 7:57 PM EDT Fax results to [phone] us Margarita Huntley MD CHEMISTRY [place] [address] * MRI SHOULDER RIGHT WO CONTRAST (02/02/2016 [...] 5:30 PM HISTORY: Pain M75.51-Bursitis of right dcmdvkwf-OZD-28-CM TECHNIQUE: Routine MRI right shoulder without contrast. [...] 5:30 PM HISTORY: Pain M75.51-Bursitis of right wfuvtavj-WES-78-CM TECHNIQUE: Routine MRI right shoulder without contrast. [...] Mild acromioclavicular osteoarthritis. Julio César Erazo MD [facility] MRI ORDERABLES Final R esult * MM MAMMO DIGITAL SCREENING W CAD BILAT (10/22/2015 4:53 PM EST) Only the most recent of2 resultswithin the time period is included. Anatomical Region Laterality Modality Breast Bilateral Mammography 10/23/2015 10:4 3 AM EST Impressions 10/23/2015 3:22 PM EST : Benign finding ([id number]-Zxkugeom-0) ~ RECOMMENDATION: Routine screening mammogram in 1 [...] being 10-19-12. ~ Julio César Erazo MD [facility] MAMMOGRAPHY ORDERABLES Final Result * CT HEAD [...] Report Accession Number Collected Date/Time Received Date/Time [id number] 08/30/14 14:51 EST 09/02/14 06:54 EST Diagnosis [...] and the findings corroborate the diagnosis. _ [facility] 08/30/2014 2:51 PM EST Germain Santa MD PATHOLOGY ORDERABLES Final Result Performing Organization Address [facility] de Phone Number [facility] [address] [place] [address] * GMED EGD (08/30/2014 1:30 PM EST) 08/30/2014 1:30 PM EST Impressions [facility] - 08/30/2014 3:20 PM EST Normal esophagus. Normal mucosa in the whole stomach. (Biopsy). Normal mucosa in the whole examined duodenum. (Biopsy). Plan: Await pathology results Continue current medication for acid suppression/ dose 30 minutes before a meal This section is an excerpt of the full report. Germain Santa MD GI PROCEDURE ORDERABLES Fin al Result Performing Organization Address [facility] de Phone Number [facility] [address] [place] [address] * GLUCOSE METER POC (08/30/2014 12:43 PM EST) Only the most recent of6 resultswithin the time period is included. Glucose Meter POC 92 70 - 100 mg/dL [facility] Blood specimen (specimen) 08/30/2014 12:43 PM EST 08/30/2014 12:43 PM EST Lena Fish MD POINT OF CARE TEST ORDERABLES Fi nal Result Performing Organization Address [facility] de Phone Number [facility] [address] [place] [address] * STOOL CULTURE (08/29/2014 7:35 PM EST) Only the most recent of2 resultswithin the time period is included. Final Shiga toxin result: Negative Shiga toxins (produced by E. coli) not detected. [facility] Stool specimen (specimen) 08/29/2014 7:35 PM EST 08/30/2014 8:07 AM EST Irina Rivas QUALITY ASSURANCE CALIBRATOR MICROBIOLOGY - GENERAL ORDERA BLES Final Result Performing Organization Address [facility] de Phone Number [facility] [address] [place] [address] * .C DIFF TOXIN DNA RESULTS (08/29/2014 7:35 PM EST) Pathologist [facility] c difficile specimen Stool [facility] Comment: TEST INFORMATION: This assay qualitatively detects a fragment of the Clostridium difficile Toxin A gene in liquid or soft stool in patients suspected of having Clostridium difficile-associated disease (CDAD). This assay is an amplified DNA test by [employer] and its performance has been verified by the [facility]. A negative result does not rule out the presence of the Clostridium difficile Toxin A gene fragment in concentrations below the limit of detection for the assay. c DIFFICILE TOXIN DNA Negative [facility] Stool specimen (specimen) 08/29/2014 7:35 PM EST 08/29/2014 10:36 PM EST Irina Rivas SWATHI MICROBIOLOGY - GENERAL ORDERA BLES Final Result Performing Organization Address [facility] de Phone Number [facility] [address] [place] [address] * FECAL WHITE BLOOD CELLS (08/29/2014 7:35 PM EST) Pathologist [facility] Final Negative Internal QC ok [facility] Stool specimen (specimen) 08/29/2014 7:35 PM EST 08/30/2014 10:07 AM EST Irina Dorseylinus ECHEVARRIA MICROBIOLOGY - GENERAL ORDERA BLES Final Result Performing Organization Address [facility] Co de Phone Number [facility] [address] [place] [address] * OVA AND PARASITE BASIC (08/29/2014 7:35 [...] 8:07 AM EST us Irina Mary Rivas QUALITY ASSURANCE CALIBRATOR MICROBIOLOGY - GENERAL ORDERA BLES Final Result [facility] [address] [place] [address] * CT ABDOMEN PELVIS W CONTRAST (08/29/2014 [...] included. PT 10.7 9.8 - 12.2 second(s) [facility] INR 0.97 0.89 - 1.11 [facility] Comment: Level of Therapy Indications Target INR Range Standard Dose Treatment and prophylaxis of venous 2.0 - 3.0 thrombosis, pulmonary embolism High Dose High risk patients with mechanical 2.5 - 3.5 heart valves Blood specimen (specimen) 08/29/2014 2:08 PM EST 08/29/2014 3:43 PM EST us Irina Rivas QUALITY ASSURANCE CALIBRATOR HEMATOLOGY ORDERABLES Final R esult [facility] [address] [place] [address] * US RIGHT UPPER QUADRANT (06/12/2014 9:58 [...] EDT) Bands 12(H) 0 - 10 % [facility] Aniso Slight [facility] Polychrom Slight [facility] Blood specimen (specimen) 05/04/2014 4:58 AM EDT 05/04/2014 5:02 AM EDT Cory Moran MD HEMATOLOGY ORDERABLES Final Result Performing Organization Address City/[facility] Co de Phone Number [facility] [address] [place] [address] * FUNGUS CULTURE-OTHER (05/03/2014 10:00 AM EDT) Only the most recent of3 resultswithin the time period is included. Final No growth of fungus at 4 weeks [facility] Tissue specimen (specimen) LUNG STRUCTURE / Unknown 05/03/2014 10:00 AM EDT 05/03/2014 11:10 AM EDT Comment:RIGHT UPPER LOBE MAS S Cory Moran MD MICROBIOLOGY - GENERAL ORDERABLES Final Result Performing Organization Address [facility] Co de Phone Number [facility] [address] [place] [address] * WOUND CULTURE (05/03/2014 10:00 AM EDT) GS Few WBC's No organisms seen [facility] Final No growth at 4 days. [facility] Tissue specimen (specimen) LUNG STRUCTURE / Unknown 05/03/2014 10:00 AM EDT 05/03/2014 11:10 AM EDT Comment:RIGHT UPPER LOBE MAS S Cory Moran MD MICROBIOLOGY - GENERAL ORDERABLES Final Result Performing Organization Address [facility] Co de Phone Number [facility] [address] [place] [address] * ANAEROBIC CULTURE (05/03/2014 10:00 AM EDT) Final No anaerobic growth at 5 days [facility] Tissue specimen (specimen) LUNG STRUCTURE / Unknown 05/03/2014 10:00 AM EDT 05/03/2014 11:10 AM EDT Comment:RIGHT UPPER LOBE MAS S Cory Moran MD MICROBIOLOGY - GENERAL ORDERABLES Final Result Performing Organization Address [facility] Co de Phone Number [facility] [address] [place] [address] * ABORH (04/30/2014 3:50 PM EDT) Pathologist [facility] ABORh Int A NEG [facility] Blood specimen (specimen) 04/30/2014 3:50 PM EDT 04/30/2014 3:56 PM EDT us Griselda Galvin APRN BLOOD BANK ORDERABLES Final Result Performing Organization Address [facility] de Phone Number [facility] [address] [place] [address] * PARTIAL THROMBOPLASTIN TIME (04/30/2014 3:50 PM EDT) [facility] PTT 28.8 24.4 - 35.0 second(s) [facility] Comment: Therapeutic range for direct thrombin [...] 04/30/2014 3:56 PM EDT us Shantal Ames QUALITY ASSURANCE CALIBRATOR HEMATOLOGY ORDERABL ES Final Result Performing Organization Address [facility] Co de Phone Number [facility] [address] [place] [address] * ANTIBODY SCREEN IGG (04/30/2014 3:50 PM EDT) [facility] ABSC IgG Int Negative [facility] Blood specimen (specimen) 04/30/2014 3:50 PM EDT 04/30/2014 3:56 PM EDT us Griselda Galvin QUALITY ASSURANCE CALIBRATOR BLOOD BANK ORDERABLES Final Result Performing Organization Address City/[facility]/ZIP Co de Phone Number [facility] [address] [place] [address] * (ABNORMAL) BLOOD GAS ARTERIAL (04/30/2014 3:45 PM EDT) pH 7.440 7.370 - 7.440 [facility] pCO2 37 32 - 45 mmHg [facility] pO2 102(H) 80 - 95 mmHg [facility] HCO3 25 20 - 29 mmol/L [facility] TCO2 26 21 - 30 mmol/L [facility] Base Excess 1.1 -2.8 - 2.3 mEq/L [facility] O2 Sat 99(H) 95 - 97 % [facility] Inspired O2 RA [facility] Specimen Type Arterial [facility] Blood specimen (specimen) UPPER LIMB STRUCTURE / Unknown 04/30/2014 3:45 PM EDT 04/30/2014 3:50 PM EDT Narrative [facility] - 04/30/2014 3:58 PM EDT Pre-op ABG on ROOM AIR us Shantal Ames QUALITY ASSURANCE CALIBRATOR CHEMISTRY ORDERABLE S Final Result Performing Organization Address [facility] Co de Phone Number [facility] [address] [place] [address] * (ABNORMAL) LDL, CALCULATED (03/25/2014 1:26 PM EDT) Pathologist [facility] LDL Calculated 162(H) <=100 mg/dL [facility] Comment: < 100 Optimal 100 - 129 Near or above optimal 130 - 159 Borderline High 160 - 189 High >= 190 Very High Blood specimen (specimen) 03/25/2014 1:26 PM EDT 03/25/2014 6:56 PM EDT us Buster Talbot MD CHEMISTRY ORDERABLES Final Result Performing Organization Address City/[facility]/ZIP Co de Phone Number [facility] [address] [place] [address] * (ABNORMAL) LIPID PANEL REFLEX (03/25/2014 1:26 PM EDT) Cholesterol 257(H) <=200 mg/dL [facility] Comment: < 200 Desirable 200 - 239 Borderline High >= 240 High Triglyceride 301(H) <=150 mg/dL [facility] Comment: < 150 Normal 150 - 199 Borderline High 200 - 499 High >= 500 Very High HDL 35(L) >=40 mg/dL [facility] Comment: > 60 Optimal 40 - 60 Acceptable < 40 Low Blood specimen (specimen) UPPER LIMB STRUCTURE / Unknown 03/25/2014 1:26 PM EDT 03/25/2014 6:56 PM EDT us Buster Talbot MD CHEMISTRY ORDERABLES Edited Result - Final Performing Organization Address [facility]/ZIP Co de Phone Number [facility] [address] [place] [address] * SCANNED PRE/POST PROCEDURES (03/22/2014 1:24 PM [...] 4:03 PM EDT) Urine Microalb 21.1 mg/L [facility] Urine Creatinine 302.0 mg/dL [facility] Ur Microalb/Creat 7 0 - 20 mg/gm [facility] Urine specimen (specimen) 03/20/2014 4:03 PM EDT 03/20/2014 7:30 PM EDT us Buster Talbot MD URINE ORDERABLES Final Resu lt Performing Organization Address City/[facility]/ZIP Co de Phone Number [facility] [address] [place] [address] * MISCELLANEOUS LAB (03/19/2014 1:25 PM EDT) Only the most recent of2 resultswithin the time period is included. Bronchoalveolar lavage fluid specimen (specimen) 03/19/2014 1:25 PM EDT 03/19/2014 3:39 PM EDT Narrative [facility] - 03/19/2014 3:53 PM EDT afb culture Abimbola Gonzalez MD HEMATOLOGY ORDERABLES Final Res ult Performing Organization Address [facility] Co de Phone Number [facility] [address] [place] [address] * T-CELL LYMPHOCYTE SUBSETS-BAL (03/19/2014 1:11 PM EDT) T-Cell Subsets BAL Source BAL [facility] % CD3 - BAL 79 % [facility] Comment: Please interpret the results of the Lymphocyte Subsets Panel 4 - T-Cell Subsets Percents and Ratio, Bronchoalveolar Lavage with caution. The specimen is contaminated with peripheral blood. Peripheral blood lymphocytes and BAL lymphocytes cannot be for analysis. These results include both peripheral blood lymphocytes and BAL lymphocytes. % CD4 - BAL 38 % [facility] % CD8 - BAL 36 % [facility] CD4:CD8 RATIO - BAL 1.06 ratio [facility] Comment: INTERPRETIVE INFORMATION: Lymphocyte Subset 4, [...] T-cells. Test developed and characteristics determined by [employer]. See Compliance Statement B: [email or web address] Performed at: [address] [address] Bronchoalveolar lavage fluid specimen (specimen) 03/19/2014 1:11 PM EDT 03/19/2014 5:55 PM EDT Abimbola Gonzalez MD IMMUNOLOGY ORDERABLES Final Res ult Performing Organization Address City/[facility]/ZIP Co de Phone Number [facility] [address] [place] [address] * LOWER RESPIRATORY CULTURE (03/19/2014 1:11 PM EDT) Only the most recent of2 resultswithin the time period is included. Pathologist [facility] GS Rare WBC's No organisms seen [facility] Final Very sparse growth of normal oral nadia [facility] Bronchoalveolar lavage fluid specimen (specimen) 03/19/2014 1:11 PM EDT 03/19/2014 2:08 PM EDT Narrative [facility] - 03/21/2014 7:32 AM EDT Includes a Gram Stain. Abimbola Gonzalez MD MICROBIOLOGY - GENERAL ORDERABL ES Final Result Performing Organization Address [facility] de Phone Number [facility] [address] [place] [address] * ACID FAST BACILLI CULTURE AND SMEAR (03/19/2014 1:11 PM EDT) Only the most recent of2 resultswithin the time period is included. [facility] Acid Fast Bacilli Stain No Acid Fast Bacillus seen with fluorescent stain Test performed by reference lab, see separate report [facility] Final No growth of AFB after 8 weeks. Test performed by reference lab, see separate report [facility] Bronchoalveolar lavage fluid specimen (specimen) 03/19/2014 1:11 PM EDT 03/19/2014 2:08 PM EDT Abimbola Gonzalez MD MICROBIOLOGY - GENERAL ORDERABL ES Final Result Performing Organization Address [facility] de Phone Number [facility] [address] [place] [address] * NON-[employer] MEMBER CYTOLOGY REPORT (03/19/2014 11:48 AM EDT) Pathologist [facility] Non-Office Assistant Receptionist Cytology Report PATIENT NAME:MIREYA OVALLES Non-Office Assistant Receptionist Cytology Report Accession Number Collected Date/Time Received Date/Time [id number] 03/19/14 11:48 EDT 03/19/14 12:16 EDT Specimen [...] RUL Super D: No malignant cells identified. High School Band Teacher: DEXTER MCCRAY 03/20/2014 Completed by: Lena Cotto (Electronically signed by) 03/20/2014 [facility] Laboratory Gross Description 1. 10 direct smears and conventional cell block made. 2. 1 ThinPrep Slide and 1 slide made for GMS stain. 3. 1 ThinPrep Slide and 1 slide made for GMS stain. 4. 16 direct smears and 1 ThinPrep Slide made. Evaluation Episode #1: Fifi/DEXTER [facility] 03/19/2014 11:4 8 AM EDT Abimbola Gonzalez MD CYTOLOGY ORDERABLES Final Resul t Performing Organization Address City/[facility] Co de Phone Number [facility] [address] [place] [address] * [place] < 1 HOUR (03/19/2014 11:18 [...] ORDERABLES Tiffany l Result Performing Organization Address City/[facility]/ZIP Co de Phone Number PACS * PET CT SKULL BASE TO MID THIGH (03/13/2014 3:54 PM EDT) Anatomical Region Laterality Modality Positron Emissio n Tomography (PET) 03/13/2014 1:2 6 PM EDT Impressions 03/13/2014 4:13 PM EDT [...] FDG administered and whole-body images obtained. Blood nupcdsn192 mg/dL. There is hypermetabolic activity corresponding to [...] PM EDT) JANE 25 8 - 52 [facility] Comment: Performed at: [employer] [address], [address] [place] [address] Blood specimen (specimen) UPPER LIMB STRUCTURE / Unknown 03/11/2014 2:27 PM EDT 03/11/2014 3:57 PM EDT Abimbola Gonzalez MD CHEMISTRY ORDERABLES Final Resu lt [facility] [address] [place] [address] * XR WRIST RIGHT PA LATERAL AND [...] period is included. Troponin-I <0.01 <=0.06 ng/mL [facility] Blood specimen (specimen) UPPER LIMB STRUCTURE / Unknown 05/28/2013 12:35 PM EDT 05/28/2013 12:57 PM EDT Trae Rojas MD CHEMISTRY ORDERABLES Final Resul t [facility] [address] [place] [address] * GA US LOWER EXTREMITY VENOUS LEFT (05/28/2013 11:00 [...] STRESS AND REST (05/28/2013 10:33 AM EDT) [facility] Ejection Fraction 94 % PYRAMIS Anatomical [...] 6:00 AM EDT) Cholesterol 182 <=200 mg/dL [facility] Comment: < 200 Desirable 200 - 239 Borderline High >= 240 High Triglyceride 385(H) <=150 mg/dL [facility] Comment: < 150 Normal 150 - 199 Borderline High 200 - 499 High >= 500 Very High HDL 33(L) >=40 mg/dL [facility] Comment: > 60 Optimal 40 - 60 Acceptable < 40 Low LDL Calculated 72 <=100 mg/dL [facility] Comment: < 100 Optimal 100 - 129 Near or above optimal 130 - 159 Borderline High 160 - 189 High >= 190 Very High Blood specimen (specimen) UPPER LIMB STRUCTURE / Unknown 05/28/2013 6:00 AM EDT 05/28/2013 8:44 AM EDT Trae Rojas MD CHEMISTRY ORDERABLES Edited Resu lt - Final Performing Organization Address [facility] Co de Phone Number [facility] [address] [place] [address] * NT PROBNP (05/27/2013 10:20 PM EDT) [...] - 1.1 mg/dL [facility] i-Stat ID# [id number] [facility] Blood specimen (specimen) 02/12/2013 2:52 PM EDT Abilio Fischer MD POINT OF CARE TEST ORDERABLES Final Result Performing Organization Address [facility] Co de Phone Number [facility] * [employer] MEMBER CYTOLOGY REPORT (04/05/2012 5:19 AM EDT) Office Assistant Receptionist Cytology Report PATIENT NAME:MIREYA OVALLES Office Assistant Receptionist Cytology Report Accession Number Collected Date/Time Received Date/Time [id number] 04/05/12 05:19 EDT 04/06/12 05:19 EDT GY [...] before definitive therapy. Processed using the ThinPrep Asphalt Machine Operator automated cytology screening device ([employer]). High School Band Teacher: JANINA 04/10/2012 Completed by: BRITTANY Dominique (Electronically signed by) 04/10/2012 [facility] Laboratory [facility] 04/05/2012 5:19 AM EDT Jadiel Abernathy MD PATHOLOGY ORDERABLES Final Res ult Performing Organization Address [facility] Co de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
--- OUTSIDE RECORDS SUMMARY | 2025-05-22 13:16 | XMS_ITS | Clinical Summary ---
Author Organization [facility] Address [address] [place] [address] Care Team Providers Care Animation Artist Name Role Phone Buster Falcon MD Primary Care Provider + [phone] Allergies Active Allergy Reactions Criticality Noted Date [...] 03/20/2014 UKY-Zoster Vaccines (1 of 2) 2018 [id number] Vaccine (3 - Pfizer risk series) 05/05/2021 [...] patient's age to complete this topic Insurance [facility] Care Teams Animation Artist Relationship Specialty Start Date End Date Buster Falcon MD [address] [place], [place] [id number] PCP - General 08/22/23
== END 2025-05-22 23:59 | disposition home or self-care (01) ==
LOC: RAD 13:12
PROVIDERS: PCP Family Medicine; Visit Provider Physician Assistant Surgical
DX: M19.011 Primary osteoarthritis, right shoulder (principal)
CPT/HCPCS: 73030

== ENCOUNTER 2025-06-17 13:52 | Outpatient (CLI) | payer MEDICARE, SELFPAY ==
--- OUTSIDE RECORDS SUMMARY | 2025-06-17 13:55 | XMS_ITS | Patient Health Record ---
Author Organization [facility] Address [address] [place] [address] Care Team Providers Care Front End Developer Javascript Html Css Name Role Phone Jadiel Reno Unavailable [phone] ANA CRISTINA ZOILA Unavailable Unavailable Allergies Allergen [...] 1 capsule Orally Once a day Active Roselle 3 1000 MG 1 capsule Orally Onc [...] Status Risk Notes Problem Chronic pain syndrome (177966095) Chronic pain syndrome (G89.4) Active confirmed Problem Cervical disc disorder with radiculopathy (976639579) Cervical disc disorder with radiculopathy, cervicothoracic region (M50.13) Active confirmed Problem Displacement of cervical intervertebral disc without myelopathy (22188283) 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
--- OUTSIDE RECORDS SUMMARY | 2025-06-17 13:56 | XMS_ITS | Encounter Summary ---
Author Organization [facility] Address [address] [place] [address] Care Team Providers Care Zigzag Topstitcher Name Role Phone Pcp, No Primary Care [...] release of HIV test results or diagnoses. [id number] Encounter Details Date Type Department Care Team (Late st Contact Info) Description 10/27/2016 Chart Note [facility] HE[facility] INFORMATION MANAGEMENT [address] [place] [address] Margarita Huntley MD Social History Tobacco Use [...] on filedocumented in this encounter Care Teams Zigzag Topstitcher Relationship Specialty Start Date End Date Pcp, No No Address PCP - General Pediatrics 08/17/16 04/23/21 System, Provider Not In PCP - General 04/24/21 05/18/21 Pcp, No No Address PCP - General 05/19/21 Matt Glover MD [address] [place] [address] 08/17/16 documented as of this encounter
--- OUTSIDE RECORDS SUMMARY | 2025-06-17 13:56 | XMS_ITS | Encounter Summary ---
Author Organization [facility] Address [address] [place] [address] Care Team Providers Care Principal Investigator Name Role Phone Pcp, No Primary Care [...] release of HIV test results or diagnoses. [id number] Encounter Details Date Type Department Care Team (Late st Contact Info) Description 10/31/2016 Chart Note [facility] HEALTH INFORMATION MANAGEMENT [address] [place] [address] Margarita Huntley MD Social History Tobacco Use [...] on filedocumented in this encounter Care Teams Principal Investigator Relationship Specialty Start Date End Date Pcp, No No Address PCP - General Pediatrics 08/17/16 04/23/21 System, Provider Not In PCP - General 04/24/21 05/18/21 Pcp, No No Address PCP - General 05/19/21 Matt Glover MD [address] [place] [address] 08/17/16 documented as of this encounter
--- OUTSIDE RECORDS SUMMARY | 2025-06-17 13:56 | XMS_ITS | Clinical Summary ---
Author Organization [facility] Address [address] [place] [address] Care Team Providers Care Athletic Instructor Name Role Phone Buster Falcon MD Primary Care Provider + [phone] Allergies Active Allergy Reactions Criticality Noted Date [...] Screening 1970 UK[facility]-Medicare Annual Wellness (AWV) 1968 [facility]-Infant/Child/Adol SDOH Screenings 1968 UKY- SDOH Screenings 1986 [...] 03/20/2014 [facility]Y-Zoster Vaccines (1 of 2) 2018 [id number] Vaccine (3 - Pfizer risk series) 05/05/2021 [...] patient's age to complete this topic [facility] Care Teams Athletic Instructor Relationship Specialty Start Date End Date Buster Falcon MD [address] [place], [place] [phone] PCP - General 08/22/23
--- OUTSIDE RECORDS SUMMARY | 2025-06-17 13:56 | XMS_ITS | Encounter Summary ---
Author Organization [facility] Address [address] [place] [address] Care Team Providers Care Sales Account Director Name Role Phone Buster Falcon MD Primary Care Provider + [phone] Encounter Details Date Type Department Care Team ([facility] st Contact Info) Description 05/15/2021 Orders Only External Location [address] [place] [address] Provider, External Social History Tobacco Use Types [...] on filedocumented in this encounter Care Teams Sales Account Director Relationship Specialty Start Date End Date Buster Falcon MD [address] [place] [address] PCP - General 08/22/23 documented as of this encounter
--- OUTSIDE RECORDS SUMMARY | 2025-06-17 13:56 | XMS_ITS | Encounter Summary ---
Author Organization [facility] Address [address] [place] [address] Care Team Providers Care Project Eng Name Role Phone Buster Falcon MD Primary Care Provider + [phone] Encounter Details Date Type Department Care Team ([facility] st Contact Info) Description 03/10/2023 Orders Only External Location [address] [place] [address] Provider, External Social History Tobacco Use Types [...] on filedocumented in this encounter Care Teams Project Eng Relationship Specialty Start Date End Date Buster Falcon MD [address] [place] [address] PCP - General 08/22/23 documented as of this encounter
--- OUTSIDE RECORDS SUMMARY | 2025-06-17 13:56 | XMS_ITS | Clinical Summary ---
Author Organization [facility] Address [address] [place] [address] Care Team Providers Care Wool Shearing Supervisor Name Role Phone Pcp, No Primary Care Provider [phone] Matt Glover MD Unavailable Source Comments This [...] therelease of HIV test results or diagnoses. [id number] Allergies Active Allergy Reactions Criticality Noted Date [...] Maintenance Insurance [employer] MEDICARE ADVANTAGE Care Teams Wool Shearing Supervisor Relationship Specialty Start Date End Date Pcp, No No Address PCP - General 05/19/21 Matt Glover MD [address] [place] [address] 08/17/16
--- OUTSIDE RECORDS SUMMARY | 2025-06-17 13:56 | XMS_ITS | Encounter Summary ---
Author Organization [facility] Address [address] [place] [address] Care Team Providers Care Operating Systems Programmer Name Role Phone Buster Falcon MD Primary Care Provider + [phone] Encounter Details Date Type Department Care Team ([facility] st Contact Info) Description 02/02/2016 Orders Only External Location [address] [place] [address] Provider, External Social History Tobacco Use Types [...] on filedocumented in this encounter Care Teams Operating Systems Programmer Relationship Specialty Start Date End Date Buster Falcon MD [address] [place] [address] PCP - General 08/22/23 documented as of this encounter
--- OUTSIDE RECORDS SUMMARY | 2025-06-17 13:56 | XMS_ITS | Continuity of Care Document ---
Author Organization [facility] Address [address] [place] [address] Phone Care Team Providers Care Shade Bander Name Role Phone Unavailable Primary Care Provider Unavailabl e Encounters Date Type Department Care Team Description 4 Telephone [place] [phone] Darya Tate DO Other [address] [phone] Madhu Wilkinson MD 4 4:25 PM EDT - 4 11:59 PM EDT Hospital Encounter [facility] [address] [place] [address] Jillian Lock PA-C Cervical radiculopathy Discharge Disposition: Home or Self Care 4 Refill [facility] [address] [place] [address] Madhu Wiliknson MD Medication Refill [address] [phone] Madhu Wilkinson MD Other 4 Telephone [facility] Mauricio [address] [place] [phone] Abimbola Gonzalez MD Paperwork/forms 3 Refill [facility] [address] [address] Madhu Wilkinson MD Medication Refill 3 Refill [facility] [address] [address] Madhu Wilkinson MD Medication Refill 3 Refill [facility] [address] [address] Madhu Wilkinson MD Medication Refill 3 Refill [facility] [address] [place], [place] [address] [address] Madhu Wilkinson MD Medication Refill 3 Travel 3 3:53 PM EDT - 3 11:59 PM EDT Hospital Encounter [facility] [address] [place] [address] Julio César Erazo MD Mid back pain Discharge Disposition: Home or Self Care 3 Refill [facility] [address] [address] Madhu Wilkinson MD Medication Refill 3 2:00 PM EDT [facility] [place] [address] [address] Madhu Wilkinson MD Low back pain, unspecified back pain laterality, unspecified chronicity, unspecified whether sciatica present (Primary Dx); Protrusion of cervical intervertebral disc 3 6:00 PM EDT [facility] [address] [place] [address] Madhu Wilkinson MD Thoracic spine pain; Sprain of ligaments of cervical spine, initial encounter; DDD (degenerative disc disease), cervical 3 2:20 PM EDT Ancillary Procedure [facility] [address] [facility] [address] [address] Madhu Wilkinson MD Thoracic spine pain 3 2:45 PM EDT Office Visit [facility] [address] [place] [address] Madhu Wilkinson MD Thoracic spine pain (Primary Dx); Sprain of ligaments of cervical spine, initial encounter; DDD (degenerative disc disease), cervical 3 Travel 3 9:57 AM EDT - 3 11:59 PM EDT Hospital Encounter [facility] [place] [address] Julio César Erazo MD Mastodynia Discharge Disposition: Home or Self Care 3 9:19 AM EDT - 3 9:56 AM EDT Hospital Encounter [facility] [place] [address] Julio César Erazo MD Mastodynia Discharge Disposition: Home or Self Care 2 9:00 AM EDT Office Visit [facility] [address] [place] [address] Jadiel Amaya, CELESTE Neoplasm of uncertain behavior of skin of foot (Primary Dx); Onychomycosis; Onychodystrophy; Toe pain, right; History of basal cell carcinoma 2 Travel 2 12:00 PM EDT - 2 11:59 [place] [address] Julio César Erazo MD Persistent nodularity of breast; Breast pain Discharge Disposition: Home or Self Care 2 Travel 2 7:23 PM EDT - 2 7:48 PM EDT Emergency [facility] Emergency [address] [place] [address] Buster Maciel MD Contact dermatitis due to plant (Primary Dx) Discharge Disposition: Home or Self Care 2 2:15 PM EDT Office Visit [facility] [address] [place] [phone] Abimbola Gonzalez MD Mediastinal adenopathy (Primary Dx); Histoplasmosis; Lung nodule 2 Travel 2 6:15 PM EST - 2 9:40 PM EST Emergency [facility] [address] [facility] [place] [address] Stephanie Schultz MD Near syncope (Primary Dx) Discharge Disposition: Home or Self Care 2 Travel 2 10:40 AM EST [facility] [address] [place] [address] Angelica Palacios MD Vulval lesion (Primary Dx); Hx of cervical cancer; Sebaceous cyst of labia 1 12:00 PM EDT [facility] [address] [place] [address] Cervical pain 1 3:00 PM EDT Ancillary Procedure [facility] [address] [place] [address] Madhu Wilkinson MD Cervical pain 1 2:45 PM EDT Office Visit [facility] [address] [place] [address] Madhu Wilkinson MD Cervical pain (Primary Dx) 1 2:45 PM EDT Office Visit [address] [address] Castro Olmos DO Superior glenoid labrum lesion of right shoulder, subsequent encounter (Primary Dx); Arthritis of right acromioclavicular joint 1 11:00 AM EDT Ancillary Procedure [facility] MRI [address] [place] [address] 1 10:30 AM EDT Office Visit [address] [address] Omari Kent MD Acute pain of right shoulder (Primary Dx) 1 11:00 AM EDT Office Visit [facility] [address] [place] [address] Darya Tate DO Nontraumatic incomplete tear of right rotator cuff (Primary Dx); Glenoid labrum tear, right, subsequent encounter; Shoulder weakness 1 1:58 PM EDT - 1 11:59 PM EDT Hospital Encounter [facility] Mammography [address] [phone] Julio César Erazo MD Encounter for screening mammogram for malignant neoplasm of breast Discharge Disposition: Home or Self Care 1 Travel 1 Travel 1 3:54 PM EDT - 1 6:27 PM EDT Emergency [facility] [address] [facility] [place] [address] Jorge Rose MD Atypical chest pain (Primary Dx) Discharge Disposition: Home or Self Care 1 Travel 1 2:15 PM EST Office Visit [facility] [address] [address] Abimbola Gonzalez MD Mediastinal adenopathy (Primary Dx); Histoplasmosis; Lung nodule 1 Travel 0 3:20 PM EST Ancillary Procedure [facility] [address] [address] Maxine Sequeira MD Cough Discharge Disposition: Home or Self Care 0 2:45 PM EST Office Visit [facility] [address] [address] Maxine Sequeira MD Cough (Primary Dx); Viral upper respiratory tract infection 0 Travel 0 Travel 0 Travel 0 Travel 0 2:00 PM EDT - 0 11:59 PM EDT Hospital Encounter [facility] [address] [place] [address] Discharge Disposition: Home or Self Care 0 Travel 0 Travel 0 2:49 PM EDT - 0 11:59 PM EDT Hospital Encounter [facility] [place] [address] [place] [address] Abimbola Gonzalez MD Mediastinal adenopathy; Histoplasmosis; Lung nodule Discharge Disposition: Home or Self Care 0 Travel 0 12:30 PM EDT Office Visit [facility] [address] [address] Abimbola Gonzalez MD Mediastinal adenopathy (Primary Dx); Histoplasmosis; Lung nodule 0 Telephone [facility] [address] [address] Abimbola Gonzalez MD Other 0 Travel 0 [...] I [address] XRAY [address] [place] [address] Knee pain, unspecified chronicity, unspecified laterality Discharge Disposition: Home or Self Care 9 Telephone [facility] 651 [facility] [address] [place] [phone] Abimbola Gonzalez MD Other 8 2:35 PM EDT - 8 11:59 PM EDT Hospital Encounter [facility] [address] [place] [phone] Mediastinal adenopathy; Histoplasmosis; Lung nodule Discharge Disposition: Home or Self Care 8 1:30 PM EDT Office Visit [facility] [address] [place] [address] Abimbola Gonzalez MD Mediastinal adenopathy (Primary Dx); Histoplasmosis; Lung nodule 8 2:56 PM EDT - 8 11:59 PM EDT Hospital Encounter [facility] [address] [place] [address] Julio César Erazo MD Pretibial myxedema (Primary Dx); Essential hypertension, malignant; Chronic lymphocytic thyroiditis; Lipoatrophic diabetes (HCC) Discharge Disposition: Home or Self Care 8 2:54 PM EDT - 8 2:55 PM EDT Hospital Encounter [facility] [address] [place] [address] Julio César Erazo MD Localized enlarged lymph nodes; Histoplasmosis Discharge Disposition: Home or Self Care 8 Telephone [facility] [address] [place] [address] Abimbola Gonzalez MD Other 8 Telephone [facility] Women[facility] [place] [address] Jennifer Emmanuel RN Other 8 Telephone [facility] [address] [place] [phone] Katja Georges MA Other 8 Telephone [facility] [place] [address] Salma Hsu REGIS Other 8 1:30 PM EST - 8 11:59 PM EST Hospital Encounter [facility] [place] [address] Julio César Erazo MD Breast lump; Breast pain; History of cancer Discharge Disposition: Home or Self Care 8 1:00 PM EST - 8 1:29 PM EST Hospital Encounter [facility] [place] [address] Julio César Erazo MD Breast lump; Breast pain; History of cancer Discharge Disposition: Home or Self Care 7 9:50 AM EDT - 7 11:59 PM EDT Hospital Encounter [facility] [address] [place] [address] Overactive thyroid gland (Primary Dx); Macrocytic anemia; Anemia, [place]'s; Overproduction of ACTH; Essential hypertension, benign; Disease of pancreas; Familial lipodystrophic diabetes (HCC) Discharge Disposition: Home or Self Care 7 9:15 AM EDT Office Visit [facility] [address] [place] [address] Abimbola Gonzalez MD Hoarseness (Primary Dx); Mediastinal adenopathy; Lung nodule 7 Telephone [facility] Mauricio [address] [place] [address] Abimbola Gonzalez MD Other 7 2:00 PM EDT - 7 11:59 PM EDT Hospital Encounter [facility] [address] [place] [address] Abimbola Gonzalez MD Mediastinal adenopathy; Histoplasmosis Discharge Disposition: Home or Self Care 7 Telephone [facility] [address] [place] [phone] Abimbola Gonzalez MD No Show ( ct chest on 02/16) 6 10:42 AM EST - 6 11:59 PM EST Hospital Encounter [facility] [place] [address] [place] [address] Margarita Huntley MD Abdominal pain, unspecified location Discharge Disposition: Home or Self Care 6 4:55 PM EDT - 6 11:59 PM EDT Hospital Encounter [facility] [address] [place] [address] Stomach ache (Primary Dx); Pretibial myxedema; Malignant neoplasm of thyroid gland (HCC); Vitamin D deficiency Discharge Disposition: Home or Self Care 6 1:43 PM EDT - 6 11:59 PM EDT Hospital Encounter [facility] MRI [address] [place] [address] Rod Stahl Jr., MD Cervical radiculopathy Discharge Disposition: Home or Self Care 6 2:00 PM EDT Office Visit [facility] Maur[place] [address] [place] [phone] Abimbola Gonzalez MD Mediastinal adenopathy (Primary Dx); Histoplasmosis 6 6:00 PM EDT - 6 11:59 PM EDT Hospital Encounter [facility] [address] [place] [address] Abimbola Gonzalez MD Hoarseness; Mediastinal adenopathy; Histoplasmosis; Lung nodule Discharge Disposition: Home or Self Care 6 4:51 PM EDT - 6 11:59 PM EDT Hospital Encounter [facility] [address] [place], [place] [address] Julio César Erazo MD Subacromial bursitis, right Discharge Disposition: Home or Self Care 6 Telephone [facility] [address] [address] Abimbola Gonzalez MD Other 6 Telephone [facility] [address] [place] [address] Abimbola Gonzalez MD Other (schedule january) 5 4:21 PM EST - 5 11:59 PM EST Hospital Encounter [facility] [place] [facility] [address] [place] [address] Julio César Erazo MD Encounter for screening mammogram for malignant neoplasm of breast Discharge Disposition: Home or Self Care 5 2:30 PM EDT Office Visit [facility] [address] [address] Abimbola Gonzalez MD Mediastinal adenopathy (Primary Dx); Hoarseness; Histoplasmosis; Lung nodule 5 Telephone [facility] [address] [place] [phone] Abimbola Gonzalez MD Other 5 12:00 PM EDT - 5 11:59 PM EDT Hospital Encounter [facility] [facility] [address] [place] [address] Abimbola Goznalez MD Hoarseness; Mediastinal adenopathy; Histoplasmosis Discharge Disposition: Home or Self Care 5 Telephone [facility] [address] [place] [address] Abimbola Gonzalez MD Other (schedule april) 5 Refill [facility] [address] [place] [phone] Darya Conner MD Medication Refill 5 Telephone [facility] [address] [place] [address] Alisha Waggoner Naresh, RMA Other 5 7:18 PM EST - 5 9:08 PM EST Emergency [facility] [address] [place] [address] Esteban Sanchez MD Spasm eyelid (Primary Dx); Muscle spasm; Elevated blood pressure Discharge Disposition: Home or Self Care 5 Telephone [facility] Maur[facility] [address] [place] [address] Abimbola Gonzalez MD Visit Follow Up 5 10:30 AM EST Office Visit [facility] [address] [place] [address] Abimbola Gonzalez MD Hoarseness (Primary Dx); Mediastinal adenopathy; Histoplasmosis 4 1:40 PM EST - 4 11:59 PM EST Hospital Encounter [facility] [address] [place], [place] [phone] Abimbola Gonzalez MD Mediastinal adenopathy; Lung nodule; Histoplasmosis Discharge Disposition: Home or Self Care 4 1:30 PM EST - 4 1:45 PM EST Surgery [facility] [address] [place] [address] Germain Santa MD ESOPHAGOGASTRODUODENOSCOPY 4 11:58 AM EST - 4 4:30 PM EST Hospital Encounter [facility] [address] [place] [address] Lena Fish MD RUQ pain (Primary Dx); Chronic diarrhea; Breast nodule; DM (diabetes mellitus) (HCC); Histoplasmosis; Hypothyroid; Barretts esophagus Discharge Disposition: Left Against Medical Advice 4 Patient Outreach [facility] [address] [place] [address] Nani Sims, development trainer 4 12:15 PM EDT Office Visit [facility] [address] [place] [address] Abimbola Gonzalez MD Mediastinal adenopathy (Primary Dx); Lung nodule; Histoplasmosis 4 Telephone [facility] [place] [facility] [address] [place] [phone] Buster Talbot MD Results 4 9:11 AM EDT - 4 11:59 PM EDT Hospital Encounter [facility] XRAY [address] [place] [address] Darya Conner MD Abdominal pain Discharge Disposition: Home or Self Care 4 9:03 AM EDT - 4 9:10 AM EDT Hospital Encounter [place] [facility] [address] [place] [address] Darya Conner MD Abdominal pain Discharge Disposition: Home or Self Care 4 4:07 PM EDT - 4 11:59 PM EDT Hospital Encounter [facility] LAB ZARI PROCESSING [facility] [place] [address] Abdominal pain Discharge Disposition: Home or Self Care 4 10:15 AM EDT Office Visit [facility] [address] [place] [address] Darya Conner MD Abdominal pain (Primary Dx); Histoplasmosis; Garcia's esophagus; Vertebral artery disease; DM (diabetes mellitus) (HCC) 4 Patient Outreach [facility] [address] [place] [address] Nnai Sims, development trainer 4 11:30 AM EDT Office Visit [facility] Cardiac Surgeons [address] [place] [address] Cory Moran MD Lung nodule, solitary (Primary Dx); Mediastinal adenopathy 4 Telephone [facility] [address] [place] [address] Nani Sims RN Care Transition 4 Telephone [facility] [address] [place] [address] Nani Sims RN Care Transition 4 3:03 PM EDT - 4 4:15 PM EDT Emergency [place] [address] [place] [address] Ernesto Davis MD History of chest tube placement (Primary Dx) Discharge Disposition: Home or Self Care 4 Telephone [facility] [address] [place] [address] Nani Sims RN Care Transition 4 5:56 AM EDT - 4 1:49 PM EDT Hospital Encounter [facility] PACU OVERNIGHT [facility] [place] [address] Cory Moran MD Discharge Disposition: Home or Self Care 4 8:00 AM EDT - 4 11:45 AM EDT Surgery [facility] PERIOP [facility] [place] [address] Cory Moran MD THORACOSCOPY POSSIBLE THORACOTOMY (VATS- VIDEO-ASSISTED THORACOSCOPIC SURGERY) (INCLUDES FLEXIBLE BRONCHOSCOPY) (REGULAR OR ROOM) 4 2:59 PM EDT - 4 11:59 PM EDT Hospital Encounter [facility] D-WING XRAY [facility] [place] [address] Shantal Ames APRN Discharge Disposition: Home or Self Care 4 1:30 PM EDT - 4 2:58 PM EDT Hospital Encounter [facility] PRE-ADMIT TESTING [facility] [place] [address] Preop examination (Primary Dx); Hoarseness; Mediastinal adenopathy; Lung nodule Discharge Disposition: Home or Self Care 4 2:30 PM EDT Office Visit [facility] Cardiac Surgeons [address] [place] [phone] Coyr Moran MD Mediastinal adenopathy (Primary Dx); Lung nodule 4 Telephone [facility] [address] [place] [address] Abimbola Gonzalez MD Visit Follow Up 4 11:15 AM EDT Office Visit [facility] [address] [place] [address] Abimbola Gonzalez MD Mediastinal adenopathy (Primary Dx); Lung nodule 4 Orders Only [place] [address] [place] [address] Buster Talbot MD Hyperlipidemia (Primary Dx) 4 6:35 PM EDT - 4 11:59 PM EDT Hospital Encounter [facility] LAB ZARI PROCESSING [facility] [place] [address] DM (diabetes mellitus) (HCC) Discharge Disposition: Home or Self Care 4 1:40 PM EDT Clinical Support [facility] Byron [facility] [address] [place] [address] Mireya George Type II or unspecified type diabetes mellitus without mention of complication, not stated as uncontrolled (HCC) (Primary Dx) 4 4:30 PM EDT - 4 11:59 PM EDT Hospital Encounter EDG D-WING XRAY [facility] [place] [address] Chest pain; Cough Discharge Disposition: Home or Self Care 4 Orders Only [facility] [place] [address] [place] [phone] Abimbola Gonzalez MD Chest pain (Primary Dx); Cough 4 7:14 PM EDT - 4 11:59 PM EDT Hospital Encounter [facility] LAB ZARI PROCESSING [facility] [place] [address] DM (diabetes mellitus) (HCC) Discharge Disposition: Home or Self Care 4 1:00 PM EDT Office Visit [facility] [place] [address] [place] [phone] Buster Talbot MD Well adult exam (Primary Dx); Lung nodule; Mediastinal adenopathy; Pneumothorax; Garcia esophagus; Osteoarthritis; DM (diabetes mellitus) (HCC) 4 9:00 AM EDT - 4 11:00 AM EDT Surgery EDG ENDOSCOPY [facility] [place] [address] Abimbola Gonzalez MD ENDOSCOPIC BRONCHIAL ULTRASOUND-EBUS (ANESTHESIA) 4 7:04 AM EDT - 4 4:27 PM EDT Hospital Encounter EDG ENDOSCOPY [facility] [place] [address] Abimbola Gonzalez MD Lung nodule (Primary Dx); Mediastinal adenopathy Discharge Disposition: Home or Self Care 4 2:20 PM EDT - 4 11:59 PM EDT Hospital Encounter Srinivas EKG [facility] [place] [address] Abimbola Gonzalez MD Pre-op testing Discharge Disposition: Home or Self Care 4 12:45 PM EDT - 4 11:59 PM EDT Hospital Encounter EDG PRE-ADMIT TESTING [facility] [place] [address] Discharge Disposition: Home or Self Care 4 Telephone [facility] Pul[facility] [address] [place] [address] Abimbola Gonzalez MD Visit Follow Up 4 1:26 PM EDT - 4 11:59 PM EDT Hospital Encounter EDG PET CT [facility] [place] [address] Abimbola Gonzalez MD Mediastinal adenopathy; Lung nodule; Cough Discharge Disposition: Home or Self Care 4 2:15 PM EDT - 4 11:59 PM EDT Hospital Encounter [facility] [address] [place] [address] Mediastinal adenopathy (Primary Dx); Lung nodule; Cough Discharge Disposition: Home or Self Care 4 12:45 PM EDT Office Visit [facility] [address] [place] [address] Abimbola Gonzalez MD Mediastinal adenopathy (Primary Dx); Lung nodule; Cough 4 8:00 PM EDT - 4 11:59 PM EDT Hospital Encounter [place] [address] [place] [address] Abimbola Gonzalez MD Hoarseness; Mediastinal adenopathy; Lung nodule Discharge Disposition: Home or Self Care 4 5:40 PM EDT Office Visit [facility] [address] [place] [phone] Alvina Lopes APRN Acute sinusitis (Primary Dx) 3 6:06 PM EST - 3 8:21 PM EST Emergency [facility] [address] [place] [address] Andrea Richards MD Contusion of right wrist (Primary Dx); Contusion of right forearm Discharge Disposition: Home or Self Care 3 Telephone [facility] Mauricio [address] [place] [phone] Abimbola Gonzalez MD Visit Follow Up 3 3:45 PM EST Office Visit [facility] Maur[place] [address] [place] [address] Abimbola Gonzalez MD Hoarseness (Primary Dx); Mediastinal adenopathy; Lung nodule 3 8:00 PM EDT - 3 11:59 PM EDT Hospital Encounter [place] [facility] [address] [place] [address] Abimbola Gonzalez MD Hoarseness; Chest pain; Mediastinal adenopathy Discharge Disposition: Home or Self Care 3 Telephone [facility] [address] [place] [address] Abimbola Gonzalez MD Other (schedule may) 3 9:46 PM EDT - 3 7:05 PM EDT Hospital Encounter [facility] [address] [address] [place] [address] Ernesto [place] MD Wong, Chris, MD Chest pain (Primary Dx); Peripheral edema; EKG abnormalities; Lethargy; Environmental allergies; Hypothyroid Discharge Disposition: Home or Self Care 3 Telephone [facility] [address] [address] Abimbola Gonzalez MD Visit Follow Up 3 9:45 AM EDT Office Visit [facility] [address] [place] [address] Abibmola Gonzalez MD Hoarseness (Primary Dx); Chest pain; Mediastinal adenopathy 3 2:23 PM EDT - 3 11:59 PM EDT Hospital Encounter [facility] [address] [place] [address] Abimbola Gonzalez MD Pleuritic chest pain (Primary Dx) Discharge Disposition: Home or Self Care 3 2:00 PM EDT Office Visit [facility] [address] [address] Abimbola Gonzalez MD Pleuritic chest pain (Primary Dx); Hoarseness; Mold exposure 3 11:00 AM EDT - 3 11:59 PM EDT Hospital Encounter [facility] [address] [place] [address] SOB (shortness of breath) Discharge Disposition: Home or Self Care 3 Orders Only [facility] [address] [address] Abimbola Gonzalez MD SOB (shortness of breath) (Primary Dx) 2 12:41 PM EST - 2 11:59 PM EST Hospital Encounter [facility] [address] [place] [address] Other screening mammogram Discharge Disposition: Home or Self Care 2 7:25 PM EDT - 2 11:59 PM EDT Hospital Encounter [facility] [address] [facility] [place] [phone] Unspecified hypothyroidism; Unspecified deficiency anemia; Unspecified essential hypertension; Laboratory examination, unspecified Discharge Disposition: Home or Self Care 2 4:18 AM EDT - 2 11:59 PM EDT Hospital Encounter [facility] LAB ZARI [facility] [place] [address] Screening for malignant neoplasm of the cervix Discharge Disposition: Home or Self Care 2 3:00 PM EDT Office Visit [facility] Crit [address] [place] [phone] Jadiel Abernathy MD History of cervical cancer; Urinary incontinence 2 2:24 PM EDT - 2 11:59 PM EDT Hospital Encounter [facility] [address] [place] [address] Julio César Erazo MD Breast cyst Discharge Disposition: Home or Self Care 1 10:28 AM EDT - 1 11:59 PM EDT Hospital Encounter [facility] [address] [place] [address] Kam Escalera MD Breast pain Discharge Disposition: Home or Self Care 1 2:47 PM EST - 1 3:36 PM EST Emergency [facility] [place] [address] Felipe Larsen MD Cough; Chest wall pain Discharge Disposition: Home or Self Care 0 9:42 AM EDT - 0 11:59 PM EDT Hospital Encounter [facility] [address] [place] [address] Rafiq White F Discharge Disposition: Home or Self Care 0 9:30 AM EDT - 0 9:41 AM EDT Hospital Encounter [facility] [address] [address] [place] [address] Rafiq White F Back pain; Rib pain Discharge Disposition: Home or Self Care 0 3:45 PM EDT - 0 11:59 PM EDT Hospital Encounter FTT XRAY [address] [place] [address] Chest pain Discharge Disposition: Home or Self [...] 0 11:59 PM EDT Hospital Encounter [facility] CON UNK Dee Casey MD Allergies Active [...] Pain. Active fluticasone (FLONASE) 50 mcg/actuation Nasl [place], SuspensionIndica tions:Hoarseness ,Mediastinal adenopathy,Histo plasmosis,Lung nodule 1 [place] by Nasal route daily. 1 Bottle 11 [...] Grandmother Social History Smoking Status as of 06/17/2025 Tobacco Use Types Packs/Day Years Used Date [...] EDT Overactive thyroid gland Macrocytic anemia Anemia, [place]'s Overproduction of ACTH Essential hypertension, benign Disease [...] EDT Overactive thyroid gland Macrocytic anemia Anemia, [place]'s Overproduction of ACTH Essential hypertension, benign Disease of pancreas Familial lipodystrophic diabetes (HCC) TRIIODOTHYRONINE, REVERSE BY TMS-REF LAB Callback 04/11/2017 10:06 AM EDT Overactive thyroid gland Macrocytic anemia Anemia, [place]'s Overproduction of ACTH Essential hypertension, benign Disease of pancreas Familial lipodystrophic diabetes (HCC) TRIIODOTHYRONINE Callback 04/11/2017 10:06 AM EDT Overactive thyroid gland Macrocytic anemia Anemia, [place]'s Overproduction of ACTH Essential hypertension, benign Disease of pancreas Familial lipodystrophic diabetes (HCC) THYROID STIMULATING HORMONE Callback 03/24 10:06 AM EDT Overactive thyroid gland Macrocytic anemia Anemia, [place]'s Overproduction of ACTH Essential hypertension, benign Disease of pancreas Familial lipodystrophic diabetes (HCC) T4, FREE (THYROXINE) Callback 04/11/2017 10:06 AM EDT Overactive thyroid gland Macrocytic anemia Anemia, [place]'s Overproduction of ACTH Essential hypertension, benign Disease [...] DM, lung nodules s/p rightupper lobe wedge pnprfwrqe-bm-eewvipmokxijce, uterine and cervical cancer,GERD on nexium directly [...] last night. Reports followswith Dr. [facility]uela at [facility] in [place] for GI, but he would notsee the [...] fluticasone (FLONASE) 50 mcg/actuation nasal spray 1 [place] by Nasalroute daily. 1 Bottle 2 estradiol [...] WEDGE RESECTION ; Surgeon: Cory Moran MD;Location: [facility] MAIN OR; Service: Open Heart Lung surgery [...] EGD/colonoscopy with biopsy reports fromDr. [facility] at [facility]. -- EGD tomorrow, if prelim investigation are [...] of lymph nodes Special Needs MITCHELL CPT; [id number]/04072 DR JOHNSTON 0800 STARTDOES NOT NEED EARLY START PER DEEDEE & REV PROCED: CHG FROM THORACOSCOPY TO THORACOTOMY [id number];DATE CHG FROM 05/02 PER DEEDEE JN 05/02 THORACOSCOPY POSSIBLE THORACOTOMY (VATS- VIDEO-ASSISTED THORACOSCOPIC SURGERY) (INCLUDES FLEXIBLE BRONCHOSCOPY) (REGULAR OR ROOM) 05/03/2014 8:22 AM EDT Solitary pulmonary nodule Enlargement of lymph nodes Special Needs MITCHELL CPT; [id number] DR JOHNSTON 0800 STARTDOES NOT NEED EARLY [...] REPORT Routine 03/19/20 14 12:15 PM EDT NON-TAKE DOWN INSPECTOR CYTOLOGY REPORT Routine 03/19/20 14 11:48 AM [...] anemia Unspecified essential hypertension Laboratory examination, unspecified TAKE DOWN INSPECTOR CYTOLOGY REPORT Routine 04/05/2012 5:19 AM EDT [...]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 [id number] [facility] [address] [place] [id number] * MM MAMMO DIGITAL DIAGNOSTIC W CAD BILAT (12/30/2017 1:53 PM EST) Only the most recent of2 resultswithin the time period is included. Anatomical Region Laterality Modality Breast Bilateral Mammography 01/02/2018 7:01 AM EDT Impressions 01/03/2018 9:50 AM EDT : Incomplete-need additional imaging evaluation ([id number]-7) No mammographic evidence of malignancy. ~ The [...] MAMMO DIG SCREEN CAD BILAT, performed at [facility]. DIAGNOSTIC BILATERAL MAMMOGRAPHY WITH CAD ANALYSIS 12-30-17: [...] of2 resultswithin the time period is included. [facility] Triiodothyronine, Reverse - LC-MS/MS 23.6 9.0 - 27.0 ng/dL [employer] Comment: INTERPRETIVE INFORMATION: Triiodothyronine, Reverse - LC-MS/MS Test developed and characteristics determined by [employer]. See Compliance Statement B: [employer] Performed by [employer], [address] [place] [address] www[email or web address], Augie Rebollar MD - Lab. Director Blood specimen (specimen) 04/11/2017 10:06 AM EDT 04/11/2017 2:08 PM EDT Narrative [employer] - 04/13/2017 7:23 AM EDT Fax results to [phone] Julio César Erazo MD CHEMISTRY ORDERABLES Final Result [employer] [address] [place], [place] [id number] * DIFFERENTIAL (04/11/2017 10:06 AM EDT) Only the most recent of8 resultswithin the time period is included. [facility] Neut Percent 53.1 % [facility] Lymph Percent 32.4 % [facility] . [facility] [place] Percent 11.3 % [facility] Eos Percent 2.4 % [facility] Baso Percent 0.8 % [facility] Neut# 4.2 1.8 - 7.7 x10(3)/mcL [facility] Lymph# 2.6 0.6 - 4.8 x10(3)/mcL [facility] [place]# 0.9 0.0 - 1.3 x10(3)/mcL [facility] Eos# 0.2 0.0 - 0.5 x10(3)/mcL [facility] Baso# 0.1 0.0 - 0.2 x10(3)/mcL [facility] Blood specimen (specimen) 04/11/2017 10:06 AM EDT 04/11/2017 10:19 AM EDT Julio César Erazo MD HEMATOLOGY ORDERABLES Tiffany l Result Performing Organization Address [facility]/ZIP Co de Phone Number [facility] [address] [place] [address] * (ABNORMAL) CBC WITH AUTO DIFF (04/11/2017 10:06 AM EDT) Only the most recent of8 resultswithin the time period is included. WBC 7.9 4.0 - 11.0 x10(3)/mcL [facility] RBC 5.26(H) 3.80 - 5.10 x10(6)/mcL [facility] Hgb 15.7(H) 12.0 - 15.6 gm/dL [facility] Hct 45.2 35.7 - 45.9 % [facility] MCV 85.9 82.5 - 99.8 fL [facility] MCH 29.8 27.0 - 34.3 pg [facility] MCHC 34.7 32.1 - 35.3 gm/dL [facility] RDW 13.5 11.5 - 15.0 % [facility] Platelet 207 144 - 423 x10(3)/mcL [facility] MPV 8.8 6.8 - 10.8 fL [facility] Blood specimen (specimen) UPPER LIMB STRUCTURE / Unknown 04/11/2017 10:06 AM EDT 04/11/2017 10:19 AM EDT Narrative [facility] - 04/11/2017 10:26 AM EDT Fax results to [phone] Julio César Erazo MD HEMATOLOGY ORDERABLES Tiffany l Result Performing Organization Address [facility]/ZIP Co de Phone Number [facility] [place] [id number] * TRIIODOTHYRONINE (04/11/2017 10:06 AM EDT) Only the most recent of3 resultswithin the time period is included. Total T3 0.98 0.80 - 2.00 ng/mL [facility] Blood specimen (specimen) UPPER LIMB STRUCTURE / Unknown 04/11/2017 10:06 AM EDT 04/11/2017 2:36 PM EDT Narrative [facility] - 04/11/2017 3:54 PM EDT Fax results to [phone] Julio César Erazo MD CHEMISTRY ORDERABLES Final Result Performing Organization Address City/[facility] [place] [address] * LIPASE LEVEL (04/11/2017 10:06 AM EDT) Only the most recent of2 resultswithin the time period is included. Pathologist [facility] Lipase Lvl 54 13 - 60 IU/L [facility] Blood specimen (specimen) UPPER LIMB STRUCTURE / Unknown 04/11/2017 10:06 AM EDT 04/11/2017 2:36 PM EDT Narrative [facility] - 04/11/2017 3:54 PM EDT Fax results to [phone] Julio César Erazo MD CHEMISTRY ORDERABLES Final Result Performing Organization Address City/[facility]/ZIP Co de Phone Number [facility] [address] [place] [address] * VITAMIN B12 LEVEL (04/11/2017 10:06 AM EDT) Vitamin B12 337 211 - 946 pg/mL [facility] Blood specimen (specimen) UPPER LIMB STRUCTURE / Unknown 04/11/2017 10:06 AM EDT 04/11/2017 2:40 PM EDT Narrative [facility] - 04/11/2017 3:52 PM EDT Fax results to [phone] Julio César Erazo MD CHEMISTRY ORDERABLES Final Result Performing Organization Address [facility] [place] [address] * CORTISOL (04/11/2017 10:06 AM EDT) Cortisol 14.55 mcg/dL [facility] Comment: Normals: Mornin.2 - 19.4 mcg/dL Evenin.3 - 11.9 mcg/dL Blood specimen (specimen) UPPER LIMB STRUCTURE / Unknown 04/11/2017 10:06 AM EDT 04/11/2017 2:40 PM EDT Narrative [facility] - 04/11/2017 3:42 PM EDT Fax results to [phone] us Julio César Erazo MD CHEMISTRY ORDERABLES Final Result Performing Organization Address [facility] [place] [address] * AMYLASE LEVEL (04/11/2017 10:06 AM EDT) Amylase Lvl 41 28 - 100 IU/L [facility] Blood specimen (specimen) UPPER LIMB STRUCTURE / Unknown 04/11/2017 10:06 AM EDT 04/11/2017 2:36 PM EDT Narrative [facility] - 04/11/2017 3:54 PM EDT Fax results to [phone] us Julio César Erazo MD CHEMISTRY ORDERABLES Final Result Performing Organization Address [facility] de Phone Number [facility] [address] [place] [address] * CT ABDOMEN PELVIS WO CONTRAST (09/02/2016 [...] 25 OH 14.4(L) 30.0 - 120.0 ng/mL [facility] Comment: INTERPRETIVE INFORMATION: Vitamin D, 25-Hydroxy [...] PM EDT 08/27/2016 7:29 PM EDT Narrative [facility] - 08/27/2016 9:52 PM EDT Fax results to [phone] us Julio César Erazo MD CHEMISTRY ORDERABLES Final Result Performing Organization Address [facility] [place] [address] * THYROGLOBULIN ANTIBODY -REF LAB (08/27/2016 5:19 PM EDT) Pathologist [facility] Thyroglob Ab <0.9 0.0 - 4.0 IU/mL [employer] Comment: INTERPRETIVE INFORMATION: Thyroglobulin Antibody A value of 4.0 IU/mL or less indicates a negative result for thyroglobulin antibodies. The Thyroglobulin Antibody assay is being performed using the [employer] Access DxI method. Performed by [employer], [address] [place] [id number] [email or web address], Kade Quintanilla MD - Lab. Director Blood specimen (specimen) UPPER LIMB STRUCTURE / Unknown 08/27/2016 5:19 PM EDT 08/28/2016 1:03 PM EDT Narrative [employer] - 08/29/2016 12:08 PM EST Fax results to [phone] us Julio César Erazo MD IMMUNOLOGY ORDERABLES Tiffany l Result Performing Organization Address [facility]/ZIP Co de Phone Number [employer] [address] [place] [address] * HEPATIC FUNCTION PANEL (08/27/2016 5:19 PM EDT) Only the most recent of2 resultswithin the time period is included. Pathologist [facility] Total Protein 7.1 6.4 - 8.3 gm/dL [facility] Albumin 4.0 3.5 - 5.2 gm/dL [facility] Bili Direct <0.2 0.0 - 0.3 mg/dL [facility] Bili Total 0.6 0.1 - 1.3 mg/dL [facility] AST 14 <=40 IU/L [facility] ALT 12 <=41 IU/L [facility] Alk Phos 81 35 - 104 IU/L [facility] Blood specimen (specimen) UPPER LIMB STRUCTURE / Unknown 08/27/2016 5:19 PM EDT 08/27/2016 7:29 PM EDT Narrative [facility] - 08/27/2016 7:57 PM EDT Fax results to [phone] us Margarita Huntley MD CHEMISTRY [place] [address] * MRI SHOULDER RIGHT WO CONTRAST (02/02/2016 [...] 5:30 PM HISTORY: Pain M75.51-Bursitis of right rxrjnuws-JAW-42-CM TECHNIQUE: Routine MRI right shoulder without contrast. [...] 5:30 PM HISTORY: Pain M75.51-Bursitis of right dtwwjown-JQF-04-CM TECHNIQUE: Routine MRI right shoulder without contrast. [...] Mild acromioclavicular osteoarthritis. Julio César Erazo MD [facility] [place] ORDER[place]LES Final R esult * MM MAMMO DIGITAL SCREENING W CAD BILAT (10/22/2015 4:53 PM EST) Only the most recent of2 resultswithin the time period is included. Anatomical Region Laterality Modality Breast Bilateral Mammography 10/23/2015 10:4 3 AM EST Impressions 10/23/2015 3:22 PM EST : Benign finding (GCI-Onpcflen-[id number]) ~ RECOMMENDATION: Routine screening mammogram in 1 [...] being 10-19-12. ~ Julio César Erazo MD [facility] [place]AM[place]AP[place] ORDERABLES Final Result * CT HEAD [...] period is included. Surgical Pathology Report PATIENT NAME:IMREYA OVALLES Surgical Pathology Report Accession Number Collected Date/Time Received Date/Time [id number] 08/30/14 14:51 EST 09/02/14 06:54 EST Diagnosis [...] and the findings corroborate the diagnosis. _ [facility] 08/30/2014 2:51 PM EST Germain Santa MD PATHOLOGY ORDERABLES Final Result Performing Organization Address [facility] de Phone Number [facility] [address] [place] [address] * GMED EGD (08/30/2014 1:30 PM EST) 08/30/2014 1:30 PM EST Impressions [facility] - 08/30/2014 3:20 PM EST Normal esophagus. Normal mucosa in the whole stomach. (Biopsy). Normal mucosa in the whole examined duodenum. (Biopsy). Plan: Await pathology results Continue current medication for acid suppression/ dose 30 minutes before a meal This section is an excerpt of the full report. Germain Santa MD GI PROCEDURE ORDERABLES Fin al Result Performing Organization Address [facility] de Phone Number [facility] [address] [place] [address] * GLUCOSE METER POC (08/30/2014 12:43 PM EST) Only the most recent of6 resultswithin the time period is included. Glucose Meter POC 92 70 - 100 mg/dL [facility] Blood specimen (specimen) 08/30/2014 12:43 PM EST 08/30/2014 12:43 PM EST Lena Fish MD POINT OF CARE TEST ORDERABLES Fi nal Result Performing Organization Address [facility] de Phone Number [facility] [address] [place] [address] * STOOL CULTURE (08/29/2014 7:35 PM EST) Only the most recent of2 resultswithin the time period is included. Final Shiga toxin result: Negative Shiga toxins (produced by E. coli) not detected. [facility] Stool specimen (specimen) 08/29/2014 7:35 PM EST 08/30/2014 8:07 AM EST Irina Rivas DIRECT SALES PROFESSIONAL MICROBIOLOGY - GENERAL ORDERA BLES Final Result Performing Organization Address [facility] de Phone Number [facility] [address] [place] [address] * .C DIFF TOXIN DNA RESULTS (08/29/2014 7:35 PM EST) Pathologist [facility] c difficile specimen Stool [facility] Comment: TEST INFORMATION: This assay qualitatively detects a fragment of the Clostridium difficile Toxin A gene in liquid or soft stool in patients suspected of having Clostridium difficile-associated disease (CDAD). This assay is an amplified DNA test by [employer] and its performance has been verified by the [facility]. A negative result does not rule out the presence of the Clostridium difficile Toxin A gene fragment in concentrations below the limit of detection for the assay. c DIFFICILE TOXIN DNA Negative [facility] Stool specimen (specimen) 08/29/2014 7:35 PM EST 08/29/2014 10:36 PM EST Irina Rivas SWATHI MICROBIOLOGY - GENERAL ORDERA BLES Final Result Performing Organization Address [facility] de Phone Number [facility] [address] [place] [address] * FECAL WHITE BLOOD CELLS (08/29/2014 7:35 PM EST) Pathologist [facility] Final Negative Internal QC ok [facility] Stool specimen (specimen) 08/29/2014 7:35 PM EST 08/30/2014 10:07 AM EST Irina Dorseylinus ECHEVARRIA MICROBIOLOGY - GENERAL ORDERA BLES Final Result Performing Organization Address [facility] Co de Phone Number [facility] [address] [place] [address] * OVA AND PARASITE BASIC (08/29/2014 7:35 [...] 8:07 AM EST us Irina Mary Rivas DIRECT SALES PROFESSIONAL MICROBIOLOGY - GENERAL ORDERA BLES Final Result [facility] [address] [place] [address] * CT ABDOMEN PELVIS W CONTRAST (08/29/2014 [...] included. PT 10.7 9.8 - 12.2 second(s) [facility] INR 0.97 0.89 - 1.11 [facility] Comment: Level of Therapy Indications Target INR Range Standard Dose Treatment and prophylaxis of venous 2.0 - 3.0 thrombosis, pulmonary embolism High Dose High risk patients with mechanical 2.5 - 3.5 heart valves Blood specimen (specimen) 08/29/2014 2:08 PM EST 08/29/2014 3:43 PM EST us Irina Rivas DIRECT SALES PROFESSIONAL HEMATOLOGY ORDERABLES Final R esult [facility] [address] [place] [address] * US RIGHT UPPER QUADRANT (06/12/2014 9:58 [...] kidney and pancreas are normal. Procedure Note Jaemel Hilton MD - 06/12/2014 RIGHT UPPER QUADRANT [...] EDT) Bands 12(H) 0 - 10 % [facility] Aniso Slight [facility] Polychrom Slight [facility] Blood specimen (specimen) 05/04/2014 4:58 AM EDT 05/04/2014 5:02 AM EDT Cory Moran MD HEMATOLOGY ORDERABLES Final Result Performing Organization Address City/[facility] Co de Phone Number [facility] [address] [place] [address] * FUNGUS CULTURE-OTHER (05/03/2014 10:00 AM EDT) Only the most recent of3 resultswithin the time period is included. Final No growth of fungus at 4 weeks [facility] Tissue specimen (specimen) LUNG STRUCTURE / Unknown 05/03/2014 10:00 AM EDT 05/03/2014 11:10 AM EDT Comment:RIGHT UPPER LOBE MAS S Cory Moran MD MICROBIOLOGY - GENERAL ORDERABLES Final Result Performing Organization Address [facility] Co de Phone Number [facility] [address] [place] [address] * WOUND CULTURE (05/03/2014 10:00 AM EDT) GS Few WBC's No organisms seen [facility] Final No growth at 4 days. [facility] Tissue specimen (specimen) LUNG STRUCTURE / Unknown 05/03/2014 10:00 AM EDT 05/03/2014 11:10 AM EDT Comment:RIGHT UPPER LOBE MAS S Cory Moran MD MICROBIOLOGY - GENERAL ORDERABLES Final Result Performing Organization Address [facility] Co de Phone Number [facility] [address] [place] [address] * ANAEROBIC CULTURE (05/03/2014 10:00 AM EDT) Final No anaerobic growth at 5 days [facility] Tissue specimen (specimen) LUNG STRUCTURE / Unknown 05/03/2014 10:00 AM EDT 05/03/2014 11:10 AM EDT Comment:RIGHT UPPER LOBE MAS S Cory Moran MD MICROBIOLOGY - GENERAL ORDERABLES Final Result Performing Organization Address [facility] Co de Phone Number [facility] [address] [place] [address] * ABORH (04/30/2014 3:50 PM EDT) Pathologist [facility] ABORh Int A NEG [facility] Blood specimen (specimen) 04/30/2014 3:50 PM EDT 04/30/2014 3:56 PM EDT us Griselda Galvin APRN BLOOD BANK ORDERABLES Final Result Performing Organization Address [facility] de Phone Number [facility] [address] [place] [address] * PARTIAL THROMBOPLASTIN TIME (04/30/2014 3:50 PM EDT) [facility] PTT 28.8 24.4 - 35.0 second(s) [facility] Comment: Therapeutic range for direct thrombin [...] 04/30/2014 3:56 PM EDT us Shantal Ames DIRECT SALES PROFESSIONAL HEMATOLOGY ORDERABL ES Final Result Performing Organization Address [facility] [facility] Co de Phone Number [facility] [address] [place] [address] * ANTIBODY SCREEN IGG (04/30/2014 3:50 PM EDT) [facility] ABSC IgG Int Negative [facility] Blood specimen (specimen) 04/30/2014 3:50 PM EDT 04/30/2014 3:56 PM EDT us Griselda Galvin DIRECT SALES PROFESSIONAL BLOOD BANK ORDERABLES Final Result Performing Organization Address City/[facility]/ZIP Co de Phone Number [facility] [address] [place] [address] * (ABNORMAL) BLOOD GAS ARTERIAL (04/30/2014 3:45 PM EDT) pH 7.440 7.370 - 7.440 [facility] pCO2 37 32 - 45 mmHg [facility] pO2 102(H) 80 - 95 mmHg [facility] HCO3 25 20 - 29 mmol/L [facility] TCO2 26 21 - 30 mmol/L [facility] Base Excess 1.1 -2.8 - 2.3 mEq/L [facility] O2 Sat 99(H) 95 - 97 % [facility] Inspired O2 RA [facility] Specimen Type Arterial [facility] Blood specimen (specimen) UPPER LIMB STRUCTURE / Unknown 04/30/2014 3:45 PM EDT 04/30/2014 3:50 PM EDT Narrative [facility] - 04/30/2014 3:58 PM EDT Pre-op ABG on ROOM AIR us Shantal Ames DIRECT SALES PROFESSIONAL CHEMISTRY ORDERABLE S Final Result Performing Organization Address [facility] Co de Phone Number [facility] [address] [place] [address] * (ABNORMAL) LDL, CALCULATED (03/25/2014 1:26 PM EDT) Pathologist [facility] LDL Calculated 162(H) <=100 mg/dL [facility] Comment: < 100 Optimal 100 - 129 Near or above optimal 130 - 159 Borderline High 160 - 189 High >= 190 Very High Blood specimen (specimen) 03/25/2014 1:26 PM EDT 03/25/2014 6:56 PM EDT us Buster Talbot MD CHEMISTRY ORDERABLES Final Result Performing Organization Address City/[facility]/ZIP Co de Phone Number [facility] [address] [place] [address] * (ABNORMAL) LIPID PANEL REFLEX (03/25/2014 1:26 PM EDT) Cholesterol 257(H) <=200 mg/dL [facility] Comment: < 200 Desirable 200 - 239 Borderline High >= 240 High Triglyceride 301(H) <=150 mg/dL [facility] Comment: < 150 Normal 150 - 199 Borderline High 200 - 499 High >= 500 Very High HDL 35(L) >=40 mg/dL [facility] Comment: > 60 Optimal 40 - 60 Acceptable < 40 Low Blood specimen (specimen) UPPER LIMB STRUCTURE / Unknown 03/25/2014 1:26 PM EDT 03/25/2014 6:56 PM EDT us Buster Talbot MD CHEMISTRY ORDERABLES Edited Result - Final Performing Organization Address [facility]/ZIP Co de Phone Number [facility] [address] [place] [address] * SCANNED PRE/POST PROCEDURES (03/22/2014 1:24 PM [...] 4:03 PM EDT) Urine Microalb 21.1 mg/L [facility] Urine Creatinine 302.0 mg/dL [facility] Ur Microalb/Creat 7 0 - 20 mg/gm [facility] Urine specimen (specimen) 03/20/2014 4:03 PM EDT 03/20/2014 7:30 PM EDT us Buster Talbot MD URINE ORDERABLES Final Resu lt Performing Organization Address City/[facility]/ZIP Co de Phone Number [facility] [address] [place] [address] * MISCELLANEOUS LAB (03/19/2014 1:25 PM EDT) Only the most recent of2 resultswithin the time period is included. Bronchoalveolar lavage fluid specimen (specimen) 03/19/2014 1:25 PM EDT 03/19/2014 3:39 PM EDT Narrative [facility] - 03/19/2014 3:53 PM EDT afb culture Abimbola Gonzalez MD HEMATOLOGY ORDERABLES Final Res ult Performing Organization Address [facility] Co de Phone Number [facility] [address] [place] [address] * T-CELL LYMPHOCYTE SUBSETS-BAL (03/19/2014 1:11 PM EDT) T-Cell Subsets BAL Source BAL [facility] % CD3 - BAL 79 % [facility] Comment: Please interpret the results of the Lymphocyte Subsets Panel 4 - T-Cell Subsets Percents and Ratio, Bronchoalveolar Lavage with caution. The specimen is contaminated with peripheral blood. Peripheral blood lymphocytes and BAL lymphocytes cannot be for analysis. These results include both peripheral blood lymphocytes and BAL lymphocytes. % CD4 - BAL 38 % [facility] % CD8 - BAL 36 % [facility] CD4:CD8 RATIO - BAL 1.06 ratio [facility] Comment: INTERPRETIVE INFORMATION: Lymphocyte Subset 4, [...] T-cells. Test developed and characteristics determined by [employer]. See Compliance Statement B: [email or web address] Performed at: [address] [address] Bronchoalveolar lavage fluid specimen (specimen) 03/19/2014 1:11 PM EDT 03/19/2014 5:55 PM EDT Abimbola Gonzalez MD IMMUNOLOGY ORDERABLES Final Res ult Performing Organization Address City/[facility]/ZIP Co de Phone Number [facility] [address] [place] [address] * LOWER RESPIRATORY CULTURE (03/19/2014 1:11 PM EDT) Only the most recent of2 resultswithin the time period is included. Pathologist [facility] GS Rare WBC's No organisms seen [facility] Final Very sparse growth of normal oral nadia [facility] Bronchoalveolar lavage fluid specimen (specimen) 03/19/2014 1:11 PM EDT 03/19/2014 2:08 PM EDT Narrative [facility] - 03/21/2014 7:32 AM EDT Includes a Gram Stain. Abimbola Gonzalez MD MICROBIOLOGY - GENERAL ORDERABL ES Final Result Performing Organization Address [facility] de Phone Number [facility] [address] [place] [address] * ACID FAST BACILLI CULTURE AND SMEAR (03/19/2014 1:11 PM EDT) Only the most recent of2 resultswithin the time period is included. [facility] Acid Fast Bacilli Stain No Acid Fast Bacillus seen with fluorescent stain Test performed by reference lab, see separate report [facility] Final No growth of AFB after 8 weeks. Test performed by reference lab, see separate report [facility] Bronchoalveolar lavage fluid specimen (specimen) 03/19/2014 1:11 PM EDT 03/19/2014 2:08 PM EDT Abimbola Gonzalez MD MICROBIOLOGY - GENERAL ORDERABL ES Final Result Performing Organization Address [facility] de Phone Number [facility] [address] [place] [address] * NON-TAKE DOWN INSPECTOR CYTOLOGY REPORT (03/19/2014 11:48 AM EDT) Pathologist [facility] Non-Cake Mixer Cytology Report PATIENT NAME:MIREYA OVALLES Non-Cake Mixer Cytology Report Accession Number Collected Date/Time Received Date/Time [id number] 03/19/14 11:48 EDT 03/19/14 12:16 EDT Specimen [...] RUL Super D: No malignant cells identified. Internet Developer: DEXTER MCCRAY 03/20/2014 Completed by: Lena Cotto (Electronically signed by) 03/20/2014 [facility] Laboratory Gross Description 1. 10 direct smears and conventional cell block made. 2. 1 ThinPrep Slide and 1 slide made for GMS stain. 3. 1 ThinPrep Slide and 1 slide made for GMS stain. 4. 16 direct smears and 1 ThinPrep Slide made. Evaluation Episode #1: Fifi/DEXTER [facility] 03/19/2014 11:4 8 AM EDT Abimbola Gonzalez MD CYTOLOGY ORDERABLES Final Resul t Performing Organization Address City/[facility] Co de Phone Number [facility] [address] [place] [address] * FL < 1 HOUR (03/19/2014 11:18 [...] ORDERABLES Tiffany l Result Performing Organization Address City/[facility]/ZIP Co de Phone Number PACS * PET [...] FDG administered and whole-body images obtained. Blood ggfahsd635 mg/dL. There is hypermetabolic activity corresponding to [...] PM EDT) JANE 25 8 - 52 [facility] Comment: Performed at: [facility] [id number], [address] [place] [address] Blood specimen (specimen) UPPER LIMB STRUCTURE / Unknown 03/11/2014 2:27 PM EDT 03/11/2014 3:57 PM EDT Abimbola Gonzalez MD CHEMISTRY ORDERABLES Final Resu lt [facility] [address] [place] [address] * XR WRIST RIGHT PA LATERAL AND [...] period is included. Troponin-I <0.01 <=0.06 ng/mL [facility] Blood specimen (specimen) UPPER LIMB STRUCTURE / Unknown 05/28/2013 12:35 PM EDT 05/28/2013 12:57 PM EDT Trae Rojas MD CHEMISTRY ORDERABLES Final Resul t [facility] [address] [place] [address] * AK US LOWER EXTREMITY VENOUS LEFT (05/28/2013 11:00 [...] STRESS AND REST (05/28/2013 10:33 AM EDT) [facility] Ejection Fraction 94 % [place] Anatomical Region [...] 6:00 AM EDT) Cholesterol 182 <=200 mg/dL [facility] Comment: < 200 Desirable 200 - 239 Borderline High >= 240 High Triglyceride 385(H) <=150 mg/dL [facility] Comment: < 150 Normal 150 - 199 Borderline High 200 - 499 High >= 500 Very High HDL 33(L) >=40 mg/dL [facility] Comment: > 60 Optimal 40 - 60 Acceptable < 40 Low LDL Calculated 72 <=100 mg/dL [facility] Comment: < 100 Optimal 100 - 129 Near or above optimal 130 - 159 Borderline High 160 - 189 High >= 190 Very High Blood specimen (specimen) UPPER LIMB STRUCTURE / Unknown 05/28/2013 6:00 AM EDT 05/28/2013 8:44 AM EDT Trae Rojas MD CHEMISTRY ORDERABLES Edited Resu lt - Final Performing Organization Address [facility] Co de Phone Number [facility] [address] [place] [address] * NT PROBNP (05/27/2013 10:20 PM EDT) [...] - 1.1 mg/dL [facility] i-Stat ID# [id number] [facility] Blood specimen (specimen) 02/12/2013 2:52 PM EDT Abilio Fischer MD POINT OF CARE TEST ORDERABLES Final Result Performing Organization Address [facility] Co de Phone Number [facility] * TAKE DOWN INSPECTOR CYTOLOGY REPORT (04/05/2012 5:19 AM EDT) Cake Mixer Cytology Report PATIENT NAME:MIREYA OVALLES Cake Mixer Cytology Report Accession Number Collected Date/Time Received Date/Time [id number] 04/05/12 05:19 EDT 04/06/12 05:19 EDT GY [...] before definitive therapy. Processed using the ThinPrep Liquid Chlorine Operator automated cytology screening device ([employer]). Internet Developer: JANINA 04/10/2012 Completed by: BRITTANY Dominique (Electronically signed by) 04/10/2012 [facility] 04/05/2012 5:19 AM EDT Jadiel Abernathy MD PATHOLOGY ORDERABLES Final Res ult Performing Organization Address [facility] Co de Phone Number [facility] [address] [place] [address] * HPV RESULTS (04/05/2012 5:17 AM EDT) HPV Specimen Thin Prep [facility] Comment: TEST INFORMATION: HPV DNA Probe, High Risk, Thin Prep Specimen. The High-risk HPV test detects HPV genotypes 16,18,31,33,39,45,51,52,58,59, and 68, which are associated with cervical cancer and its precursor lesions. However, cross-reactions with other genotypes may occur. Results should be correlated with cytologic and histologic findings. This test is an amplfied DNA signal assay by [employer], validated by [facility] in conjunction with [employer]. HPV dsDNA, Qualitative Negative [facility] Liquid based cytologic material (specimen) 04/05/2012 5:17 AM EDT 04/06/2012 5:16 AM EDT Jadiel Abernathy MD MICROBIOLOGY - GENERAL ORDERAB LES Final Result Performing Organization Address [facility] Co de Phone Number [facility] [address] [place] [address] * MM MAMMO DIGITAL DIAGNOSTIC RIGHT (02/29/2012 2:58 PM EDT) Anatomical Region Laterality Modality Breast Right Mammography 03/01/2012 12:2 9 PM EDT Impressions 03/01/2012 1:40 PM EDT : Benign finding (HBB-[place]-5) ~ RECOMMENDATION: Routine screening mammogram in 6 [...] are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
--- OUTSIDE RECORDS SUMMARY | 2025-06-17 13:56 | XMS_ITS | Encounter Summary ---
Author Organization Healthcare Address [address] [place] [address] Care Team Providers Care Custodial Operations Manager Name Role Phone Buster Falcon MD Primary Care Provider [phone] Encounter Details Date Type Department Care Team ([facility] st Contact Info) Description 08/05/2016 Orders Only External Location [address] [place] [address] Provider, External Social History Tobacco Use Types [...] on filedocumented in this encounter Care Teams Custodial Operations Manager Relationship Specialty Start Date End Date Buster Falcon MD [address] [place] [address] PCP - General 08/22/23 documented as of this encounter
--- OUTSIDE RECORDS SUMMARY | 2025-06-17 13:56 | XMS_ITS | Encounter Summary ---
Author Organization [facility] Address [address] [place] [address] Care Team Providers Care Chief Station Engineer Name Role Phone Pcp, No Primary Care [...] release of HIV test results or diagnoses. [id number] Encounter Details Date Type Department Care Team (Late st Contact Info) Description 10/07/2016 Chart Note [facility] [address] [place] [address] Margarita Huntley MD Social History Tobacco Use [...] on filedocumented in this encounter Care Teams Chief Station Engineer Relationship Specialty Start Date End Date Pcp, No No Address PCP - General Pediatrics 08/17/16 04/23/21 System, Provider Not In PCP - General 04/24/21 05/18/21 Pcp, No No Address PCP - General 05/19/21 Matt Glover MD [address] [place] [address] 08/17/16 documented as of this encounter
--- OUTSIDE RECORDS SUMMARY | 2025-06-17 13:56 | XMS_ITS | Encounter Summary ---
Author Organization [facility] Address [address] [place] [address] Care Team Providers Care Rougher Helper Name Role Phone Pcp, No Primary Care [...] release of HIV test results or diagnoses. [id number] Health Encounter Details Date Type Department Care Team (Late st Contact Info) Description 07/18/[address] Orders [address] [facility] Dermatology at [address] [place] [address] Mary Arellano CNP Social History Tobacco Use [...] the phone Final pathology result: Accession Number: [id number] Biopsy Site: Rt chest Biopsy Date: 07/18/2018 [...] - 07/20/2018 12:52 PM EDT Accession Number: [id number] Biopsy Site: Rt chest Biopsy Date: 07/18/2018 [...] Unknown, Attending Provider - 07/20/2018 Accession Number: [id number] Biopsy Site: Rt chest Biopsy Date: 07/18/2018 Impression: R/O ISK vs pigmented BCC Gross Description: A specimen of skin was received measurinx3x0.5mm; 8x8x0.5mm MICRO EXAM: There is hyperkeratosis, acanthosis, dyskeratotic cells, basalvacuolization, cytoid bodies and a dense lymphocytic infiltrate in the papillarydermis. DIAGNOSIS: Lichenoid keratosis, and adjacent solar lentigo. ICD-10: L57.0 PATHOLOGIST: Electronically signed by: Zully Kothari MD Mary Arellano FORGING PRESS OPERATOR DERM PROCEDURE ORDERABLES F inal Result DERM PATH LAB documented in this encounter Visit Diagnoses Not on filedocumented in this encounter Care Teams Rougher Helper Relationship Specialty Start Date End Date Pcp, No No Address PCP - General Pediatrics 08/17/16 04/23/21 System, Provider Not In PCP - General 04/24/21 05/18/21 Pcp, No No Address PCP - General 05/19/21 Matt Glover MD [address] [place] [address] 08/17/16 documented as of this encounter
--- OUTSIDE RECORDS SUMMARY | 2025-06-17 13:56 | XMS_ITS | Encounter Summary ---
Author Organization Healthcare Address [address] [place] [address] Care Team Providers Care Snap Shearer Name Role Phone Buster Falcon MD Primary Care Provider + [phone] Encounter Details Date Type Department Care Team ([facility] st Contact Info) Description 04/19/2023 Orders Only External Location [address] [place] [address] Provider, External Social History Tobacco Use Types [...] on filedocumented in this encounter Care Teams Snap Shearer Relationship Specialty Start Date End Date Buster Falcon MD [address] [place] [address] PCP - General 08/22/23 documented as of this encounter
--- OUTSIDE RECORDS SUMMARY | 2025-06-17 13:56 | XMS_ITS | Encounter Summary ---
Author Organization Healthcare Address [address] [place] [address] Care Team Providers Care Combination Welder Apprentice Name Role Phone Buster Falcon MD Primary Care Provider + [phone] Encounter Details Date Type Department Care Team ([facility] Contact Info) Description 05/15/2021 Orders Only External Location [address] [place] [address] Provider, External Social History Tobacco Use Types [...] on filedocumented in this encounter Care Teams Combination Welder Apprentice Relationship Specialty Start Date End Date Buster Falcon MD [address] [place] [address] PCP - General 08/22/23 documented as of this encounter
--- OUTSIDE RECORDS SUMMARY | 2025-06-17 13:56 | XMS_ITS | Encounter Summary ---
Author Organization [facility] Address [address] [place] [address] Care Team Providers Care Lobby Concierge Name Role Phone Pcp, No Primary Care [...] release of HIV test results or diagnoses. [id number] Encounter Details Date Type Department Care Team (Late st Contact Info) Description 11/30/2016 Chart Note [facility] [address] [place] [address] Margarita Huntley MD Social History Tobacco Use [...] on filedocumented in this encounter Care Teams Lobby Concierge Relationship Specialty Start Date End Date Pcp, No No Address PCP - General Pediatrics 08/17/16 04/23/21 System, Provider Not In PCP - General 04/24/21 05/18/21 Pcp, No No Address PCP - General 05/19/21 Matt Glover MD [address] [place] [address] 08/17/16 documented as of this encounter
--- OUTSIDE RECORDS SUMMARY | 2025-06-17 13:56 | XMS_ITS | Encounter Summary ---
Author Organization [facility] Address [address] [place] [address] Care Team Providers Care Radio News Writer Name Role Phone Pcp, No Primary Care [...] release of HIV test results or diagnoses. [id number] Encounter Details Date Type Department Care Team (Late st Contact Info) Description 12/05/2016 Chart Note [facility] INFORMATION MANAGEMENT [address] [place] [phone] Margarita Huntley MD Social History Tobacco Use [...] on filedocumented in this encounter Care Teams Radio News Writer Relationship Specialty Start Date End Date Pcp, No No Address PCP - General Pediatrics 08/17/16 04/23/21 System, Provider Not In PCP - General 04/24/21 05/18/21 Pcp, No No Address PCP - General 05/19/21 Matt Glover MD [address] [place] [address] 08/17/16 documented as of this encounter
--- OUTSIDE RECORDS SUMMARY | 2025-06-17 13:56 | XMS_ITS | Encounter Summary ---
Author Organization [facility] Address [address] [place] [address] Care Team Providers Care Transcribing Machine Mechanic Name Role Phone Pcp, No Primary Care [...] release of HIV test results or diagnoses. [id number] Health Encounter Details Date Type Department Care Team (Late st Contact Info) Description 05/30/2017 Orders Only [facility] Dermatology at [address] [place] [address] Mary Arellano CNP Social History Tobacco Use [...] the phone Final pathology result: Accession Number: [id number] Biopsy Site: Left nasal tip Biopsy Date: 05/30/2017 Impression: R/O BCC Gross Description: A specimen of skin was received measurin2n9k5at MICRO EXAM: There are multiple islands of [...] - 06/01/2017 12:35 PM EDT Accession Number: [id number] Biopsy Site: Left nasal tip Biopsy Date: 05/30/2017 Impression: R/O BCC Gross Description: A specimen of skin was received measurin1x5p3tb MICRO EXAM: There are multiple islands of atypical basaloid cells with peripheral palisading and focal central necrosis. There is solar elastosis, proliferation of fibroblasts and a lymphocytic infiltrate in the adjacent stroma. DIAGNOSIS: Nodular basal cell carcinoma. ICD-10: C44.91 PATHOLOGIST: Electronically signed by: Zully Kothari MD Procedure Note Unknown, Attending Provider - 06/01/2017 Accession Number: [id number] Biopsy Site: Left nasal tip Biopsy Date: 05/30/2017 Impression: R/O BCC Gross Description: A specimen of skin was received measurin5o6t5fb MICRO EXAM: There are multiple islands of atypical basaloid cells with peripheral palisading and focal central necrosis. There is solar elastosis, proliferation of fibroblasts and a lymphocytic infiltrate in theadjacent stroma. DIAGNOSIS: Nodular basal cell carcinoma. ICD-10: C44.91 PATHOLOGIST: Electronically signed by: Zully Kothari MD Mary Jb Arellano ACADEMIC TUTOR DERM PROCEDURE ORDERABLES F inal Result DERM PATH LAB documented in this encounter Visit Diagnoses Not on filedocumented in this encounter Care Teams Transcribing Machine Mechanic Relationship Specialty Start Date End Date Pcp, No No Address PCP - General Pediatrics 08/17/16 04/23/21 System, Provider Not In PCP - General 04/24/21 05/18/21 Pcp, No No Address PCP - General 05/19/21 Matt Glover MD [address] [place] [address] 08/17/16 documented as of this encounter
--- OUTSIDE RECORDS SUMMARY | 2025-06-17 13:56 | XMS_ITS | Encounter Summary ---
Author Organization Healthcare Address [address] [place] [address] Care Team Providers Care Wood Cabinet Finisher Name Role Phone Buster Falcon MD Primary Care Provider + [phone] Encounter Details Date Type Department Care Team ([facility] st Contact Info) Description 06/08/2021 Orders Only External Location [address] [place] [address] Provider, External Social History Tobacco Use Types [...] on filedocumented in this encounter Care Teams Wood Cabinet Finisher Relationship Specialty Start Date End Date Buster Falcon MD [address] [place] [address] PCP - General 08/22/23 documented as of this encounter
[2025-06-17 14:39] LABS: Albumin Level 4.1 g/dl (3.5-5.0); Anion Gap 14.4 mEq/L (5-15); Blood Urea Nitrogen 10 mg/dl (7-17); Calcium 9.3 mg/dl (8.4-10.2); Carbon Dioxide 26 mmol/L (22.0-30.0); Chloride 103 mmol/L (98-107); Creatinine,Serum 0.60 mg/dl (0.52-1.04); Estimated Glomerular Filt Rate 103 ml/min (>60); GFR (African American) 125 ML/MIN (>60); Glucose 140 mg/dl (74-100); Phosphorous 3.8 mg/dl (2.5-4.5); Potassium 4.4 mmoL/L (3.5-5.1); Sodium 139 mmol/L (136-145)
[2025-06-17 14:54] LABS: Free T4 (Free Thyroxine) 1.78 ng/dl (0.78-2.19)
[2025-06-17 14:57] LABS: 25-OH Vitamin D, Total 23.8 ng/mL (30-100)
[2025-06-18 15:23] LABS: Albumin 3.6 g/dL (2.9-4.4); Alpha-1-Globulin 0.2 g/dL (0.0-0.4); Alpha-2-Globulin 0.7 g/dL (0.4-1.0); Gamma Globulin 1.0 g/dL (0.4-1.8)
== END 2025-06-17 23:59 | disposition home or self-care (01) ==
LOC: LAB 13:53
PROVIDERS: PCP Family Medicine; Visit Provider Student in an Organized Health Care Education/Training Program
DX: M80.00XA Age-related osteoporosis with current pathological fracture, unspecified site, initial encounter for fracture (principal); Z80.8 Family history of malignant neoplasm of other organs or systems
CPT/HCPCS: 36415; 80069; 82306; 82523; 83970; 84080; 84155; 84165; 84439; 86800

== ENCOUNTER 2025-07-09 09:19 | Outpatient (CLI) | payer MEDICARE, SELFPAY ==
--- OUTSIDE RECORDS SUMMARY | 2025-07-09 09:56 | XMS_ITS | Patient Health Record ---
Author Organization [facility] Address [address] [place] [address] Care Team Providers Care Bike Shop Manager Name Role Phone Jadiel Reno Unavailable [phone] ANA CRISTINA ZOILA Unavailable Unavailable Allergies Allergen [...] 1 capsule Orally Once a day Active [place] 3 1000 MG 1 capsule Orally Onc [...] Status Risk Notes Problem Chronic pain syndrome (715051329) Chronic pain syndrome (G89.4) Active confirmed Problem Cervical disc disorder with radiculopathy (373242090) Cervical disc disorder with radiculopathy, cervicothoracic region (M50.13) Active confirmed Problem Displacement of cervical intervertebral disc without myelopathy (49942965) 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) Active confirmed Problem Localized, primary osteoarthritis of the shoulder region (848889251) 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
--- OUTSIDE RECORDS SUMMARY | 2025-07-09 09:58 | XMS_ITS | Encounter Summary ---
Author Organization Healthcare Address [address] [place] [address] Care Team Providers Care Manager Asset Name Role Phone Buster Falcon MD Primary Care Provider + [phone] Encounter Details Date Type Department Care Team ([facility] st Contact Info) Description 06/08/2021 Orders Only External Location [address] [place] [address] Provider, External Social History Tobacco Use Types [...] filedocumented in this encounter Care Teams Manager Asset Relationship Specialty Start Date End Date Buster Falcon MD [address] [place] [address] PCP - General 08/22/23 documented as of this encounter
--- OUTSIDE RECORDS SUMMARY | 2025-07-09 09:58 | XMS_ITS | Encounter Summary ---
Author Organization Healthcare Address [address] [place] [address] Care Team Providers Care Continuous Improvement Coach Name Role Phone Buster Falcon MD Primary Care Provider + [phone] Encounter Details Date Type Department Care Team ([facility] st Contact Info) Description 04/19/2023 Orders Only External Location [address] [place] [address] Provider, External Social History Tobacco Use Types [...] on filedocumented in this encounter Care Teams Continuous Improvement Coach Relationship Specialty Start Date End Date Buster Falcon MD [address] [place] [address] PCP - General 08/22/23 documented as of this encounter
--- OUTSIDE RECORDS SUMMARY | 2025-07-09 09:58 | XMS_ITS | Encounter Summary ---
Author Organization [facility] Address [address] [place] [address] Care Team Providers Care Window Sash Installer Name Role Phone Pcp, No Primary Care [...] release of HIV test results or diagnoses. [id number] Encounter Details Date Type Department Care Team (Late st Contact Info) Description 10/27/2016 Chart Note [facility] INFORMATION MANAGEMENT [address] [place] [address] Margarita Huntley MD Social History Tobacco Use [...] on filedocumented in this encounter Care Teams Window Sash Installer Relationship Specialty Start Date End Date Pcp, No No Address PCP - General Pediatrics 08/17/16 04/23/21 System, Provider Not In PCP - General 04/24/21 05/18/21 Pcp, No No Address PCP - General 05/19/21 Matt Glover MD [address] [place] [address] 08/17/16 documented as of this encounter
--- OUTSIDE RECORDS SUMMARY | 2025-07-09 09:58 | XMS_ITS | Encounter Summary ---
Author Organization [facility] Address [address] [place] [address] Care Team Providers Care Regulator Inspector Name Role Phone Pcp, No Primary Care [...] release of HIV test results or diagnoses. [id number] Encounter Details Date Type Department Care Team (Late st Contact Info) Description 12/05/2016 Chart Note [facility] INFORMATION MANAGEMENT [address] [place] [address] Margarita Huntley MD Social History Tobacco Use [...] on filedocumented in this encounter Care Teams Regulator Inspector Relationship Specialty Start Date End Date Pcp, No No Address PCP - General Pediatrics 08/17/16 04/23/21 System, Provider Not In PCP - General 04/24/21 05/18/21 Pcp, No No Address PCP - General 05/19/21 Matt Glover MD [address] [place] [address] 08/17/16 documented as of this encounter
--- OUTSIDE RECORDS SUMMARY | 2025-07-09 09:58 | XMS_ITS | Clinical Summary ---
Author Organization [facility] Address [address] [place] [address] Care Team Providers Care Vice President Quality Name Role Phone Buster Falcon MD Primary Care Provider + [phone] Allergies Active Allergy Reactions Criticality Noted Date [...] 03/20/2014 UKY-Zoster Vaccines (1 of 2) 2018 [id number] Vaccine (3 - Pfizer risk series) 05/05/2021 [...] patient's age to complete this topic Insurance [facility] Care Teams Vice President Quality Relationship Specialty Start Date End Date Buster Falcon MD [address] [place], [place] [address] PCP - General 08/22/23
--- OUTSIDE RECORDS SUMMARY | 2025-07-09 09:58 | XMS_ITS ---
Laboratory report Created on: June 25, 2025 BERNARDA OVALLES : 1970 Sex: Female Author Organization Unknown PROBLEMS Problems List Code Description RESULTS Laboratory Orders Date Order Code Test 2025-06-17 252023 TGAB+THYROGLOBUL IN,JESUS OR SRINIVASA 2025-06-17 364186 PROTEIN ELECTRO. ,S 2025-06-17 860653 ALK PHOSPHATASE, BONE SPECIFIC 2025-06-17 862374 C-TELOPEPTIDE, S PRATIK Laboratory Results Date LOINC Test Value Unit Reference Range Interpre tation 2025-06-17 8098-6 THYROGLOBULIN ANTIBODY LTTA IU/ML 0.0-0. 9 2025-06-17 3013-0 THYROGLOBULIN BY JESUS <0.1 NG/ML 1.5-38.5 L 2025-06-17 2885-2 PROTEIN, TOTAL 6.5 G/DL 6.0-8.5 2025-06-17 2862-1 ALBUMIN 3.6 G/DL 2.9-4.4 2025-06-17 2865-4 SLWUX-9-WCZRBMVF .2 G/DL 0.0-0.4 2025-06-17 2868-8 PJGUY-2-OOPTUTMS .7 G/DL 0.4-1.0 2025-06-17 2871-2 BETA GLOBULIN 1 G/DL 0.7-1.3 2025-06-17 2874-6 GAMMA GLOBULIN 1 G/DL 0.4-1.8 2025-06-17 13761-3 M-SPIKE NOB G/DL NOT OBSERVED 2025-06-17 58144-2 GLOBULIN, TOTAL 2.9 G/DL 2.2-3.9 2025-06-17 1759-0 A/G RATIO 1.2 0.7-1.7 2025-06-17 76101-5 PDF IMAGE 2025-06-17 69841-6 ALK PHOSPHATASE, BONE SPECIFIC 13.2 UG/L 2025-06-17 24351-9 PDF IMAGE 2025-06-17 41816-6 C-TELOPEPTIDE, SERUM 572 PG/ML
--- OUTSIDE RECORDS SUMMARY | 2025-07-09 09:58 | XMS_ITS | Encounter Summary ---
Author Organization Healthcare Address [address] [place] [address] Care Team Providers Care Night Assistant Name Role Phone Buster Falcon MD Primary Care Provider + [phone] Encounter Details Date Type Department Care Team ([facility] Contact Info) Description 05/15/2021 Orders Only External Location [address] [place] [address] Provider, External Social History Tobacco Use Types [...] on filedocumented in this encounter Care Teams Night Assistant Relationship Specialty Start Date End Date Buster Falcon MD [address] [place] [address] PCP - General 08/22/23 documented as of this encounter
--- OUTSIDE RECORDS SUMMARY | 2025-07-09 09:58 | XMS_ITS | Encounter Summary ---
Author Organization [facility] Address [address] [place] [address] Care Team Providers Care Business Technology Professor Name Role Phone Pcp, No Primary [...] release of HIV test results or diagnoses. [id number] Health Encounter Details Date Type Department Care Team (Late st Contact Info) Description 07/18/2018 Orders Only [facility] Dermatology at [address] [place] [address] Mary Arellano CNP Social History Tobacco Use [...] the phone Final pathology result: Accession Number: [id number] Biopsy Site: Rt chest Biopsy Date: 07/18/2018 [...] - 07/20/2018 12:52 PM EDT Accession Number: [id number] Biopsy Site: Rt chest Biopsy Date: 07/18/2018 [...] Unknown, Attending Provider - 07/20/2018 Accession Number: [id number] Biopsy Site: Rt chest Biopsy Date: 07/18/2018 Impression: R/O ISK vs pigmented BCC Gross Description: A specimen of skin was received measurinx3x0.5mm; 8x8x0.5mm MICRO EXAM: There is hyperkeratosis, acanthosis, dyskeratotic cells, basalvacuolization, cytoid bodies and a dense lymphocytic infiltrate in the papillarydermis. DIAGNOSIS: Lichenoid keratosis, and adjacent solar lentigo. ICD-10: L57.0 PATHOLOGIST: Electronically signed by: Zully Kothari MD Mary Arellano SALES COMPENSATION ANALYST DERM PROCEDURE ORDERABLES F inal Result DERM PATH LAB documented in this encounter Visit Diagnoses Not on filedocumented in this encounter Care Teams Business Technology Professor Relationship Specialty Start Date End Date Pcp, No No Address PCP - General Pediatrics 08/17/16 04/23/21 System, Provider Not In PCP - General 04/24/21 05/18/21 Pcp, No No Address PCP - General 05/19/21 Matt Glover MD [address] [place] [address] 08/17/16 documented as of this encounter
--- OUTSIDE RECORDS SUMMARY | 2025-07-09 09:58 | XMS_ITS | Encounter Summary ---
Author Organization [facility] Address [address] [place] [address] Care Team Providers Care Gasket Inspector Name Role Phone Pcp, No Primary [...] release of HIV test results or diagnoses. [id number] Encounter Details Date Type Department Care Team (Late st Contact Info) Description 10/31/2016 Chart Note [facility] INFORMATION MANAGEMENT [address] [place] [address] Margarita Huntley MD Social History Tobacco Use [...] on filedocumented in this encounter Care Teams Gasket Inspector Relationship Specialty Start Date End Date Pcp, No No Address PCP - General Pediatrics 08/17/16 04/23/21 System, Provider Not In PCP - General 04/24/21 05/18/21 Pcp, No No Address PCP - General 05/19/21 Matt Glover MD [address] [place] [address] 08/17/16 documented as of this encounter
--- OUTSIDE RECORDS SUMMARY | 2025-07-09 09:58 | XMS_ITS | Encounter Summary ---
Author Organization [facility] Address [address] [place] [address] Care Team Providers Care Director Digital Catalogue Name Role Phone Pcp, No Primary Care [...] release of HIV test results or diagnoses. [id number] Encounter Details Date Type Department Care Team (Late st Contact Info) Description 11/30/2016 Chart Note [facility] HE[facility] INFORMATION MANAGEMENT [address] [place] [address] Margarita Huntley MD Social History Tobacco Use [...] filedocumented in this encounter Care Teams Director Digital Catalogue Relationship Specialty Start Date End Date Pcp, No No Address PCP - General Pediatrics 08/17/16 04/23/21 System, Provider Not In PCP - General 04/24/21 05/18/21 Pcp, No No Address PCP - General 05/19/21 Matt Glover MD [address] [place] [address] 08/17/16 documented as of this encounter
--- OUTSIDE RECORDS SUMMARY | 2025-07-09 09:58 | XMS_ITS | Clinical Summary ---
Author Organization [facility] Address [address] [place] [address] Care Team Providers Care Associate Embalmer/Funeral Director Name Role Phone Pcp, No Primary Care Provider [phone] Matt Glover MD Unavailable Source Comments This [...] therelease of HIV test results or diagnoses. [id number] All[facility] Active Allergy Reactions Criticality Noted Date [...] 10/22/2022, 07/08/2021, 07/30/2019 Immunization: COVID-19 ( season) 2025 04/07/2021, 03/17/2021 Immunization: Influenza (MyC peraza) (#1) [...] Maintenance Insurance [employer] MED[employer]ARE ADVANTAGE Care Teams Associate Embalmer/Funeral Director Relationship Specialty Start Date End Date Pcp, No No Address PCP - General 05/19/21 Matt Glover MD [address] [place] [address] 08/17/16
--- OUTSIDE RECORDS SUMMARY | 2025-07-09 09:58 | XMS_ITS | Encounter Summary ---
Author Organization [facility] Address [address] [place] [address] Care Team Providers Care Vehicle Operator Name Role Phone Pcp, No Primary [...] release of HIV test results or diagnoses. [id number] Encounter Details Date Type Department Care Team (Late st Contact Info) Description 10/07/2016 Chart Note [facility] HEALTH INFORMATION MANAGEMENT [address] [place] [address] Margarita Huntley MD Social History Tobacco Use [...] on filedocumented in this encounter Care Teams Vehicle Operator Relationship Specialty Start Date End Date Pcp, No No Address PCP - General Pediatrics 08/17/16 04/23/21 System, Provider Not In PCP - General 04/24/21 05/18/21 Pcp, No No Address PCP - General 05/19/21 Matt Glover MD [address] [place] [address] 08/17/16 documented as of this encounter
--- OUTSIDE RECORDS SUMMARY | 2025-07-09 09:58 | XMS_ITS | Encounter Summary ---
Author Organization Healthcare Address [address] [place] [address] Care Team Providers Care C.O.D. Biller Name Role Phone Buster Falcon MD Primary Care Provider + [phone] Encounter Details Date Type Department Care Team ([facility] st Contact Info) Description 03/10/2023 Orders Only External Location [address] [place] [address] Provider, External Social History Tobacco Use Types [...] on filedocumented in this encounter Care Teams C.O.D. Biller Relationship Specialty Start Date End Date Buster Falcon MD [address] [place] [address] PCP - General 08/22/23 documented as of this encounter
--- OUTSIDE RECORDS SUMMARY | 2025-07-09 09:58 | XMS_ITS | Encounter Summary ---
Author Organization Healthcare Address [address] [place] [address] Care Team Providers Care Mannequin Mold Maker Name Role Phone Buster Falcon MD Primary Care Provider [phone] Encounter Details Date Type Department Care Team ([facility] st Contact Info) Description 08/05/2016 Orders Only External Location [address] [place] [address] Provider, External Social History Tobacco Use Types [...] on filedocumented in this encounter Care Teams Mannequin Mold Maker Relationship Specialty Start Date End Date Buster Falcon MD [address] [place] [address] PCP - General 08/22/23 documented as of this encounter
--- OUTSIDE RECORDS SUMMARY | 2025-07-09 09:58 | XMS_ITS | Encounter Summary ---
Author Organization Healthcare Address [address] [place] [address] Care Team Providers Care Hoop Maker Helper Machine Name Role Phone Buster Falcon MD Primary Care Provider [phone] Encounter Details Date Type Department Care Team ([facility] st Contact Info) Description 02/02/2016 Orders Only External Location [address] [place] [address] Provider, External Social History Tobacco Use Types [...] on filedocumented in this encounter Care Teams Hoop Maker Helper Machine Relationship Specialty Start Date End Date Buster Falcon MD [address] [place] [address] PCP - General 08/22/23 documented as of this encounter
--- OUTSIDE RECORDS SUMMARY | 2025-07-09 09:58 | XMS_ITS | Encounter Summary ---
Author Organization Healthcare Address [address] [place] [address] Care Team Providers Care Sterile Preparation Technician Name Role Phone Buster Falcon MD Primary Care Provider + [phone] Encounter Details Date Type Department Care Team ([facility] st Contact Info) Description 05/15/2021 Orders Only External Location [address] [place] [address] Provider, External Social History Tobacco Use Types [...] on filedocumented in this encounter Care Teams Sterile Preparation Technician Relationship Specialty Start Date End Date Buster Falcon MD [address] [place] [address] PCP - General 08/22/23 documented as of this encounter
--- OUTSIDE RECORDS SUMMARY | 2025-07-09 09:58 | XMS_ITS | Encounter Summary ---
Author Organization [facility] Address [address] [place] [address] Care Team Providers Care Service Parts Driver Name Role Phone Pcp, No Primary Care [...] release of HIV test results or diagnoses. [id number] Health Encounter Details Date Type Department Care Team (Late st Contact Info) Description 05/30/2017 Orders Only [facility] Dermatology at [address] [place] [address] Mary Arellano CNP Social History Tobacco Use [...] the phone Final pathology result: Accession Number: [id number] Biopsy Site: Left nasal tip Biopsy Date: 05/30/2017 Impression: R/O BCC Gross Description: A specimen of skin was received [id number] MICRO EXAM: There are multiple islands of [...] - 06/01/2017 12:35 PM EDT Accession Number: [id number] Biopsy Site: Left nasal tip Biopsy Date: 05/30/2017 Impression: R/O BCC Gross Description: A specimen of skin was received [id number] MICRO EXAM: There are multiple islands of atypical basaloid cells with peripheral palisading and focal central necrosis. There is solar elastosis, proliferation of fibroblasts and a lymphocytic infiltrate in the adjacent stroma. DIAGNOSIS: Nodular basal cell carcinoma. ICD-10: C44.91 PATHOLOGIST: Electronically signed by: Zully Kothari MD Procedure Note Unknown, Attending Provider - 06/01/2017 Accession Number: [id number] Biopsy Site: Left nasal tip Biopsy Date: 05/30/2017 Impression: R/O BCC Gross Description: A specimen of skin was received [id number] MICRO EXAM: There are multiple islands of atypical basaloid cells with peripheral palisading and focal central necrosis. There is solar elastosis, proliferation of fibroblasts and a lymphocytic infiltrate in theadjacent stroma. DIAGNOSIS: Nodular basal cell carcinoma. ICD-10: C44.91 PATHOLOGIST: Electronically signed by: Zully Kothari MD Mary Jb Arellano WREATH MAKER DERM PROCEDURE ORDERABLES F inal Result DERM PATH LAB documented in this encounter Visit Diagnoses Not on filedocumented in this encounter Care Teams Service Parts Driver Relationship Specialty Start Date End Date Pcp, No No Address PCP - General Pediatrics 08/17/16 04/23/21 System, Provider Not In PCP - General 04/24/21 05/18/21 Pcp, No No Address PCP - General 05/19/21 Matt Glover MD [address] [place] [address] 08/17/16 documented as of this encounter
--- NOTE | 2025-07-09 10:00 | US_ITS ---
FINAL REPORT TECHNIQUE: Real-time grayscale and color ultrasound of the soft tissues of the neck was performed. CLINICAL HISTORY: Thyroid cancer s/p total thyroidectomy, follow up COMPARISON: None FINDINGS: Ultrasound images of the salivary glands were obtained. Color Doppler images were submitted. There are 6 mm nodules in the bilateral parotid glands which have an appearance suggesting intraparotid lymph nodes. The submandibular glands are normal. There are normal-appearing lymph nodes in the upper neck. No enlarged lymph nodes seen. IMPRESSION: Unremarkable appearance of the salivary glands without upper neck adenopathy. Reviewed, Interpreted and Dictated by Lisa Gann MD Transcribed by Aria Fernando Authenticated and [facility]
--- NOTE | 2025-07-09 10:05 | XR_ITS ---
FINAL REPORT CLINICAL HISTORY: history of osteoporosis COMPARISON: None FINDINGS: Using L1-4, the bone mineral density of the spine is 1.157 g/cm2, corresponding to T-score of 1.0. Using the left hip, the bone mineral density of the femoral neck is 0.874 g/cm2, corresponding to a T-score of 0.2. Using the right hip, the bone mineral density of the femoral neck is 0.866 g/cm2, corresponding to a T-score of 0.2. NOTE: T-score: Standard deviation compared with peak bone mass of young adult mean. *Following the recommendations of the International Society of Bone densitometry, classification of hip BMD is based on the lower of two T-scores; total hip or femoral neck. IMPRESSION: Normal bone mineral density of the lumbar spine and bilateral hips. Reviewed, Interpreted and Dictated by Lisa Gann MD Transcribed by Eun Cabrales Authenticated and [facility]
== END 2025-07-09 23:59 | disposition home or self-care (01) ==
LOC: RAD 09:20
PROVIDERS: PCP Family Medicine; Visit Provider Student in an Organized Health Care Education/Training Program
DX: C73 Malignant neoplasm of thyroid gland (principal); M48.50XA Collapsed vertebra, not elsewhere classified, site unspecified, initial encounter for fracture; E89.0 Postprocedural hypothyroidism; Z87.39 Personal history of other diseases of the musculoskeletal system and connective tissue; Z80.8 Family history of malignant neoplasm of other organs or systems
CPT/HCPCS: 76536; 77080

== ENCOUNTER 2025-08-06 16:45 | Outpatient (CLI) | payer MEDICARE, SELFPAY ==
[2025-08-06 19:30] LABS: Hematocrit 42.0 % (37.0-47.0); Hemoglobin 14.9 g/dL (12.2-16.2); Immature Granulocytes % 0.4 %; Mean Corpuscular HGB Conc 35.5 g/dL (31.8-35.4); Mean Corpuscular Hemoglobin 30.1 pg (27.0-31.2); Mean Corpuscular Volume 84.8 fl (81-99); Nucleated Red Blood Cells % 0 %; Platelet Count 322 K/mm3 (142-424); Red Blood Count 4.95 M/mm3 (4.20-5.40); Red Cell Distribution Width-SD 35.7 fL; White Blood Count 11.8 K/mm3 (4.8-10.8)
--- OUTSIDE RECORDS SUMMARY | 2025-08-07 12:06 | XMS_ITS | Clinical Summary ---
Author Organization [employer] [facility] Address [address] [place] [address] Phone Care Team Providers Care Blueprint Duplicator Name Role Phone Molina Nohemi ECHEVARRIA Primary Care Physician [phone] Conditions or Problems Problem Name Problem Code Onset Date Status Entry Date Provider Comment Standard Description Annotate Hypertension 09481360 (SNOMED CT) 04/22 Active 04/22 Nohemi Molina SECY Hypertensive disorder Hyperlipidemi a 04694593 (SNOMED CT) 04/22 Active 04/22 Nohemi Molina SECY Hyperlipidemia Diabetes, Type 2 E11.9 (ICD-10-CM ) 04/22 Active 04/22 Nohemi Molina SECY Type 2 diabetes mellitus without complications Depression 41302229 (SNOMED CT) 04/22 Active 04/22 Nohemi Molina SECY Depressive disorder Anxiety Disorder 810108624 (SNOMED CT) 04/22 Active 04/22 Nohemi Molina SECY Anxiety disorder Abnormal Pap Smear 953484678 (SNOMED CT) 04/22 Active 04/22 Nohemi Molina SECY Abnormal cytology findings (History of) Diabetes mellitus, type 2 90730902 (SNOMED CT) 04/22 Active 04/22 Nohemi Molina SECY Type 2 diabetes mellitus Shoulder pain, right, chronic 10524388 (SNOMED CT) 04/22 Active 04/22 Nohemi Molina SECY Pain of shoulder region PERIAPICAL ABSCESS WITHOUT SINUS 714329532 (SNOMED CT) 01/27 Inactive 01/27 Ean Brian DMD Periapical abscess without sinus tract Medications Medication Instructions Start Date Stop Date Generic Name NDC Provider SYNTHROID 25 MCG TABS levothyroxine 99573391625 Nohemi Molina SECY LYRICA 25 MG CAPS pregabalin 84426938503 Nohemi Molina SECY LYRICA 25 MG CAPS pregabalin 96526319773 Nohemi Molina SECY ATORVASTATIN CALCIUM 10 MG TABS atorvastatin 51167274396 Nohemi Molina SECY CARVEDILOL 3.125 MG TABS carvedilol 87287995961 Nohemi Molina SECY CLARITIN 10 MG TABS loratadine 53161802365 Nohemi Molina SECY SPIRONOLACTONE 25 MG TABS spironolactone 49960471257 Nohemi Molina SECY PERCOCET 2.5-325 MG TABS oxycodone-acetam inophen 06176645566 Nohemi Molina SECY ACARBOSE 25 MG TABS acarbose 58923621331 Nohemi Molina SECY AMOXICILLIN 500 MG TABS TAKE 1 TABLET EVERY 8 HOURS AMOXICILLIN 69345088911 Ean Brian DMD Medications Administered No information available. Allergies, Adverse Reactions, Alerts Allergy Name Reaction Description Start Date Severity Statu s Provider IODINE Critical Active Ean To guevara DMD Results No information available. Plan of Care Type Date Detail Referral Interventional P ain (Mireille Becerril Fletcher)[facility] [place], [address] [place] [address], [address] Referral excluded fr om report: Procedures Code Procedure Name Date Entry Date [facility]-[id number] Medication Reconciliation CPT-3077F Most recent systolic blood pressure >=140 mm Hg PAIN MEHRAN POSADA Interventional Pain (Mireille Becerril Fletcher)[facility] Vital Signs Date Name Value Unit Description BMI (Body Mass Index) 30.94 kg/m2 Bod y Mass Index (Ratio) Body Temperature 98.4 [degF] temperat ure E&M Body Temperature 36.89 Myrna temperat ure in centigrade E&M BP Diastolic 96 mm[Hg] blood pressu re, diastolic BP Systolic 156 mm[Hg] blood pressur e, systolic BSA (Body Surface Area) 1.94 b blaze surface area Heart Rate 94 /min pulse rate Height 64.5 [in_us] height E&M Height 163.83 cm height in cent imeters E&M Weight Measured 182.4 [lb_av] weight E& M Weight Measured 182.4 [lb_av] weight E& M Weight Measured 82.91 kg weight in kilograms E&M Immunizations No information available. Advance Directives No information available.
--- OUTSIDE RECORDS SUMMARY | 2025-08-07 12:07 | XMS_ITS | Patient Health Record ---
Author Organization [facility] Address [address] [place] [address] Care Team Providers Care Hydraulic Oil Tool Operator Name Role Phone Jadiel Reno Unavailable [phone] ANA CRISTINA ZOILA Unavailable Unavailable Allergies Allergen [...] 1 capsule Orally Once a day Active [place] 3 1000 MG 1 capsule Orally Onc [...] Status Risk Notes Problem Chronic pain syndrome (560911050) Chronic pain syndrome (G89.4) Active confirmed Problem Cervical disc disorder with radiculopathy (620956214) Cervical disc disorder with radiculopathy, cervicothoracic region (M50.13) Active confirmed Problem Displacement of cervical intervertebral disc without myelopathy (26948635) 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) Active confirmed Problem Localized, primary osteoarthritis of the shoulder region (117043529) Primary osteoarthritis of right shoulder (M19.011) Active confirmed Plan Of Treatment Pending Test Test Name Order Date [facility] Pain[facility] Profile 05/10/2023 [facility] Pain[facility] Profile 05/11/2023 Insurance Providers Payer Name Payer Address Payer Phone Subscriber Number Group Number Insured Name Patient Relationship to Insured Coverage Start Date Coverage End Date [facility] MEDICARE ADVANTAGE [address] [place] [address] [id number] Mireya Bosch Self - [...]
--- OUTSIDE RECORDS SUMMARY | 2025-08-07 12:08 | XMS_ITS | Encounter Summary ---
Author Organization [facility] Address [address] [place] [address] Care Team Providers Care Carton Making Machinist Name Role Phone Pcp, No Primary Care [...] release of HIV test results or diagnoses. [id number] Health Encounter Details Date Type Department Care Team (Late st Contact Info) Description 05/30/2017 Orders Only [facility] Dermatology at [address] [place] [address] Mary Arellano CNP Social History Tobacco Use [...] the phone Final pathology result: Accession Number: [id number] Biopsy Site: Left nasal tip Biopsy Date: 05/30/2017 Impression: R/O BCC Gross Description: A specimen of skin was received [id number] MICRO EXAM: There are multiple islands of [...] - 06/01/2017 12:35 PM EDT Accession Number: [id number] Biopsy Site: Left nasal tip Biopsy Date: 05/30/2017 Impression: R/O BCC Gross Description: A specimen of skin was received [id number] MICRO EXAM: There are multiple islands of atypical basaloid cells with peripheral palisading and focal central necrosis. There is solar elastosis, proliferation of fibroblasts and a lymphocytic infiltrate in the adjacent stroma. DIAGNOSIS: Nodular basal cell carcinoma. ICD-10: C44.91 PATHOLOGIST: Electronically signed by: Zully Kothari MD Procedure Note Unknown, Attending Provider - 06/01/2017 Accession Number: [id number] Biopsy Site: Left nasal tip Biopsy Date: 05/30/2017 Impression: R/O BCC Gross Description: A specimen of skin was received [id number] MICRO EXAM: There are multiple islands of atypical basaloid cells with peripheral palisading and focal central necrosis. There is solar elastosis, proliferation of fibroblasts and a lymphocytic infiltrate in theadjacent stroma. DIAGNOSIS: Nodular basal cell carcinoma. ICD-10: C44.91 PATHOLOGIST: Electronically signed by: Zully Kothari MD Mary Jb Arellano CARPET WINDER DERM PROCEDURE ORDERABLES F inal Result DERM PATH LAB documented in this encounter Visit Diagnoses Not on filedocumented in this encounter Care Teams Carton Making Machinist Relationship Specialty Start Date End Date Pcp, No No Address PCP - General Pediatrics 08/17/16 04/23/21 System, Provider Not In PCP - General 04/24/21 05/18/21 Pcp, No No Address PCP - General 05/19/21 Matt Glover MD [address] [place] [address] 08/17/16 documented as of this encounter
--- OUTSIDE RECORDS SUMMARY | 2025-08-07 12:08 | XMS_ITS | Clinical Summary ---
Author Organization [facility] Address [address] [place] [address] Care Team Providers Care Sponsorship Coordinator Name Role Phone Buster Falcon MD Primary Care Provider + [phone] Allergies Active Allergy Reactions Criticality Noted Date [...] 03/20/2014 UKY-Zoster Vaccines (1 of 2) 2018 [id number] Vaccine (3 - Pfizer risk series) 05/05/2021 [...] to complete this topic Insurance [facility] Care Teams Sponsorship Coordinator Relationship Specialty Start Date End Date Buster Falcon MD [address] [place], [place] [id number] PCP - General 08/22/23
--- OUTSIDE RECORDS SUMMARY | 2025-08-07 12:08 | XMS_ITS | Encounter Summary ---
Author Organization [facility] Address [address] [place] [address] Care Team Providers Care Animal Husbandry Technician Name Role Phone Pcp, No Primary Care [...] release of HIV test results or diagnoses. [id number] Health Encounter Details Date Type Department Care Team (Late st Contact Info) Description 11/30/2016 Chart Note [facility] HE[facility] INFORMATION MANAGEMENT [address] [place] [address] Margarita Huntley MD Social History Tobacco Use [...] on filedocumented in this encounter Care Teams Animal Husbandry Technician Relationship Specialty Start Date End Date Pcp, No No Address PCP - General Pediatrics 08/17/16 04/23/21 System, Provider Not In PCP - General 04/24/21 05/18/21 Pcp, No No Address PCP - General 05/19/21 Matt Glover MD [address] [place] [address] 08/17/16 documented as of this encounter
--- OUTSIDE RECORDS SUMMARY | 2025-08-07 12:08 | XMS_ITS | Encounter Summary ---
Author Organization [facility] Address [address] [place] [address] Care Team Providers Care Dispatcher Refinery Name Role Phone Pcp, No Primary Care [...] release of HIV test results or diagnoses. [id number] Health Encounter Details Date Type Department Care Team (Late st Contact Info) Description 07/18/2018 Orders Only [facility] Dermatology at [address] [place] [address] Mary Arellano CNP Social History Tobacco Use [...] the phone Final pathology result: Accession Number: [id number] Biopsy Site: Rt chest Biopsy Date: 07/18/2018 [...] - 07/20/2018 12:52 PM EDT Accession Number: [id number] Biopsy Site: Rt chest Biopsy Date: 07/18/2018 [...] Unknown, Attending Provider - 07/20/2018 Accession Number: [id number] Biopsy Site: Rt chest Biopsy Date: 07/18/2018 Impression: R/O ISK vs pigmented BCC Gross Description: A specimen of skin was received measurinx3x0.5mm; 8x8x0.5mm MICRO EXAM: There is hyperkeratosis, acanthosis, dyskeratotic cells, basalvacuolization, cytoid bodies and a dense lymphocytic infiltrate in the papillarydermis. DIAGNOSIS: Lichenoid keratosis, and adjacent solar lentigo. ICD-10: L57.0 PATHOLOGIST: Electronically signed by: Zully Kothari MD Mary Arellano COMBINATION MACHINE TOOL SETTER DERM PROCEDURE ORDERABLES F inal Result DERM PATH LAB documented in this encounter Visit Diagnoses Not on filedocumented in this encounter Care Teams Dispatcher Refinery Relationship Specialty Start Date End Date Pcp, No No Address PCP - General Pediatrics 08/17/16 04/23/21 System, Provider Not In PCP - General 04/24/21 05/18/21 Pcp, No No Address PCP - General 05/19/21 Matt Glover MD [address] [place] [address] 08/17/16 documented as of this encounter
--- OUTSIDE RECORDS SUMMARY | 2025-08-07 12:08 | XMS_ITS | Continuity of Care Document ---
Author Organization [facility] Address [address] [place] [address] Phone Care Team Providers Care Communications Programmer Name Role Phone Unavailable Primary Care Provider Unavailabl e Encounters Date Type Department Care Team Description 4 Telephone [facility] [address] [place], [place] [id number] Darya Tate DO Other [address] [address] Madhu Wilkinson MD 4 4:25 PM EDT - 4 11:59 PM EDT Hospital Encounter [facility] [address] [place] [address] Jillian Lock PA-C Cervical radiculopathy Discharge Disposition: Home or Self Care 4 Refill [facility] [address] [place] [address] Madhu Wilkinson MD Medication Refill [address] [phone] Madhu Wilkinson MD Other 4 Telephone [facility] [address] [place] [address] Abimbola Gonzalez MD Paperwork/forms 3 Refill [facility] [address] [place], [place] [address] [address] Madhu Wilkinson MD Medication Refill 3 Refill [facility] [address] [place], [place] [address] [address] Madhu Wilkinson MD Medication Refill 3 Refill [facility] [address] [place], [place] [address] [address] Madhu Wilkinson MD Medication Refill 3 Refill [facility] [address] [place], [place] [address] [address] Madhu Wilkinson MD Medication Refill 3 Travel 3 3:53 PM EDT - 3 11:59 PM EDT Hospital Encounter [place] [facility] [address] [place] [place] [address] Julio César Erazo MD Mid back pain Discharge Disposition: Home or Self Care 3 Refill [facility] [address] [place], [place] [address] [address] Madhu Wilkinson MD Medication Refill 3 2:00 PM EDT Office Visit [facility] [address] [place], [place] [address] [address] Madhu Wilkinson MD Low back pain, unspecified back pain laterality, unspecified chronicity, unspecified whether sciatica present (Primary Dx); Protrusion of cervical intervertebral disc 3 6:00 PM EDT Ancillary Procedure [facility] [address] [place] [address] Madhu Wilkinson MD Thoracic spine pain; Sprain of ligaments of cervical spine, initial encounter; DDD (degenerative disc disease), cervical 3 2:20 PM EDT Ancillary Procedure [facility] [address] [place] [address] Madhu Wilkinson MD Thoracic spine pain 3 2:45 PM EDT Office Visit [facility] [address] [place] [address] Madhu Wilkinson MD Thoracic spine pain (Primary Dx); Sprain of ligaments of cervical spine, initial encounter; DDD (degenerative disc disease), cervical 3 Travel 3 9:57 AM EDT - 3 11:59 PM EDT Hospital Encounter [facility] [place] [address] Julio César Erazo MD Mastodynia Discharge Disposition: Home or Self Care 3 9:19 AM EDT - 3 9:56 AM EDT Hospital Encounter [facility] [place] [address] Julio César Erazo MD Mastodynia Discharge Disposition: Home or Self Care 2 9:00 AM EDT Office Visit [facility] [address] [place] [address] Jadiel Amaya, CELESTE Neoplasm of uncertain behavior of skin of foot (Primary Dx); Onychomycosis; Onychodystrophy; Toe pain, right; History of basal cell carcinoma 2 Travel 2 12:00 PM EDT - 2 11:59 PM EDT Hospital Encounter [facility] [place] [address] Julio César Erazo MD Persistent nodularity of breast; Breast pain Discharge Disposition: Home or Self Care 2 Travel 2 7:23 PM EDT - 2 7:48 PM EDT Emergency [place] [address] [place] [address] Buster Maciel MD Contact dermatitis due to plant (Primary Dx) Discharge Disposition: Home or Self Care 2 2:15 PM EDT Office Visit [facility] [address] [facility] Building [address] [place] [address] Abimbola Gonzalez MD Mediastinal adenopathy (Primary Dx); Histoplasmosis; Lung nodule 2 Travel 2 6:15 PM EST - 2 9:40 PM EST Emergency [facility] Emergency [address] [place] [address] Stephanie Schultz MD Near syncope (Primary Dx) Discharge Disposition: Home or Self Care 2 Travel 2 10:40 AM EST [facility] [address] [place] [address] Angelica Palacios MD Vulval lesion (Primary Dx); Hx of cervical cancer; Sebaceous cyst of labia 1 12:00 PM EDT Ancillary Procedure [facility] [address] [facility] [address] [place] [address] Cervical pain 1 3:00 PM EDT Ancillary Procedure [facility] [address] [address] Madhu Wilkinson MD Cervical pain 1 2:45 PM EDT Office Visit [facility] [address] [address] Madhu Wilkinson MD Cervical pain (Primary Dx) 1 2:45 PM EDT Office Visit [address] [address] Castro Olmos DO Superior glenoid labrum lesion of right shoulder, subsequent encounter (Primary Dx); Arthritis of right acromioclavicular joint 1 11:00 AM EDT Ancillary Procedure [address] [place] [address] 1 10:30 AM EDT Office Visit [place] [phone] Omari Kent MD Acute pain of right shoulder (Primary Dx) 1 11:00 AM EDT Office Visit [place] [phone] Darya Tate DO Nontraumatic incomplete tear of right rotator cuff (Primary Dx); Glenoid labrum tear, right, subsequent encounter; Shoulder weakness 1 1:58 PM EDT - 1 11:59 PM EDT Hospital Encounter [facility] [address] [place] [id number] Julio César Erazo MD Encounter for screening mammogram for malignant neoplasm of breast Discharge Disposition: Home or Self Care 1 Travel 1 Travel 1 3:54 PM EDT - 1 6:27 PM EDT Emergency [address] [address] Jorge Rose MD Atypical chest pain (Primary Dx) Discharge Disposition: Home or Self Care 1 Travel 1 2:15 PM EST Office Visit [facility] [address] [place] [phone] Abimbola Gonzalez MD Mediastinal adenopathy (Primary Dx); Histoplasmosis; Lung nodule 1 Travel 0 3:20 PM EST Ancillary Procedure [facility] [address] [address] Maxine Sequeira MD Cough Discharge Disposition: Home or Self Care 0 2:45 PM EST Office Visit [facility] [address] [address] Maxine Sequeira MD Cough (Primary Dx); Viral upper respiratory tract infection 0 Travel 0 Travel 0 Travel 0 Travel 0 2:00 PM EDT - 0 11:59 PM EDT Hospital Encounter [facility] [address] [place] [address] Discharge Disposition: Home or Self Care 0 Travel 0 Travel 0 2:49 PM EDT - 0 11:59 PM EDT Hospital Encounter [facility] [address] [place] [address] Abimbola Gonzalez MD Mediastinal adenopathy; Histoplasmosis; Lung nodule Discharge Disposition: Home or Self Care 0 Travel 0 12:30 PM EDT Office Visit [facility] [address] [address] Abimbola Gonzalez MD Mediastinal adenopathy (Primary Dx); Histoplasmosis; Lung nodule 0 Telephone [facility] [address] [phone] Abimbola Gonzalez MD Other 0 Travel 0 [...] - 9 11:59 PM EDT Hospital Encounter [facility] [address] [address] Knee pain, unspecified chronicity, unspecified laterality Discharge Disposition: Home or Self Care 9 Telephone [facility] [address] [place] [phone] Abimbola Gonzalez MD Other 8 2:35 PM EDT - 8 11:59 PM EDT Hospital Encounter [facility] [address] [place] [address] Mediastinal adenopathy; Histoplasmosis; Lung nodule Discharge Disposition: Home or Self Care 8 1:30 PM EDT Office Visit [facility] [address] [place] [address] Abimbola Gonzalez MD Mediastinal adenopathy (Primary Dx); Histoplasmosis; Lung nodule 8 2:56 PM EDT - 8 11:59 PM EDT Hospital Encounter [facility] [address] [address] Julio César Erazo MD Pretibial myxedema (Primary Dx); Essential hypertension, malignant; Chronic lymphocytic thyroiditis; Lipoatrophic diabetes (HCC) Discharge Disposition: Home or Self Care 8 2:54 PM EDT - 8 2:55 PM EDT Hospital Encounter [facility] [place] [address] [address] Julio César Erazo MD Localized enlarged lymph nodes; Histoplasmosis Discharge Disposition: Home or Self Care 8 Telephone [facility] [address] [place] [address] Abimbola Gonzalez MD Other 8 Telephone [facility] [place] [address] Jennifer Emmanuel, WILDER Other 8 Telephone [facility] [address] [place] [address] Katja Georges MA Other 8 Telephone [facility] [place] [address] Salma Hsu RMA Other 8 1:30 PM EST - 8 11:59 PM EST Hospital Encounter [facility] [place] [address] Julio César Erazo MD Breast lump; Breast pain; History of cancer Discharge Disposition: Home or Self Care 8 1:00 PM EST - 8 1:29 PM EST Hospital Encounter [facility] [place] [address] Julio César Erazo MD Breast lump; Breast pain; History of cancer Discharge Disposition: Home or Self Care 7 9:50 AM EDT - 7 11:59 PM EDT Hospital Encounter [facility] [address] [place] [address] Overactive thyroid gland (Primary Dx); Macrocytic anemia; Anemia, Hockley's; Overproduction of ACTH; Essential hypertension, benign; Disease of pancreas; Familial lipodystrophic diabetes (HCC) Discharge Disposition: Home or Self Care 7 9:15 AM EDT Office Visit [facility] [address] [place] [address] Abimbola Gonzalez MD Hoarseness (Primary Dx); Mediastinal adenopathy; Lung nodule 7 Telephone [facility] [place] [address] [place] [address] Abimbola Gonzalez MD Other 7 2:00 PM EDT - 7 11:59 PM EDT Hospital Encounter [facility] [place] [facility] [address] [place] [address] Abimbola Gonzalez MD Mediastinal adenopathy; Histoplasmosis Discharge Disposition: Home or Self Care 7 Telephone [facility] [address] [place] [address] Abimbola Gonzalez MD No Show ( ct chest on 02/16) 6 10:42 AM EST - 6 11:59 PM EST Hospital Encounter [facility] [address] [place] [address] Margarita Huntley MD Abdominal pain, unspecified location Discharge Disposition: Home or Self Care 6 4:55 PM EDT - 6 11:59 PM EDT Hospital Encounter [facility] [address] [facility] [place] [address] Stomach ache (Primary Dx); Pretibial myxedema; Malignant neoplasm of thyroid gland (HCC); Vitamin D deficiency Discharge Disposition: Home or Self Care 6 1:43 PM EDT - 6 11:59 PM EDT Hospital Encounter [facility] MRI [address] [address] Rod Stahl Jr., MD Cervical radiculopathy Discharge Disposition: Home or Self Care 6 2:00 PM EDT Office Visit [facility] [place] [address] [place] [phone] Abimbola Gonzalez MD Mediastinal adenopathy (Primary Dx); Histoplasmosis 6 6:00 PM EDT - 6 11:59 PM EDT Hospital Encounter [facility] [place] [facility] [address] [place] [address] Abimbola Gonzalez MD Hoarseness; Mediastinal adenopathy; Histoplasmosis; Lung nodule Discharge Disposition: Home or Self Care 6 4:51 PM EDT - 6 11:59 PM EDT Hospital Encounter [facility] [place] MRI [address] [place] [address] Julio César Erazo MD Subacromial bursitis, right Discharge Disposition: Home or Self Care 6 Telephone [facility] [place] [address] [place] [address] Abimbola Gonzalez MD Other 6 Telephone [facility] [address] [place] [address] Abimbola Gonzalez MD Other (schedule january) 5 4:21 PM EST - 5 11:59 PM EST Hospital Encounter [place] [place] [facility] [address] [place] [address] Julio César Erazo MD Encounter for screening mammogram for malignant neoplasm of breast Discharge Disposition: Home or Self Care 5 2:30 PM EDT Office Visit [facility] [address] [address] Abimbola Gonzalez MD Mediastinal adenopathy (Primary Dx); Hoarseness; Histoplasmosis; Lung nodule 5 Telephone [facility] [address] [place] [address] Abimbola Gonzalez MD Other 5 12:00 PM EDT - 5 11:59 PM EDT Hospital Encounter [facility] [address] [place] [address] Abimboal Gonzalez MD Hoarseness; Mediastinal adenopathy; Histoplasmosis Discharge Disposition: Home or Self Care 5 Telephone [facility] [address] [place] [address] Abimbola Gonzalez MD Other (schedule april) 5 Refill [facility] [address] [place] [address] Darya Conner MD Medication Refill 5 Telephone [facility] [address] [place] [address] Alisha Waggoner, RMA Other 5 7:18 PM EST - 5 9:08 PM EST Emergency . [facility] [address] [place] [address] Esteban Sanchez MD Spasm eyelid (Primary Dx); Muscle spasm; Elevated blood pressure Discharge Disposition: Home or Self Care 5 Telephone [facility] [address] [address] Abimbola Gonzalez MD Visit Follow Up 5 10:30 AM EST Office Visit [facility] [address] [place] [address] Abimbola Gonzalez MD Hoarseness (Primary Dx); Mediastinal adenopathy; Histoplasmosis 4 1:40 PM EST - 4 11:59 PM EST Hospital Encounter [place] [address] [facility] [place] [address] Abimbola Gonzalez MD Mediastinal adenopathy; Lung nodule; Histoplasmosis Discharge Disposition: Home or Self Care 4 1:30 PM EST - 4 1:45 PM EST Surgery [facility] [address] [place] [address] Germain Santa MD ESOPHAGOGASTRODUODENOSCOPY 4 11:58 AM EST - 4 4:30 PM EST Hospital Encounter [facility] [address] [place] [address] Lena Fish MD RUQ pain (Primary Dx); Chronic diarrhea; Breast nodule; DM (diabetes mellitus) (HCC); Histoplasmosis; Hypothyroid; Barretts esophagus Discharge Disposition: Left Against Medical Advice 4 Patient Outreach [facility] [address] [place] [address] Nani Sims RN Care Transition 4 12:15 PM EDT Office Visit [facility] [address] [place] [address] Abimbola Gonzalez MD Mediastinal adenopathy (Primary Dx); Lung nodule; Histoplasmosis 4 Telephone [facility] [address] [place] [address] Buster Talbot MD Results 4 9:11 AM EDT - 4 11:59 PM EDT Hospital Encounter [facility] X[facility] [address] [place] [address] Darya Conner MD Abdominal pain Discharge Disposition: Home or Self Care 4 9:03 AM EDT - 4 9:10 AM EDT Hospital Encounter [place] [facility] [address] [place], [place] [address] Darya Conner MD Abdominal pain Discharge Disposition: Home or Self Care 4 4:07 PM EDT - 4 11:59 PM EDT Hospital Encounter [facility] LAB ZARI PROCESSING [facility] [place] [address] Abdominal pain Discharge Disposition: Home or Self Care 4 10:15 AM EDT Office Visit [facility] [address] [place] [address] Darya Conner MD Abdominal pain (Primary Dx); Histoplasmosis; Garcia's esophagus; Vertebral artery disease; DM (diabetes mellitus) (HCC) 4 Patient Outreach [facility] [address] [place] [address] Nani Sims RN Care Transition 4 11:30 AM EDT Office Visit [facility] Cardiac Surgeons [address] [place] [address] Cory Moran MD Lung nodule, solitary (Primary Dx); Mediastinal adenopathy 4 Telephone [facility] [address] [place] [address] Nani Sims, client representative 4 Telephone [facility] [address] [place] [address] Nani Sims, client representative 4 3:03 PM EDT - 4 4:15 PM EDT Emergency [facility] [address] [facility] [place] [address] Ernesto Davis MD History of chest tube placement (Primary Dx) Discharge Disposition: Home or Self Care 4 Telephone [facility] [address] [place] [id number] Nani Sims, client representative 4 5:56 AM EDT - 4 1:49 PM EDT Hospital Encounter [facility] PACU OVERNIGHT [facility] [place] [address] Cory Moran MD Discharge Disposition: Home or Self Care 4 8:00 AM EDT - 4 11:45 AM EDT Surgery [facility] PERIOP [facility] [place] [address] Cory Moran MD THORACOSCOPY POSSIBLE THORACOTOMY (VATS- VIDEO-ASSISTED THORACOSCOPIC SURGERY) (INCLUDES FLEXIBLE BRONCHOSCOPY) (REGULAR OR ROOM) 4 2:59 PM EDT - 4 11:59 PM EDT Hospital Encounter [facility] D-WING XRAY [facility] [place] [address] Shantal Ames APRN Discharge Disposition: Home or Self Care 4 1:30 PM EDT - 4 2:58 PM EDT Hospital Encounter [facility] PRE-ADMIT TESTING [facility] [place] [address] Preop examination (Primary Dx); Hoarseness; Mediastinal adenopathy; Lung nodule Discharge Disposition: Home or Self Care 4 2:30 PM EDT Office Visit [facility] Cardiac Surgeons [place] [address] [place] [address] Cory Moran MD Mediastinal adenopathy (Primary Dx); Lung nodule 4 Telephone [facility] [address] [place] [address] Abimbola Gonzalez MD Visit Follow Up 4 11:15 AM EDT Office Visit [facility] [address] [place] [address] Abimbola Gonzalez MD Mediastinal adenopathy (Primary Dx); Lung nodule 4 Orders Only [facility] [address] [place] [address] Buster Talbot MD Hyperlipidemia (Primary Dx) 4 6:35 PM EDT - 4 11:59 PM EDT Hospital Encounter ED[facility] LAB ZARI PROCESSING [facility] [place] [address] DM (diabetes mellitus) (HCC) Discharge Disposition: Home or Self Care 4 1:40 PM EDT Clinical Support [facility] [address] [place] [address] Mireya George Type II or unspecified type diabetes mellitus without mention of complication, not stated as uncontrolled (HCC) (Primary Dx) 4 4:30 PM EDT - 4 11:59 PM EDT Hospital Encounter EDG D-WING XRAY [facility] [place] [place] [address] Chest pain; Cough Discharge Disposition: Home or Self Care 4 Orders Only [facility] [address] [address] Abimbola Gonzalez MD Chest pain (Primary Dx); Cough 4 7:14 PM EDT - 4 11:59 PM EDT Hospital Encounter EDG LAB ZARI PROCESSING [facility] [place] [address] DM (diabetes mellitus) ([facility]) Discharge Disposition: Home or Self Care 4 1:00 PM EDT Office Visit [facility] [address] [place] [phone] Buster Talbot MD Well adult exam (Primary Dx); Lung nodule; Mediastinal adenopathy; Pneumothorax; Garcia esophagus; Osteoarthritis; DM (diabetes mellitus) (HCC) 4 9:00 AM EDT - 4 11:00 AM EDT Surgery [facility]G ENDOSCOPY [facility] [place] [address] Abimbola Gonzalez MD ENDOSCOPIC BRONCHIAL ULTRASOUND-EBUS (ANESTHESIA) 4 7:04 AM EDT - 4 4:27 PM EDT Hospital Encounter EDG ENDOSCOPY [facility] [place] [address] Abimbola Gonzalez MD Lung nodule (Primary Dx); Mediastinal adenopathy Discharge Disposition: Home or Self Care 4 2:20 PM EDT - 4 11:59 PM EDT Hospital Encounter Srinivas EKG [facility] [place] [address] Abimbola Gonzalez MD Pre-op testing Discharge Disposition: Home or Self Care 4 12:45 PM EDT - 4 11:59 PM EDT Hospital Encounter EDG PRE-ADMIT TESTING [facility] [place] [address] Discharge Disposition: Home or Self Care 4 Telephone [facility] [address] [address] Abimbola Gonzalez MD Visit Follow Up 4 1:26 PM EDT - 4 11:59 PM EDT Hospital Encounter EDG PET [facility] [place] [address] Abimbola Gonzalez MD Mediastinal adenopathy; Lung nodule; Cough Discharge Disposition: Home or Self Care 4 2:15 PM EDT - 4 11:59 PM EDT Hospital Encounter [facility] [address] [facility] [place] [address] Mediastinal adenopathy (Primary Dx); Lung nodule; Cough Discharge Disposition: Home or Self Care 4 12:45 PM EDT Office Visit [facility] [address] [place] [address] Abimbola Gonzalez MD Mediastinal adenopathy (Primary Dx); Lung nodule; Cough 4 8:00 PM EDT - 4 11:59 PM EDT Hospital Encounter [facility] [address] [place] [address] Abimbola Gonzalez MD Hoarseness; Mediastinal adenopathy; Lung nodule Discharge Disposition: Home or Self Care 4 5:40 PM EDT Office Visit [facility] [address] [place] [phone] Alvina Lopes APRN Acute sinusitis (Primary Dx) 3 6:06 PM EST - 3 8:21 PM EST Emergency [facility] [address] [facility] [place] [address] Andrea Richards MD Contusion of right wrist (Primary Dx); Contusion of right forearm Discharge Disposition: Home or Self Care 3 Telephone [facility] [address] [phone] Abimbola Gonzalez MD Visit Follow Up 3 3:45 PM EST Office Visit [facility] [address] [phone] Abimbola Gonzalez MD Hoarseness (Primary Dx); Mediastinal adenopathy; Lung nodule 3 8:00 PM EDT - 3 11:59 PM EDT Hospital Encounter [facility] [address] [place] [address] Abimbola Gonzalez MD Hoarseness; Chest pain; Mediastinal adenopathy Discharge Disposition: Home or Self Care 3 Telephone [facility] [address] [place] [address] Abimbola Gonzalez MD Other (schedule may) 3 9:46 PM EDT - 3 7:05 PM EDT Hospital Encounter [facility] [address] [address] [place] [address] Ernesto Davis MD Wong, Chris, MD Chest pain (Primary Dx); Peripheral edema; EKG abnormalities; Lethargy; Environmental allergies; Hypothyroid Discharge Disposition: Home or Self Care 3 Telephone [facility] [address] [address] Abimbola Gonzalez MD Visit Follow Up 3 9:45 AM EDT Office Visit [facility] [address] [place] [address] Abimbola Gonzalez MD Hoarseness (Primary Dx); Chest pain; Mediastinal adenopathy 3 2:23 PM EDT - 3 11:59 PM EDT Hospital Encounter [facility] [address] [facility] [place] [address] Abimbola Gonzalez MD Pleuritic chest pain (Primary Dx) Discharge Disposition: Home or Self Care 3 2:00 PM EDT Office Visit [facility] [address] [place] [phone] Abimbola Gonzalez MD Pleuritic chest pain (Primary Dx); Hoarseness; Mold exposure 3 11:00 AM EDT - 3 11:59 PM EDT Hospital Encounter [facility] [address] [place] [address] SOB (shortness of breath) Discharge Disposition: Home or Self Care 3 Orders Only [facility] [place] [address] [place] [address] Abimbola Gonzalez MD SOB (shortness of breath) (Primary Dx) 2 12:41 PM EST - 2 11:59 PM EST Hospital Encounter [facility] [address] [place] [address] Other screening mammogram Discharge Disposition: Home or Self Care 2 7:25 PM EDT - 2 11:59 PM EDT Hospital Encounter [facility] [address] [place] [address] Unspecified hypothyroidism; Unspecified deficiency anemia; Unspecified essential hypertension; Laboratory examination, unspecified Discharge Disposition: Home or Self Care 2 4:18 AM EDT - 2 11:59 PM EDT Hospital Encounter EDG LAB [facility] [address] Screening for malignant neoplasm of the cervix Discharge Disposition: Home or Self Care 2 3:00 PM EDT Office Visit [facility] [address] [place] [address] Jadiel Abernathy MD History of cervical cancer; Urinary incontinence 2 2:24 PM EDT - 2 11:59 PM EDT Hospital Encounter [facility] [address] [place] [address] Julio César Erazo MD Breast cyst Discharge Disposition: Home or Self Care 1 10:28 AM EDT - 1 11:59 PM EDT Hospital Encounter [facility] [address] [place] [address] Kam Escalera MD Breast pain Discharge Disposition: Home or Self Care 1 2:47 PM EST - 1 3:36 PM EST Emergency [facility] [address] Felipe Larsen MD Cough; Chest wall pain Discharge Disposition: Home or Self Care 0 9:42 AM EDT - 0 11:59 PM EDT Hospital Encounter [facility] [address] [place] [address] Pagani, Javon Discharge Disposition: Home or Self Care 0 9:30 AM EDT - 0 9:41 AM EDT Hospital Encounter [facility] [address] [place] [address] Pagani, Javon Back pain; Rib pain Discharge Disposition: Home or Self Care 0 3:45 PM EDT - 0 11:59 PM EDT Hospital Encounter [facility] XRAY [address] [place] [address] Chest pain Discharge Disposition: Home or Self [...] PM EDT Hospital Encounter [facility] Josh Machado 9 Hospital Encounter [facility] Generic, Historical Provider 9 Hospital Encounter [facility] GYNECOLOG[facility] Generic, Historical Provider 9 9:25 PM EDT - 9 11:59 PM EDT Hospital Encounter [facility] Josh Machado 8 6:30 AM EDT - 8 8:54 [...] Emergency HST EPIC CON UNK COV Norman Floyd, DO 2 6:50 PM EDT - 2 9:06 PM EDT Emergency HST [id number] [...] Encounter HST EPIC CON UNK COV Dee Glvoer MD 4 1:31 PM EDT - 4 [...] - 0 11:59 PM EDT Emergency HST [facility] CON UNK COV Iwona Solano MD 0 1:18 AM EDT - 0 11:59 PM EDT Emergency HST [facility] CON UNK COV Abdulkadir Gooden 0 12:34 PM EDT - 0 11:59 PM EDT Hospital Encounter HST [facility] COV Dee Glover MD Allergies Active Allergy Reactions Criticality Noted [...] Pain. Active fluticasone (FLONASE) 50 mcg/actuation Nasl [place], SuspensionIndica tions:Hoarseness ,Mediastinal adenopathy,Histo plasmosis,Lung nodule 1 [place] by Nasal route daily. 1 Bottle 11 [...] Grandmother Social History Smoking Status as of 08/07/2025 Tobacco Use Types Packs/Day Years Used Date [...] EDT Overactive thyroid gland Macrocytic anemia Anemia, Hockley's Overproduction of ACTH Essential hypertension, benign Disease of pancreas Familial lipodystrophic diabetes (HCC) LIPASE LEVEL Callback 04/11/2017 10:06 AM EDT Overactive thyroid gland Macrocytic anemia Anemia, Hockley's Overproduction of ACTH Essential hypertension, benign Disease [...] EDT Overactive thyroid gland Macrocytic anemia Anemia, Hockley's Overproduction of ACTH Essential hypertension, benign Disease of pancreas Familial lipodystrophic diabetes (HCC) VITAMIN B12 LEVEL Callback 04/11/2017 10:06 AM EDT Overactive thyroid gland Macrocytic anemia Anemia, Kingsley's Overproduction of ACTH Essential hypertension, benign Disease of pancreas Familial lipodystrophic diabetes (HCC) CBC WITH DIFF Callback 04/11/2017 10:06 AM EDT Overactive thyroid gland Macrocytic anemia Anemia, Hockley's Overproduction of ACTH Essential hypertension, benign Disease of pancreas Familial lipodystrophic diabetes (HCC) TRIIODOTHYRONINE, REVERSE BY TMS-REF LAB Callback 04/11/2017 10:06 AM EDT Overactive thyroid gland Macrocytic anemia Anemia, Hockley's Overproduction of ACTH Essential hypertension, benign Disease of pancreas Familial lipodystrophic diabetes (HCC) TRIIODOTHYRONINE Callback 04/11/2017 10:06 AM EDT Overactive thyroid gland Macrocytic anemia Anemia, Hockley's Overproduction of ACTH Essential hypertension, benign Disease of pancreas Familial lipodystrophic diabetes (HCC) THYROID STIMULATING HORMONE Callback 03/24 10:06 AM EDT Overactive thyroid gland Macrocytic anemia Anemia, Hockley's Overproduction of ACTH Essential hypertension, benign Disease of pancreas Familial lipodystrophic diabetes (HCC) T4, FREE (THYROXINE) Callback 04/11/2017 10:06 AM EDT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 mg/dL 05/18/2018 3:24 PM EDT [facility] Blood BLOOD SPECIMEN / Unknown 05/18/2018 3:21 PM EDT 05/18/2018 3:24 PM EDT us Julio César Erazo MD POINT OF CARE TEST ORDERAB LES Final Result Performing Organization Address City/[facility] [place] [address] * SEDIMENTATION RATE AUTOMATED (05/18/2018 2:58 PM EDT) Only the most recent of2 resultswithin the time period is included. [facility] Sed Rate 3 0 - 20 mm/hr 05/18/2018 9:22 PM EDT [facility] Blood VENOUS BLOOD / Unknown Venipuncture / Unknown 05/18/2018 2:58 PM EDT 05/18/2018 2:58 PM EDT us Julio César Erazo MD HEMATOLOGY ORDERABLES Tiffany l Result Performing Organization Address [facility] Co de Phone Number [facility] [address] [place] [address] * THYROID STIMULATING HORMONE (05/18/2018 2:58 PM EDT) Only the most recent of4 resultswithin the time period is included. TSH 0.278 0.270 - 4.200 mcIU/mL 05/18/2018 8:45 PM EDT [facility], [facility] Blood VENOUS BLOOD / Unknown Venipuncture / Unknown 05/18/2018 2:58 PM EDT 05/18/2018 2:58 PM EDT Narrative [facility] - 05/18/2018 8:45 PM EDT Please fax results to [phone] Please fax results to [phone] Please fax results to [phone] Ingestion of shane doses of biotin (>5 mg/day) taken within 8 hours of drawing blood sample can interfere with this immunoassay test. Julio César Erazo MD CHEMISTRY ORDERABLES Final Result Performing Organization Address [facility] Co de Phone Number [facility] [address] [place] [address] , [place] [address] * T4, FREE (THYROXINE) (05/18/2018 2:58 PM EDT) Only the most recent of4 resultswithin the time period is included. Free T4 1.58 0.80 - 2.00 ng/dL 05/18/2018 8:45 PM EDT [facility] Blood VENOUS BLOOD / Unknown Venipuncture / Unknown 05/18/2018 2:58 PM EDT 05/18/2018 2:58 PM EDT Narrative [facility] - 05/18/2018 8:45 PM EDT Please fax results to [phone] Please fax results to [phone] Please fax results to [phone] Ingestion of shane doses of biotin (>5 mg/day) taken within 8 hours of drawing blood sample can interfere with this immunoassay test. Julio César Erazo MD CHEMISTRY ORDERABLES Final Result Performing Organization Address [facility] Co de Phone Number [facility] [address] [place] [address] , [place] [address] * (ABNORMAL) HEMOGLOBIN A1C (05/18/2018 2:58 PM EDT) Only the most recent of3 resultswithin the time period is included. Hgb A1C 6.2(H) 4.2 - 5.6 % 05/18/2018 10:19 PM EDT [facility] Est. Avg Glucose 131 mg/dL 05/18/2018 10:19 PM EDT [facility], [facility] Blood VENOUS BLOOD / Unknown Venipuncture / Unknown 05/18/2018 2:58 PM EDT 05/18/2018 2:58 PM EDT Narrative [facility] - 05/18/2018 10:19 PM EDT REFERENCE RANGE: Normal: 4.0-5.6% Pre-diabetes: 5.7-6.4% Provisional diagnosis of diabetes: >6.4% Hgb F>10% and anything which shortens red cell survival, such as hemolytic anemia, or unstable hemoglobin variants such as HbSS, HbSC, or HbCC, will lower the HbA1c value associated with a given level of glycemic control. Please fax results to [phone] us Julio César Erazo MD CHEMISTRY ORDERABLES Final Result [facility], [facility] [address] [facility] , [place] [address] * (ABNORMAL) RENAL FUNCTION PANEL (05/18/2018 2:58 PM EDT) Only the most recent of4 resultswithin the time period is included. Sodium 142 136 - 145 mmol/L 05/18/2018 8:45 PM EDT [facility] Potassium 4.1 3.5 - 5.0 mmol/L 05/18/2018 8:45 PM EDT [facility] Chloride 102 98 - 107 mmol/L 05/18/2018 8:45 PM EDT [facility] Total CO2 25 22 - 29 [...] - 1.30 mg/dL 05/18/2018 8:45 PM EDT [facility] Albumin 4.2 3.5 - 5.2 gm/dL 05/18/2018 8:45 PM EDT [facility] Phosphorus 3.7 2.5 - 4.5 mg/dL 05/18/2018 8:45 PM EDT [facility] [employer] [facility] GFR Afr Am 107 mL/min/1.7 3 m2 05/18/2018 8:45 PM EDT [facility] GFR Non Afr Am 92 mL/min/1.7 3 m2 05/18/2018 8:45 PM EDT [facility] Comment: GFR Afr Am and GFR Non [...] PM EDT 05/18/2018 2:58 PM EDT Narrative [facility] [employer] [facility] - 05/18/2018 8:45 PM EDT Please fax results to [phone] Please fax results to [phone] Please fax results to [phone] us Julio César Erazo MD CHEMISTRY ORDERABLES Final Result [facility] [employer] [facility] [address] [facility] [address] [place] [address] [facility] [address] [place] [address] * MM MAMMO DIGITAL DIAGNOSTIC W CAD BILAT (12/30/2017 1:53 PM EST) Only the most recent of2 resultswithin the time period is included. Anatomical Region Laterality Modality Breast Bilateral Mammography 01/02/2018 7:01 AM EDT Impressions 01/03/2018 9:50 AM EDT : Incomplete-need additional imaging evaluation ([id number]-3) No mammographic evidence of malignancy. ~ The [...] MAMMO DIG SCREEN CAD BILAT, performed at [facility]. DIAGNOSTIC BILATERAL MAMMOGRAPHY WITH CAD ANALYSIS 12-30-17: [...] not significantly changed in size compared to 2014, although the benign calcifications associated with it are increased. No new dominant mass, architectural distortion, or suspicious microcalcifications identified in the breasts bilaterally. ~ us Julio César Erazo MD IMG MAMMOGRAPHY ORDERABLES Final Result * TRIIODOTHYRONINE, REVERSE BY TMS-REF LAB (04/11/2017 10:06 AM EDT) Only the most recent of2 resultswithin the time period is included. Triiodothyronine, Reverse - LC-MS/MS 23.6 9.0 - 27.0 ng/dL [facility] Comment: INTERPRETIVE INFORMATION: Triiodothyronine, Reverse - LC-MS/MS Test developed and characteristics determined by [facility]. See Compliance Statement B: [employer]/CS Performed by [facility], [address] [place] [address] www.[employer], Augie Rebollar MD - Lab. Director Blood specimen (specimen) 04/11/2017 10:06 AM EDT 04/11/2017 2:08 PM EDT Narrative [facility] - 04/13/2017 7:23 AM EDT Fax results to [phone] Julio César Erazo MD CHEMISTRY ORDERABLES Final Result [facility] [address] [place] [address] * DIFFERENTIAL (04/11/2017 10:06 AM EDT) Only the most recent of8 resultswithin the time period is included. Neut Percent 53.1 % [facility] Lymph Percent 32.4 % [facility] Long Percent 11.3 % [facility] Eos Percent 2.4 % [facility] Baso Percent 0.8 % [facility] Neut# 4.2 1.8 - 7.7 x10(3)/mcL [facility] Lymph# 2.6 0.6 - 4.8 x10(3)/mcL [facility] Long# 0.9 0.0 - 1.3 x10(3)/mcL [facility] Eos# 0.2 0.0 - 0.5 x10(3)/mcL [facility] Baso# 0.1 0.0 - 0.2 x10(3)/mcL [facility] Blood specimen (specimen) 04/11/2017 10:06 AM EDT 04/11/2017 10:19 AM EDT us Julio César Erazo MD HEMATOLOGY ORDERABLES Tiffany lozoya Result [facility] [address] [place] [address] * (ABNORMAL) CBC WITH AUTO DIFF (04/11/2017 10:06 AM EDT) Only the most recent of8 resultswithin the time period is included. WBC 7.9 4.0 - 11.0 x10(3)/[facility] RBC 5.26(H) 3.80 - 5.10 x10(6)/[facility] Hgb 15.7(H) 12.0 - 15.6 gm/dL [facility] Hct 45.2 35.7 - 45.9 % [facility] MCV 85.9 82.5 - 99.8 fL [facility] MCH 29.8 27.0 - 34.3 pg [facility] MCHC 34.7 32.1 - 35.3 gm/dL [facility] RDW 13.5 11.5 - 15.0 % [facility] Platelet 207 144 - 423 x10(3)/[facility] MPV 8.8 6.8 - 10.8 fL [facility] Blood specimen (specimen) UPPER LIMB STRUCTURE / Unknown 04/11/2017 10:06 AM EDT 04/11/2017 10:19 AM EDT Narrative [facility] - 04/11/2017 10:26 AM EDT Fax results to [phone] Julio César Erazo MD HEMATOLOGY ORDERABLES Tiffany l Result Performing Organization Address City/[facility] Co de Phone Number [facility] [address] [place] [address] * TRIIODOTHYRONINE (04/11/2017 10:06 AM EDT) Only the most recent of3 resultswithin the time period is included. Total T3 0.98 0.80 - 2.00 ng/mL [facility] Blood specimen (specimen) UPPER LIMB STRUCTURE / Unknown 04/11/2017 10:06 AM EDT 04/11/2017 2:36 PM EDT Narrative [facility] - 04/11/2017 3:54 PM EDT Fax results to [phone] Julio César Erazo MD CHEMISTRY ORDERABLES Final Result Performing Organization Address [facility] Co de Phone Number [address] [address] * LIPASE LEVEL (04/11/2017 10:06 AM EDT) Only the most recent of2 resultswithin the time period is included. Pathologist [facility] Lipase Lvl 54 13 - 60 IU/L [facility] Blood specimen (specimen) UPPER LIMB STRUCTURE / Unknown 04/11/2017 10:06 AM EDT 04/11/2017 2:36 PM EDT Narrative [facility] - 04/11/2017 3:54 PM EDT Fax results to [phone] Julio César Erazo MD CHEMISTRY ORDERABLES Final Result Performing Organization Address [facility] Co de Phone Number [facility] [address] [place] [address] * VITAMIN B12 LEVEL (04/11/2017 10:06 AM EDT) Vitamin B12 337 211 - 946 pg/mL [facility] Blood specimen (specimen) UPPER LIMB STRUCTURE / Unknown 04/11/2017 10:06 AM EDT 04/11/2017 2:40 PM EDT Narrative [facility] - 04/11/2017 3:52 PM EDT Fax results to [phone] us Julio César Erazo MD CHEMISTRY ORDERABLES Final Result Performing Organization Address [facility] Co de Phone Number [facility] [address] [place] [address] * CORTISOL (04/11/2017 10:06 AM EDT) Cortisol 14.55 mcg/dL [facility] Comment: Normals: Mornin.2 - 19.4 mcg/dL Evenin.3 - 11.9 mcg/dL Blood specimen (specimen) UPPER LIMB STRUCTURE / Unknown 04/11/2017 10:06 AM EDT 04/11/2017 2:40 PM EDT Narrative [facility] - 04/11/2017 3:42 PM EDT Fax results to [phone] us Julio César Erazo MD CHEMISTRY ORDERABLES Final Result Performing Organization Address [facility] de Phone Number [facility] [address] [place] [address] * AMYLASE LEVEL (04/11/2017 10:06 AM EDT) Amylase Lvl 41 28 - 100 IU/L [facility] Blood specimen (specimen) UPPER LIMB STRUCTURE / Unknown 04/11/2017 10:06 AM EDT 04/11/2017 2:36 PM EDT Narrative [facility] - 04/11/2017 3:54 PM EDT Fax results to [phone] us Julio César Erazo MD CHEMISTRY ORDERABLES Final Result Performing Organization Address [facility] Co de Phone Number [facility] [address] [place] [address] * CT ABDOMEN PELVIS WO CONTRAST (09/02/2016 [...] 25 OH 14.4(L) 30.0 - 120.0 ng/mL [facility] Comment: INTERPRETIVE INFORMATION: Vitamin D, 25-Hydroxy <20 [...] PM EDT 08/27/2016 7:29 PM EDT Narrative [facility] - 08/27/2016 9:52 PM EDT Fax results to [phone] us Julio César Erazo MD CHEMISTRY ORDERABLES Final Result Performing Organization Address [facility] [place] [address] * THYROGLOBULIN ANTIBODY -REF LAB (08/27/2016 5:19 PM EDT) Thyroglob Ab <0.9 0.0 - 4.0 IU/mL [facility] Comment: INTERPRETIVE INFORMATION: Thyroglobulin Antibody A value of 4.0 IU/mL or less indicates a negative result for thyroglobulin antibodies. The Thyroglobulin Antibody assay is being performed using the [employer] Access DxI method. Performed by [facility], [address] [place] [id number] www[employer], Kade Quintanilla MD - Lab. Director Blood specimen (specimen) UPPER LIMB STRUCTURE / Unknown 08/27/2016 5:19 PM EDT 08/28/2016 1:03 PM EDT Narrative [facility] [employer] - 08/29/2016 12:08 PM EST Fax results to [phone] us Julio César Erazo MD IMMUNOLOGY ORDERABLES Tiffany l Result Performing Organization Address [facility]/ZIP Co de Phone Number [facility] [address] [place] [address] * HEPATIC FUNCTION PANEL (08/27/2016 5:19 PM EDT) Only the most recent of2 resultswithin the time period is included. Total Protein 7.1 6.4 - 8.3 gm/dL [facility] Albumin 4.0 3.5 - 5.2 gm/dL [facility] Bili Direct <0.2 0.0 - 0.3 mg/dL [facility] Bili Total 0.6 0.1 - 1.3 mg/dL [facility] AST 14 <=40 IU/L [facility] ALT 12 <=41 IU/L [facility] Alk Phos 81 35 - 104 IU/L [facility] Blood specimen (specimen) UPPER LIMB STRUCTURE / Unknown 08/27/2016 5:19 PM EDT 08/27/2016 7:29 PM EDT Narrative [facility] - 08/27/2016 7:57 PM EDT Fax results to [phone] us Margarita Huntley MD CHEMISTRY ORDERABLES Final R esult [facility] [address] [place] [address] * MRI SHOULDER RIGHT WO CONTRAST (02/02/2016 [...] 5:30 PM HISTORY: Pain M75.51-Bursitis of right gloooadb-WAH-13-CM TECHNIQUE: Routine MRI right shoulder without contrast. [...] 5:30 PM HISTORY: Pain M75.51-Bursitis of right mdhyddlh-JPE-48-CM TECHNIQUE: Routine MRI right shoulder without contrast. [...] Mild acromioclavicular osteoarthritis. Julio César Erazo MD [facility] [place] ORDERABLES Final R esult * MM MAMMO DIGITAL SCREENING W CAD BILAT (10/22/2015 4:53 PM EST) Only the most recent of2 resultswithin the time period is included. Anatomical Region Laterality Modality Breast Bilateral Mammography 10/23/2015 10:4 3 AM EST Impressions 10/23/2015 3:22 PM EST : Benign finding (VUS-Xueurava-2) ~ RECOMMENDATION: Routine screening mammogram in 1 [...] most recent being 10-19-12. ~ Julio César [facility] MAMMOGRAPHY ORDERABLES Final Result * CT HEAD [...] opacification right mastoidair cells. Esteban Sanchez MD IMG CT ORDERABLES Fi nal Result * PATHOLOGY TISSUE REPORT (08/30/2014 2:51 PM EST) Only the most recent of3 resultswithin the time period is included. Surgical Pathology Report PATIENT NAME:MIREYA OVALLES Surgical Pathology Report Accession Number Collected Date/Time Received Date/Time [id number] 08/30/14 14:51 EST 09/02/14 06:54 EST Diagnosis [...] and the findings corroborate the diagnosis. _ [facility] 08/30/2014 2:51 PM EST Germain Santa MD PATHOLOGY ORDERABLES Final Result Performing Organization Address [facility] de Phone Number [facility] [address] [place] [address] * GMED EGD (08/30/2014 1:30 PM EST) 08/30/2014 1:30 PM EST Impressions [facility] - 08/30/2014 3:20 PM EST Normal esophagus. Normal mucosa in the whole stomach. (Biopsy). Normal mucosa in the whole examined duodenum. (Biopsy). Plan: Await pathology results Continue current medication for acid suppression/ dose 30 minutes before a meal This section is an excerpt of the full report. Germain Santa MD GI PROCEDURE ORDERABLES Fin al Result Performing Organization Address [facility] de Phone Number [facility] [address] [place] [address] * GLUCOSE METER POC (08/30/2014 12:43 PM EST) Only the most recent of6 resultswithin the time period is included. Glucose Meter POC 92 70 - 100 mg/dL [facility] Blood specimen (specimen) 08/30/2014 12:43 PM EST 08/30/2014 12:43 PM EST Lena Fish MD POINT OF CARE TEST ORDERABLES Fi nal Result Performing Organization Address [facility] de Phone Number [facility] [address] [place] [address] * STOOL CULTURE (08/29/2014 7:35 PM EST) Only the most recent of2 resultswithin the time period is included. Final Shiga toxin result: Negative Shiga toxins (produced by E. coli) not detected. [facility] Stool specimen (specimen) 08/29/2014 7:35 PM EST 08/30/2014 8:07 AM EST us Irina Rivas APRN MICROBIOLOGY - GENERAL ORDERA BLES Final Result Performing Organization Address [facility] de Phone Number [facility] [address] [place] [address] * .C DIFF TOXIN DNA RESULTS (08/29/2014 7:35 PM EST) c difficile specimen Stool [facility] Comment: TEST INFORMATION: This assay qualitatively detects a fragment of the Clostridium difficile Toxin A gene in liquid or soft stool in patients suspected of having Clostridium difficile-associated disease (CDAD). This assay is an amplified DNA test by [employer] and its performance has been verified by the [facility]. A negative result does not rule out the presence of the Clostridium difficile Toxin A gene fragment in concentrations below the limit of detection for the assay. c DIFFICILE TOXIN DNA Negative [facility] Stool specimen (specimen) 08/29/2014 7:35 PM EST 08/29/2014 10:36 PM EST us Irina Rivas APRN MICROBIOLOGY - GENERAL ORDERA BLES Final Result Performing Organization Address [facility] [facility] Co de Phone Number [facility] [address] [place] [address] * FECAL WHITE BLOOD CELLS (08/29/2014 7:35 PM EST) Final Negative Internal QC ok [facility] Stool specimen (specimen) 08/29/2014 7:35 PM EST 08/30/2014 10:07 AM EST us Irina Rivas APRN MICROBIOLOGY - GENERAL ORDERA BLES Final Result Performing Organization Address City/[facility] Co de Phone Number [facility] [address] [place] [address] * OVA AND PARASITE BASIC (08/29/2014 7:35 PM EST) Final Negative: Giardia lamblia antigen not detected. Negative: Cryptosporidi um antigen not detected. Internal QC ok The O and P vial will be saved for 1 week. If extended O and P is desired, please call Micro at . [facility] Stool specimen (specimen) 08/29/2014 7:35 PM EST 08/30/2014 8:07 AM EST us Irina Rivas APRN MICROBIOLOGY - GENERAL ORDERA BLES Final Result [facility] [address] [place] [address] * CT ABDOMEN PELVIS W CONTRAST (08/29/2014 [...] Constipation. An otherwise unremarkable CT abdomen andpelvis. Germain Santa MD IMG CT ORDERABLES Final Res ult * PT / INR (08/29/2014 2:08 PM EST) Only the most recent of2 resultswithin the time period is included. PT 10.7 9.8 - 12.2 second(s) [facility] INR 0.97 0.89 - 1.11 [facility] Comment: Level of Therapy Indications Target INR Range Standard Dose Treatment and prophylaxis of venous 2.0 - 3.0 thrombosis, pulmonary embolism High Dose High risk patients with mechanical 2.5 - 3.5 heart valves Blood specimen (specimen) 08/29/2014 2:08 PM EST 08/29/2014 3:43 PM EST us Irina Rivas KNIFE GRINDER HEMATOLOGY ORDERABLES Final R esult [facility] [address] [place] [address] * US RIGHT UPPER QUADRANT (06/12/2014 9:58 [...] are normal. IMPRESSION: Unremarkable examination, S/P cholecystectomy. Darya Saenz MD [facility] [place] ORDERABLES F inal Result * XR [...] from prior cholecystectomy. IMPRESSION: Unremarkable abdominal series. Darya Saenz MD [facility] [place]AGNOSTIC IMAG ING ORDERABLES Final Result * [...] EDT) Bands 12(H) 0 - 10 % [facility] Aniso Slight [facility] Polychrom Slight [facility] Blood specimen (specimen) 05/04/2014 4:58 AM EDT 05/04/2014 5:02 AM EDT Cory Moran MD HEMATOLOGY ORDERABLES Final Result Performing Organization Address [facility] Co de Phone Number [facility] [address] [place] [address] * FUNGUS CULTURE-OTHER (05/03/2014 10:00 AM EDT) Only the most recent of3 resultswithin the time period is included. Final No growth of fungus at 4 weeks [facility] Tissue specimen (specimen) LUNG STRUCTURE / Unknown 05/03/2014 10:00 AM EDT 05/03/2014 11:10 AM EDT Comment:RIGHT UPPER LOBE MAS S Cory Moran MD MICROBIOLOGY - GENERAL ORDERABLES Final Result Performing Organization Address [facility] Co de Phone Number [facility] [address] [place] [address] * WOUND CULTURE (05/03/2014 10:00 AM EDT) GS Few WBC's No organisms seen [facility] Final No growth at 4 days. [facility] Tissue specimen (specimen) LUNG STRUCTURE / Unknown 05/03/2014 10:00 AM EDT 05/03/2014 11:10 AM EDT Comment:RIGHT UPPER LOBE MAS S Cory Moran MD MICROBIOLOGY - GENERAL ORDERABLES Final Result Performing Organization Address [facility]/ZIP Co de Phone Number [facility] [address] [place] [address] * ANAEROBIC CULTURE (05/03/2014 10:00 AM EDT) Final No anaerobic growth at 5 days [facility] Tissue specimen (specimen) LUNG STRUCTURE / Unknown 05/03/2014 10:00 AM EDT 05/03/2014 11:10 AM EDT Comment:RIGHT UPPER LOBE MAS S Cory Moran MD MICROBIOLOGY - GENERAL ORDERABLES Final Result Performing Organization Address [facility] Co de Phone Number [facility] [address] [place] [address] * ABORH (04/30/2014 3:50 PM EDT) ABORh Int A NEG [facility] Blood specimen (specimen) 04/30/2014 3:50 PM EDT 04/30/2014 3:56 PM EDT us Griselda Galvin KNIFE GRINDER BLOOD BANK ORDERABLES Final Result Performing Organization Address [facility] de Phone Number [facility] [address] [place] [address] * PARTIAL THROMBOPLASTIN TIME (04/30/2014 3:50 PM EDT) PTT 28.8 24.4 - 35.0 second(s) [facility] Comment: Therapeutic range for direct [...] PM EDT 04/30/2014 3:56 PM EDT us Shnatal Ames KNIFE GRINDER HEMATOLOGY ORDERABL ES Final Result Performing Organization Address [facility] Co de Phone Number [facility] [address] [place] [address] * ANTIBODY SCREEN IGG (04/30/2014 3:50 PM EDT) ABSC IgG Int Negative [facility] Blood specimen (specimen) 04/30/2014 3:50 PM EDT 04/30/2014 3:56 PM EDT Griselda Galvin KNIFE GRINDER BLOOD BANK ORDERABLES Final Result Performing Organization Address [facility] de Phone Number [facility] [address] [place] [address] * (ABNORMAL) BLOOD GAS ARTERIAL (04/30/2014 3:45 PM EDT) pH 7.440 7.370 - 7.440 [facility] pCO2 37 32 - 45 mmHg [facility] pO2 102(H) 80 - 95 mmHg [facility] HCO3 25 20 - 29 mmol/L [facility] TCO2 26 21 - 30 mmol/L [facility] Base Excess 1.1 -2.8 - 2.3 mEq/L [facility] O2 Sat 99(H) 95 - 97 % [facility] Inspired O2 RA [facility] Specimen Type Arterial [facility] Blood specimen (specimen) UPPER LIMB STRUCTURE / Unknown 04/30/2014 3:45 PM EDT 04/30/2014 3:50 PM EDT Narrative [facility] - 04/30/2014 3:58 PM EDT Pre-op ABG on ROOM AIR Result [facility] Sahntal mAes KNIFE GRINDER CHEMISTRY ORDERABLE S Final Result Performing Organization Address [facility] de Phone Number [facility] [address] [place] [address] * (ABNORMAL) LDL, CALCULATED (03/25/2014 1:26 PM EDT) LDL Calculated 162(H) <=100 mg/dL [facility] Comment: < 100 Optimal 100 - 129 Near or above optimal 130 - 159 Borderline High 160 - 189 High >= 190 Very High Blood specimen (specimen) 03/25/2014 1:26 PM EDT 03/25/2014 6:56 PM EDT Buster Talbot MD CHEMISTRY ORDERABLES Final Result Performing Organization Address [facility] de Phone Number [facility] [address] [place] [address] * (ABNORMAL) LIPID PANEL REFLEX (03/25/2014 1:26 PM EDT) Cholesterol 257(H) <=200 mg/dL [facility] Comment: < 200 Desirable 200 - 239 Borderline High >= 240 High Triglyceride 301(H) <=150 mg/dL [facility] Comment: < 150 Normal 150 - 199 Borderline High 200 - 499 High >= 500 Very High HDL 35(L) >=40 mg/dL [facility] Comment: > 60 Optimal 40 - 60 Acceptable < 40 Low Blood specimen (specimen) UPPER LIMB STRUCTURE / Unknown 03/25/2014 1:26 PM EDT 03/25/2014 6:56 PM EDT us Buster Talbot MD CHEMISTRY ORDERABLES Edited Result - Final Performing Organization Address [facility] de Phone Number [facility] [address] [place] [address] * SCANNED PRE/POST PROCEDURES (03/22/2014 1:24 PM [...] 4:03 PM EDT) Urine Microalb 21.1 mg/L [facility] Urine Creatinine 302.0 mg/dL [facility] Ur Microalb/Creat 7 0 - 20 mg/gm [facility] Urine specimen (specimen) 03/20/2014 4:03 PM EDT 03/20/2014 7:30 PM EDT us Buster Talbot MD URINE ORDERABLES Final Resu lt Performing Organization Address City/[facility]/ZIP Co de Phone Number [facility] [address] [place] [address] * MISCELLANEOUS LAB (03/19/2014 1:25 PM EDT) Only the most recent of2 resultswithin the time period is included. Bronchoalveolar lavage fluid specimen (specimen) 03/19/2014 1:25 PM EDT 03/19/2014 3:39 PM EDT Narrative [facility] - 03/19/2014 3:53 PM EDT afb culture us Abimbola Gonzalez MD HEMATOLOGY ORDERABLES Final Res ult Performing Organization Address [facility] Co de Phone Number [facility] [address] [place] [address] * T-CELL LYMPHOCYTE SUBSETS-BAL (03/19/2014 1:11 PM EDT) T-Cell Subsets BAL Source BAL [facility] % CD3 - BAL 79 % [facility] Comment: Please interpret the results of the Lymphocyte Subsets Panel 4 - T-Cell Subsets Percents and Ratio, Bronchoalveolar Lavage with caution. The specimen is contaminated with peripheral blood. Peripheral blood lymphocytes and BAL lymphocytes cannot be for analysis. These results include both peripheral blood lymphocytes and BAL lymphocytes. % CD4 - BAL 38 % [facility] % CD8 - BAL 36 % [facility] CD4:CD8 RATIO - BAL 1.06 ratio [facility] Comment: INTERPRETIVE INFORMATION: Lymphocyte Subset [...] T-cells. Test developed and characteristics determined by [employer]. See Compliance Statement B: [email or web address] Performed at: [address] [id number] Bronchoalveolar lavage fluid specimen (specimen) 03/19/2014 1:11 PM EDT 03/19/2014 5:55 PM EDT Abimbola Gonzalez MD IMMUNOLOGY ORDERABLES Final Res ult Performing Organization Address [facility] Co de Phone Number [facility] [address] [place] [address] * LOWER RESPIRATORY CULTURE (03/19/2014 1:11 PM EDT) Only the most recent of2 resultswithin the time period is included. Pathologist [facility] GS Rare WBC's No organisms seen [facility] Final Very sparse growth of normal oral nadia [facility] Bronchoalveolar lavage fluid specimen (specimen) 03/19/2014 1:11 PM EDT 03/19/2014 2:08 PM EDT Narrative [facility] - 03/21/2014 7:32 AM EDT Includes a Gram Stain. Abimbola Gonzalez MD MICROBIOLOGY - GENERAL ORDERABL ES Final Result Performing Organization Address [facility] de Phone Number [facility] [address] [place] [address] * ACID FAST BACILLI CULTURE AND SMEAR (03/19/2014 1:11 PM EDT) Only the most recent of2 resultswithin the time period is included. [facility] Acid Fast Bacilli Stain No Acid Fast Bacillus seen with fluorescent stain Test performed by reference lab, see separate report [facility] Final No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
--- OUTSIDE RECORDS SUMMARY | 2025-08-07 12:08 | XMS_ITS | Encounter Summary ---
Author Organization [facility] Address [address] [place] [address] Care Team Providers Care Director Of Clinical Trials Name Role Phone Pcp, No Primary Care [...] release of HIV test results or diagnoses. [id number] Encounter Details Date Type Department Care Team (Late st Contact Info) Description 10/27/2016 Chart Note [facility]NA[facility] [address] [place] [address] Margarita Huntley MD Social History Tobacco Use [...] filedocumented in this encounter Care Teams Director Of Clinical Trials Relationship Specialty Start Date End Date Pcp, No No Address PCP - General Pediatrics 08/17/16 04/23/21 System, Provider Not In PCP - General 04/24/21 05/18/21 Pcp, No No Address PCP - General 05/19/21 Matt Glover MD [address] [place] [address] 08/17/16 documented as of this encounter
--- OUTSIDE RECORDS SUMMARY | 2025-08-07 12:08 | XMS_ITS | Encounter Summary ---
Author Organization Healthcare Address [address] [place] [address] Care Team Providers Care Almond Paste Molder Name Role Phone Buster Falcon MD Primary Care Provider [phone] Encounter Details Date Type Department Care Team ([facility] st Contact Info) Description 08/05/2016 Orders Only External Location [address] [place] [address] Provider, External Social History Tobacco Use Types [...] on filedocumented in this encounter Care Teams Almond Paste Molder Relationship Specialty Start Date End Date Buster Falcon MD [address] [place] [address] PCP - General 08/22/23 documented as of this encounter
--- OUTSIDE RECORDS SUMMARY | 2025-08-07 12:08 | XMS_ITS | Encounter Summary ---
Author Organization [facility] Address [address] [place] [address] Care Team Providers Care Top Trimmer Name Role Phone Pcp, No Primary Care [...] release of HIV test results or diagnoses. [id number] Encounter Details Date Type Department Care Team (Late st Contact Info) Description 10/31/2016 Chart Note [facility]FORMATION MANAGEMENT [address] [place] [address] Margarita Huntley MD Social History Tobacco Use [...] on filedocumented in this encounter Care Teams Top Trimmer Relationship Specialty Start Date End Date Pcp, No No Address PCP - General Pediatrics 08/17/16 04/23/21 System, Provider Not In PCP - General 04/24/21 05/18/21 Pcp, No No Address PCP - General 05/19/21 Matt Glover MD [address] [place] [address] 08/17/16 documented as of this encounter
--- OUTSIDE RECORDS SUMMARY | 2025-08-07 12:08 | XMS_ITS | Clinical Summary ---
Author Organization [facility] Address [address] [place] [address] Care Team Providers Care Artificial Teeth Inspector Name Role Phone Pcp, No Primary Care Provider [phone] Matt Glover MD Unavailable Source Comments This [...] therelease of HIV test results or diagnoses. [id number] Allergies Active Allergy Reactions Criticality Noted [...] Maintenance Insurance [employer] Care Teams Artificial Teeth Inspector Relationship Specialty Start Date End Date Pcp, No No Address PCP - General 05/19/21 Matt Glover MD [address] [place] [address] 08/17/16
--- OUTSIDE RECORDS SUMMARY | 2025-08-07 12:08 | XMS_ITS | Encounter Summary ---
Author Organization Healthcare Address [address] [place] [address] Care Team Providers Care Chief Media Officer Name Role Phone Buster Falcon MD Primary Care Provider + [phone] Encounter Details Date Type Department Care Team ([facility] Contact Info) Description 05/15/2021 Orders Only External Location [address] [place] [address] Provider, External Social History Tobacco Use Types [...] filedocumented in this encounter Care Teams Chief Media Officer Relationship Specialty Start Date End Date Buster Falcon MD [address] [place] [address] PCP - General 08/22/23 documented as of this encounter
--- OUTSIDE RECORDS SUMMARY | 2025-08-07 12:08 | XMS_ITS | Encounter Summary ---
Author Organization Healthcare Address [address] [place] [address] Care Team Providers Care Manager Helpdesk Name Role Phone Buster Falcon MD Primary Care Provider [phone] Encounter Details Date Type Department Care Team ([facility] st Contact Info) Description 02/02/2016 Orders Only External Location [address] [place] [address] Provider, External Social History Tobacco Use Types [...] filedocumented in this encounter Care Teams Manager Helpdesk Relationship Specialty Start Date End Date Buster Falcon MD [address] [place] [address] PCP - General 08/22/23 documented as of this encounter
--- OUTSIDE RECORDS SUMMARY | 2025-08-07 12:08 | XMS_ITS | Encounter Summary ---
Author Organization Healthcare Address [address] [place] [address] Care Team Providers Care Erp Pm Name Role Phone Buster Falcon MD Primary Care Provider + [phone] Encounter Details Date Type Department Care Team ([facility] st Contact Info) Description 05/15/2021 Orders Only External Location [address] [place] [address] Provider, External Social History Tobacco Use Types [...] on filedocumented in this encounter Care Teams Erp Pm Relationship Specialty Start Date End Date Buster Falcon MD [address] [place] [address] PCP - General 08/22/23 documented as of this encounter
--- OUTSIDE RECORDS SUMMARY | 2025-08-07 12:08 | XMS_ITS | Encounter Summary ---
Author Organization [facility] Address [address] [place] [address] Care Team Providers Care Control Systems Drafting Officer Name Role Phone Pcp, No Primary Care [...] release of HIV test results or diagnoses. [id number] Encounter Details Date Type Department Care Team (Late st Contact Info) Description 12/05/2016 Chart Note [facility] INFORMATION MANAGEMENT [address] [place] [id number] Margarita Huntley MD Social History Tobacco Use [...] on filedocumented in this encounter Care Teams Control Systems Drafting Officer Relationship Specialty Start Date End Date Pcp, No No Address PCP - General Pediatrics 08/17/16 04/23/21 System, Provider Not In PCP - General 04/24/21 05/18/21 Pcp, No No Address PCP - General 05/19/21 Matt Glover MD [address] [place] [address] 08/17/16 documented as of this encounter
--- OUTSIDE RECORDS SUMMARY | 2025-08-07 12:08 | XMS_ITS | Encounter Summary ---
Author Organization [facility] Address [address] [place] [address] Care Team Providers Care Speech Language Pathologist Name Role Phone Pcp, No Primary Care [...] release of HIV test results or diagnoses. [id number] Encounter Details Date Type Department Care Team (Late st Contact Info) Description 10/07/2016 Chart Note [facility] INFORMATION MANAGEMENT [address] [place] [address] Margarita Huntley MD Social History Tobacco Use [...] on filedocumented in this encounter Care Teams Speech Language Pathologist Relationship Specialty Start Date End Date Pcp, No No Address PCP - General Pediatrics 08/17/16 04/23/21 System, Provider Not In PCP - General 04/24/21 05/18/21 Pcp, No No Address PCP - General 05/19/21 Matt Glover MD [address] [place] [address] 08/17/16 documented as of this encounter
--- OUTSIDE RECORDS SUMMARY | 2025-08-07 12:08 | XMS_ITS | Encounter Summary ---
Author Organization Healthcare Address [address] [place] [address] Care Team Providers Care J2Ee Android Developer Name Role Phone Buster Falcon MD Primary Care Provider + [phone] Encounter Details Date Type Department Care Team ([facility] st Contact Info) Description 06/08/2021 Orders Only External Location [address] [place] [address] Provider, External Social History Tobacco Use Types [...] on filedocumented in this encounter Care Teams J2Ee Android Developer Relationship Specialty Start Date End Date Buster Falcon MD [address] [place] [address] PCP - General 08/22/23 documented as of this encounter
--- OUTSIDE RECORDS SUMMARY | 2025-08-07 12:08 | XMS_ITS | Encounter Summary ---
Author Organization Healthcare Address [address] [place] [address] Care Team Providers Care Punchboard Assembler Name Role Phone Buster Falcon MD Primary Care Provider + [phone] Encounter Details Date Type Department Care Team ([facility] st Contact Info) Description 03/10/2023 Orders Only External Location [address] [place] [address] Provider, External Social History Tobacco Use Types [...] on filedocumented in this encounter Care Teams Punchboard Assembler Relationship Specialty Start Date End Date Buster Falcon MD [address] [place] [address] PCP - General 08/22/23 documented as of this encounter
--- OUTSIDE RECORDS SUMMARY | 2025-08-07 12:08 | XMS_ITS | Encounter Summary ---
Author Organization Healthcare Address [address] [place] [address] Care Team Providers Care Massage Therapy Instructor Name Role Phone Buster Falcon MD Primary Care Provider + [phone] Encounter Details Date Type Department Care Team ([facility] st Contact Info) Description 04/19/2023 Orders Only External Location [address] [place] [address] Provider, External Social History Tobacco Use Types [...] on filedocumented in this encounter Care Teams Massage Therapy Instructor Relationship Specialty Start Date End Date Buster Falcon MD [address] [place] [address] PCP - General 08/22/23 documented as of this encounter
== END 2025-08-06 23:59 | disposition home or self-care (01) ==
LOC: LAB.DROPOF 08-07 12:04
PROVIDERS: PCP Family Medicine; Visit Provider Family Medicine
DX: Z77.120 Contact with and (suspected) exposure to mold (toxic) (principal); R05.9 Cough, unspecified
CPT/HCPCS: 85025; 86003

== ENCOUNTER 2025-08-07 14:29 | Outpatient (CLI) | payer MEDICARE, SELFPAY ==
--- NOTE | 2025-08-07 14:31 | XR_ITS ---
FINAL REPORT CLINICAL HISTORY: cough, soa x3 weeks possible pneumonia COMPARISON: None FINDINGS: PA and lateral views of the chest are obtained. There is no prior exam for comparison. The cardiac and mediastinal silhouettes are within normal limits. The lungs are clear. There is no pleural effusion, pneumothorax, or acute osseous abnormality. IMPRESSION: No radiographic evidence of acute cardiac or pulmonary disease. Reviewed, Interpreted and Dictated by Ena Matthews MD Transcribed by Eun Cabrales Authenticated and [facility]
== END 2025-08-07 23:59 | disposition home or self-care (01) ==
LOC: RAD 14:30
PROVIDERS: PCP Family Medicine; Visit Provider Family Medicine
DX: R05.9 Cough, unspecified (principal); R06.02 Shortness of breath; Z77.120 Contact with and (suspected) exposure to mold (toxic)
CPT/HCPCS: 71046